=== PATIENT | male | born 1955 | race Caucasian/White ===

== ENCOUNTER 2019-08-23 13:44 | Outpatient (CLI) | payer MEDICARE, SELFPAY | END 2019-08-23 13:45 | disposition home or self-care (01) | LOC: CHSLAB 13:48 | PROVIDERS: PCP Physician Assistant; Visit Provider Specialist | DX: L72.8 Other follicular cysts of the skin and subcutaneous tissue (principal) | CPT/HCPCS: 88305 ==

== ENCOUNTER 2020-03-20 09:44 | Outpatient (CLI) | payer MEDICARE, MEDICAID, SELFPAY | END 2020-03-20 09:45 | disposition home or self-care (01) | PROVIDERS: PCP Family Medicine; Visit Provider Specialist | DX: C44.41 Basal cell carcinoma of skin of scalp and neck (principal) | CPT/HCPCS: 88305 ==

== ENCOUNTER 2021-10-03 05:49 | Inpatient (IN) | payer OTHER, SELFPAY ==
[2021-10-03] VITALS (28 sets, daily range): BP systolic 90–145; BP diastolic 47–89; PULSE 55–103; RESP 14–26; TEMP 36.5–37.1; O2SAT 88–96; BMI 28.4
--- NOTE | 2021-10-03 | ECHO_ITS ---
Patient Info Name: Ruperto Friedman Age: 66 years : 1955 Gender: Male Ht: 72 in Wt: 207 lbs BSA: 2.20 m2 HR: 71 bpm BP: 118 / 89 mmHg Technical Quality: Poor Exam Date: 10/03/2021 10:03 AM Exam Location: [facility] Patient Status: Inpatient Admit Date: 10/03/2021 Staff Ordering Physician: Mathew Farris MD Medical Underwriter: Mague Elizondo RDCS Attending Provider: Mathew Farris MD Exam Type: CA echo dop color flow w con Study Info Indications I21.3 - ST elevation (STEMI) myocardial infarction of unspecified site Complete two-dimensional, color flow and Doppler transthoracic echocardiogram is performed with contrast to opacify the left ventricle and to improve the deliniation of the left ventricle endocardial borders. Contrast/Agitated Saline Contrast/Ag. Saline: Definity Amount: 2.00 ml Administered By: Mague Elizondo [facility] Existing IV Access: Yes IV Access Condition: patent with no signs of infiltration Reason for Poor Study: poor echocardiographic windows Summary 1. Left ventricular chamber dimension is moderately enlarged. 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 2. Left ventricular systolic function is severely reduced, estimated at 25-30%. 3. The left ventricular diastolic function is abnormal. 4. There is mild mitral valve calcification. 5. There is mild tricuspid valve regurgitation. Left Ventricle Left ventricular chamber dimension is moderately enlarged. 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 Left ventricular systolic function is severely reduced, estimated at 25-30%. The left ventricular diastolic function is abnormal. Right Ventricle Right ventricular chamber dimension is normal. Right ventricular systolic function is normal. Left Atria Left atrial chamber dimension is normal. Right Atria Right atrial chamber dimension is normal. Aortic Valve The aortic valve is not well visualized. There is no aortic valve stenosis. There is no aortic valve regurgitation. Pulmonic Valve The pulmonic valve is not well visualized. There is no pulmonic valve stenosis. There is no pulmonic regurgitation. Mitral Valve There is no mitral valve stenosis. There is no mitral valve regurgitation. There is mild mitral valve calcification. Tricuspid Valve The tricuspid valve leaflets are not well visualized. There is no significant tricuspid valve stenosis. There is mild tricuspid valve regurgitation. Pericardium/Pleural The pericardium appears normal. Inferior Vena Cava Normal inferior vena cava with >50% collapse upon inspiration consistent with normal right atrial pressure, 5 mmHg. Aorta The aortic root size at the sinus of Valsalva is normal. Left Ventricular Outflow Tract Name Value Normal LVOT 2D LVOT Diameter 2.09 cm LVOT Doppler LVOT Peak Gradient 3 mmHg LVOT Mean Gradient 2 mmHg LVOT VTI 20.59 cm LVOT VTI/AV VTI Ratio 0.94 LVOT Stroke Volume
--- NOTE | ~2021-10-03 | XR_ITS ---
EXAMINATION: XR abdomen obstructive series DATE: 10/03/2021 10:56 INDICATION: Prior radiograph with some suspicion for possible free intraperitoneal gas. TECHNIQUE: Frontal supine and upright views of the abdomen were obtained. COMPARISON: Chest radiograph dated 10/03/2021 at 6:09 AM FINDINGS: Increasing aeration underlying a curved bandlike region of discoid atelectasis at the right lower jil g zone which likely account for the appearance of lucency under the diaphragm on the prior radiograph . No pneumoperitoneum. Additional scattered mild linear discoid atelectasis in the bilateral mid and left lower lung zones. No dilated loops of gas-filled bowel to suggest obstruction. Excreted contrast in the bilateral renal collecting systems and bladder related to the prior cardiac catheterization. Heart size is normal. Median sternotomy wires and mediastinal surgical clips are seen, likely from pr ior coronary artery bypass grafting. IMPRESSION: 1. No free intraperitoneal gas or dilated gas-filled loops of bowel to suggest obstruction. 2. Scattered discoid atelectasis in the bilateral mid and lower lung zones which at the right lung ba se likely accounting for the artifactual appearance of pneumoperitoneum on the prior chest radiograph . Reviewed, dictated and finalized at location A. IMPRESSION: 1. No free intraperitoneal gas or dilated gas-filled loops of bowel to suggest obstruction. 2. Scattered discoid atelectasis in the bilateral mid and lower lung zones whic h at the right lung base likely accounting for the artifactual appearance of pn eumoperitoneum on the prior chest radiograph.
--- NOTE | ~2021-10-03 | XR_ITS ---
EXAMINATION: XR chest 1V portable DATE: 10/04/2021 05:57 INDICATION: Shortness of breath TECHNIQUE: frontal view of the chest was obtained. COMPARISON: Chest radiograph dated 10/03/2021 FINDINGS: Opacity in the bilateral mid and lower lung zones which includes some linear bandlike discoid atelect asis/scarring as well as more diffuse mild increased interstitial pattern and increasing groundglass opacities. Very small bilateral pleural effusions. No pneumothorax. The cardiomediastinal silhouette is normal. Median sternotomy wires and mediastinal surgical clips are seen, likely from prior coronar y artery bypass grafting. IMPRESSION: 1. Increasing opacities in the bilateral lower lung zones which could represent atelectasis, mild pul monary edema, pneumonia or some combination thereof. Reviewed, dictated and finalized at location A. IMPRESSION: 1. Increasing opacities in the bilateral lower lung zones which could represent atelectasis, mild pulmonary edema, pneumonia or some combination thereof.
--- NOTE | ~2021-10-03 | XR_ITS ---
EXAMINATION: XR chest 1V portable DATE: 10/03/2021 06:11 INDICATION: Chest pain with ST elevation myocardial infarction TECHNIQUE: frontal view of the chest was obtained. COMPARISON: None FINDINGS: There are opacities at the bilateral lung bases with blunting at left costophrenic angle which could represent atelectasis or pneumonia with possible superimposed very small left pleural effusion. No pn eumothorax or right-sided pleural effusion. Calcified nodule at the right lower lung zone consistent with old granulomatous disease. The cardiomediastinal silhouette is normal. Median sternotomy wires a nd mediastinal surgical clips are seen, likely from prior coronary artery bypass grafting. There is i ncreased lucency underlying the right hemidiaphragm which raises some suspicion for free intraperiton eal gas. IMPRESSION: 1. Bibasilar opacities which could represent atelectasis and/or pneumonia. 2. Possible very small left pleural effusion. 3. Lucency under the right hemidiaphragm and could not exclude free intraperitoneal gas. The patient is currently in the cardiac Thermograph Operator and per discussion with the technologist currently mid procedure . I discussed these findings and recommendation for decubitus imaging of the abdomen when clinically appropriate. Reviewed, dictated and finalized at location A. IMPRESSION: 1. Bibasilar opacities which could represent atelectasis and/or pneumonia. 2. Possible very small left pleural effusion. 3. Lucency under the right hemidiaphragm and could not exclude free intraperito farida gas. The patient is currently in the cardiac Thermograph Operator and per discussion w ith the technologist currently mid procedure. I discussed these findings and re commendation for decubitus imaging of the abdomen when clinically appropriate.
--- NOTE | 2021-10-03 05:46 | ED.CHESTPAIN ---
HPI - Chest Pain General Chief Complaint: Chest Pain Stated Complaint: code stemi eta 10 min Source: patient and EMS Mode of arrival: EMS Limitations: no limitations History of Present Illness HPI narrative: The patient is a 66-year-old male with history of hypertension, hyperlipidemia, coronary artery disease, presenting to the emergency department for evaluation of chest pain. Patient states he has felt unwell most of the evening, started to experience left-sided chest pain, indigestion type symptoms approximately 2 hours ago. Patient without vomiting, diaphoresis or shortness of breath. EMS was called, when they responded to the patient, EKG was concerning for STEMI. Patient reports that he previously lived in [place], has a history of numerous cardiac stents. Patient denies any leg swelling or calf pain. Denies history of congestive heart failure. He does smoke. Denies drug use or alcohol use. Last oral intake 2 PM October 02. Pt is not on any anticoagulation. Patient currently denies any abdominal pain. No ripping or tearing sensation to the flank or abdomen. Denies any upper back pain. He does report pressure in his left shoulder. He denies jaw pain or neck pain. Patient was given an aspirin in route. Related Data Home Medications Medication Instructions Recorded Confirmed albuterol sulfate 3 puff INHALATION PRN 10/03/21 10/03/21 atorvastatin 80 mg PO HS 10/03/21 10/03/21 citalopram 10 mg PO DAILY 10/03/21 10/03/21 loratadine 10 mg PO USEASDIRECTD 10/03/21 10/03/21 lorazepam 0.5 mg PO DAILY PRN 10/03/21 10/03/21 omeprazole 40 mg PO QAM 10/03/21 10/03/21 tretinoin 1 applic TOPICAL DAILY 10/03/21 10/03/21 umeclidinium-vilanterol [Anoro 1 inh INHALATION DAILY 10/03/21 10/03/21 Ellipta] Allergies Allergy/AdvReac Type Severity Reaction Status Date / Time Iodinated Contrast Media Allergy Unknown Verified 10/03/21 06:27 Review of Systems Review of Systems: CONSTITUTIONAL: Denies fever HEENT: Denies neck pain CARDIOVASCULAR: Reports chest pain RESPIRATORY: Denies cough or dyspnea. GASTROINTESTINAL: Denies abdominal pain, reports nausea without vomiting SKIN: Denies rash MUSCULOSKELETAL: Denies back pain NEUROLOGIC: Denies headache [facility] Past Medical History Medical History (Updated 10/03/21 @ 09:26 by Carson Dalton MD) COPD (chronic obstructive pulmonary disease) On home oxygen 4 L Coronary artery disease Status post CABG in 2007 Hyperlipidemia Hypertension Surgical History Surgical History (Updated 10/03/21 @ 09:12 by Carson Dalton MD) Hx of CABG In 2007 Family History Family History (Updated 10/03/21 @ 09:38 by Tina Galarza RN) Mother Heart disease Heart attack Father Heart disease Heart attack Social History Social History (Updated 10/03/21 @ 09:13 by Carson Dalton MD) Smoking packs per day: 1 Smoking cigarettes per day: 20.0 Years smoked: 41 Smoking pack-years: 41.00 Smoking status: Current every day smoker Tobacco type: cigarettes Alcohol intake: never Substance use: never Substance use type: does not use Living arrangements: with family Gender identity (if verbalized by the patient): Male Spiritual care concerns: No Exam Narrative: GENERAL: Awake, alert, conversant HEAD: Normocephalic, atraumatic. EYES: PERRLA and EOMI. ENT: Nares clear, no rhinorrhea or epistaxis. Mucous membranes moist. NECK: Supple. CHEST: No respiratory distress, breathing even and non labored HEART: Regular rate, sinus rhythm ABDOMEN:Non distended, non tender, ventral wall hernia, nontender, no overlying erythema, ecchymosis EXTREMITIES: Normal range of motion. No edema. No calf tenderness, erythema. SKIN: Warm, dry, no rash. NEURO:No focal deficits. Alert and oriented x3 Course Vital Signs Vital signs: Vital Signs Temperature 36.9 C 10/03/21 05:49 Pulse Rate 73 10/03/21 05:49 Respiratory Rate 14 10/03/21 05:49 Blood Pressure 145/76 H
--- NOTE | 2021-10-03 05:54 | ECG_ITS ---
Measurements Intervals [place] Rate: 75 P: 55 DC: 167 QRS: 37 QRSD: 108 T: 80 QT: 398 QTc: 445 Interpretive Statements SINUS RHYTHM INFERIOR MYOCARDIAL INFARCTION , POSSIBLY ACUTE [40+ ms Q WAVE AND/OR ST/T ABNORMALITY IN II/aVF] ACUTE NM ABNORMAL ECG NO PREVIOUS ECG AVAILABLE FOR COMPARISON Electronically Signed On 10-03-2021 15:39:23 CDT by Qamar Zapata M.D.
[2021-10-03] MEDS: ONDANSETRON INJ 4 MG/2 ML VIAL IV PUSH (06:01)
[2021-10-03] MEDS: MORPHINE SULFATE (*CRX) 4 MG/ML INJ IV PUSH (06:01)
[2021-10-03] MEDS: HEPARIN SODIUM 5,000 UNITS/ML VIAL 4000 UNITS IV PUSH (06:04)
[2021-10-03 06:11] LABS: Basophils Absolute Auto 0.1 K/mm3 (0.0-0.1); Basophils Percent Auto 0.5 % (0.2-1.2); Eosinophils Absolute Auto 0.1 K/mm3 (0-0.3); Eosinophils Percent Auto 0.6 % (0-4.4); Hematocrit 49.6 % (42.0-52.0); Hemoglobin 16.8 g/dL (14.0-18.0); Immature Granulocyte Absolute 0.07 K/mm3 (0.00-0.031); Immature Granulocyte Percent A 0.5 % (0-0.5); Lymphocytes Absolute Auto 1.95 K/mm3 (0.9-3.2); Lymphocytes Percent Auto 13.8 % (18.3-44.2); Mean Corpuscular HGB Conc 33.9 g/dl (32-36); Mean Corpuscular Hemoglobin 31.9 pg (26-34); Mean Corpuscular Volume 94.3 fl (80-100); Mean Platelet Volume 10.1 fl (7.4-10.4); Monocytes Absolute Auto 0.9 K/mm3 (0.1-0.6); Neutrophils Absolute Auto 11.1 K/mm3 (1.3-6.7); Neutrophils Percent Auto 78.6 % (45.5-73.1); Platelet Count Result 185 k/mm3 (150-375); Red Blood Count 5.26 M/mm3 (4.6-6.20); Red Cell Distribution Width 13.3 % (11.5-14.5); White Blood Count 14.2 K/mm3 (4.5-10.0)
[2021-10-03 06:19] LABS: Anion Gap 8 mmol/L (8-16); Blood Urea Nitrogen 18 mg/dL (9-20); Calcium 8.5 mg/dL (8.4-10.2); Carbon Dioxide 21 mmol/L (22-30); Chloride 110 mmol/L (98-107); Estimated CRCL calculation 96 ml/min; Estimated Glomerular Filt Rate > 60; Glucose 123 mg/dL (65-110); Potassium 4.2 mmol/L (3.4-5.0); Sodium 139 mmol/L (137-145)
[2021-10-03 06:33] LABS: NT Pro B Type Natriuretic Pept 229 pg/mL (5-100); Troponin I 0.278 ng/mL (0.000-0.034)
--- NOTE | 2021-10-03 06:40 | PM.CNCAR ---
Assessment and Plan Assessment and plan (1) Coronary artery disease: Code(s): I25.10 - Atherosclerotic heart disease of [place] coronary artery without angina pectoris Status: Acute Assessment and Plan: Inf post wall SC, Hx of CABG, Hx of contrast allregy pretreated with IV solumedrol and benadryl s/p PCI to SVG to OM3, Plan: DAPT, Statin, ASA, B-shaista, ACEI TTE, cardiac rehab History of Present Illness History of Present Illness Consult date/time: 10/03/21 06:40 Consult reason: chest pain Reason For Visit: STEMI Narrative: acute chest pain started at 3 am (3:30 min ago), while awake, left side, aching, non radiating, severe, no precipitating or relieving factors. Hx of CAD and prior bypass. Review of Systems Review of Systems: All systems reviewed & are unremarkable except as noted in HPI and below [facility] Surgical History Surgical History (Updated 10/03/21 @ 06:42 by Mathew Farris MD) Hx of CABG Social History Social History (Updated 10/03/21 @ 05:58 by Dayanna Kc MD) Smoking status: Current every day smoker Alcohol intake: never Substance use: never Living arrangements: with family Gender identity (if verbalized by the patient): Male Meds Home Medications and Allergies Allergies Allergy/AdvReac Type Severity Reaction Status Date / Time Iodinated Contrast Media Allergy Unknown Verified 10/03/21 06:27 Vital Signs Vital Signs - 24 hr 10/03/21 05:49 10/03/21 06:18 Temperature 36.9 C Pulse Rate 73 75 Respiratory Rate 14 20 Blood Pressure 145/76 H 118/89 Pulse Oximetry 92 94 Exam Const: General: comfortable and no acute distress Other: Able to lie flat HENMT: General nose exam: Normal nares present and no epistaxis Mouth: Yes moist mucous membranes Eyes: Sclera: sclerae normal Pupils: Equal, round and reactive pupils present Neck: Neck: supple and no JVD Carotids: no bruits Resp: Auscultation: clear to auscultation bilaterally and lung sounds not diminished Other: No chest wall tenderness Cardio: Rate: regular rate Rhythm: regular rhythm Heart sounds: no gallops, no murmurs and no rubs GI: GI Palp: Yes Soft to palpation and No Tenderness to palpation present (GI) Auscultation: normal bowel sounds Skin: General skin exam: normal color, rashes and/or lesions noted and no erythema Other: Warm Neuro: Cranial nerves: Yes Equal, round and reactive pupils present Speech: normal speech Other: No obvious focal deficit or facial asymmetry Extrem: General: no edema Other: Normal capillary refills Intact distal pulses. Results Labs and Meds Result diagrams: 10/03/21 06:04 10/03/21 06:04 Lab results: Cardiac Enzymes 10/03/21 Range/Units 06:04 Troponin I 0.278 H* (0.000-0.034) ng/mL Coagulation 10/03/21 Range/Units 06:04 PT 13.0 (11.1-14.7) Seconds APTT 33.0 (22.3-36.8) SECONDS CBC 10/03/21 Range/Units 06:04 WBC 14.2 H (4.5-10.0) K/mm3 RBC 5.26 (4.6-6.20) M/mm3 Hgb 16.8 (14.0-18.0) g/dL Hct 49.6 (42.0-52.0) % Plt Count 185 (150-375) k/mm3 Lymph # (Auto) 1.95 (0.9-3.2) K/mm3 [place] # (Auto) 0.9 H (0.1-0.6) K/mm3 Eos # (Auto) 0.1 (0-0.3) K/mm3 Baso # (Auto) 0.1 (0.0-0.1) K/mm3 Comprehensive Metabolic Panel 10/03/21 Range/Units 06:04 Sodium 139 (137-145) mmol/L Potassium 4.2 (3.4-5.0) mmol/L Chloride 110 H (98-107) mmol/L Carbon Dioxide 21 L (22-30) mmol/L BUN 18 (9-20) mg/dL Creatinine 0.70 (0.7-1.3) mg/dL Glucose 123 H (65-110) mg/dL Calcium 8.5 (8.4-10.2) mg/dL Patient Weight 10/03/21 23:59 Weight 94 kg Imaging and Cardiology EKG results: image reviewed (Sinus and inf post wall SC )
--- NOTE | 2021-10-03 08:18 | P.PCNCC_ITS ---
Cardiac Cath Procedure Note Date of procedure:: 10/03/21 Performing physician:: Mathew Farris MD Assessment and Plan Additional Plan PROCEDURE 1. LHC and coronary angiogram and Bypass angiogram 2. PCI to culprit lesion of NV in SVG with MEGHANN and use of SVG filter and aspiration thrombectomy 3. Intra-vascular ultrasonography 4. Intracoronary adenosine and nitroglycerine INDICATION STEMI inf post wall HISTORY 66 Yrs old male with acute chest pain and post wall NV PROCEDURE DETAILS Consent obtained and access site prepped and draped in sterile fashion Time out was done Sedation was done with versed 1 and fentanyl 150 with continuos monitoring and supervision by myself and RN Start time: 6:46 End time: 8:11 Access Obtained in rt CF artery with modified Seldinger technique Coronary angiogram was done using JL4 and JR4, bypass angiogram was done with JR4 HEMODYNAMICS Aorta: 100/70 LV: 100/20 CORONARY ANGIOGRAM Left main: bifrucates into LAD and LCX and ramus intermedius LAD: large vessel that gives diagonal branches, LAD is CLOTH BOLT BANDER proximally with ISR after giving small diagonal. Remaining of LAD is supplied by BROWN. LCX: Non dominant vessel that gives OM branches, CLOTH BOLT BANDER of LCX proximally with ISR and OM3 is filling from SVG that is totally occluded. RCA: Dominant vessel that gives PDA and rPL. RCA is totally occluded proximally with CLOTH BOLT BANDER/ISR in mid RCA. Ramus: intermediate size vessel with no obstructive disease. SVG to PDA: patent and gives supply to PDA and retrograde into rPL. SVG to OM3: patent and gives supply OM3, ostial sever disease and all proximal to distal with large burden of thrombus. BROWN to LAD: patent and gives supply to LAD that retorgrade filing diagonal PCI DETAILS #1 lesion: SVG to OM3 Pre-intervention: 100% occlusion with large thrombus filling all graft, GREGORIO 0 flow Guide catheter: AL1 Guide wire: Spider filter 6 mm was used to cross lesion into distal vessel and deployed distally Balloon angioplasty: Josue Pro 3.5 * 15 balloon was used to dilate ostium at 12 EM and align guide engagement. Aspiration thrombectomy was done using pneumpra catheter CAT Rx. IVUS done and revealed no more large thrombus burden but residual disease in ostium of SVG. Stent: Orsiro 4.0 * 22 mm stent was deployed proximally covering ostium, post stent angioplasty was done with 4.0 * 15 mm NC balloon at 20 EM. IVUS was done and showed stent fully expanded and well apposed. Aspiration thrombectomy was done and filter was retrieved and IC adenosine was give 400 mcg then 200 mcg of NTG. Post-intervention: 0% residual stenosis and GREGORIO 3 flow COMPLICATION: None CONCLUSION Successful PCI to SVG to OM3 with filter wire, Aspiration thrombectomy and MEGHANN with 4.0 * 22 and IVUS guided RECOMMENDATION DAPT Statin TTE Cardiac Rehab
[2021-10-03 08:24] LABS: Activated Clotting Time 267 SEC (74-137)
[2021-10-03 08:24] LABS: Activated Clotting Time 249 SEC (74-137)
[2021-10-03 08:24] LABS: Activated Clotting Time 178 SEC (74-137)
--- NOTE | 2021-10-03 09:03 | ECG_ITS ---
Measurements Intervals [place] Rate: 76 P: 70 GA: 177 QRS: 42 QRSD: 107 T: 71 QT: 405 QTc: 455 Interpretive Statements SINUS RHYTHM POSSIBLE INFERIOR MYOCARDIAL INFARCTION , PROBABLY OLD [30 ms Q WAVE IN II/aVF] BASELINE ARTIFACT NONSPECIFIC ST ABNORMALITY ABNORMAL ECG COMPARED TO ECG 10/03/2021 05:54:[address] ELEVATIONS NO LONGER APPRECIATED Electronically Signed On 10-03-2021 15:43:27 CDT by Qamar Zapata M.D.
--- NOTE | 2021-10-03 09:11 | WPDCNINT ---
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 Do not see any mention of arrhythmia in the note. Requested nurse to page cardiology to confirm order for lidocaine and details (2) Hypertension: Code(s): I10 - Essential (primary) hypertension Status: Chronic Assessment and Plan: Continue beta-shaista Monitor and adjust accordingly (3) Hyperlipidemia: Code(s): E78.5 - Hyperlipidemia, unspecified Status: Acute Assessment and Plan: Resume atorvastatind (4) COPD (chronic obstructive pulmonary disease): Code(s): J44.9 - Chronic obstructive pulmonary disease, unspecified Status: Acute Assessment and Plan: Patient does not appear in exacerbation Continue Albuterol p.r.n. He is on 4 L of oxygen at home on baseline (5) Coronary artery disease: Code(s): I25.10 - Atherosclerotic heart disease of [place] coronary artery without angina pectoris Status: Acute Assessment and Plan: See above (6) Aortic aneurysm: Code(s): I71.9 - Aortic aneurysm of unspecified site, without rupture Status: Acute Assessment and Plan: Patient reports he had a CT done 3 months ago which showed possible in resume which was very small on the CT. I will try to obtain records (7) Abnormal chest x-ray: Code(s): R93.89 - Abnormal findings on diagnostic imaging of other specified body structures Status: Acute Assessment and Plan: Chest x-ray done in the ED showed possible lucency under right hemidiaphragm I will repeat KUB at this time. 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 Per patient pain was burning in quality 04/14 in the center of the chest and radiated to his neck and left arm it was associated with shortness of breath and nausea. No vomiting no dizziness or lightheadedness no sweating. In ED patient was diagnosed with ST segment elevation IA and was taken to cardiac catheterization lab. Patient underwent PCI to venous graft to left circumflex. Patient now admitted to ICU for further evaluation management. He states that his symptoms have resolved and he denies any pain at this time. He also denies any other symptoms. Review of system was also positive for shortness of breaths without oxygen and shortness of breath on exertion. All other systems were reviewed and were negative Review of Systems Review of Systems: All systems reviewed & are unremarkable except as noted in HPI and below (HPI) PENDING SALE TO [facility] Past Medical History Medical History (Updated 10/03/21 @ 09:26 by Carson Dalton MD) COPD (chronic obstructive pulmonary disease) On home oxygen 4 L Coronary artery disease Status post CABG in 2007 Hyperlipidemia Hypertension Surgical History Surgical History (Updated 10/03/21 @ 09:12 by Carson Dalton MD) Hx of CABG In 2007 Social History Social History (Updated 10/03/21 @ 09:13 by Carson Dalton MD) Smoking packs per day: 1 Smoking cigarettes per day: 20.0 Years smoked: 41 Smok
--- NOTE | 2021-10-03 09:22 | PC.NURSE ---
Report received by CHRISTIANO Rdz with blood bank laboratory technologist team at 0814.
--- NOTE | 2021-10-03 09:23 | ADMGEN ---
This patient, Ruperto Friedman, was admitted to Intensive Care Unit-5 at 0830 from the general production laborer. Patient/family oriented to hospital policies and general routines including ID bracelet, bed and alarms, visiting hours, pain management, procedures, bathroom and other care routines, personal items, smoking policy, room service/diet, and visiting hours. Information on how to activate the Rapid Response Team has been discussed. Patient/Family are encouraged to report perceived risks to care and to ask questions if they do not understand what they are told or what they should do.
[2021-10-03] MEDS: ASPIRIN 81 MG ENTERIC TABLET PO (09:55)
[2021-10-03] MEDS: METOPROLOL TARTRATE 25 MG TABLET PO ×2 (09:55→21:03)
[2021-10-03 10:09] LABS: Magnesium 1.9 mg/dL (1.6-2.3)
[2021-10-03] MEDS: PERFLUTREN LIPID MICROSPHERES 1.5 ML VIAL DILUTED TO 10 ML TOTAL VOLUME IV PUSH (10:29)
--- NOTE | 2021-10-03 10:29 | IVDEFINITY ---
Prior to administration of IV Definity the patient was educated on the risks and benefits of the imaging enhancing agent including potential adverse side effects. The patient verbalized understanding. Allergies were verified. No exclusion criteria were identified and at least one of the following inclusion criteria were met: 1) physician request, 2) patient technically difficult to image (per the [place] [employer]chocardi[employer] guidelines of two or more segments not discernable within the apical view), or 3) questionable left ventricular function. ?
[2021-10-03] MEDS: SODIUM CHLORIDE 0.9% IV 1,000 ML 125 ML IV CONT (11:05)
--- NOTE | 2021-10-03 14:54 | PC.NURSE ---
Admission packet with information regarding cardiac rehabilitation presented and discussed with patient at 1430.
[2021-10-03] MEDS: LORazepam (*CRX) 0.5 MG TABLET PO (21:03)
[2021-10-03] MEDS: TICAGRELOR 90 MG TABLET PO (21:03)
[2021-10-03] MEDS: ALBUTEROL SULFATE NEB 2.5 MG/0.5 ML INH (23:59)
[2021-10-04] VITALS (32 sets, daily range): BP systolic 84–143; BP diastolic 52–91; PULSE 54–88; RESP 16–32; TEMP 36.2–37.2; O2SAT 86–98
[2021-10-04 04:24] LABS: Hematocrit 42.5 % (42.0-52.0); Mean Corpuscular HGB Conc 32.9 g/dl (32-36); Mean Corpuscular Hemoglobin 31.3 pg (26-34); Mean Corpuscular Volume 95.1 fl (80-100); Mean Platelet Volume 9.9 fl (7.4-10.4); Platelet Count Result 149 k/mm3 (150-375); Red Blood Count 4.47 M/mm3 (4.6-6.20); Red Cell Distribution Width 13.5 % (11.5-14.5); White Blood Count 17.5 K/mm3 (4.5-10.0)
[2021-10-04 04:35] LABS: Alanine Aminotransferase 42 U/L (4-50); Albumin Level 3.3 g/dL (3.5-5.1); Alkaline Phosphatase 64 U/L (38-126); Anion Gap 4 mmol/L (8-16); Aspartate Amino Transferase 192 U/L (17-59); Bilirubin,Total 0.6 mg/dL (0.2-1.3); Blood Urea Nitrogen 14 mg/dL (9-20); Calcium 7.8 mg/dL (8.4-10.2); Carbon Dioxide 22 mmol/L (22-30); Chloride 112 mmol/L (98-107); Estimated CRCL calculation 76 ml/min; Estimated Glomerular Filt Rate > 60; Glucose 95 mg/dL (65-110); Magnesium 1.6 mg/dL (1.6-2.3); Potassium 3.8 mmol/L (3.4-5.0); Sodium 138 mmol/L (137-145)
[2021-10-04] MEDS: ALBUTEROL SULFATE NEB 2.5 MG/0.5 ML INH (04:51)
[2021-10-04] MEDS: FUROSEMIDE INJ 40 MG/4 ML VIAL 20 MG IV PUSH (05:34)
[2021-10-04] MEDS: methylPREDNISolone SOD SUCC 125 MG VIAL IV PUSH (05:35)
[2021-10-04] MEDS: ALBUTEROL SULFATE (*SP) INHALER 2 PUFF INHALATION (06:05)
--- NOTE | 2021-10-04 06:57 | PC.NURSE ---
05:00 Patient in respiratory distress. Oxygen increased, auditor in charge present. See new orders for interventions. 05:45 Patient in respiratory distress again. Very diaphoretic. New orders carried out. Patient resting comfortably after interventions were carried out.
[2021-10-04 07:59] LABS: Alveolar/Arterial O2 Gradient 390.5 mmHg; Fractional Inspired Oxygen 100 %; HCO3 ABG 23.9 mEq/l (22.0-26.0); Oxygen Content ABG 21.3 %vol (16.0-22.0); Oxygen Saturation ABG 99.6 % (95.0-100.0); Oxyhemoglobin 97.8 % THb (90.0-100.0); PCO2 ABG 40.7 mmHg (35.0-45.0); PO2 ABG 281.8 mmHg (80.0-100.0); PO2 FiO2 Ratio Arterial Blood 2.82 %; pH ABG 7.387 (7.350-7.450)
[2021-10-04 08:00] LABS: Device NON-INVASIVE VENT; Modified Allen's Test Pass; Non-Invasive Inspiratory Pressure 14 CMH2O; Non-Invasive Vent Rate 20 /MIN; Site Drawn RIGHT RADIAL
[2021-10-04 08:01] LABS: Non-Invasive Expiratory Pressure 7 CMH2O
[2021-10-04 08:33] LABS: Procalcitonin 0.1 ng/mL
[2021-10-04] MEDS: TICAGRELOR 90 MG TABLET PO ×2 (08:50→21:02)
[2021-10-04] MEDS: ATORVASTATIN 40 MG TABLET 80 MG PO (08:50)
[2021-10-04] MEDS: PANTOPRAZOLE 40 MG TABLET PO (08:50)
[2021-10-04] MEDS: CITALOPRAM HYDROBROMIDE 10 MG TABLET PO (08:51)
[2021-10-04] MEDS: ASPIRIN 81 MG ENTERIC TABLET PO (08:51)
[2021-10-04] MEDS: ENOXAPARIN 40 MG/0.4 ML SYRINGE SUB-Q (08:51)
--- NOTE | 2021-10-04 08:58 | WPDINTPN ---
Progress Note: A&P Assessment and Plan (1) ST elevation (STEMI) myocardial infarction: Code(s): I21.3 - ST elevation (STEMI) myocardial infarction of unspecified site Status: Acute Assessment and Plan: Patient has a history of coronary disease status post CABG in 2007 Presented with STEMI and now status post PCI with stent placement to graft to left circumflex Currently chest pain-free Aspirin and Brilinta, Statin beta-shaista and ACEI held this morning due to soft blood pressure Continue ICU monitoring Cardiac rehab Echo Summary 1. Left ventricular chamber dimension is moderately enlarged. 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 2. Left ventricular systolic function is severely reduced, estimated at 25-30%. 3. The left ventricular diastolic function is abnormal. 4. There is mild mitral valve calcification. 5. There is mild tricuspid valve regurgitation. (2) Hypertension: Code(s): I10 - Essential (primary) hypertension Status: Chronic Assessment and Plan: Hold meds this morning as patient's blood pressure soft after receiving Lasix Monitor and adjust accordingly (3) Hyperlipidemia: Code(s): E78.5 - Hyperlipidemia, unspecified Status: Acute Assessment and Plan: Resume atorvastatind (4) COPD (chronic obstructive pulmonary disease): Code(s): J44.9 - Chronic obstructive pulmonary disease, unspecified Status: Acute Assessment and Plan: Currently on BiPAP Does not appear to be in COPD exacerbation but did receive a dose of steroid Continue Albuterol p.r.n. and anoro Ellipta He is on 4 L of oxygen at home on baseline (5) Coronary artery disease: Code(s): I25.10 - Atherosclerotic heart disease of [place] coronary artery without angina pectoris Status: Acute Assessment and Plan: See above (6) Aortic aneurysm: Code(s): I71.9 - Aortic aneurysm of unspecified site, without rupture Status: Acute Assessment and Plan: Patient reports he had a CT done 3 months ago which showed possible in resume which was very small on the CT. I have requested records (7) Abnormal chest x-ray: Code(s): R93.89 - Abnormal findings on diagnostic imaging of other specified body structures Status: Acute Assessment and Plan: Chest x-ray done in the ED showed possible lucency under right hemidiaphragm repeat KUB was done in ICU and did not show any free air (8) Acute respiratory failure: Code(s): J96.00 - Acute respiratory failure, unspecified whether with hypoxia or hypercapnia Status: Acute Assessment and Plan: Likely secondary to congestive heart failure and pulmonary edema Patient's EF is 25-30% on echo He was placed on BiPAP which I will continue He was given Lasix I checked ABG and reviewed He does have elevated white count but has been afebrile and his procalcitonin level was negligible suggesting against any infectious etiology Additional Plan DVT prophylaxis -start Lovenox from tomorrow Stress ulcer prophylaxis -continue home PPI Nutrition -heart healthy diet Code Status - Full Code Total Critical Care Time - 32 minutes Due to a high probability of clinically significant, life threatening deterioration, the patient required my highest level of preparedness to intervene emergently and I personally spent this critical care time directly and personally managing the patient. This critical care time included obtaining a history; examining the patient; pulse oximetry; ordering and review of studies; arranging urgent treatment with development of a management plan; evaluation of patient's response to treatment; frequent reassessment; and discussions with other providers. It was exclusive of separately billable procedures and treating other patients and teaching time. Please see Assessment and Plan section and the rest of the note for further information on patient assessment and treatment Subj
[2021-10-04] MEDS: KCL 20 MEQ/SW 100 ML 100 ML 50 MEQ IVPB (10:05)
[2021-10-04] MEDS: MAGNESIUM SULF 2 GM/WATER 50ML 2 GM/50 ML BAG IVPB (10:06)
--- NOTE | 2021-10-04 14:03 | PM.PNCARD ---
Progress Note: A&P Assessment and Plan (1) Coronary artery disease: Code(s): I25.10 - Atherosclerotic heart disease of [place] coronary artery without angina pectoris Status: Acute Assessment and Plan: -acute inferior posterior ST-elevation myocardial infarction. -ventricular tachycardia. -patient acute combined systolic and diastolic heart failure exacerbation. -history of CABG. -hyperlipidemia This 66-year-old patient presents with acute inferior posterior myocardial infarction and was found to have high-grade stenosis of ostial SVG to OM with extensive clotting and thrombus inside the graft. He underwent aspiration thrombectomy and then stenting of the ostial graft. He developed ventricular tachycardia prior and after the stenting. -since there is no recurrence of ventricular tachycardia we can discontinue lidocaine drip. -continue aspirin and Brilinta. -his echocardiogram shows ejection fraction 25-30%. This morning had an episode of shortness of breath and chest x-ray suggestive of pulmonary edema. Received 20 mg IV Lasix. He will need Life Vest on discharge from the hospital. -continue metoprolol 25 mg b.i.d. and lisinopril 10 mg daily. His blood pressure was soft this morning on both medications were held this morning. Will try just to give the metoprolol 25 mg b.i.d. -Lasix 20 mg p.o. starting tomorrow Subjective Date/time seen: DOS: 10/04/21 14:03: Had an episode of shortness of breath this morning. Chest x-ray suggestive of possible pulmonary edema. Given IV Lasix. He appears to be comfortable. Review of telemetry shows a short burst of VT around 2:00 a.m. consistent 3 beats but otherwise no significant arrhythmia since that time. Remains on lidocaine drip. Denies chest pain Review of Systems Eyes: Eyes: Denies blurry vision ENT: Denies nasal congestion Cardiovascular: Cardiovascular: Denies chest pain Respiratory: Respiratory: Denies hemoptysis and Reports dyspnea Gastrointestinal: Gastrointestinal: Denies nausea and Denies vomiting Musculoskeletal: Musculoskeletal: Denies joint swelling Integumentary/Breasts: Skin/Breast: Denies skin pain Neurologic: Denies confusion Psychiatric: Psychiatric: Denies confusion Endocrine: Endocrine: Reports fatigue Hematologic/Lymphatic: Hematologic/Lymphatic: Denies easy bleeding Allergic/Immunologic: Allergic/Immunologic: Denies GI upset with certain foods Exam Const: General: comfortable and no acute distress Other: Able to lie flat HENMT: General nose exam: Normal nares present and no epistaxis Mouth: Yes moist mucous membranes Eyes: Sclera: sclerae normal Pupils: Equal, round and reactive pupils present Neck: Neck: supple and no JVD Carotids: no bruits Resp: Auscultation: clear to auscultation bilaterally and lung sounds not diminished Other: No chest wall tenderness Cardio: Rate: regular rate Rhythm: regular rhythm Heart sounds: no gallops, no murmurs and no rubs GI: Auscultation: normal bowel sounds Skin: General skin exam: normal color, rashes and/or lesions noted and no erythema Other: Warm Neuro: Cranial nerves: Yes Equal, round and reactive pupils present Speech: normal speech Other: No obvious focal deficit or facial asymmetry Extrem: General: no edema Other: Normal capillary refills Intact distal pulses. Objective Data Vital Signs Vital Signs: Vital Signs - 24 hr 10/03/21 15:00 10/03/21 16:00 10/03/21 17:00 Temperature 36.6 C Pulse Rate 70 60 74 Respiratory Rate 18 26 H 25 H Blood Pressure 93/64 L 120/66 91/67 L Pulse Oximetry 93 94 93 10/03/21 18:00 10/03/21 19:00 10/03/21 20:00 Temperature 37.1 C Pulse Rate 67 70 56 L Respiratory Rate 22 H 20 18 Blood Pressure 110/71 111/76 96/55 L Pulse Oximetry 94 93 94 10/03/21 21:00 10/03/21 21:03 10/03/21 22:00 Temperature Pulse Rate 55 L 64 55 L Respiratory Rate 19 18 Blood Pressure 90/51 L 91/47 L Pulse Oximetry 94
[2021-10-04] MEDS: LORazepam (*CRX) 0.5 MG TABLET PO (21:02)
[2021-10-04] MEDS: METOPROLOL TARTRATE 25 MG TABLET PO (21:02)
[2021-10-05] VITALS (23 sets, daily range): BP systolic 95–111; BP diastolic 55–85; PULSE 53–80; RESP 15–25; TEMP 36.3–36.9; O2SAT 90–97
[2021-10-05 04:30] LABS: Hematocrit 40.8 % (42.0-52.0); Hemoglobin 13.6 g/dL (14.0-18.0); Mean Corpuscular HGB Conc 33.3 g/dl (32-36); Mean Corpuscular Hemoglobin 31.9 pg (26-34); Mean Corpuscular Volume 95.6 fl (80-100); Mean Platelet Volume 10.3 fl (7.4-10.4); Platelet Count Result 154 k/mm3 (150-375); Red Blood Count 4.27 M/mm3 (4.6-6.20); Red Cell Distribution Width 13.8 % (11.5-14.5); White Blood Count 16.9 K/mm3 (4.5-10.0)
[2021-10-05 04:43] LABS: Alanine Aminotransferase 39 U/L (4-50); Albumin Level 3.4 g/dL (3.5-5.1); Alkaline Phosphatase 61 U/L (38-126); Anion Gap 2 mmol/L (8-16); Aspartate Amino Transferase 96 U/L (17-59); Bilirubin,Total 0.9 mg/dL (0.2-1.3); Blood Urea Nitrogen 21 mg/dL (9-20); Carbon Dioxide 28 mmol/L (22-30); Chloride 111 mmol/L (98-107); Estimated CRCL calculation 69 ml/min; Estimated Glomerular Filt Rate > 60; Glucose 89 mg/dL (65-110); Magnesium 2.1 mg/dL (1.6-2.3); Potassium 3.9 mmol/L (3.4-5.0); Sodium 141 mmol/L (137-145)
[2021-10-05] MEDS: ALBUTEROL SULFATE (*SP) INHALER 2 PUFF INHALATION (05:55)
[2021-10-05] MEDS: CITALOPRAM HYDROBROMIDE 10 MG TABLET PO (07:29)
[2021-10-05] MEDS: ASPIRIN 81 MG ENTERIC TABLET PO (07:29)
[2021-10-05] MEDS: ATORVASTATIN 40 MG TABLET 80 MG PO (07:29)
[2021-10-05] MEDS: ENOXAPARIN 40 MG/0.4 ML SYRINGE SUB-Q (07:29)
[2021-10-05] MEDS: TICAGRELOR 90 MG TABLET PO ×2 (07:30→20:11)
[2021-10-05] MEDS: PANTOPRAZOLE 40 MG TABLET PO (07:30)
[2021-10-05] MEDS: UMECLIDINIUM/VILANTEROL 62.5-25 MCG ELLIPTA 1 PUFF INHALATION (07:32)
[2021-10-05] MEDS: FUROSEMIDE 20 MG TABLET PO (07:51)
--- NOTE | 2021-10-05 09:21 | WPDINTPN ---
Progress Note: A&P Assessment and Plan (1) Acute respiratory failure: Code(s): J96.00 - Acute respiratory failure, unspecified whether with hypoxia or hypercapnia Status: Acute Assessment and Plan: Likely secondary to congestive heart failure and pulmonary edema Patient's EF is 25-30% on echo 10/04 he required BiPAP for few hours and was given Lasix. ABG was reviewed Now feeling better and is on nasal cannula Continue daily p.o. Lasix at low-dose Prednisone added for COPD Continue bronchodilator He does have elevated white count but has been afebrile and his procalcitonin level was negligible suggesting against any infectious etiology (2) ST elevation (STEMI) myocardial infarction: Code(s): I21.3 - ST elevation (STEMI) myocardial infarction of unspecified site Status: Acute Assessment and Plan: Patient has a history of coronary disease status post CABG in 2007 Presented with STEMI and now status post PCI with stent placement to graft to left circumflex Currently chest pain-free Aspirin and Brilinta, Statin beta-shaista and ACEI held this morning due to soft blood pressure Cardiac rehab Echo Summary 1. Left ventricular chamber dimension is moderately enlarged. 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 2. Left ventricular systolic function is severely reduced, estimated at 25-30%. 3. The left ventricular diastolic function is abnormal. 4. There is mild mitral valve calcification. 5. There is mild tricuspid valve regurgitation. (3) Hypertension: Code(s): I10 - Essential (primary) hypertension Status: Chronic Assessment and Plan: Hold meds this morning as patient's blood pressure soft after receiving Lasix Monitor and adjust accordingly (4) Hyperlipidemia: Code(s): E78.5 - Hyperlipidemia, unspecified Status: Acute Assessment and Plan: Resume atorvastatind (5) COPD (chronic obstructive pulmonary disease): Code(s): J44.9 - Chronic obstructive pulmonary disease, unspecified Status: Acute Assessment and Plan: On today's exam patient has wheezing could be secondary to mild pulmonary edema but patient also has a COPD Will give a short course of prednisone Continue Albuterol p.r.n. and anoro Ellipta He is on 4 L of oxygen at home on baseline (6) Coronary artery disease: Code(s): I25.10 - Atherosclerotic heart disease of [place] coronary artery without angina pectoris Status: Acute Assessment and Plan: See above (7) Aortic aneurysm: Code(s): I71.9 - Aortic aneurysm of unspecified site, without rupture Status: Acute Assessment and Plan: Patient reports he had a CT done 3 months ago which showed possible in resume which was very small on the CT. I have requested records (8) Abnormal chest x-ray: Code(s): R93.89 - Abnormal findings on diagnostic imaging of other specified body structures Status: Acute Assessment and Plan: Chest x-ray done in the ED showed possible lucency under right hemidiaphragm repeat KUB was done in ICU and did not show any free air Additional Plan DVT prophylaxis -start Lovenox from tomorrow Stress ulcer prophylaxis -continue home PPI Nutrition -heart healthy diet Code Status - Full Code Incentive spirometry, up in chair Transfer out of ICU today Subjective Date/time seen: 10/05/21 09:21 Patient states he feels better than yesterday and denies any shortness of breath. He does admit to having cough with clear sputum. He denies any chest pain fever or any other new complaint. No nausea vomiting. Blood pressure has been soft but adequate. He is afebrile. All other systems were reviewed and were negative Review of Systems Review of Systems: All systems reviewed & are unremarkable except as noted in HPI and below (Subjective) Exam Narrative: General: Pt is alert awake and in NAD Lungs/Chest: Trachea central coarse breath sounds at right bas
--- NOTE | 2021-10-05 10:33 | PM.PNCARD ---
Progress Note: A&P Assessment and Plan (1) ST elevation (STEMI) myocardial infarction: Qualifiers: Involved coronary artery: other coronary artery Qualified Code(s): I21.29 - ST elevation (STEMI) myocardial infarction involving other sites Code(s): I21.3 - ST elevation (STEMI) myocardial infarction of unspecified site Status: Acute Assessment and Plan: Status post acute inferoposterior ST-elevation [place] high-grade stenosis ostial SVG to OM with extensive thrombosis status post aspiration thrombectomy and stenting and SVG to OM 3 4.0 x 22 mm Orsiro MEGHANN. Case complicated by recurrent ventricular tachycardia necessitating lidocaine infusion which has subsequently been discontinued. Patient asymptomatic at this time. Continue aspirin, ticagrelor, high-dose atorvastatin, metoprolol, lisinopril as BP permits. (2) Ischemic cardiomyopathy: Code(s): I25.5 - Ischemic cardiomyopathy Status: Acute Assessment and Plan: EF 25-30% consistent with severe ischemic cardiomyopathy. Patient high risk for sudden cardiac related to sustained ventricular tachycardia and or ventricular fibrillation. Discussed risk versus benefit given cardiomyopathy and potential risk reduction for sudden cardiac with life vest. Discussed pros and cons with patient in detail. Patient verbalized understanding and agreed with plan of care. He wishes to proceed with LifeVest prior to discharge. Order placed for ischemic cardiomyopathy in the setting of [place] with EF less than 35% (25-30% by echo). Given relative hypotension unlikely to tolerate Entresto although this would be preferred. Lisinopril already initiated transition as outpatient as tolerated. Euvolemic at this time. Continue p.o. Lasix 20 mg daily. Monitor volume status. Needs PT OT prior to discharge. If all stable and LifeVest fitted without significant recurrent ventricular tachycardia consider discharge tomorrow. Discussed at length with the patient all questions answered to his satisfaction. (3) Ventricular tachycardia: Code(s): I47.2 - Ventricular tachycardia Status: Acute Assessment and Plan: Resolved, off lidocaine at this time. Important patient received beta-shaista therapy as tolerated. LifeVest as above. Increase metoprolol as BP and heart rate tolerate. (4) Coronary artery disease: Qualifiers: Coronary Disease-Associated Artery/Lesion type: bypass graft [place] vs. transplanted heart: [place] heart Associated angina: with unstable angina Qualified Code(s): I25.700 - Atherosclerosis of coronary artery bypass graft(s), unspecified, with unstable angina pectoris Code(s): I25.10 - Atherosclerotic heart disease of [place] coronary artery without angina pectoris Status: Acute Assessment and Plan: -acute inferior posterior ST-elevation myocardial infarction. -ventricular tachycardia. -patient acute combined systolic and diastolic heart failure exacerbation. -history of CABG. -hyperlipidemia This 66-year-old patient presents with acute inferior posterior myocardial infarction and was found to have high-grade stenosis of ostial SVG to OM with extensive clotting and thrombus inside the graft. He underwent aspiration thrombectomy and then stenting of the ostial graft. He developed ventricular tachycardia prior and after the stenting. -since there is no recurrence of ventricular tachycardia we can discontinue lidocaine drip. -continue aspirin and Brilinta. -his echocardiogram shows ejection fraction 25-30%. This morning had an episode of shortness of breath and chest x-ray suggestive of pulmonary edema. Received 20 mg IV Lasix. He will need Life Vest on discharge from the hospital. -continue metoprolol 25 mg b.i.d. and lisinopril 10 mg daily. His blood pressure was soft this morning on both medications were held this morning. Will try just to give the metoprolol 25 mg b.i.d. -Lasix 20 mg p.o. starting mita
[2021-10-05] MEDS: METOPROLOL TARTRATE 6.25 MG TABLET PO ×2 (11:07→21:07)
[2021-10-05] MEDS: predniSONE 20 MG TABLET 60 MG PO (11:08)
--- NOTE | 2021-10-05 11:37 | PC.NURSE ---
Addendum entered by Yesenia Rodrigues RN 10/05/21 11:52: Incentive was performed x6 reaching 1999 Original Note: 1100-walked pt in [place] around ICU unit. pt tolerated, but did feel SOB. O2 sats at 89% on 6L HF NC. pt in chair. family at bedside.
--- NOTE | 2021-10-05 11:51 | PC.NURSE ---
1145-report called to CHRISTIANO Jaimes on 2 med. 1151-pt transferred via wheelchair. pt belongings with pt upon transfer.
--- NOTE | 2021-10-05 12:31 | PC.NURSE ---
This patient, Ruperto Friedman, was received from [[facility] ] on 10/05/21 at 1215. Patient/family oriented to unit policies and routines
[2021-10-06] VITALS (14 sets, daily range): BP systolic 106–127; BP diastolic 55–88; PULSE 45–77; RESP 16–20; TEMP 36.3–37.2; O2SAT 92–95
[2021-10-06 05:05] LABS: Hematocrit 42.4 % (42.0-52.0); Hemoglobin 14.4 g/dL (14.0-18.0); Mean Corpuscular Hemoglobin 31.4 pg (26-34); Mean Corpuscular Volume 92.4 fl (80-100); Mean Platelet Volume 10.5 fl (7.4-10.4); Platelet Count Result 160 k/mm3 (150-375); Red Blood Count 4.59 M/mm3 (4.6-6.20); Red Cell Distribution Width 13.3 % (11.5-14.5); White Blood Count 12.5 K/mm3 (4.5-10.0)
[2021-10-06 05:26] LABS: Alanine Aminotransferase 36 U/L (4-50); Albumin Level 3.6 g/dL (3.5-5.1); Alkaline Phosphatase 65 U/L (38-126); Anion Gap 6 mmol/L (8-16); Aspartate Amino Transferase 54 U/L (17-59); Bilirubin,Total 1.1 mg/dL (0.2-1.3); Blood Urea Nitrogen 24 mg/dL (9-20); Calcium 8.4 mg/dL (8.4-10.2); Carbon Dioxide 26 mmol/L (22-30); Chloride 109 mmol/L (98-107); Estimated CRCL calculation 76 ml/min; Estimated Glomerular Filt Rate > 60; Glucose 96 mg/dL (65-110); Magnesium 2.1 mg/dL (1.6-2.3); Potassium 3.7 mmol/L (3.4-5.0); Sodium 141 mmol/L (137-145)
[2021-10-06] MEDS: UMECLIDINIUM/VILANTEROL 62.5-25 MCG ELLIPTA 1 PUFF INHALATION (08:11)
[2021-10-06] MEDS: ENOXAPARIN 40 MG/0.4 ML SYRINGE SUB-Q (08:27)
[2021-10-06] MEDS: CITALOPRAM HYDROBROMIDE 10 MG TABLET PO (08:28)
[2021-10-06] MEDS: ATORVASTATIN 40 MG TABLET 80 MG PO (08:28)
[2021-10-06] MEDS: PANTOPRAZOLE 40 MG TABLET PO (08:28)
[2021-10-06] MEDS: TICAGRELOR 90 MG TABLET PO ×2 (08:28→20:10)
[2021-10-06] MEDS: FUROSEMIDE 20 MG TABLET PO (08:28)
[2021-10-06] MEDS: METOPROLOL TARTRATE 6.25 MG TABLET PO ×2 (08:28→20:11)
[2021-10-06] MEDS: ASPIRIN 81 MG ENTERIC TABLET PO (08:29)
[2021-10-06] MEDS: predniSONE 20 MG TABLET 60 MG PO (08:29)
--- NOTE | 2021-10-06 09:50 | PCPTNOTE ---
Patient refused treatment this session due to patient wanting to rest at this time.
--- NOTE | 2021-10-06 13:05 | PCPTNOTE ---
Patient refused treatment this session due to not feeling well.
--- NOTE | 2021-10-06 15:56 | PM.PNCARD ---
Progress Note: A&P Assessment and Plan (1) ST elevation (STEMI) myocardial infarction: Qualifiers: Involved coronary artery: other coronary artery Qualified Code(s): I21.29 - ST elevation (STEMI) myocardial infarction involving other sites Code(s): I21.3 - ST elevation (STEMI) myocardial infarction of unspecified site Status: Acute Assessment and Plan: Status post acute inferoposterior ST-elevation [place] high-grade stenosis ostial SVG to OM with extensive thrombosis status post aspiration thrombectomy and stenting and SVG to OM 3 4.0 x 22 mm Orsiro MEGHANN. Case complicated by recurrent ventricular tachycardia necessitating lidocaine infusion which has subsequently been discontinued. Patient asymptomatic at this time. Continue aspirin, ticagrelor, high-dose atorvastatin, metoprolol, lisinopril as BP permits. Doing well in this regard. (2) Ischemic cardiomyopathy: Code(s): I25.5 - Ischemic cardiomyopathy Status: Acute Assessment and Plan: EF 25-30% consistent with severe ischemic cardiomyopathy. Patient high risk for sudden cardiac related to sustained ventricular tachycardia and or ventricular fibrillation. Discussed risk versus benefit given cardiomyopathy and potential risk reduction for sudden cardiac with life vest. Discussed pros and cons with patient in detail. Patient verbalized understanding and agreed with plan of care. He wishes to proceed with LifeVest prior to discharge. Order placed for ischemic cardiomyopathy in the setting of [place] with EF less than 35% (25-30% by echo). Given relative hypotension unlikely to tolerate Entresto although this would be preferred. Lisinopril already initiated transition as outpatient as tolerated. Euvolemic at this time. Continue p.o. Lasix 20 mg daily. Monitor volume status. Patient must receive his life vest prior to discharge. Awaiting insurance approval unfortunately so unable to discharge today. Hopefully will receive approval life vest will be fitted so he may be discharged home tomorrow. (3) Ventricular tachycardia: Code(s): I47.2 - Ventricular tachycardia Status: Acute Assessment and Plan: Resolved, off lidocaine at this time. Important patient received beta-shaista therapy as tolerated. LifeVest as above. Increase metoprolol as BP and heart rate tolerate. Metoprolol reduced secondary to bradycardia and relative hypotension. Patient in the 40s to 50s earlier this morning. (4) Coronary artery disease: Qualifiers: Coronary Disease-Associated Artery/Lesion type: bypass graft [place] vs. transplanted heart: [place] heart Associated angina: with unstable angina Qualified Code(s): I25.700 - Atherosclerosis of coronary artery bypass graft(s), unspecified, with unstable angina pectoris Code(s): I25.10 - Atherosclerotic heart disease of [place] coronary artery without angina pectoris Status: Acute Assessment and Plan: This 66-year-old patient presents with acute inferior posterior myocardial infarction and was found to have high-grade stenosis of ostial SVG to OM with extensive clotting and thrombus inside the graft. He underwent aspiration thrombectomy and then stenting of the ostial graft. He developed ventricular tachycardia prior and after the stenting. -continue aspirin and Brilinta atorvastatin 80 mg at bedtime. -echocardiogram shows ejection fraction 25-30%. This morning had an episode of shortness of breath and chest x-ray suggestive of pulmonary edema. Received 20 mg IV Lasix. He will need Life Vest on discharge from the hospital. -continue metoprolol 6.25 mg b.i.d. and lisinopril 10 mg daily. His blood pressure was soft this morning on both medications were held this morning. Will try just to give the metoprolol 25 mg b.i.d. -Lasix 20 mg p.o. daily. (5) Aortic aneurysm: Qualifiers: Aortic location: thoracic aorta Presence of rupture: without rupture Mark
[2021-10-07] VITALS (12 sets, daily range): BP systolic 94–106; BP diastolic 51–62; PULSE 53–95; RESP 16–20; TEMP 36.3–36.9; O2SAT 86–96
--- NOTE | 2021-10-07 02:31 | PCRCNOTE ---
Patient refused Bipap tonight. Stated he doesn't feel like he needs it tonight. I'm doing okay on the nasal oxygen . SPo2 96% on Room Air
[2021-10-07 05:13] LABS: Hematocrit 43.2 % (42.0-52.0); Mean Corpuscular HGB Conc 34.7 g/dl (32-36); Mean Corpuscular Hemoglobin 31.8 pg (26-34); Mean Corpuscular Volume 91.5 fl (80-100); Mean Platelet Volume 10.7 fl (7.4-10.4); Platelet Count Result 168 k/mm3 (150-375); Red Blood Count 4.72 M/mm3 (4.6-6.20); Red Cell Distribution Width 13.1 % (11.5-14.5); White Blood Count 12.9 K/mm3 (4.5-10.0)
[2021-10-07 05:38] LABS: Alanine Aminotransferase 37 U/L (4-50); Albumin Level 3.6 g/dL (3.5-5.1); Alkaline Phosphatase 68 U/L (38-126); Anion Gap 5 mmol/L (8-16); Aspartate Amino Transferase 35 U/L (17-59); Bilirubin,Total 1.1 mg/dL (0.2-1.3); Blood Urea Nitrogen 22 mg/dL (9-20); Calcium 8.5 mg/dL (8.4-10.2); Carbon Dioxide 27 mmol/L (22-30); Chloride 108 mmol/L (98-107); Estimated CRCL calculation 76 ml/min; Estimated Glomerular Filt Rate > 60; Glucose 98 mg/dL (65-110); Potassium 3.6 mmol/L (3.4-5.0); Sodium 140 mmol/L (137-145)
[2021-10-07] MEDS: METOPROLOL TARTRATE 6.25 MG TABLET PO (08:21)
[2021-10-07] MEDS: ENOXAPARIN 40 MG/0.4 ML SYRINGE SUB-Q (08:21)
[2021-10-07] MEDS: FUROSEMIDE 20 MG TABLET PO (08:22)
[2021-10-07] MEDS: ASPIRIN 81 MG ENTERIC TABLET PO (08:22)
[2021-10-07] MEDS: ATORVASTATIN 40 MG TABLET 80 MG PO (08:22)
[2021-10-07] MEDS: predniSONE 20 MG TABLET 60 MG PO (08:22)
[2021-10-07] MEDS: PANTOPRAZOLE 40 MG TABLET PO (08:22)
[2021-10-07] MEDS: CITALOPRAM HYDROBROMIDE 10 MG TABLET PO (08:22)
[2021-10-07] MEDS: TICAGRELOR 90 MG TABLET PO (08:22)
[2021-10-07] MEDS: UMECLIDINIUM/VILANTEROL 62.5-25 MCG ELLIPTA 1 PUFF INHALATION (08:56)
--- NOTE | 2021-10-07 11:17 | PM.DS ---
DS: Admitting Diagnosis Discharge Date 10/07/2021 Admitting Diagnosis Chest pain DS: Discharge Diagnosis Discharge Diagnosis (1) ST elevation (STEMI) myocardial infarction: Qualifiers: Involved coronary artery: other coronary artery Qualified Code(s): I21.29 - ST elevation (STEMI) myocardial infarction involving other sites Code(s): I21.3 - ST elevation (STEMI) myocardial infarction of unspecified site Status: Acute Assessment and Plan: Status post acute inferoposterior ST-elevation AR high-grade stenosis ostial SVG to OM with extensive thrombosis status post aspiration thrombectomy and stenting and SVG to OM 3 4.0 x 22 mm Orsiro MEGHANN. Case complicated by recurrent ventricular tachycardia necessitating lidocaine infusion which has subsequently been discontinued. Patient asymptomatic at this time. Continue aspirin, ticagrelor, high-dose atorvastatin, metoprolol, lisinopril as BP permits. Doing well in this regard. (2) Ischemic cardiomyopathy: Code(s): I25.5 - Ischemic cardiomyopathy Status: Acute Assessment and Plan: EF 25-30% consistent with severe ischemic cardiomyopathy. Patient high risk for sudden cardiac related to sustained ventricular tachycardia and or ventricular fibrillation. Plan for LifeVest prior to discharge - order has been placed, awaiting fitting Given relative hypotension unlikely to tolerate Entresto although this would be preferred. Lisinopril already initiated transition as outpatient as tolerated. Euvolemic at this time. Continue p.o. Lasix 20 mg daily. Monitor volume status. (3) Ventricular tachycardia: Code(s): I47.2 - Ventricular tachycardia Status: Acute Assessment and Plan: Resolved, off lidocaine at this time. Important patient received beta-shaista therapy as tolerated. LifeVest as above. Increase metoprolol as BP and heart rate tolerate. Metoprolol reduced secondary to bradycardia and relative hypotension. HR remains mid 40's - 50's. Continue current metoprolol dose. (4) Coronary artery disease: Qualifiers: Associated angina: with unstable angina Coronary Disease-Associated Artery/Lesion type: bypass graft [place] vs. transplanted heart: tribe heart Qualified Code(s): I25.700 - Atherosclerosis of coronary artery bypass graft(s), unspecified, with unstable angina pectoris Code(s): I25.10 - Atherosclerotic heart disease of tribe coronary artery without angina pectoris Status: Acute Assessment and Plan: This 66-year-old patient presents with acute inferior posterior myocardial infarction and was found to have high-grade stenosis of ostial SVG to OM with extensive clotting and thrombus inside the graft. He underwent aspiration thrombectomy and then stenting of the ostial graft. He developed ventricular tachycardia prior and after the stenting. -continue aspirin and Brilinta atorvastatin 80 mg at bedtime. -echocardiogram shows ejection fraction 25-30%. Looks euvolemic at this time. -continue metoprolol 6.25 mg b.i.d. and lisinopril 10 mg daily. BP stable today. -Lasix 20 mg p.o. daily. (5) Aortic aneurysm: Qualifiers: Aortic location: thoracic aorta Presence of rupture: without rupture Qualified Code(s): I71.2 - Thoracic aortic aneurysm, without rupture Code(s): I71.9 - Aortic aneurysm of unspecified site, without rupture Status: Acute Assessment and Plan: Outpatient workup as appropriate. Continue beta-shaista therapy. (6) Hypertension: Qualifiers: Hypertension type: primary hypertension Qualified Code(s): I10 - Essential (primary) hypertension Code(s): I10 - Essential (primary) hypertension Status: Chronic Assessment and Plan: Relative hypotension. Stable this morning. Continue monitor closely. (7) Hyperlipidemia: Qualifiers: Hyperlipidemia type: mixed hyperlipidemia Qualified Code(s): E78
== END 2021-10-07 17:30 | disposition home or self-care (01) | DRG 246 ==
LOC: ANHED 06:39 → ANHICU 10:19 → ANH2MED 10-07 11:40 → ANHICU 10-08 10:15
PROVIDERS: Internal Medicine; Admitting Provider Internal Medicine Interventional Cardiology; Emergency Provider Emergency Medicine; PCP Family Medicine; Visit Provider Nurse Practitioner
PROC: 4A023N7 Measurement of Cardiac Sampling and Pressure, Left Heart, Percutaneous Approach (ICD-10-PCS; CPT 93459; principal; 2021-10-03 06:10)
PROC: 027034Z Dilation of Coronary Artery, One Artery with Drug-eluting Intraluminal Device, Percutaneous Approach (ICD-10-PCS; 2021-10-03 06:10)
PROC: 027034Z Dilation of Coronary Artery, One Artery with Drug-eluting Intraluminal Device, Percutaneous Approach (ICD-10-PCS; 2021-10-03 06:10)
PROC: 027034Z Dilation of Coronary Artery, One Artery with Drug-eluting Intraluminal Device, Percutaneous Approach (ICD-10-PCS; 2021-10-03 06:10)
DX: I21.19 ST elevation (STEMI) myocardial infarction involving other coronary artery of inferior wall (principal); J96.00 Acute respiratory failure, unspecified whether with hypoxia or hypercapnia; I50.41 Acute combined systolic (congestive) and diastolic (congestive) heart failure; J44.1 Chronic obstructive pulmonary disease with (acute) exacerbation; I47.2 Ventricular tachycardia; I25.700 Atherosclerosis of coronary artery bypass graft(s), unspecified, with unstable angina pectoris; I11.0 Hypertensive heart disease with heart failure; I25.5 Ischemic cardiomyopathy; I71.2 Thoracic aortic aneurysm, without rupture; E78.2 Mixed hyperlipidemia; F17.210 Nicotine dependence, cigarettes, uncomplicated; Z95.1 Presence of aortocoronary bypass graft; Z99.81 Dependence on supplemental oxygen
CPT/HCPCS: 36415; 36600; 71045; 74019; 80048; 80053; 82805; 83735; 83880; 84145; 84484; 85025; 85027; 85610; 85730; 92978; 93005; 93459; 94002; 94003; 94640; 97110; 97161; 99291; A9270; C1725; C1753; C1757; C1760; C1769; C1874; C1884; C1887; C8929; C9606; G0269; J1644; J1650; J1940; J2001; J2270; J2405; J2930; J3475; J3480; J7030; J7040; J7512; Q9957

== ENCOUNTER 2021-10-17 21:27 | Emergency (ER) | payer OTHER, SELFPAY ==
--- NOTE | ~2021-10-17 | XR_ITS ---
XR chest 2V DATE: 10/17/2021 21:55 INDICATION: Chest pain; history of myocardial infarction TECHNIQUE: AP and lateral views COMPARISON: 10/04/2021 portable AP chest FINDINGS: Status post sternotomy. Heart size is within normal limits. Is aortic calcification. There is bilateral hyperinflation with bullous change in the right upper lobe. No pulmonary infiltrate or consolidation, pulmonary vascular congestion or pleural effusion or pneumothorax. Diffuse osteopenia. IMPRESSION: Bullous emphysema Status post sternotomy No active cardiopulmonary disease Reviewed, dictated and finalized at location A.
[2021-10-17 21:27] VITALS: BP 137/86; PULSE 78; RESP 15; TEMP 36.9; O2SAT 97
--- NOTE | 2021-10-17 21:31 | ECG_ITS ---
Measurements Intervals [place] Rate: 66 P: -1 [place]: 128 QRS: 38 QRSD: 105 T: 41 QT: 407 QTc: 429 Interpretive Statements SINUS RHYTHM WITH SINUS ARRHYTHMIA PROBABLE INFERIOR MYOCARDIAL INFARCTION , OF INDETERMINATE AGE [35 ms Q WAVE IN II/aVF] NONSPECIFIC INFERIOR ST ABNORMALITY ABNORMAL ECG Electronically Signed On 10-18-2021 15:43:01 CDT by Josh Gastelum M.D.
[2021-10-17 21:34] VITALS: O2SAT 97
[2021-10-17 21:38] LABS: Basophils Absolute Auto 0.1 K/mm3 (0.0-0.1); Basophils Percent Auto 0.6 % (0.2-1.2); Eosinophils Absolute Auto 0.5 K/mm3 (0-0.3); Eosinophils Percent Auto 3.8 % (0-4.4); Hematocrit 47.7 % (42.0-52.0); Hemoglobin 15.8 g/dL (14.0-18.0); Immature Granulocyte Absolute 0.12 K/mm3 (0.00-0.031); Lymphocytes Absolute Auto 2.24 K/mm3 (0.9-3.2); Lymphocytes Percent Auto 18.4 % (18.3-44.2); Mean Corpuscular HGB Conc 33.1 g/dl (32-36); Mean Corpuscular Hemoglobin 31.4 pg (26-34); Mean Corpuscular Volume 94.8 fl (80-100); Mean Platelet Volume 9.7 fl (7.4-10.4); Monocytes Absolute Auto 1.3 K/mm3 (0.1-0.6); Monocytes Percent Auto 10.3 % (2.6-8.5); Neutrophils Absolute Auto 8.1 K/mm3 (1.3-6.7); Neutrophils Percent Auto 65.9 % (45.5-73.1); Platelet Count Result 177 k/mm3 (150-375); Red Blood Count 5.03 M/mm3 (4.6-6.20); Red Cell Distribution Width 13.8 % (11.5-14.5); White Blood Count 12.2 K/mm3 (4.5-10.0)
--- NOTE | 2021-10-17 21:45 | ED.CHESTPAIN ---
HPI - Chest Pain General Chief Complaint: Chest Pain Stated Complaint: CP Time Seen by Provider: 10/17/21 21:34 Source: patient and EMS Mode of arrival: EMS Limitations: no limitations History of Present Illness HPI narrative: 66-year-old male presents emergency room by EMS secondary to chest pain. Chest pain lasted approximately 45 minutes in duration. Described it as a heaviness to the left side of his chest with no associated radiation, nausea vomiting, or shortness of breath. Pain is down to a 0.5-1 at this time. Patient has extensive cardiac history having had bypass surgery as well as multiple stents. Within the last month he has acute WA and had another stent put in at that time. He has been taking all of his medication as prescribed. Not had any exertional chest pain or shortness of breath the last day or so. Related Data Home Medications Medication Instructions Recorded Confirmed Anoro Ellipta 1 inh INHALATION DAILY 10/03/21 10/03/21 albuterol sulfate 3 puff INHALATION PRN 10/03/21 10/03/21 atorvastatin 80 mg PO HS 10/03/21 10/03/21 citalopram 10 mg PO DAILY 10/03/21 10/03/21 loratadine 10 mg PO USEASDIRECTD 10/03/21 10/03/21 lorazepam 0.5 mg PO DAILY PRN 10/03/21 10/03/21 omeprazole 40 mg PO QAM 10/03/21 10/03/21 tretinoin 1 applic TOPICAL DAILY 10/03/21 10/03/21 Allergies Allergy/AdvReac Type Severity Reaction Status Date / Time Iodinated Contrast Media Allergy Unknown Verified 10/17/21 21:32 Review of Systems Review of Systems: CONSTITUTIONAL: Denies fever, chills, or sweats. EYES: Denies visual changes, redness, or discharge. ENT: Denies rhinorrhea, congestion, sore throat, or otalgia. CARDIOVASCULAR: Chest pain but no palpitations. RESPIRATORY: Denies cough or dyspnea. GASTROINTESTINAL: Denies abdominal pain, nausea, vomiting, or diarrhea. GENITOURINARY: Denies dysuria or hematuria. SKIN: Denies rash or itching. MUSCULOSKELETAL: Denies back pain, joint pain, or myalgia. NEUROLOGIC: Denies headache, numbness, or weakness. PSYCHIATRIC: Denies anxiety or depression. [facility] Past Medical History Medical History COPD (chronic obstructive pulmonary disease) On home oxygen 4 L Coronary artery disease Status post CABG in 2007 Hyperlipidemia Hypertension Surgical History Surgical History Hx of CABG In 2007 Family History Family History Mother Heart disease Heart attack Father Heart disease Heart attack Social History Social History Smoking packs per day: 1 Smoking cigarettes per day: 20.0 Years smoked: 41 Smoking pack-years: 41.00 Smoking status: Current every day smoker Tobacco type: cigarettes Alcohol intake: never Substance use: never Substance use type: does not use Gender identity (if verbalized by the patient): Male Spiritual care concerns: No Exam Narrative: APPEARANCE: Well appearing, no pain or distress, well-nourished. Head normocephalic and atraumatic. EYES: PERRLA/EOMI, conjunctivae very clear. NOSE: Normal with no drainage EARS:TMS clear Kaylene Nugent, with good light reflex. THROAT: Pharynx clear, no exudate. NECK: Supple. No adenopathy, no masses. RESPIRATORY: Airway patent, respirations nonlabored. Clear to auscultation bilaterally, no rales, rhonchi, wheezing. CARDIOVASCULAR: Regular rate and rhythm without murmurs, rubs, or gallops. ABDOMINAL: Soft, nontender, nondistended, no hepatosplenomegaly Musculoskeletal: Moves all extremities. Strength/ROM intact, No edema, No calf tenderness. NEURO: Alert. Cranial nerves II through XII intact. Normal gait. Good coordination. Nonfocal examination. SKIN:: Warm, dry. Normal Color. Several areas of ecchymosis to his anterior chest and abdomen PSYCHIATRIC: Normal affect/mood, normal interaction
[2021-10-17 21:48] LABS: Alanine Aminotransferase 27 U/L (4-50); Alkaline Phosphatase 98 U/L (38-126); Anion Gap 8 mmol/L (8-16); Aspartate Amino Transferase 25 U/L (17-59); Bilirubin,Total 0.7 mg/dL (0.2-1.3); Blood Urea Nitrogen 22 mg/dL (9-20); Calcium 8.8 mg/dL (8.4-10.2); Carbon Dioxide 26 mmol/L (22-30); Chloride 105 mmol/L (98-107); Estimated CRCL calculation 67 ml/min; Estimated Glomerular Filt Rate > 60; Glucose 99 mg/dL (65-110); Lipase 62 U/L (23-300); Potassium 4.1 mmol/L (3.4-5.0); Sodium 139 mmol/L (137-145)
[2021-10-17 21:50] LABS: Partial Thromboplastin Time 31.1 SECONDS (22.3-36.8)
[2021-10-17 21:59] LABS: Troponin I 0.026 ng/mL (0.000-0.034)
[2021-10-17 23:15] VITALS: BP 106/65; PULSE 70; RESP 18; O2SAT 96
[2021-10-18 00:01] VITALS: BP 113/71; PULSE 73; RESP 16; O2SAT 96
== END 2021-10-17 23:56 | disposition home or self-care (01) ==
PROVIDERS: Emergency Medicine; Emergency Provider Emergency Medicine; PCP Family Medicine
DX: R07.2 Precordial pain (principal); J43.9 Emphysema, unspecified; Z99.81 Dependence on supplemental oxygen; I25.10 Atherosclerotic heart disease of native coronary artery without angina pectoris; Z95.1 Presence of aortocoronary bypass graft; E78.5 Hyperlipidemia, unspecified; I10 Essential (primary) hypertension; F17.210 Nicotine dependence, cigarettes, uncomplicated; R94.31 Abnormal electrocardiogram [ECG] [EKG]
CPT/HCPCS: 36415; 71046; 80053; 83690; 84484; 85025; 85610; 85730; 93005; 99284

== ENCOUNTER 2021-10-27 12:00 | Inpatient (IN) | payer OTHER, SELFPAY ==
[2021-10-27] VITALS (24 sets, daily range): BP systolic 106–136; BP diastolic 50–81; PULSE 56–73; RESP 12–24; TEMP 36.7–36.9; O2SAT 93–98; BMI 27.6
--- NOTE | ~2021-10-27 | NM_ITS ---
EXAMINATION: NM rigoberto stress w perfusion DATE: 10/29/2021 09:54 INDICATION: Coronary artery disease. Non-ST elevation myocardial infarction. TECHNIQUE: Rest images were obtained following intravenous administration of 12 mCi Tc99m tetrofosmin (Myoview). The patient was infused intravenously with Lexiscan (Regadenoson). Then, 33 mCi Tc99m tet rofosmin (Myoview) was administered intravenously, and stress images were obtained. Data was reconstr ucted into short axis and horizontal and vertical long axis SPECT images. Gated SPECT images were als o obtained. COMPARISON: None. FINDINGS: Severe nonreversible perfusion defect involving the apical lateral, mid inferolateral and b asilar inferolateral segments of the left ventricle consistent with infarct. Additional small mild no nreversible infarct at the mid anteroseptal segments. Finally there is a moderate severity infarct in volving the apical anterior and mid anterior segments, the latter with partially reversible ischemia which extends into the adjacent mid anterolateral segment. Borderline left ventricular enlargement wi th calculated end-diastolic volume of 142 mL and global mild hypokinesis resulting in a mild to moder ately decreased left ventricular ejection fraction which measures 36%. IMPRESSION: 1. Regions of nonreversible infarct, severe in the left circumflex coronary artery vascular distribut ion and of lesser severity with small region of mild reversible ischemia in portions of the left ante rior descending coronary artery vascular distribution. 2. Borderline left ventricular enlargement with mild to moderately decreased left ventricular ejectio n fraction measuring 36%. Reviewed, dictated and finalized at location B. IMPRESSION: 1. Regions of nonreversible infarct, severe in the left circumflex coronary art dorothy vascular distribution and of lesser severity with small region of mild reve rsible ischemia in portions of the left anterior descending coronary artery vas cular distribution. 2. Borderline left ventricular enlargement with mild to moderately decreased le ft ventricular ejection fraction measuring 36%.
--- NOTE | ~2021-10-27 | XR_ITS ---
EXAMINATION: XR chest 2V DATE: 10/27/2021 12:36 INDICATION: Midsternal chest pain. COPD. TECHNIQUE: frontal and lateral views of the chest were obtained. COMPARISON: Chest radiograph dated 10/17/21 FINDINGS: Increased lucency and architectural distortion in the right upper lung zone consistent with provided history of COPD. Persistent linear and streaky opacities in the bilateral lower lung zones, left grea ter than right and favor atelectasis over pneumonia. No pleural effusion or pneumothorax. Cardiomedia stinal silhouette is normal. Median sternotomy wires, ostial markers and mediastinal surgical clips c onsistent with prior coronary artery bypass grafting. Mild thoracic spondylosis with chronic mild ant erior wedging of a midthoracic vertebral body. IMPRESSION: 1. Emphysema with mild streaky bibasilar atelectasis/scarring. Reviewed, dictated and finalized at location A.
--- NOTE | 2021-10-27 12:26 | ECG_ITS ---
Measurements Intervals [place] Rate: 60 P: -11 [place]: 138 QRS: 24 QRSD: 112 T: -54 QT: 403 QTc: 404 Interpretive Statements SINUS RHYTHM SEPTAL MYOCARDIAL INFARCTION , PROBABLY OLD [40+ ms Q WAVE IN V1/V2] POSSIBLE INFERIOR MYOCARDIAL INFARCTION , RECENT BY PREVIOUS ECG REVIEW COMPARED TO ECG 10/17/2021 21:40:02 NO SIGNIFICANT CHANGES Electronically Signed On 10-28-2021 16:06:00 CDT by Ruperto Valentin M.D.
--- NOTE | 2021-10-27 12:30 | ED.CHESTPAIN ---
HPI - Chest Pain General Chief Complaint: Chest Pain Stated Complaint: cp Time Seen by Provider: 10/27/21 12:11 Source: patient Mode of arrival: EMS Limitations: no limitations History of Present Illness HPI narrative: Patient is a 66-year-old male complaining of chest pain, midsternal, 8 out of 10 currently down to 2 out of 10, pressure, nonradiating started approximately an hour and a half prior to arrival. Patient denies any shortness of breath, abdominal pain, nausea, vomiting, diaphoresis, fever or chills. Patient has a history of coronary artery disease with 5 stent placements in the past. Patient states that he was recently admitted 2 weeks ago due to a non-STEMI. Related Data Home Medications Medication Instructions Recorded Confirmed Anoro Ellipta 1 inh INHALATION DAILY 10/03/21 10/03/21 albuterol sulfate 3 puff INHALATION PRN 10/03/21 10/03/21 atorvastatin 80 mg PO HS 10/03/21 10/03/21 citalopram 10 mg PO DAILY 10/03/21 10/03/21 loratadine 10 mg PO USEASDIRECTD 10/03/21 10/03/21 lorazepam 0.5 mg PO DAILY PRN 10/03/21 10/03/21 omeprazole 40 mg PO QAM 10/03/21 10/03/21 tretinoin 1 applic TOPICAL DAILY 10/03/21 10/03/21 Allergies Allergy/AdvReac Type Severity Reaction Status Date / Time iodine Allergy Intermediate Hives Verified 10/27/21 12:16 Iodinated Contrast Media Allergy Unknown Verified 10/27/21 12:16 Review of Systems Review of Systems: All systems reviewed & are unremarkable except as noted in HPI and below Constitutional: Constitutional: Denies body ache(s), Denies chills, Denies excessive sweating, Denies fatigue, Denies fever(s), Denies headache(s), Denies lethargy, Denies malaise, Denies weakness and Denies weight loss Eyes: Eyes: Denies blurry vision, Denies change in vision and Denies loss of vision ENT: Denies dizziness, Denies ear discharge, Denies headache(s), Denies lip swelling, Denies epistaxis, Denies nasal congestion, Denies neck pain, Denies throat swelling and Denies tongue swelling Cardiovascular: Cardiovascular: Denies diaphoresis, Denies rapid heart rate, Denies edema, Denies irregular heart rhythm, Denies lightheadedness, Denies palpitations, Denies dyspnea and Denies dyspnea on exertion Respiratory: Respiratory: Denies chest congestion, Denies cough, Denies hemoptysis, Denies dyspnea and Denies dyspnea on exertion Gastrointestinal: Gastrointestinal: Denies abdominal pain, Denies melena, Denies hematochezia, Denies diarrhea, Denies nausea, Denies vomiting and Denies hematemesis Musculoskeletal: Musculoskeletal: Denies abnormal gait, Denies deformity, Denies joint swelling, Denies limited range of motion, Denies neck pain and Denies numbness Neurologic: Denies Abnormal speech present, Denies abnormal gait, Denies confusion, Denies dizziness, Denies headache(s), Denies focal weakness, Denies loss of vision, Denies numbness, Denies Other visual disturbances, Denies Sensory deficit (Neuro) and Denies weakness Psychiatric: Psychiatric: Denies confusion, Denies depression, Denies auditory hallucinations, Denies homicidal ideation and Denies suicidal ideation Endocrine: Endocrine: Denies cold intolerance, Denies excessive sweating, Denies fatigue, Denies heat intolerance and Denies palpitations Hematologic/Lymphatic: Hematologic/Lymphatic: Denies easy bleeding and Denies easy bruising Allergic/Immunologic: Allergic/Immunologic: Denies lip swelling, Denies throat swelling and Denies tongue swelling PMFSH Past Medical History Medical History COPD (chronic obstructive pulmonary disease) On home oxygen 4 L Coronary artery disease Status post CABG in 2007 Hyperlipidemia Hypertension Surgical History Surgical History Hx of CABG In 2007 Family History Family History Mother Heart disease Heart attack Father Heart disease
[2021-10-27 12:50] LABS: Basophils Absolute Auto 0.1 K/mm3 (0.0-0.1); Basophils Percent Auto 0.6 % (0.2-1.2); Eosinophils Absolute Auto 0.3 K/mm3 (0-0.3); Eosinophils Percent Auto 3.7 % (0-4.4); Hematocrit 45.4 % (42.0-52.0); Hemoglobin 15.3 g/dL (14.0-18.0); Immature Granulocyte Absolute 0.03 K/mm3 (0.00-0.031); Immature Granulocyte Percent A 0.4 % (0-0.5); Lymphocytes Absolute Auto 1.69 K/mm3 (0.9-3.2); Lymphocytes Percent Auto 21.6 % (18.3-44.2); Mean Corpuscular HGB Conc 33.7 g/dl (32-36); Mean Corpuscular Hemoglobin 31.5 pg (26-34); Mean Corpuscular Volume 93.6 fl (80-100); Mean Platelet Volume 9.9 fl (7.4-10.4); Monocytes Absolute Auto 0.6 K/mm3 (0.1-0.6); Neutrophils Absolute Auto 5.2 K/mm3 (1.3-6.7); Neutrophils Percent Auto 66.7 % (45.5-73.1); Platelet Count Result 195 k/mm3 (150-375); Red Blood Count 4.85 M/mm3 (4.6-6.20); Red Cell Distribution Width 13.7 % (11.5-14.5); White Blood Count 7.8 K/mm3 (4.5-10.0)
[2021-10-27 12:59] LABS: Alanine Aminotransferase 24 U/L (4-50); Albumin Level 4.2 g/dL (3.5-5.1); Alkaline Phosphatase 96 U/L (38-126); Anion Gap 9 mmol/L (8-16); Aspartate Amino Transferase 32 U/L (17-59); Bilirubin,Total 0.8 mg/dL (0.2-1.3); Blood Urea Nitrogen 16 mg/dL (9-20); Calcium 8.8 mg/dL (8.4-10.2); Carbon Dioxide 20 mmol/L (22-30); Chloride 113 mmol/L (98-107); Estimated CRCL calculation 73 ml/min; Estimated Glomerular Filt Rate > 60; Glucose 108 mg/dL (65-110); INR 1.1; Lipase 84 U/L (23-300); Potassium 3.9 mmol/L (3.4-5.0); Prothrombin Time 13.5 Seconds (11.1-14.7); Sodium 142 mmol/L (137-145)
[2021-10-27 13:00] LABS: Partial Thromboplastin Time 32.2 SECONDS (22.3-36.8)
[2021-10-27 13:10] LABS: Troponin I 0.018 ng/mL (0.000-0.034)
[2021-10-27] MEDS: NITROGLYCERIN OINTMENT 1 INCH DOSE TRANSDERM ×2 (13:11→21:17)
--- NOTE | 2021-10-27 15:14 | PC.NURSE ---
pt continues to deny chest pain. pts jacob contacted at [phone] and updated about pts condition and plan of care
--- NOTE | 2021-10-27 16:01 | PC.NURSE ---
Report received by CHRISTIANO Ordoñez with the ED at 1555. All questions answered and plan of care reviewed. Patient to go to IMU room 209.
--- NOTE | 2021-10-27 16:21 | ADMGEN ---
This patient, Ruperto Friedman, was admitted to IMU Room 209-01 at 1610. Patient/family oriented to hospital policies and general routines including ID bracelet, bed and alarms, visiting hours, pain management, procedures, bathroom and other care routines, personal items, smoking policy, room service/diet, and visiting hours. Information on how to activate the Rapid Response Team has been discussed. Patient/Family are encouraged to report perceived risks to care and to ask questions if they do not understand what they are told or what they should do.
[2021-10-27 16:41] LABS: Troponin I 0.132 ng/mL (0.000-0.034)
--- NOTE | 2021-10-27 16:50 | PM.IMHP ---
H&P: HPI History of Present Illness Date/Time: Patient was placed observation status for expected length of stay less than 23 hours for management, will plan to re-evaluate tomorrow for improvement. 10/27/21 16:50 Chief Complaint: Chest pain Narrative: Mr. Friedman is a 66-year-old gentleman who presented emergency room with complaints of midsternal chest discomfort. Patient states that at noon today he began having midsternal chest discomfort with radiation up into his left jaw and down his left arm. Patient denies any associated shortness of breath, diaphoresis, nausea, or vomiting. Patient has a significant history of coronary artery disease status post coronary bypass grafting status post stent placement. Patient most recently had a cardiac catheterization on 10/03/2021 and had a drug-eluting stent placed to his SVG to OM3. Patient states since that time he has been taking all medications without any difficulty. Patient states he did quit smoking on October 04 of this year. Patient states prior to this he was smoking 1 pack of cigarettes a day for last 45 years. Patient has a known history of coronary artery disease status post coronary bypass grafting status post stent placement. Patient also has a known history of hypertension, dyslipidemia, COPD for which he wears oxygen at home at 4 L per nasal cannula at baseline. Review of Systems Review of Systems: A 12 point review of systems was completed patient all pertinent positive and negative per HPI the remainder are unremarkable. [facility] Past Medical History Medical History COPD (chronic obstructive pulmonary disease) On home oxygen 4 L Coronary artery disease Status post CABG in 2007 Hyperlipidemia Hypertension Surgical History Surgical History Hx of CABG In 2007 Family History Family History Mother Heart disease Heart attack Father Heart disease Heart attack Social History Social History Smoking packs per day: 0.5 Smoking cigarettes per day: 10.0 Years smoked: 45 Smoking pack-years: 22.50 Smoking status: Current every day smoker Tobacco type: cigarettes Second hand tobacco smoke exposure: No Alcohol intake: never Substance use: never Substance use type: does not use Gender identity (if verbalized by the patient): Male Spiritual care concerns: No Meds Home Medications and Allergies Home Medications Medication Instructions Recorded Confirmed Type Anoro Ellipta 1 inh INHALATION DAILY 10/03/21 10/27/21 History albuterol sulfate 3 puff INHALATION PRN PRN 10/03/21 10/27/21 History aspirin 81 mg PO QAM 30 Days #30 tablet 10/03/21 10/27/21 Rx atorvastatin 80 mg PO HS 10/03/21 10/27/21 History citalopram 10 mg PO DAILY 10/03/21 10/27/21 History loratadine 10 mg PO USEASDIRECTD 10/03/21 10/27/21 History lorazepam 0.5 mg PO HS PRN 10/03/21 10/27/21 History metoprolol tartrate 6.25 mg PO Q12HR 30 Days #15 tablet 10/03/21 10/27/21 Rx omeprazole 40 mg PO QAM 10/03/21 10/27/21 History ticagrelor [Brilinta] 90 mg PO Q12HR 30 Days #60 tablet 10/03/21 10/27/21 Rx tretinoin 1 applic TOPICAL DAILY 10/03/21 10/27/21 History furosemide 20 mg PO DAILY 30 Days #30 tablet 10/07/21 10/27/21 Rx lisinopril 2.5 mg PO DAILY 30 Days #30 tablet 10/07/21 10/27/21 Rx Allergies Allergy/AdvReac Type Severity Reaction Status Date / Time iodine Allergy Intermediate Hives Verified 10/27/21 12:16 Iodinated Contrast Media Allergy Unknown Verified 10/27/21 12:16 Vital Signs Vital Signs - 24 hr 10/27/21 12:08 10/27/21 12:20 10/27/21 12:25 Pulse Rate 62 58 L 68 Respiratory Rate 16 17 Blood Pressure 136/80 Pulse Oximetry 98 98 10/27/21 12:30 10/27/21 12:44 10/27/21 12:45 Pulse Rate 60 56 L 56 L Respiratory Rate 13 18 14 Blo
[2021-10-27 18:43] LABS: Troponin I 0.472 ng/mL (0.000-0.034)
[2021-10-27] MEDS: ATORVASTATIN 40 MG TABLET 80 MG PO (20:35)
[2021-10-27] MEDS: predniSONE 20 MG TABLET 40 MG PO (20:36)
[2021-10-27] MEDS: TICAGRELOR 90 MG TABLET PO (20:36)
[2021-10-27] MEDS: ENOXAPARIN 100 MG/ML SYRINGE 90 MG SUB-Q (20:36)
[2021-10-27] MEDS: METOPROLOL TARTRATE 6.25 MG TABLET PO (20:36)
--- NOTE | 2021-10-27 20:41 | ECG_ITS ---
Measurements Intervals [place] Rate: 63 P: -5 [place]: 130 QRS: 20 QRSD: 110 T: -88 QT: 427 QTc: 438 Interpretive Statements SINUS RHYTHM LOW QRS VOLTAGE IN PRECORDIAL LEADS [QRS DEFLECTION < 1.0 mV IN CHEST LEADS] POSSIBLE INFERIOR MYOCARDIAL INFARCTION , RECENT BY PREVIOUS ECG REVIEW NO SIGNIFICANT CHANGES Electronically Signed On 10-28-2021 16:48:00 CDT by Ruperto Valentin M.D.
[2021-10-27] MEDS: LORazepam (*CRX) 0.5 MG TABLET PO (23:51)
[2021-10-28] VITALS (15 sets, daily range): BP systolic 94–125; BP diastolic 45–76; PULSE 59–77; RESP 16–20; TEMP 36.2–36.9; O2SAT 93–99
[2021-10-28 05:49] LABS: Basophils Percent Auto 0.2 % (0.2-1.2); Eosinophils Percent Auto 0.1 % (0-4.4); Hematocrit 46.2 % (42.0-52.0); Hemoglobin 15.4 g/dL (14.0-18.0); Immature Granulocyte Absolute 0.03 K/mm3 (0.00-0.031); Immature Granulocyte Percent A 0.3 % (0-0.5); Lymphocytes Absolute Auto 0.73 K/mm3 (0.9-3.2); Lymphocytes Percent Auto 8.4 % (18.3-44.2); Mean Corpuscular HGB Conc 33.3 g/dl (32-36); Mean Corpuscular Hemoglobin 31.4 pg (26-34); Mean Corpuscular Volume 94.3 fl (80-100); Mean Platelet Volume 10.4 fl (7.4-10.4); Monocytes Absolute Auto 0.1 K/mm3 (0.1-0.6); Monocytes Percent Auto 1.2 % (2.6-8.5); Neutrophils Absolute Auto 7.8 K/mm3 (1.3-6.7); Neutrophils Percent Auto 89.8 % (45.5-73.1); Platelet Count Result 203 k/mm3 (150-375); Red Cell Distribution Width 13.3 % (11.5-14.5); White Blood Count 8.7 K/mm3 (4.5-10.0)
[2021-10-28 06:17] LABS: Alanine Aminotransferase 24 U/L (4-50); Alkaline Phosphatase 85 U/L (38-126); Anion Gap 7 mmol/L (8-16); Aspartate Amino Transferase 65 U/L (17-59); Bilirubin,Total 0.9 mg/dL (0.2-1.3); Blood Urea Nitrogen 17 mg/dL (9-20); Calcium 8.6 mg/dL (8.4-10.2); Carbon Dioxide 20 mmol/L (22-30); Chloride 112 mmol/L (98-107); Estimated CRCL calculation 82 ml/min; Estimated Glomerular Filt Rate > 60; Glucose 143 mg/dL (65-110); Magnesium 1.9 mg/dL (1.6-2.3); Potassium 4.2 mmol/L (3.4-5.0); Sodium 139 mmol/L (137-145)
[2021-10-28] MEDS: NITROGLYCERIN OINTMENT 1 INCH DOSE TRANSDERM ×3 (06:17→17:10)
[2021-10-28] MEDS: predniSONE 20 MG TABLET 40 MG PO (06:17)
[2021-10-28] MEDS: METOPROLOL TARTRATE 6.25 MG TABLET PO ×2 (09:12→20:33)
[2021-10-28] MEDS: lisinopriL 2.5 MG TABLET PO (09:12)
[2021-10-28] MEDS: ASPIRIN 81 MG ENTERIC TABLET PO (09:12)
[2021-10-28] MEDS: TICAGRELOR 90 MG TABLET PO ×2 (09:12→20:33)
[2021-10-28] MEDS: CITALOPRAM HYDROBROMIDE 10 MG TABLET PO (09:12)
[2021-10-28] MEDS: LORATADINE 10 MG TABLET PO (09:12)
[2021-10-28] MEDS: PANTOPRAZOLE 40 MG TABLET PO ×2 (09:12→17:10)
[2021-10-28] MEDS: UMECLIDINIUM/VILANTEROL 62.5-25 MCG ELLIPTA 1 PUFF INHALATION (09:16)
--- NOTE | 2021-10-28 10:37 | PM.CNCAR ---
Assessment and Plan Additional Plan This is a 66-year-old man with: Multivessel coronary disease known to have total occlusion of all of his [place] coronary arteries except for a small to medium size ramus branch based on angiograms that were done here 1 month ago. He presents again with another acute coronary syndrome/non ST elevation OR. Almost certainly the saphenous vein graft to his small OM3 is once again the culprit of this. Obviously the condition of his vein graft to the right coronary and BROWN to the LAD will not have changed in the last 4 weeks. This of course is not favorable but not surprising given the fact that his vein graft is 14 years old and he has continued to smoke since his operation. It is unlikely that we will be successful in keeping this vein graft patent much longer. It is also possible that there is not much viable myocardium any more in the distribution of this relatively small OM3 to which this graft is anastomosed. I believe therefore we will treat him medically at this time and obtain a Lexiscan nuclear study tomorrow morning to assess for ischemic/viable myocardium in the distribution of this vessel. If there is no significant ischemic burden I would not bring him back to the cath lab radiology technician for further intervention on this vein graft as the benefits would be negligible. Damir further recommendations after I see his nuclear stress results tomorrow Ruperto Valentin MD [facility] History of Present Illness History of Present Illness Consult date/time: 10/28/21 10:37 Consult reason: Other (Acute coronary syndrome/non ST elevation OR) Reason For Visit: Chest Pain Narrative: This is a 66-year-old man who I am seeing at the request of the hospitalist who was admitted to the hospital yesterday evening following an episode of chest pain with biomarkers compatible with a non ST elevation OR. The patient is known to us from a recent admission to this hospital with ST-elevation OR about a month ago. The patient apparently has a history of coronary artery disease for many years which was treated elsewhere until recently. He did not live in this area until several years ago. He says that many years ago he underwent several percutaneous coronary stent procedures and then ultimately was referred for coronary bypass surgery back in 2007. The patient presented to this hospital in September of 2020 with chest pain and while he was here developed inferior ST segment elevation. He was brought emergently to the cardiac catheterization lab where he was found to have occlusion of all of his [place] coronary arteries except for a ramus intermedius branch that is small to medium in size. The remainder of his coronaries are chronically occluded. His has a left internal mammary graft to which is patent into his mid LAD. He have was found to have a saphenous vein graft which is patent into the distal right coronary filling his are the PDA. He had a saphenous vein graft to the OM3 branch of the circumflex which was the culprit for that event. There was high-grade stenosis in the origin of that graft and because of slow flow there was large amount of thrombus burden in the graft. The patient underwent difficult challenging but successful PCI involving extraction thrombectomy and stenting of the proximal anastomosis/proximal aspect of that graft. At the end of the procedure the graft was nicely patent with GREGORIO 3 flow into the OM3 branch. The OM 3 branch is rather small. It does not subtend a large segment of myocardium. The patient did well and was discharged. He does have a low ejection fraction which by echocardiogram at the end of the last admission was 35%. He was seen in our office for follow-up and was doing well. A life vest device was supplied to him and recommended the patient changed his mind and decided not to wear the device and sent it back. He unfortunately has continued to smoke cigarettes for many years and despite having coronary artery disease an
[2021-10-28 11:20] LABS: Cholesterol 247 mg/dL (0-200); HDL Direct 24 mg/dL; Triglycerides 92 mg/dL (<150)
[2021-10-28 11:30] LABS: LDL Cholesterol Direct 193 mg/dL
--- NOTE | 2021-10-28 11:33 | PM.IMPN ---
Progress Note: A&P Assessment and Plan (1) NSTEMI (non-ST elevated myocardial infarction): Code(s): I21.4 - Non-ST elevation (NSTEMI) myocardial infarction Status: Acute Assessment and Plan: -serial troponins 0.132, 0.472, 2.740 -EKG reviewed -pt known by cardiology team, they were consulted and plan is for nuclear stress test -continue medical management including aspirin, Brilinta, atorvastatin, lisinopril and metoprolol -continue full dose lovenox BID -Further management per cardiology (2) Chest pain: Code(s): R07.9 - Chest pain, unspecified Status: Acute Assessment and Plan: -resolved at this time with nitro paste -as above (3) Hypertension: Qualifiers: Hypertension type: primary hypertension Qualified Code(s): I10 - Essential (primary) hypertension Code(s): I10 - Essential (primary) hypertension Status: Chronic Assessment and Plan: -continue home meds -had a lower BP this morning at 95/66, cardiology aware -further medication adjustments per cardiology (4) Hyperlipidemia: Qualifiers: Hyperlipidemia type: mixed hyperlipidemia Qualified Code(s): E78.2 - Mixed hyperlipidemia Code(s): E78.5 - Hyperlipidemia, unspecified Status: Acute Assessment and Plan: -continue atorvastatin Subjective Date/time seen: 10/28/21 11:33 Interval history: 66 yo male w/ hx of coronary artery disease status post coronary bypass grafting status post stent placement, IL, hypertension, dyslipidemia, COPD, admitted for chest pain. Currently patient is pain free since having nitro paste earlier this morning. He has MIRANDA but states this is baseline for him. No LE pain or edema. No cough or cold symptoms. Had some nausea this morning but went away after drinking some water. No emesis or abd pain. No complaints currently. Seen by cardiology this morning, plan is for nuclear stress test prior to further recommendations. Review of Systems Review of Systems: All systems reviewed & are unremarkable except as noted in HPI and below Exam Narrative: General: No acute distress, non toxic appearing Eyes: PERRL, no scleral icterus HEENT: NCAT, external ears normal, MMM Respiratory: No respiratory distress, Lungs CTA bilaterally, no wheezing Cardiovascular: RRR, no murmur Abdominal: Soft, nontender, non distended, no rebound or guarding Musculoskeletal: Moves all 4 extremities, no edema Neurological: A/Ox3, speech clear, no facial asymmetry Skin: Warm, dry, no rashes Psychiatric: Normal affect, normal mood Objective Data Vital Signs Vital Signs: Vital Signs - 24 hr 10/27/21 12:08 10/27/21 12:20 10/27/21 12:25 Temperature Pulse Rate 62 58 L 68 Respiratory Rate 16 17 Blood Pressure 136/80 Pulse Oximetry 98 98 10/27/21 12:30 10/27/21 12:44 10/27/21 12:45 Temperature Pulse Rate 60 56 L 56 L Respiratory Rate 13 18 14 Blood Pressure 113/70 Pulse Oximetry 98 96 95 10/27/21 12:46 10/27/21 13:00 10/27/21 13:01 Temperature Pulse Rate 59 L 62 61 Respiratory Rate 23 H 20 19 Blood Pressure 110/67 129/78 129/78 Pulse Oximetry 96 96 96 10/27/21 13:15 10/27/21 13:16 10/27/21 13:33 Temperature Pulse Rate 56 L 64 61 Respiratory Rate 14 13 12 Blood Pressure 120/81 Pulse Oximetry 94 97 95 10/27/21 13:45 10/27/21 13:46 10/27/21 14:00 Temperature Pulse Rate 61 61 58 L Respiratory Rate 24 H 19 20 Blood Pressure 130/74 128/74 Pulse Oximetry 93 94 94 10/27/21 14:01 10/27/21 15:00 10/27/21 16:15 Temperature Pulse Rate 59 L 61 60 Respiratory Rate 22 H 20 16 Blood Pressure 128/74 118/81 118/81 Pulse Oximetry 94 97 95 10/27/21 17:00 10/27/21 18:00 10/27/21 20:00 Temperature 98.5 F 98.0 F Pulse Rate 63 60 69 Respiratory Rate 12 18 Blood Pressure 113/72 115/64 Pulse Oximetry 95 97 10/27/21 20:36 10/27/21 22:00 10/27/21 23:34 Temperature 98
[2021-10-28] MEDS: ENOXAPARIN 100 MG/ML SYRINGE 90 MG SUB-Q (20:33)
[2021-10-28] MEDS: ATORVASTATIN 40 MG TABLET 80 MG PO (20:33)
[2021-10-28] MEDS: LORazepam (*CRX) 0.5 MG TABLET PO (22:41)
[2021-10-29] VITALS (15 sets, daily range): BP systolic 96–104; BP diastolic 55–66; PULSE 54–92; RESP 16–20; TEMP 36.3–36.7; O2SAT 93–99
--- NOTE | 2021-10-29 | EST_ITS ---
Patient Info Name: Ruperto Friedman Age: 66 years : 1955 Gender: Male Ht: 71 in Wt: 198 lbs BSA: 2.14 m2 Exam Date: 10/29/2021 8:23 AM Exam Location: [facility] Stress Patient Status: Inpatient Admit Date: 10/28/2021 Staff Ordering Physician: Ruperto Valentin MD Attending Provider: Yesenia Jett PA-C Exercise Technologist: Brenna Whitney RDCS Nurse: JIGNA WATTERS NP Exam Type: CA stress rigoberto w NM Study Info Indications I21.4 - Non-ST elevation (NSTEMI) myocardial infarction A regadenoson stress test was performed. Summary 1. Nuclear test results to follow. 2. No abnormal ST-T wave changes with lexiscan. Protocol: Lexiscan Stress ECG Details Stage: REST Duration (min): 8 min : 38 sec HR (bpm): 60 SBP (mmHg): 101 DBP (mmHg): 57 Stage: REST Duration (min): 15 min : 23 sec HR (bpm): 66 SBP (mmHg): 101 DBP (mmHg): 57 Stage: STAGE 1 Duration (min): 1 min : 0 sec HR (bpm): 87 SBP (mmHg): 101 DBP (mmHg): 57 Stage: RECOVERY Duration (min): 1 min : 0 sec HR (bpm): 89 SBP (mmHg): 112 DBP (mmHg): 74 Stage: RECOVERY Duration (min): 2 min : 0 sec HR (bpm): 81 SBP (mmHg): 100 DBP (mmHg): 70 Stage: RECOVERY Duration (min): 3 min : 0 sec HR (bpm): 75 SBP (mmHg): 103 DBP (mmHg): 57 Stage: RECOVERY Duration (min): 3 min : 4 sec HR (bpm): 74 SBP (mmHg): 103 DBP (mmHg): 57 Rest HR: 66 bpm Peak HR: 92 bpm Rest Sys BP: 101 mmHg Peak Sys BP: 112 mmHg Max Pred HR: 152 bpm % Max Pred HR: 61 % Target HR: 129 bpm Max RPP: 10,304 bpm*mmHg BP Response: Normal blood pressure response Termination Reason: Completed protocol Cardiac Symptoms: None Total Time: 1 min : 0 sec Rest Her BP: 57 mmHg Peak Her BP: 74 mmHg Total Dose: 0.4 mg Resting ECG Normal sinus rhythm with nonspecific T-wave changes. Stress ECG No abnormal ST/T wave changes with exercise. Arrhythmias None. Report Signatures
[2021-10-29] MEDS: NITROGLYCERIN OINTMENT 1 INCH DOSE TRANSDERM ×2 (00:23→06:32)
[2021-10-29 05:11] LABS: Basophils Percent Auto 0.3 % (0.2-1.2); Eosinophils Absolute Auto 0.2 K/mm3 (0-0.3); Eosinophils Percent Auto 1.3 % (0-4.4); Hematocrit 41.9 % (42.0-52.0); Hemoglobin 14.2 g/dL (14.0-18.0); Immature Granulocyte Absolute 0.06 K/mm3 (0.00-0.031); Immature Granulocyte Percent A 0.4 % (0-0.5); Lymphocytes Absolute Auto 3.39 K/mm3 (0.9-3.2); Lymphocytes Percent Auto 24.8 % (18.3-44.2); Mean Corpuscular HGB Conc 33.9 g/dl (32-36); Mean Corpuscular Hemoglobin 31.5 pg (26-34); Mean Corpuscular Volume 92.9 fl (80-100); Mean Platelet Volume 10.1 fl (7.4-10.4); Monocytes Percent Auto 7.5 % (2.6-8.5); Neutrophils Percent Auto 65.7 % (45.5-73.1); Platelet Count Result 193 k/mm3 (150-375); Red Blood Count 4.51 M/mm3 (4.6-6.20); Red Cell Distribution Width 13.6 % (11.5-14.5); White Blood Count 13.7 K/mm3 (4.5-10.0)
[2021-10-29 05:21] LABS: Alanine Aminotransferase 22 U/L (4-50); Albumin Level 3.9 g/dL (3.5-5.1); Alkaline Phosphatase 80 U/L (38-126); Anion Gap 7 mmol/L (8-16); Aspartate Amino Transferase 60 U/L (17-59); Bilirubin,Total 0.5 mg/dL (0.2-1.3); Blood Urea Nitrogen 21 mg/dL (9-20); Calcium 8.6 mg/dL (8.4-10.2); Carbon Dioxide 20 mmol/L (22-30); Chloride 113 mmol/L (98-107); Estimated CRCL calculation 73 ml/min; Estimated Glomerular Filt Rate > 60; Glucose 104 mg/dL (65-110); Sodium 140 mmol/L (137-145)
--- NOTE | 2021-10-29 07:30 | PC.NURSE ---
Pt to nuclear medicine for Myranda
--- NOTE | 2021-10-29 09:28 | PC.NURSE ---
Pt returned from [facility] via wheelchair
[2021-10-29] MEDS: CITALOPRAM HYDROBROMIDE 10 MG TABLET PO (09:33)
[2021-10-29] MEDS: TICAGRELOR 90 MG TABLET PO ×2 (09:33→21:41)
[2021-10-29] MEDS: ASPIRIN 81 MG ENTERIC TABLET PO (09:33)
[2021-10-29] MEDS: ENOXAPARIN 100 MG/ML SYRINGE 90 MG SUB-Q ×2 (09:33→21:41)
[2021-10-29] MEDS: PANTOPRAZOLE 40 MG TABLET PO ×2 (09:33→17:14)
--- NOTE | 2021-10-29 10:22 | PM.IMPN ---
Progress Note: A&P Assessment and Plan (1) NSTEMI (non-ST elevated myocardial infarction): Code(s): I21.4 - Non-ST elevation (NSTEMI) myocardial infarction Status: Acute Assessment and Plan: -serial troponins 0.132, 0.472, 2.740 -EKG reviewed -pt known by cardiology team, they were consulted, underwent nuclear stress test today 10/29/21, results pending -continue medical management including aspirin, Brilinta, atorvastatin, lisinopril and metoprolol -continue full dose lovenox BID -Further management per cardiology (2) Chest pain: Code(s): R07.9 - Chest pain, unspecified Status: Acute Assessment and Plan: -resolved at this time -as above (3) Hypertension: Qualifiers: Hypertension type: primary hypertension Qualified Code(s): I10 - Essential (primary) hypertension Code(s): I10 - Essential (primary) hypertension Status: Chronic Assessment and Plan: -continue home meds -running slightly hypotensive, cardiology aware -further medication adjustments per cardiology (4) Hyperlipidemia: Qualifiers: Hyperlipidemia type: mixed hyperlipidemia Qualified Code(s): E78.2 - Mixed hyperlipidemia Code(s): E78.5 - Hyperlipidemia, unspecified Status: Acute Assessment and Plan: -continue atorvastatin Subjective Date/time seen: 10/29/21 10:22 Interval history: 66 yo male w/ hx of coronary artery disease status post coronary bypass grafting status post stent placement, NC, hypertension, dyslipidemia, COPD, admitted for chest pain. Pt had just come from his stress test this morning. He states it went well. He has not had any cp this morning. Had some sob during the stress test but this has subsided. No leg pain/edema. No cough/cold symptoms. No N/V. No other complaints. Review of Systems Review of Systems: All systems reviewed & are unremarkable except as noted in HPI and below Exam Narrative: General: No acute distress, non toxic appearing Eyes: PERRL, no scleral icterus HEENT: NCAT, external ears normal, MMM Respiratory: No respiratory distress, Lungs CTA bilaterally, no wheezing Cardiovascular: RRR, no murmur Abdominal: Soft, nontender, non distended, no rebound or guarding Musculoskeletal: Moves all 4 extremities, no edema Neurological: A/Ox3, speech clear, no facial asymmetry Skin: Warm, dry, no rashes Psychiatric: Normal affect, normal mood Objective Data Vital Signs Vital Signs: Vital Signs - 24 hr 10/28/21 12:00 10/28/21 14:00 10/28/21 16:00 Temperature 98.4 F 97.6 F Pulse Rate 64 71 70 Respiratory Rate 18 16 Blood Pressure 117/76 94/55 L Pulse Oximetry 93 95 10/28/21 18:00 10/28/21 20:00 10/28/21 20:29 Temperature 97.9 F Pulse Rate 59 L 69 Respiratory Rate 18 Blood Pressure 106/53 L Pulse Oximetry 99 95 10/28/21 20:33 10/28/21 22:00 10/28/21 23:16 Temperature 98.0 F Pulse Rate 71 70 66 Respiratory Rate 20 Blood Pressure 107/45 L Pulse Oximetry 99 10/29/21 00:00 10/29/21 02:00 10/29/21 04:00 Temperature 97.9 F Pulse Rate 59 L 54 L 56 L Respiratory Rate 20 Blood Pressure 104/57 L Pulse Oximetry 99 10/29/21 06:00 10/29/21 08:00 Temperature 97.3 F L Pulse Rate 55 L 64 Respiratory Rate 16 Blood Pressure 98/62 L Pulse Oximetry 93 Intake/Output Intake/Output: Intake & Output 10/26/21 10/27/21 10/28/21 10/29/21 23:59 23:59 23:59 23:59 Intake Total 240 1580 400 Output Total 0 700 Balance 240 880 400 Meds/Results Medications: Active Medications Generic Name Dose Route Start Last Admin Trade Name Freq PRN Reason Stop Dose Admin Albuterol 3 puff 10/27/21 16:50 Albuterol Sulfate (*Sp) Aerosol 1 Puff INHALATION PRN PRN Shortness Of Breath Aspirin 81 mg 10/28/21 09:00 10/29/21 09:33 Aspirin 81 Mg Enteric Tablet PO 81 mg QAM MALCOM Administration Atorvastatin Bayron
--- NOTE | 2021-10-29 12:51 | PM.PNCARD ---
Progress Note: A&P Additional Plan 66-year-old man with: Multivessel ischemic heart disease central total occlusion of all his [place] coronary circulation except for 1 small ramus branch as I mentioned above. He presents to the hospital with another infarction this time which undoubtedly is due to occlusion of his circumflex graft which is now 14 years old. There is no evidence of residual viable myocardium in the distribution of this graft based on this morning's nuclear study. He should be treated medically it is not necessary or prudent to bring him back to the medical lab technologist to once again investigate this graft with the absence of any viable myocardium in this distribution. I am going to transition his metoprolol to a low dose of Coreg because of his lower ejection fraction at 36%. Ruperto Valentin MD [facility] Subjective Date/time seen: Date of service: 10/29/21 12:51 Interval history: Follow-up visit in this 66-year-old man with: Coronary artery disease previous bypass grafting approximately 14 years ago with ongoing cigarette smoking. Patient has been admitted recently approximately 1 month ago with acute IL in the distribution of his circumflex due to subtotal occlusion of the circumflex vein graft and treatment with extraction thrombectomy and stenting of the proximal segment of this graft. All [place] coronary arteries are known to be occluded. Now admitted with another episode of chest pain in mild troponin rise. This of course almost certainly is due to disease in this same graft. Nuclear stress testing today was done to assess for any viability. The entire circumflex territory appears to be infarcted and therefore I do not believe there is significant benefit or argument to returning the patient to the medical lab technologist again at this time. His RICHARD graft to the LAD and vein graft to the right coronary artery were found to be patent angiographically last month. Patient feels relatively comfortable this afternoon is resting in his bed. Nurses report beta-blockers held earlier because of bradycardia/hypotension. This was asymptomatic. Exam HENMT: Mouth: Yes moist mucous membranes Eyes: Sclera: sclerae normal Neck: Neck: supple and no JVD Resp: Effort & Inspection: normal respiratory effort Auscultation: clear to auscultation bilaterally Cardio: Rate: regular rate Rhythm: regular rhythm Other: No significant murmur or gallop GI: GI Palp: Yes Soft to palpation Auscultation: normal bowel sounds Skin: General skin exam: normal color Neuro: Cognition (Neuro): normal cognition Extrem: General: normal to inspection Objective Data Vital Signs Vital Signs: Vital Signs - 24 hr 10/28/21 14:00 10/28/21 16:00 10/28/21 18:00 Temperature 36.4 C Pulse Rate 71 70 59 L Respiratory Rate 16 Blood Pressure 94/55 L Pulse Oximetry 95 10/28/21 20:00 10/28/21 20:29 10/28/21 20:33 Temperature 36.6 C Pulse Rate 69 71 Respiratory Rate 18 Blood Pressure 106/53 L Pulse Oximetry 99 95 10/28/21 22:00 10/28/21 23:16 10/29/21 00:00 Temperature 36.7 C Pulse Rate 70 66 59 L Respiratory Rate 20 Blood Pressure 107/45 L Pulse Oximetry 99 10/29/21 02:00 10/29/21 04:00 10/29/21 06:00 Temperature 36.6 C Pulse Rate 54 L 56 L 55 L Respiratory Rate 20 Blood Pressure 104/57 L Pulse Oximetry 99 10/29/21 08:00 10/29/21 10:00 10/29/21 10:15 Temperature 36.3 C L Pulse Rate 64 61 Respiratory Rate 16 Blood Pressure 98/62 L 100/66 Pulse Oximetry 93 Intake/Output Intake/Output: Intake & Output 10/26/21 10/27/21 10/28/21 10/29/21 23:59 23:59 23:59 23:59 Intake Total 240 1580 400 Output Total 0 700 Balance 240 880 400 Meds/Results Medications: Active Medications Generic Name Dose Route Start Last Admin Trade Name Freq PRN Reason Stop Dose Admin Albuterol 3 puff 10/27/21 16:50 Albuterol Sulfate (*Sp) Aerosol 1 Puff INHALATION PRN PRN Shortness Of Breath
[2021-10-29] MEDS: lisinopriL 2.5 MG TABLET PO (12:57)
[2021-10-29] MEDS: FUROSEMIDE 20 MG TABLET PO (12:58)
[2021-10-29] MEDS: ATORVASTATIN 40 MG TABLET 80 MG PO (21:41)
[2021-10-30] VITALS (10 sets, daily range): BP systolic 95–103; BP diastolic 51–69; PULSE 59–69; RESP 17–18; TEMP 36.1–36.6; O2SAT 94–99
[2021-10-30] MEDS: LORazepam (*CRX) 0.5 MG TABLET PO (00:17)
[2021-10-30 05:22] LABS: Basophils Absolute Auto 0.1 K/mm3 (0.0-0.1); Basophils Percent Auto 0.6 % (0.2-1.2); Eosinophils Absolute Auto 0.4 K/mm3 (0-0.3); Eosinophils Percent Auto 4.3 % (0-4.4); Hematocrit 45.1 % (42.0-52.0); Hemoglobin 15.1 g/dL (14.0-18.0); Immature Granulocyte Absolute 0.05 K/mm3 (0.00-0.031); Immature Granulocyte Percent A 0.5 % (0-0.5); Lymphocytes Absolute Auto 2.62 K/mm3 (0.9-3.2); Lymphocytes Percent Auto 27.4 % (18.3-44.2); Mean Corpuscular HGB Conc 33.5 g/dl (32-36); Mean Corpuscular Hemoglobin 31.6 pg (26-34); Mean Corpuscular Volume 94.4 fl (80-100); Mean Platelet Volume 10.5 fl (7.4-10.4); Monocytes Absolute Auto 0.9 K/mm3 (0.1-0.6); Monocytes Percent Auto 9.5 % (2.6-8.5); Neutrophils Absolute Auto 5.5 K/mm3 (1.3-6.7); Neutrophils Percent Auto 57.7 % (45.5-73.1); Platelet Count Result 183 k/mm3 (150-375); Red Blood Count 4.78 M/mm3 (4.6-6.20); Red Cell Distribution Width 13.8 % (11.5-14.5); White Blood Count 9.6 K/mm3 (4.5-10.0)
[2021-10-30 05:33] LABS: Anion Gap 6 mmol/L (8-16); Blood Urea Nitrogen 19 mg/dL (9-20); Calcium 8.5 mg/dL (8.4-10.2); Carbon Dioxide 24 mmol/L (22-30); Chloride 109 mmol/L (98-107); Estimated CRCL calculation 73 ml/min; Estimated Glomerular Filt Rate > 60; Glucose 98 mg/dL (65-110); Potassium 4.1 mmol/L (3.4-5.0); Sodium 139 mmol/L (137-145)
[2021-10-30] MEDS: PANTOPRAZOLE 40 MG TABLET PO (08:20)
[2021-10-30] MEDS: CITALOPRAM HYDROBROMIDE 10 MG TABLET PO (08:20)
[2021-10-30] MEDS: ENOXAPARIN 100 MG/ML SYRINGE 90 MG SUB-Q (08:21)
[2021-10-30] MEDS: TICAGRELOR 90 MG TABLET PO (08:21)
[2021-10-30] MEDS: ASPIRIN 81 MG ENTERIC TABLET PO (08:21)
[2021-10-30] MEDS: UMECLIDINIUM/VILANTEROL 62.5-25 MCG ELLIPTA 1 PUFF INHALATION (08:30)
--- NOTE | 2021-10-30 08:58 | PM.PNCARD ---
Progress Note: A&P Assessment and Plan (1) Chest pain due to CAD: Code(s): I25.119 - Atherosclerotic heart disease of [place] coronary artery with unspecified angina pectoris Status: Acute Assessment and Plan: Multivessel ischemic heart disease central total occlusion of all his [place] coronary circulation except for 1 small ramus branch. He presents to the hospital with another infarction this time which undoubtedly is due to occlusion of his circumflex graft which is now 14 years old. There is no evidence of residual viable myocardium in the distribution of this graft based on yesterday's nuclear study. He should be treated medically it is not necessary or prudent to bring him back to the agriculture laborer to once again investigate this graft with the absence of any viable myocardium in this distribution. Continue ASA Continue Brilinta Continue statin Smoking cessation (2) Ischemic cardiomyopathy: Code(s): I25.5 - Ischemic cardiomyopathy Status: Acute Assessment and Plan: Severe ischemic heart disease with an EF of 36%. Continue lisinopril. I will discontinue the low dose coreg for now as he had some bradycardia and pauses on telemetry overnight. Add spironolactone 25mg daily to his medical regimen. BMP in one week as outpatient. Subjective Date/time seen: 10/30/21 08:58 Interval history: Follow-up visit in this 66-year-old man with: Coronary artery disease previous bypass grafting approximately 14 years ago with ongoing cigarette smoking. Patient has been admitted recently approximately 1 month ago with acute MT in the distribution of his circumflex due to subtotal occlusion of the circumflex vein graft and treatment with extraction thrombectomy and stenting of the proximal segment of this graft. All [place] coronary arteries are known to be occluded. Now admitted with another episode of chest pain in mild troponin rise. This of course almost certainly is due to disease in this same graft. Nuclear stress testing today was done to assess for any viability. The entire circumflex territory appears to be infarcted and therefore I do not believe there is significant benefit or argument to returning the patient to the agriculture laborer again at this time. His RICHARD graft to the LAD and vein graft to the right coronary artery were found to be patent angiographically last month. Patient feels relatively comfortable this afternoon is resting in his bed. Nurses report beta-blockers held earlier because of bradycardia/hypotension. This was asymptomatic. Date of service 10/30/21: He is feeling well this morning. Denies any chest pain. No complaints of any kind. He did have some mild bradycardia and several pauses overnight the longest of which was 4.87 seconds during time of sleep. Review of Systems Constitutional: Constitutional: Reports no additional constitutional complaints Eyes: Eyes: Reports no additional eye complaints ENT: Reports system reviewed and no additional complaints, except as documented Cardiovascular: Cardiovascular: Reports as per HPI Respiratory: Respiratory: Reports no additional respiratory complaints Gastrointestinal: Gastrointestinal: Reports no additional gastrointestinal complaints Musculoskeletal: Musculoskeletal: Reports no additional musculoskeletal complaints Integumentary/Breasts: Skin/Breast: Reports system reviewed and no additional complaints, except as docu Endocrine: Endocrine: Reports no additional endocrine complaints Hematologic/Lymphatic: Hematologic/Lymphatic: Reports no additional hematologic/lymphatic complaints Allergic/Immunologic: Allergic/Immunologic: Reports no additional allergic/immunologic complaints Exam Const: General: comfortable and no acute distress Other: Pleasant white male lying comfortably in bed HENMT: Mouth: Yes moist mucous membranes Eyes: Sclera: sclerae normal Pupils: Equal, round and reactive pupils present Neck: Neck: supp
[2021-10-30] MEDS: lisinopriL 2.5 MG TABLET PO (12:31)
[2021-10-30] MEDS: LORATADINE 10 MG TABLET PO (12:31)
[2021-10-30] MEDS: FUROSEMIDE 20 MG TABLET PO (12:31)
--- NOTE | 2021-10-30 13:00 | PM.DS ---
DS: Admitting Diagnosis Discharge Date 10/30/21 1300 <Leatha Moraes PA-C - Last Filed: 10/30/21 14:44> Admitting Diagnosis NSTEMI <Leatha Moraes PA-C - Last Filed: 10/30/21 14:44> DS: Discharge Diagnosis Discharge Diagnosis (1) NSTEMI (non-ST elevated myocardial infarction): Code(s): I21.4 - Non-ST elevation (NSTEMI) myocardial infarction <Leatha Moraes PA-C - Last Filed: 10/30/21 14:44> Status: Acute <Leatha Moraes PA-C - Last Filed: 10/30/21 14:44> Assessment and Plan: Coronary artery disease previous bypass grafting approximately 14 years ago with ongoing cigarette smoking. Patient has been admitted recently approximately 1 month ago with acute WI in the distribution of his circumflex. Patient presented to us with chest pain. -Serial troponins 0.132, 0.472, 2.740 -Pt known by cardiology team, they were consulted, underwent nuclear stress test 10/29/21, which showed reversible infarct, severe and left circumflex coronary artery vascular distribution, and lesser severity with small region of mild reversible ischemia and portions of the left anterior descending coronary artery vascular distribution. Borderline left ventricular enlargement with mild to moderate decreased left ventricular ejection fraction measuring 36% -Cardiology recommends continue medical management including aspirin, Brilinta, atorvastatin, lisinopril. -Hold metoprolol, carvedilol due to bradycardia due to Pt having prolonged pauses on telemetry overnight, cardiology is aware. -Add spironolactone 25 mg daily -BMP in 1 week as outpatient. <Leatha Moraes PA-C - Last Filed: 10/30/21 14:44> (2) Chest pain: Code(s): R07.9 - Chest pain, unspecified <Leatha Moraes PA-C - Last Filed: 10/30/21 14:44> Status: Acute <Leatha Moraes PA-C - Last Filed: 10/30/21 14:44> Assessment and Plan: -Resolved at this time -As above <Leatha Moraes PA-C - Last Filed: 10/30/21 14:44> (3) Hypertension: Qualifiers: Hypertension type: primary hypertension Qualified Code(s): I10 - Essential (primary) hypertension <Leatha Moraes PA-C - Last Filed: 10/30/21 14:44> Code(s): I10 - Essential (primary) hypertension <Leatha CarlosAniya Moraes PA-C - Last Filed: 10/30/21 14:44> Status: Chronic <Leatha CarlosAniya Moraes PA-C - Last Filed: 10/30/21 14:44> Assessment and Plan: -Continue home meds, with adjustments as above. <Leatha Moraes PA-C - Last Filed: 10/30/21 14:44> (4) Hyperlipidemia: Qualifiers: Hyperlipidemia type: mixed hyperlipidemia Qualified Code(s): E78.2 - Mixed hyperlipidemia <Leatha CarlosAniya Moraes PA-C - Last Filed: 10/30/21 14:44> Code(s): E78.5 - Hyperlipidemia, unspecified <Leatha Moraes PA-C - Last Filed: 10/30/21 14:44> Status: Acute <Leatha Moraes PA-C - Last Filed: 10/30/21 14:44> Assessment and Plan: -Continue atorvastatin <Leatha Moraes PA-C - Last Filed: 10/30/21 14:44> DS: Summary Hospital Course Reason for hospitalization: NSTEMI <Leatha Moraes PA-C - Last Filed: 10/30/21 14:44> Hospital Course: See above for hospital course. <Leatha Moraes PA-C - Last Filed: 10/30/21 14:44> Status at Discharge Overall status at discharge: patient is progressing back to baseline <Leatha Moraes PA-C - Last Filed: 10/30/21 14:44> Time Spent with Patient Time attestation: Total time spent providing and/or coordinating discharge services: 35 mins <Leatha Moraes PA-C - Last Filed: 10/30/21 14:44> Time spent: Greater than 30 minutes <Leatha Moraes PA-C - Last Filed: 10/30/21 14:44> Exam Narrative: GENERAL APPEARANCE: Alert and oriented x 3, in no apparent distress. HEENT: PERRL, EOMI. Sclerae anicteric. Moist mucous membranes. NECK: Supple. No JVD or obvious carotid bruits.
== END 2021-10-30 15:24 | disposition home or self-care (01) | DRG 282 ==
LOC: ANHED 14:10 → ANHIMU 15:01
PROVIDERS: Nurse Practitioner Adult Health; Physician Assistant; Specialist; Admitting Provider Internal Medicine; Emergency Provider Emergency Medicine; PCP Family Medicine; Visit Provider Student in an Organized Health Care Education/Training Program
DX: I21.4 Non-ST elevation (NSTEMI) myocardial infarction (principal); I22.2 Subsequent non-ST elevation (NSTEMI) myocardial infarction; I25.10 Atherosclerotic heart disease of native coronary artery without angina pectoris; I25.5 Ischemic cardiomyopathy; J44.9 Chronic obstructive pulmonary disease, unspecified; I10 Essential (primary) hypertension; E78.5 Hyperlipidemia, unspecified; Z95.5 Presence of coronary angioplasty implant and graft; Z95.1 Presence of aortocoronary bypass graft; Z99.81 Dependence on supplemental oxygen; Z87.891 Personal history of nicotine dependence
CPT/HCPCS: 36415; 71046; 78452; 80048; 80053; 80061; 83690; 83735; 84484; 85025; 85610; 85730; 93005; 93017; 94640; 96372; 99285; A9270; A9502; G0378; J1650; J2785; J7512

== ENCOUNTER 2021-11-06 09:46 | Outpatient (CLI) | payer OTHER, SELFPAY ==
[2021-11-06 10:19] LABS: Anion Gap 8 mmol/L (8-16); Blood Urea Nitrogen 28 mg/dL (7-18); Calcium 9.1 mg/dL (8.5-10.1); Carbon Dioxide 26 mmol/L (21-32); Chloride 103 mmol/L (98-108); Estimated Glomerular Filt Rate > 60; Glucose 103 mg/dL (70-99); Osmolality Calculated 289 mOsm/kg (285-295); Potassium 4.8 mmol/L (3.5-5.1); Sodium 137 mmol/L (136-145)
[2021-11-06 11:17] LABS: NT Pro B Type Natriuretic Pept 439 pg/mL (0-125)
== END 2021-11-06 09:47 | disposition home or self-care (01) ==
LOC: CHSLAB 09:49
PROVIDERS: Nurse Practitioner; PCP Family Medicine; Visit Provider Student in an Organized Health Care Education/Training Program
DX: I21.4 Non-ST elevation (NSTEMI) myocardial infarction (principal); I25.5 Ischemic cardiomyopathy; I50.9 Heart failure, unspecified
CPT/HCPCS: 36415; 80048; 83880

== ENCOUNTER 2021-11-16 09:47 | Outpatient (CLI) | payer OTHER, SELFPAY ==
[2021-11-16 10:22] LABS: Anion Gap 8 mmol/L (8-16); Blood Urea Nitrogen 27 mg/dL (7-18); Calcium 9.2 mg/dL (8.5-10.1); Carbon Dioxide 28 mmol/L (21-32); Chloride 104 mmol/L (98-108); Cholesterol 233 mg/dL (0-200); Estimated Glomerular Filt Rate > 60; Glucose 100 mg/dL (70-99); HDL Direct 31 mg/dL (40-60); LDL Cholesterol Calculated 172 mg/dL (<130); Osmolality Calculated 295 mOsm/kg (285-295); Potassium 4.4 mmol/L (3.5-5.1); Sodium 140 mmol/L (136-145); Triglycerides 152 mg/dL (0-150)
== END 2021-11-16 09:48 | disposition home or self-care (01) ==
LOC: CHSLAB 09:49
PROVIDERS: PCP Family Medicine; Visit Provider Nurse Practitioner Adult Health
DX: I25.2 Old myocardial infarction (principal)
CPT/HCPCS: 36415; 80048; 80061

== ENCOUNTER 2021-11-29 09:30 | Outpatient (RCR) | payer OTHER, SELFPAY | END 2021-12-11 12:47 | disposition home or self-care (01) | PROVIDERS: PCP Family Medicine; Visit Provider Internal Medicine Cardiovascular Disease | DX: Z95.1 Presence of aortocoronary bypass graft (principal) | CPT/HCPCS: 93798 ==

== ENCOUNTER 2022-01-20 09:04 | Outpatient (CLI) | payer OTHER, SELFPAY ==
[2022-01-20 09:24] LABS: Hemoglobin A1C 5.3 % (<5.7)
[2022-01-20 09:42] LABS: Alanine Aminotransferase 14 U/L (16-63); Albumin Level 3.9 g/dL (3.4-5.0); Alkaline Phosphatase 101 U/L (46-116); Anion Gap 7 mmol/L (8-16); Aspartate Amino Transferase 21 U/L (15-37); Bilirubin,Total 0.5 mg/dL (0.00-1.00); Blood Urea Nitrogen 11 mg/dL (7-18); Calcium 8.7 mg/dL (8.5-10.1); Carbon Dioxide 25 mmol/L (21-32); Chloride 107 mmol/L (98-108); Cholesterol 95 mg/dL (0-200); Estimated Glomerular Filt Rate > 60; Glucose 90 mg/dL (70-99); HDL Direct 27 mg/dL (40-60); LDL Cholesterol Calculated 39 mg/dL (<130); Osmolality Calculated 287 mOsm/kg (285-295); Potassium 4.3 mmol/L (3.5-5.1); Sodium 139 mmol/L (136-145); Total Protein 6.7 g/dL (6.4-8.2); Triglycerides 143 mg/dL (0-150)
== END 2022-01-20 09:05 | disposition home or self-care (01) ==
LOC: CHSLAB 09:07
PROVIDERS: PCP Physician Assistant; Visit Provider Family Medicine
DX: E78.5 Hyperlipidemia, unspecified (principal); R73.01 Impaired fasting glucose
CPT/HCPCS: 36415; 80053; 80061; 83036

== ENCOUNTER 2022-11-20 04:02 | Emergency (ER) | payer OTHER, SELFPAY ==
[2022-11-20] VITALS (69 sets, daily range): BP systolic 66–100; BP diastolic 37–72; PULSE 49–72; RESP 16–26; TEMP 36.3–36.8; O2SAT 90–100
--- NOTE | ~2022-11-20 | XR_ITS ---
Portable chest x-ray Comparison: 10/27/2021 Clinical History: Shortness of breath Findings: Lungs are clear, without focal consolidation or pleural effusion. Cardiomediastinal silho uette is stable. Bones and soft tissues are unremarkable. Impression: Clear lungs. Reviewed, dictated and finalized at location . Impression: Clear lungs.
--- NOTE | ~2022-11-20 | CT_ITS ---
Non-contrast Head CT History: Altered mental status Technique: Axial non-contrast imaging of the brain was performed. Dose reduction technique was used on this scan by utilizing automated exposure control and iterative reconstruction technique. The dose -length product (DLP) was 681.00 mGy-cm. Findings: There is no evidence of intracranial hemorrhage, mass lesion, or acute infarct. Brain par enchyma appears normal. The ventricles and subarachnoid spaces are normal in size. The calvarium ap pears normal. The visualized paranasal sinuses and mastoid air cells are clear. Impression: No significant abnormality seen. Reviewed, dictated and finalized at location . Impression: No significant abnormality seen.
--- NOTE | 2022-11-20 04:18 | PC.NURSE ---
Spoke with Kuldip with [place] [facility]. Case #[id number]. Poison control recommends an EKG, urine drug screen, and blood work including CMP, CBC, CK, Magnesium, ASA, Salicylate, and ETOH level. Dr. Frank napoles.
--- NOTE | 2022-11-20 04:25 | ED.OVERDOSE ---
HPI - Overdose General Chief Complaint: Overdose <Cricket Marie MD - Last Filed: 11/20/22 06:58> Stated Complaint: Overdose <Cricket Marie MD - Last Filed: 11/20/22 06:58> Time Seen by Provider: 11/20/22 07:12 <Cricket Marie MD - Last Filed: 11/20/22 06:58> Source: patient <Cricket Marie MD - Last Filed: 11/20/22 06:58> Mode of arrival: EMS <Cricket Marie MD - Last Filed: 11/20/22 06:58> Limitations: no limitations <Cricket Marie MD - Last Filed: 11/20/22 06:58> History of Present Illness HPI Narrative: 67-year-old male smoker with a history of hypertension, CAD status post CABG / cardiomyopathy with an EF of 36% with sinus pauses, COPD was brought in by EMS for -- altered mental status. patient is intoxicated -- has been drinking alcohol since yesterday morning -- ingested multiple doses of Ativan, atenolol, escitalopram at around 8:00 p.m. atenolol and escitalopram are not his usual home medications. -- denied suicidal ideation <Cricket Marie MD - Last Filed: 11/20/22 06:58> Onset (ago): day(s) ( since yesterday) <Cricket Marie MD - Last Filed: 11/20/22 06:58> Timing confirmed by: spouse <Cricket Marie MD - Last Filed: 11/20/22 06:58> Intent: unknown <Cricket Marie MD - Last Filed: 11/20/22 06:58> How Overdose Was Discovered: called family/friend <Cricket Marie MD - Last Filed: 11/20/22 06:58> Treatments Prior to Arrival: none <Cricket Marie MD - Last Filed: 11/20/22 06:58> Related Data Home Medications: Home Medications Medication Instructions Recorded Confirmed albuterol sulfate 90 mcg/actuation 3 puff inhalation PRN PRN 10/03/21 11/20/22 aerosol inhaler Shortness Of Breath atorvastatin 80 mg tablet 80 mg PO HS 10/03/21 11/20/22 citalopram 20 mg tablet 10 mg PO DAILY 10/03/21 11/20/22 lorazepam 0.5 mg tablet 0.5 mg PO HS PRN Anxiety 10/03/21 11/20/22 omeprazole 40 mg capsule,delayed 40 mg PO QAM 10/03/21 11/20/22 release fluticasone fur. 100 mcg-umeclid 1 inh inhalation DAILY 11/20/22 11/20/22 62.5 mcg-vilant 25 mcg inhalat.powder (Trelegy Ellipta) varenicline 0.5 mg (11)-1 mg (42) 1 ea PO DAILY 11/20/22 11/20/22 tablets in a dose pack <Cricket Marie MD - Last Filed: 11/20/22 06:58> Allergies/Adverse Reactions: Allergies Allergy/AdvReac Type Severity Reaction Status Date / Time iodine Allergy Intermediate Hives Verified 10/27/21 12:16 Iodinated Contrast Media Allergy Unknown Verified 10/27/21 12:16 <Cricket Marie MD - Last Filed: 11/20/22 06:58> Review of Systems Review of Systems: ROS unobtainable: Yes unobtainable due to mental status <Cricket Marie MD - Last Filed: 11/20/22 06:58> [facility] Past Medical History Medical History: Medical History COPD (chronic obstructive pulmonary disease) On home oxygen 4 L Coronary artery disease Status post CABG in 2007 Hyperlipidemia Hypertension <Cricket Marie MD - Last Filed: 11/20/22 06:58> Surgical History Surgical History: Surgical History Hx of CABG In 2007 <Cricket Marie MD - Last Filed: 11/20/22 06:58> Family History Family History: Family History Mother Heart disease Heart attack Father Heart disease Heart attack <Cricket Marie MD - Last Filed: 11/20/22 06:58> Social History Social History: Social History Smoking packs per day: 0.5 Smoking cigarettes per day: 10.0 Years smoked: 45 Smoking pack-years: 22.50 Smoking status: Current every day smoker Tobacco type: cigarettes Second hand tobacco smoke exposure: No Alcohol intake: never Substance use: never Substance use type: does not use
--- NOTE | 2022-11-20 04:35 | ECG_ITS ---
Measurements Intervals [place] Rate: 53 P: 49 CA: 181 QRS: 37 QRSD: 117 T: 172 QT: 467 QTc: 441 Interpretive Statements SINUS BRADYCARDIA VENTRICULAR PREMATURE COMPLEX LOW QRS VOLTAGE IN PRECORDIAL LEADS BORDERLINE ST-T WAVE ABNORMALITY- DIFFUSE LEADS BASELINE ARTIFACT- I, II, III, AVR, AVL, AVF, V1-V6 BORDERLINE ECG COMPARED TO ECG 10/27/2021 20:51:10 SINUS BRADYCARDIA NOW PRESENT Electronically Signed On 11-20-2022 6:28:12 CDT by Manny Kennedy D.O.
[2022-11-20] MEDS: SODIUM CHLORIDE 0.9% IV 1,000 ML 999 ML (04:45)
[2022-11-20] MEDS: GLUCAGON FOR INJ 1 MG VIAL IV PUSH ×2 (04:45→05:13)
[2022-11-20] MEDS: IPRATROPIUM 0.5 MG/ALBUTEROL SULFATE 2.5 MG AMPUL.NEB 3 ML INHALATION ×2 (04:51→08:58)
[2022-11-20 05:00] LABS: Base Excess ABG -3.9 mmol/L (0-2); HCO3 ABG 21.7 mmol/L (23-29); Oxygen Content ABG 19.4 %vol (16.0-22.0); Oxygen Saturation ABG 95.8 % (95-97); Oxyhemoglobin 89.2 % (94-100); PCO2 ABG 41.6 mmHg (35-45); PO2 ABG 83.7 mmHg (75-85); Total Hemoglobin 15.4 g/dL (12.0-18.0); pH ABG 7.34 (7.35-7.45)
[2022-11-20 05:02] LABS: Basophils Absolute Auto 0.05 K/mm3 (0.00-0.10); Basophils Percent Auto 0.5 % (0.0-1.0); Device NASAL CANNULA; Eosinophils Absolute Auto 0.09 K/mm3 (0.02-0.50); Eosinophils Percent Auto 0.8 % (1.0-6.0); Hematocrit 46.3 % (37.0-46.0); Hemoglobin 15.2 g/dL (12.4-15.3); Immature Granulocyte Absolute 0.03 K/mm3 (0.00-0.00); Immature Granulocyte Percent A 0.3 % (0.0-0.0); Lymphocytes Percent Auto 23.9 % (18.0-42.0); Mean Corpuscular HGB Conc 32.8 g/dL (32.0-36.0); Mean Corpuscular Hemoglobin 31.5 pg (27.0-31.0); Mean Corpuscular Volume 95.9 fL (78.0-102.0); Mean Platelet Volume 10.3 fl (8.7-11.0); Modified Allen's Test Pass; Monocytes Absolute Auto 0.53 K/mm3 (0.10-0.90); Monocytes Percent Auto 4.9 % (2.0-11.0); Neutrophils Absolute Auto 7.6 K/mm3 (1.7-7.2); Neutrophils Percent Auto 69.6 % (50.0-70.0); Platelet Count Result 174 K/mm3 (150-420); Red Blood Count 4.83 M/mm3 (4.70-6.10); Red Cell Distribution Width 13.6 % (11.6-14.4); Site Drawn LEFT RADIAL; White Blood Count 10.9 K/mm3 (4.8-10.8)
[2022-11-20 05:18] LABS: Acetaminophen < 2 ug/mL (10-30)
[2022-11-20 05:19] LABS: Alanine Aminotransferase 18 U/L (16-63); Albumin Level 3.3 g/dL (3.4-5.0); Alkaline Phosphatase 76 U/L (46-116); Anion Gap 11 mmol/L (8-16); Aspartate Amino Transferase 14 U/L (15-37); Bilirubin,Total 0.5 mg/dL (0.00-1.00); Blood Urea Nitrogen 11 mg/dL (7-18); Carbon Dioxide 22 mmol/L (21-32); Chloride 108 mmol/L (98-108); Creatine Kinase 42 U/L (39-308); Estimated CRCL calculation 63 ml/min; Estimated Glomerular Filt Rate > 60; Ethanol 67 mg/dL (0-6); Glucose 122 mg/dL (70-99); Lactic Acid Reflex 2.2 mmol/L (0.4-2.0); Osmolality Calculated 292 mOsm/kg (285-295); Potassium 3.8 mmol/L (3.5-5.1); Salicylate 2.6 mg/dL (2.8-20.0); Sodium 141 mmol/L (136-145); Total Protein 6.2 g/dL (6.4-8.2); Troponin I 9.6 ng/L (0.00-60.4)
[2022-11-20 05:24] LABS: Calcium 7.6 mg/dL (8.5-10.1)
[2022-11-20] MEDS: THIAMINE HCL INJ 100 MG, FOLIC ACID 1 MG, MULTIVITAMINS-12 INJ 10 ML, MAGNESIUM SULFATE... IV CONT (05:26)
--- NOTE | 2022-11-20 06:45 | PC.NURSE ---
Poison control called, they would like to keep pt here for 12 hours, with ekg every 6 hours.
[2022-11-20 07:16] LABS: Appearance Urine Clear (Clear); Bilirubin Urine Negative (Negative); Blood Urine Negative (Negative); Color Urine Yellow (Yellow); Glucose Urine UA Negative (Negative); Ketones Urine Negative (Negative); Leukocyte Esterase Ur Negative LEU/UL (Negative); Nitrate Urine Negative (Negative); Protein Urine Negative (Negative); Urobilinogen Urine 0.2 mg/dL (0.2-1.0)
[2022-11-20 07:24] LABS: Add Urine Microscopic? NO
[2022-11-20 07:34] LABS: Amphetamine Screen Urine Negative (Negative); Barbiturate Screen Urine Negative (Negative); Benzodiazepines Screen Urine Negative (Negative); Cannabinoid Screen Urine Negative (Negative); Cocaine Screen Urine Negative (Negative); Methadone Screen Urine Negative (Negative); Opiate Screen Urine Negative (Negative); Phencyclidine Screen Urine Negative (Negative)
[2022-11-20 08:00] LABS: Reflex Lactic Acid Yes or No Add Lactic
[2022-11-20] MEDS: SODIUM CHLORIDE 0.9% IV 250 ML (08:06)
[2022-11-20] MEDS: SODIUM CHLORIDE 0.9% IV 500 ML 50 ML IV CONT (09:05)
== END 2022-11-20 11:03 | disposition short-term general hospital (02) ==
PROVIDERS: Internal Medicine Critical Care Medicine; Emergency Provider Emergency Medicine; PCP Physician Assistant
DX: T42.4X2A Poisoning by benzodiazepines, intentional self-harm, initial encounter (principal); T44.7X2A Poisoning by beta-adrenoreceptor antagonists, intentional self-harm, initial encounter; F10.921 Alcohol use, unspecified with intoxication delirium; I11.0 Hypertensive heart disease with heart failure; I50.9 Heart failure, unspecified; J44.9 Chronic obstructive pulmonary disease, unspecified; I25.810 Atherosclerosis of coronary artery bypass graft(s) without angina pectoris; E78.5 Hyperlipidemia, unspecified; F17.210 Nicotine dependence, cigarettes, uncomplicated; Z95.1 Presence of aortocoronary bypass graft; Z99.81 Dependence on supplemental oxygen
CPT/HCPCS: 36415; 36600; 70450; 71045; 80053; 80307; 81003; 82550; 82805; 83605; 84484; 85025; 93005; 94640; 96361; 96365; 96366; 96375; 99285; J1610; J3411; J3475; J7030; J7040; J7050

== ENCOUNTER 2022-11-20 11:40 | Inpatient (IN) | payer OTHER, SELFPAY ==
[2022-11-20] VITALS (19 sets, daily range): BP systolic 82–149; BP diastolic 42–96; PULSE 56–100; RESP 14–25; TEMP 36.8–37.2; O2SAT 88–96; BMI 22.8
--- NOTE | ~2022-11-20 | XR_ITS ---
Portable chest x-ray Comparison: 11/20/2022 at 5:23 AM Clinical History: Respiratory distress Findings: COPD pattern of the lungs is present. Possible minimal pleural effusions. Possible minimal developing central pulmonary edema. Cardiomediastinal silhouette is stable. Bones and soft tissues are unremarkable. Impression: Possible minimal developing central pulmonary edema with minimal pleural effusions. Underlying COPD. Reviewed, dictated and finalized at [facility]. Impression: Possible minimal developing central pulmonary edema with minimal pleural effusi ons. Underlying COPD.
--- NOTE | ~2022-11-20 | XR_ITS ---
EXAMINATION: XR chest 1V portable INDICATION: Shortness of breath TECHNIQUE: Portable AP chest at 1025 hours COMPARISON: 11/20/2022 FINDINGS: There are worsening opacities of the left mid and lower lung zones. Right basilar airspace opacities are stable. No pleural effusion or pneumothorax. Median sternotomy wires and mediastinal rubio rgical clips are seen, likely from prior coronary artery bypass grafting. The cardiomediastinal silho uette is stable. IMPRESSION: 1. Worsening opacities of the left mid and lower lung zones, consistent with pneumonia versus pulmona ry edema. Reviewed, dictated and finalized at location A. IMPRESSION: 1. Worsening opacities of the left mid and lower lung zones, consistent with pn [place] versus pulmonary edema.
--- NOTE | ~2022-11-20 | XR_ITS ---
EXAMINATION: XR chest 1V portable INDICATION: Shortness of breath TECHNIQUE: Portable AP chest at 1355 hours COMPARISON: 11/22/2021 FINDINGS: Airspace opacities of the left mid and lower lung zones persist with slight improvement. No pleural effusion or pneumothorax. Median sternotomy wires and mediastinal surgical clips are seen, l ikely from prior coronary artery bypass grafting. The cardiomediastinal silhouette is stable. IMPRESSION: 1. Improved airspace opacities of the left mid and lower lung zones, consistent with pneumonia/or pul monary edema. Reviewed, dictated and finalized at location A. IMPRESSION: 1. Improved airspace opacities of the left mid and lower lung zones, consistent with pneumonia/or pulmonary edema.
--- NOTE | 2022-11-20 11:35 | ADMGEN ---
This patient, Ruperto Friedman, was admitted to Intensive Care Unit-5. Patient/family oriented to hospital policies and general routines including ID bracelet, bed and alarms, visiting hours, pain management, procedures, bathroom and other care routines, personal items, smoking policy, room service/diet, and visiting hours. Information on how to activate the Rapid Response Team has been discussed. Patient/Family are encouraged to report perceived risks to care and to ask questions if they do not understand what they are told or what they should do.
--- NOTE | 2022-11-20 12:34 | ECG_ITS ---
Measurements Intervals [place] Rate: 56 P: 28 MT: 162 QRS: 18 QRSD: 112 T: -51 QT: 508 QTc: 493 Interpretive Statements SINUS BRADYCARDIA LOW QRS VOLTAGE IN PRECORDIAL LEADS BORDERLINE ST-T WAVE ABNORMALITY- DIFFUSE LEADS BASELINE ARTIFACT- I, II, III, AVR, AVL, AVF, V1-V6 BORDERLINE ECG COMPARED TO ECG 11/20/2022 04:43:44 NO SIGNIFICANT CHANGES Electronically Signed On 11-20-2022 13:25:23 CDT by Manny Kennedy D.O.
--- NOTE | 2022-11-20 12:41 | WPDCNINT ---
Assessment and Plan Assessment and plan (1) Drug overdose: Qualifiers: Encounter type: initial encounter Injury intent: undetermined intent Qualified Code(s): T50.904A - Poisoning by unspecified drugs, medicaments and biological substances, undetermined, initial encounter Code(s): T50.901A - Poisoning by unspecified drugs, medicaments and biological substances, accidental (unintentional), initial encounter Status: Acute Assessment and Plan: Patient presented to the [facility] in [place] with complains of altered mental status, alcohol intoxication, drug overdose with atenolol, Ativan, escitalopram around 8:00 p.m. on 11/19/2022, EMS was called and patient arrived in around 3:30-4 :00 a.m. this morning at the outside hospital -the ER physician's note patient was given 750 mL of normal saline bolus -will continue maintenance IV fluids cautiously as patient has ischemic cardiomyopathy with EF of 25-30% (2) Suicidal behavior: Code(s): R45.89 - Other symptoms and signs involving emotional state Status: Acute Assessment and Plan: Patient did state that he was suicidal and that this was a trial run to the ER physician at [facility] and to the bedside RN here at [facility]. He also told the bedside RN at [facility] that he has multiple plans -when I asked him about suicidal attempt or ideation or harming himself he said he has had thoughts on and off about harming himself but currently does not want to harm himself. -suicide precautions -bedside sitter -once patient medically stable he will require assessment from the crisis management and care coordination and placement in a psychiatric facility (3) Bradycardia: Code(s): R00.1 - Bradycardia, unspecified Status: Acute Assessment and Plan: Bradycardia could be related to atenolol overdose -patient was given glucagon and the outside hospital -will repeat glucagon -will give normal saline 500 mL IV fluid bolus x1 -will start maintenance IV fluids at 75 mL/hour normal saline (4) Alcohol intoxication: Qualifiers: Complication of substance-induced condition: with delirium Qualified Code(s): F10.921 - Alcohol use, unspecified with intoxication delirium Code(s): F10.929 - Alcohol use, unspecified with intoxication, unspecified Status: Acute Assessment and Plan: Patient states he drank a bottle of Syriac wine, alcohol levels were elevated on admission -will add thiamine, folic acid and multivitamin -will watch for alcohol withdrawal symptoms (5) Coronary artery disease: Qualifiers: Coronary Disease-Associated Artery/Lesion type: bypass graft [place] vs. transplanted heart: [place] heart Associated angina: with unstable angina Qualified Code(s): I25.700 - Atherosclerosis of coronary artery bypass graft(s), unspecified, with unstable angina pectoris Code(s): I25.10 - Atherosclerotic heart disease of [place] coronary artery without angina pectoris Status: Acute Assessment and Plan: Patient with history of coronary artery disease status post stent in 2021, followed by our geomorphologist here at [facility] -continue aspirin and Brilinta (6) Ischemic cardiomyopathy: Code(s): I25.5 - Ischemic cardiomyopathy Status: Acute Assessment and Plan: With cardiomyopathy with EF of 25-30%, av LV diastolic dysfunction, mild mitral valve calcification, mild tricuspid valve regurg on echocardiogram done on 10/03/2021 -continue medical management Plan DVT prophylaxis: Lovenox Stress ulcer prophylaxis: Protonix as it takes omeprazole at home Nutrition: Heart healthy diet Plan: Will repeat labs, lactic acid, salicylate and acetaminophen levels along with EKG as requested by poison Control Code Status: Full code Critical Care Time Spent: 49 minutes Due to a high probability of clinically significant, life threatening deterior
[2022-11-20] MEDS: SODIUM CHLORIDE 0.9% IV 500 ML IV CONT (12:54)
[2022-11-20 12:56] LABS: Basophils Percent Auto 0.5 % (0.2-1.2); Eosinophils Absolute Auto 0.3 K/mm3 (0-0.3); Eosinophils Percent Auto 3.4 % (0-4.4); Hematocrit 43.8 % (42.0-52.0); Hemoglobin 14.6 g/dL (14.0-18.0); Immature Granulocyte Absolute 0.03 K/mm3 (0.00-0.031); Immature Granulocyte Percent A 0.4 % (0-0.5); Lymphocytes Absolute Auto 2.54 K/mm3 (0.9-3.2); Lymphocytes Percent Auto 31.8 % (18.3-44.2); Mean Corpuscular HGB Conc 33.3 g/dl (32-36); Mean Corpuscular Hemoglobin 31.3 pg (26-34); Mean Platelet Volume 10.2 fl (7.4-10.4); Monocytes Absolute Auto 0.6 K/mm3 (0.1-0.6); Monocytes Percent Auto 7.4 % (2.6-8.5); Neutrophils Absolute Auto 4.5 K/mm3 (1.3-6.7); Neutrophils Percent Auto 56.5 % (45.5-73.1); Platelet Count Result 143 k/mm3 (150-375); Red Blood Count 4.66 M/mm3 (4.6-6.20)
[2022-11-20 13:07] LABS: Alanine Aminotransferase 18 U/L (6-50); Albumin Level 3.5 g/dL (3.5-5.1); Alkaline Phosphatase 64 U/L (38-126); Anion Gap 7 mmol/L (8-16); Aspartate Amino Transferase 21 U/L (17-59); Bilirubin,Total 0.8 mg/dL (0.2-1.3); Blood Urea Nitrogen 12 mg/dL (9-20); Calcium 7.4 mg/dL (8.4-10.2); Carbon Dioxide 21 mmol/L (22-30); Chloride 110 mmol/L (98-107); Estimated CRCL calculation 82 ml/min; Estimated Glomerular Filt Rate > 60; Glucose 76 mg/dL (65-110); Lipase 33 U/L (23-300); Magnesium 2.1 mg/dL (1.6-2.3); Phosphorus 3.6 mg/dL (2.5-4.5); Sodium 138 mmol/L (137-145)
[2022-11-20 13:08] LABS: Lactic Acid Reflex 1.2 mmol/L (0.7-2.0)
[2022-11-20 13:20] LABS: INR 1.1; Prothrombin Time 14.7 Seconds (11.1-14.7)
[2022-11-20 13:21] LABS: Partial Thromboplastin Time 32.8 SECONDS (22.3-36.8)
[2022-11-20 13:23] LABS: Troponin I < 0.012 ng/mL (0.000-0.034)
[2022-11-20] MEDS: GLUCAGON FOR INJ 1 MG VIAL 3 MG IV PUSH (13:42)
[2022-11-20 13:43] LABS: Acetaminophen < 10 ug/mL (10-30); Salicylate < 1.0 mg/dL (2-20)
[2022-11-20] MEDS: SODIUM CHLORIDE 0.9% IV 1,000 ML 999 ML IV CONT (13:45)
[2022-11-20 14:20] LABS: Influenza A QL RT-PCR Negative (Negative); Influenza B QL RT-PCR Negative (Negative); RSV RNA, RT-PCR Negative (Negative); SARS-CoV-2 RNA PCR Negative (Negative)
[2022-11-20] MEDS: IPRATROPIUM BR 0.02% INH SOLN 0.5 MG/2.5 ML VIAL INHALATION ×2 (14:24→20:15)
[2022-11-20] MEDS: ALBUTEROL SULFATE NEB 2.5 MG/3 ML INH INHALATION ×2 (14:24→20:15)
[2022-11-20] MEDS: LACTATED RINGERS 1,000 ML 75 ML IV CONT (16:23)
[2022-11-20] MEDS: ALBUMIN HUMAN 25% 25 GM/100 ML 100 ML IVPB ×2 (16:24→23:55)
--- NOTE | 2022-11-20 18:22 | P.PCNBED_ITS ---
Procedures Central Line Placement Right Femoral: Central Line Date: 11/20/22 Central Line Time: 18:00 Consent: I have discussed with the patient and/or surrogate, the non-emergent placement of a central venous catheter, including its clinical necessity/indication and associated potential risks and complications. The patient and/or surrogate understand(s) and acknowledge(s) the need to proceed with central venous catheter insertion as an important element of the patient's clinical management. Time Out Performed: Yes Patient Position: supine Patient placed on monitor/pulse ox: Yes Provider Prep: mask, sterile gown, sterile gloves, Max. sterile barrier precautions, cap and hand hygiene with conventional soap/water or alcohol based hand rub Central line prep: 2% Chlorhexidine scrub Local anesthesia used: lidocaine 1% Amount of anesthesia used (ml): 5 Sterile US Technique with sterile gel/sterile probe covers: Yes Central line lumen inserted: triple Vincentian: 7 Length (cm): 20 Post Procedure: sutured in place, good blood return, all ports aspirated, flushed, capped, transparent dressing, antimicrobial product and aseptic technique maintained throughout procedure Post procedure x-ray: other (N/A with femoral placement) Patient tolerated procedure: well Complications: none
[2022-11-20] MEDS: NOREPINEPHRINE 8 MG/D5W 250 ML 8 MG/250 ML BAG 9.38 MG IV CONT (18:29)
--- NOTE | 2022-11-20 19:09 | ECG_ITS ---
Measurements Intervals [place] Rate: 65 P: 63 ND: 141 QRS: 39 QRSD: 93 T: 1 QT: 422 QTc: 439 Interpretive Statements SINUS RHYTHM LOW QRS VOLTAGE IN PRECORDIAL LEADS CANNOT RULE OUT SEPTAL INFARCT, AGE INDETERMINATE BORDERLINE ST ABNORMALITY- INFERIOR LEADS BASELINE ARTIFACT- I, II, AVR, AVL ABNORMAL ECG COMPARED TO ECG 11/20/2022 13:23:31 SINUS RHYTHM NOW PRESENT Electronically Signed On 11-20-2022 21:31:36 CDT by Manny Kennedy D.O.
[2022-11-20 20:05] LABS: Glucose Point of Care 135 mg/dl (65-105)
[2022-11-20] MEDS: TICAGRELOR 90 MG TABLET PO (21:28)
[2022-11-20] MEDS: CENTRAL LINE FLUSH 10 ML IV PUSH (21:29)
[2022-11-20 23:28] LABS: Glucose Point of Care 128 mg/dl (65-105)
[2022-11-20 23:45] LABS: Alveolar/Arterial O2 Gradient 161.4 mmHg; Base Excess ABG -5.2 mEq/l (+/-2.0); Device CPAP; Fractional Inspired Oxygen 50 %; HCO3 ABG 20.2 mEq/l (22.0-26.0); Oxygen Content ABG 20.7 %vol (16.0-22.0); Oxygen Saturation ABG 98.8 % (95.0-100.0); Oxyhemoglobin 96.5 % THb (90.0-100.0); PCO2 ABG 39.2 mmHg (35.0-45.0); PO2 FiO2 Ratio Arterial Blood 3.02 %; Site Drawn RIGHT BRACHIAL; Total Hemoglobin 15.1 g/dL (12.0-18.0)
[2022-11-20 23:46] LABS: CPAP 12 cmH2O
[2022-11-21] VITALS (30 sets, daily range): BP systolic 85–122; BP diastolic 45–88; PULSE 61–84; RESP 16–33; TEMP 36.1–37.9; O2SAT 93–99
[2022-11-21] MEDS: chlordiazePOXIDE (*CRX) 25 MG CAPSULE PO ×5 (00:03→23:50)
[2022-11-21] MEDS: ALBUTEROL SULFATE NEB 2.5 MG/3 ML INH INHALATION ×4 (00:11→20:24)
[2022-11-21] MEDS: IPRATROPIUM BR 0.02% INH SOLN 0.5 MG/2.5 ML VIAL INHALATION ×4 (00:11→20:24)
--- NOTE | 2022-11-21 01:09 | ECG_ITS ---
Measurements Intervals [place] Rate: 67 P: 71 UT: 170 QRS: 43 QRSD: 103 T: 17 QT: 441 QTc: 469 Interpretive Statements SINUS RHYTHM LOW QRS VOLTAGE IN PRECORDIAL LEADS BORDERLINE ST ABNORMALITY- INFERIOR LEADS BORDERLINE ECG COMPARED TO ECG 11/20/2022 20:00:04 NO SIGNIFICANT CHANGES Electronically Signed On 11-21-2022 6:47:55 CDT by Manny Kennedy D.O.
[2022-11-21 05:16] LABS: Glucose Point of Care 159 mg/dl (65-105)
[2022-11-21] MEDS: ALBUMIN HUMAN 25% 25 GM/100 ML 100 ML IVPB ×2 (05:20→12:00)
[2022-11-21] MEDS: CENTRAL LINE FLUSH 10 ML IV PUSH ×4 (05:21→20:32)
[2022-11-21] MEDS: CENTRAL LINE FLUSH 20 ML IV PUSH (05:21)
[2022-11-21] MEDS: LACTATED RINGERS 1,000 ML 75 ML IV CONT (05:21)
[2022-11-21 05:31] LABS: Basophils Percent Auto 0.2 % (0.2-1.2); Eosinophils Absolute Auto 0.1 K/mm3 (0-0.3); Eosinophils Percent Auto 0.7 % (0-4.4); Hemoglobin 13.2 g/dL (14.0-18.0); Immature Granulocyte Absolute 0.03 K/mm3 (0.00-0.031); Immature Granulocyte Percent A 0.3 % (0-0.5); Immature Platelet Fraction Pct 4.2 % (0.9-11.2); Lymphocytes Absolute Auto 1.91 K/mm3 (0.9-3.2); Lymphocytes Percent Auto 21.8 % (18.3-44.2); Mean Corpuscular Hemoglobin 31.7 pg (26-34); Mean Corpuscular Volume 96.2 fl (80-100); Mean Platelet Volume 10.3 fl (7.4-10.4); Monocytes Absolute Auto 0.7 K/mm3 (0.1-0.6); Monocytes Percent Auto 7.5 % (2.6-8.5); Neutrophils Absolute Auto 6.1 K/mm3 (1.3-6.7); Neutrophils Percent Auto 69.5 % (45.5-73.1); Platelet Count Result 143 k/mm3 (150-375); Red Blood Count 4.16 M/mm3 (4.6-6.20); Red Cell Distribution Width 14.1 % (11.5-14.5); White Blood Count 8.8 K/mm3 (4.5-10.0)
[2022-11-21 05:39] LABS: Alanine Aminotransferase 68 U/L (6-50); Albumin Level 3.4 g/dL (3.5-5.1); Alkaline Phosphatase 61 U/L (38-126); Anion Gap 4 mmol/L (8-16); Aspartate Amino Transferase 72 U/L (17-59); Bilirubin,Total 0.7 mg/dL (0.2-1.3); Blood Urea Nitrogen 14 mg/dL (9-20); Calcium 7.7 mg/dL (8.4-10.2); Carbon Dioxide 25 mmol/L (22-30); Chloride 114 mmol/L (98-107); Estimated CRCL calculation 73 ml/min; Estimated Glomerular Filt Rate > 60; Glucose 137 mg/dL (65-110); Lactic Acid Reflex 1.3 mmol/L (0.7-2.0); Magnesium 2.1 mg/dL (1.6-2.3); Phosphorus 2.2 mg/dL (2.5-4.5); Potassium 3.9 mmol/L (3.4-5.0); Sodium 143 mmol/L (137-145)
[2022-11-21 05:54] LABS: INR 1.1; Partial Thromboplastin Time 31.9 SECONDS (22.3-36.8); Prothrombin Time 15.2 Seconds (11.1-14.7)
[2022-11-21] MEDS: FLUTICASONE/UMECLIDIN/VILANTER 100-62.5-25 MCG ELLIPTA 1 PUFF INHALATION (07:15)
[2022-11-21] MEDS: FUROSEMIDE INJ 40 MG/4 ML VIAL 20 MG IV PUSH (08:25)
[2022-11-21] MEDS: ENOXAPARIN 40 MG/0.4 ML SYRINGE SUB-Q (08:29)
[2022-11-21] MEDS: THIAMINE HCL 100 MG TABLET PO (08:30)
[2022-11-21] MEDS: FOLIC ACID 1 MG TABLET PO (08:30)
[2022-11-21] MEDS: PANTOPRAZOLE SODIUM IV 40 MG VIAL IV PUSH (08:30)
[2022-11-21] MEDS: TICAGRELOR 90 MG TABLET PO ×2 (08:30→20:32)
[2022-11-21] MEDS: ASPIRIN 81 MG ENTERIC TABLET PO (08:30)
[2022-11-21] MEDS: THERAPEUTIC MULTIVITAMINS/MINERALS TAB (*BKC) 1 TABLET PO (08:30)
--- NOTE | 2022-11-21 11:21 | WPDINTPN ---
Progress Note: A&P Assessment and Plan (1) Drug overdose: Qualifiers: Encounter type: initial encounter Injury intent: undetermined intent Qualified Code(s): T50.904A - Poisoning by unspecified drugs, medicaments and biological substances, undetermined, initial encounter Code(s): T50.901A - Poisoning by unspecified drugs, medicaments and biological substances, accidental (unintentional), initial encounter Status: Inactive Assessment and Plan: Patient presented to the [facility] in [facility] with complains of altered mental status, alcohol intoxication, drug overdose with atenolol, Ativan, escitalopram around 8:00 p.m. on 11/19/2022, EMS was called and patient arrived in around 3:30-4 :00 a.m. this morning at the outside hospital -the ER physician's note patient was given 750 mL of normal saline bolus -discontinue maintenance IV fluids as patient had some difficulty breathing overnight, -chest x-ray showed pulmonary edema -patient given Lasix IV x1 with good urine output -lactic acid has normalized (2) Suicidal behavior: Code(s): R45.89 - Other symptoms and signs involving emotional state Status: Acute Assessment and Plan: Patient did state that he was suicidal and that this was a trial run to the ER physician at [facility] and to the bedside RN here at [facility]. He also told the bedside RN at [facility] that he has multiple plans -when I asked him about suicidal attempt or ideation or harming himself he said he has had thoughts on and off about harming himself but currently does not want to harm himself. -suicide precautions -bedside sitter -patient is currently medically stable, care coordination and crisis management evaluate the patient (3) Bradycardia: Code(s): R00.1 - Bradycardia, unspecified Status: Acute Assessment and Plan: RESOLVED Bradycardia could be related to atenolol overdose -patient was given glucagon and the outside hospital -will repeat glucagon -will give normal saline 500 mL IV fluid bolus x1 -will start maintenance IV fluids at 75 mL/hour normal saline (4) Alcohol intoxication: Qualifiers: Complication of substance-induced condition: with delirium Qualified Code(s): F10.921 - Alcohol use, unspecified with intoxication delirium Code(s): F10.929 - Alcohol use, unspecified with intoxication, unspecified Status: Inactive Assessment and Plan: Patient states he drank a bottle of [place] wine, alcohol levels were elevated on admission -will add thiamine, folic acid and multivitamin -CIWA protocol has been instituted -p.r.n. Ativan -continue chlordiazepoxide -mildly LFTs, continue to monitor (5) Coronary artery disease: Qualifiers: Coronary Disease-Associated Artery/Lesion type: bypass graft [place] vs. transplanted heart: [place] heart Associated angina: with unstable angina Qualified Code(s): I25.700 - Atherosclerosis of coronary artery bypass graft(s), unspecified, with unstable angina pectoris Code(s): I25.10 - Atherosclerotic heart disease of [place] coronary artery without angina pectoris Status: Acute Assessment and Plan: Patient with history of coronary artery disease status post stent in 2021, followed by our promotions associate here at [facility] -continue aspirin and Brilinta (6) Ischemic cardiomyopathy: Code(s): I25.5 - Ischemic cardiomyopathy Status: Acute Assessment and Plan: With cardiomyopathy with EF of 25-30%, av LV diastolic dysfunction, mild mitral valve calcification, mild tricuspid valve regurg on echocardiogram done on 10/03/2021 -continue medical management Plan DVT prophylaxis: Lovenox Stress ulcer prophylaxis: Protonix as it takes omeprazole at home Nutrition: Heart healthy diet l Code Status: Full code Critical Care Time Spent: 32 minutes Due to a high probability of clinically significant, life
[2022-11-21 12:12] LABS: Glucose Point of Care 101 mg/dl (65-105)
--- NOTE | 2022-11-21 15:40 | PM.IMHP ---
H&P: HPI History of Present Illness Date/Time: 11/21/22 15:40 Chief Complaint: Overdose Narrative: EDHPI Narrative: ? 67-year-old male smoker with a history of hypertension, CAD status post CABG / cardiomyopathy with an EF of 36% with sinus pauses, COPD was brought in by EMS for -- altered mental status.? patient is intoxicated -- has been drinking alcohol since yesterday morning -- ingested multiple doses of Ativan,? atenolol, escitalopram at around 8:00 p.m. atenolol and escitalopram are not his usual? home medications. Patient is 67-year-old male who initially presented to [facility] with drug overdose with intention to commit suicide, upon arrival patient was shortness of breath, patient with history of significant coronary artery disease and severe cardiomyopathy with ejection fraction of 25-30%, is found to have pulmonary edema and patient is diurese, currently patient is somnolent unable to provide detailed review of symptom or history, patient is with sitter once clinically stable will have crisis team evaluate the patient and further recommendation to follow. Patient admitted as inpatient with suicidal ideation exacerbation of acute on chronic systolic congestive Heart failure and being diuresed with IV Lasix. Review of Systems Review of Systems: ROS unobtainable: Yes unobtainable due to medical condition PMFSH Past Medical History Medical History COPD (chronic obstructive pulmonary disease) On home oxygen 4 L Coronary artery disease Status post CABG in 2007 Hyperlipidemia Hypertension Surgical History Surgical History Hx of CABG In 2007 Family History Family History Mother Heart disease Heart attack Father Heart disease Heart attack Social History Social History Smoking packs per day: 1 Smoking cigarettes per day: 20.0 Years smoked: 56 Smoking pack-years: 56.00 Smoking status: Current every day smoker Tobacco type: cigarettes Second hand tobacco smoke exposure: No Alcohol intake: current Drinks per week: 1 Substance use: never Substance use type: does not use Last use: says only drinks 1x a year Lack of Transportation: YES Lack of Food: Never True Current Housing: I Have Housing Concerned About Future Housing: No Difficulty Paying Gas/Electric Bills: No Difficulty Paying for Meds: No Currently Unemployed: No Education: High School Diploma/GED Difficulty w/ Childcare or Family Care: No Living arrangements: with family Gender identity (if verbalized by the patient): Male Spiritual care concerns: No Meds Home Medications and Allergies Home Medications Medication Instructions Recorded Confirmed Type albuterol sulfate 90 mcg/actuation 3 puff inhalation PRN PRN 10/03/21 11/20/22 History aerosol inhaler Shortness Of Breath aspirin 81 mg tablet,delayed 81 mg PO QAM 30 days #30 tabs 10/03/21 11/20/22 Rx release atorvastatin 80 mg tablet 80 mg PO HS 10/03/21 11/20/22 History citalopram 20 mg tablet 10 mg PO DAILY 10/03/21 11/20/22 History lorazepam 0.5 mg tablet 0.5 mg PO HS PRN Anxiety 10/03/21 11/20/22 History omeprazole 40 mg capsule,delayed 40 mg PO QAM 10/03/21 11/20/22 History release fluticasone fur. 100 mcg-umeclid 1 inh inhalation DAILY 11/20/22 11/20/22 History 62.5 mcg-vilant 25 mcg inhalat.powder (Trelegy Ellipta) varenicline 0.5 mg (11)-1 mg (42) 1 ea PO DAILY 11/20/22 11/20/22 History tablets in a dose pack Allergies Allergy/AdvReac Type Severity Reaction Status Date / Time iodine Allergy Intermediate Hives Verified 10/27/21 12:16 Iodinated Contrast Media Allergy Unknown Verified 10/27/21 12:16 Vital Signs Vital Signs - 24 hr 11/20/22 16:00 11/20/22 16:0
[2022-11-21 17:43] LABS: Anion Gap 7 mmol/L (8-16); Blood Urea Nitrogen 12 mg/dL (9-20); Calcium 8.2 mg/dL (8.4-10.2); Carbon Dioxide 28 mmol/L (22-30); Chloride 110 mmol/L (98-107); Estimated CRCL calculation 66 ml/min; Estimated Glomerular Filt Rate > 60; Glucose 115 mg/dL (65-110); Potassium 3.4 mmol/L (3.4-5.0); Sodium 145 mmol/L (137-145)
[2022-11-21] MEDS: POTASSIUM CHLORIDE 20 MEQ TABLET 40 MEQ PO (20:31)
[2022-11-21] MEDS: ACETAMINOPHEN 325 MG TABLET 650 MG PO (23:54)
[2022-11-22] VITALS (24 sets, daily range): BP systolic 92–117; BP diastolic 40–72; PULSE 63–117; RESP 16–43; TEMP 36.2–37.9; O2SAT 90–96
[2022-11-22] MEDS: IPRATROPIUM BR 0.02% INH SOLN 0.5 MG/2.5 ML VIAL INHALATION ×4 (02:32→21:06)
[2022-11-22] MEDS: ALBUTEROL SULFATE NEB 2.5 MG/3 ML INH INHALATION ×4 (02:32→21:06)
[2022-11-22 05:04] LABS: Basophils Absolute Auto 0.1 K/mm3 (0.0-0.1); Basophils Percent Auto 0.5 % (0.2-1.2); Eosinophils Absolute Auto 0.2 K/mm3 (0-0.3); Hematocrit 38.3 % (42.0-52.0); Hemoglobin 12.7 g/dL (14.0-18.0); Immature Granulocyte Absolute 0.04 K/mm3 (0.00-0.031); Immature Granulocyte Percent A 0.4 % (0-0.5); Immature Platelet Fraction Pct 4.7 % (0.9-11.2); Lymphocytes Absolute Auto 2.23 K/mm3 (0.9-3.2); Lymphocytes Percent Auto 24.5 % (18.3-44.2); Mean Corpuscular HGB Conc 33.2 g/dl (32-36); Mean Corpuscular Hemoglobin 31.5 pg (26-34); Mean Platelet Volume 10.7 fl (7.4-10.4); Monocytes Absolute Auto 0.9 K/mm3 (0.1-0.6); Monocytes Percent Auto 9.6 % (2.6-8.5); Neutrophils Absolute Auto 5.7 K/mm3 (1.3-6.7); Platelet Count Result 122 k/mm3 (150-375); Red Blood Count 4.03 M/mm3 (4.6-6.20); Red Cell Distribution Width 14.1 % (11.5-14.5); White Blood Count 9.1 K/mm3 (4.5-10.0)
[2022-11-22 05:18] LABS: Anion Gap 4 mmol/L (8-16); Blood Urea Nitrogen 14 mg/dL (9-20); Calcium 8.1 mg/dL (8.4-10.2); Carbon Dioxide 27 mmol/L (22-30); Chloride 110 mmol/L (98-107); Estimated CRCL calculation 82 ml/min; Estimated Glomerular Filt Rate > 60; Glucose 104 mg/dL (65-110); Magnesium 1.8 mg/dL (1.6-2.3); Potassium 3.8 mmol/L (3.4-5.0); Sodium 141 mmol/L (137-145)
[2022-11-22] MEDS: chlordiazePOXIDE (*CRX) 25 MG CAPSULE PO ×4 (06:08→23:15)
[2022-11-22] MEDS: CENTRAL LINE FLUSH 10 ML IV PUSH (06:09)
[2022-11-22] MEDS: FUROSEMIDE INJ 40 MG/4 ML VIAL IV PUSH (07:50)
[2022-11-22] MEDS: methylPREDNISolone SOD SUCC 125 MG VIAL IV PUSH (07:55)
[2022-11-22] MEDS: PANTOPRAZOLE SODIUM IV 40 MG VIAL IV PUSH (08:33)
[2022-11-22] MEDS: ENOXAPARIN 40 MG/0.4 ML SYRINGE SUB-Q (08:33)
[2022-11-22] MEDS: THIAMINE HCL 100 MG TABLET PO (08:34)
[2022-11-22] MEDS: FOLIC ACID 1 MG TABLET PO (08:34)
[2022-11-22] MEDS: TICAGRELOR 90 MG TABLET PO ×2 (08:34→20:49)
[2022-11-22] MEDS: THERAPEUTIC MULTIVITAMINS/MINERALS TAB (*BKC) 1 TABLET PO (08:34)
[2022-11-22] MEDS: ASPIRIN 81 MG ENTERIC TABLET PO (08:34)
--- NOTE | 2022-11-22 13:55 | WPDPN ---
Progress Note: A&P Assessment and Plan (1) Suicidal behavior: Code(s): R45.89 - Other symptoms and signs involving emotional state Status: Acute Assessment and Plan: EDI Narrative: ? 67-year-old male smoker with a history of hypertension, CAD status post CABG / cardiomyopathy with an EF of 36% with sinus pauses, COPD was brought in by EMS for -- altered mental status.? patient is intoxicated -- has been drinking alcohol since yesterday morning -- ingested multiple doses of Ativan,? atenolol, escitalopram at around 8:00 p.m. atenolol and escitalopram are not his usual? home medications. Patient is 67-year-old male who initially presented to [facility] with drug overdose with intention to commit suicide, upon arrival patient was shortness of breath, patient with history of significant coronary artery disease and severe cardiomyopathy with ejection fraction of 25-30%, is found to have pulmonary edema and patient is diurese, currently patient is somnolent unable to provide detailed review of symptom or history, patient is with sitter once clinically stable will have crisis team evaluate the patient and further recommendation to follow. 11/22/2022 interval history: 67-year-old male admitted with shortness of breath with history severe cardiomyopathy ejection fraction of 25-30%, this morning patient short of breath and wheezing patient was given his methylprednisone 125 mg IV x1 and IV Lasix 40 mg x1, currently patient states feeling much him better and not as short of breath most likely patient is shortness of breath secondary exacerbation acute on chronic systolic congestive Heart failure as well as exacerbation of COPD as patient does smoke, will continue IV Lasix 40 mg q.day will start the patient methylprednisone 40 mg every 8 hours from tomorrow, and monitor and taper Solu-Medrol and patient's symptoms improve, upon arrival patient had a thought of suicide will have a crisis team evaluate the patient and further recommendation to follow. Patient is present in the room gave updates (2) Bradycardia: Code(s): R00.1 - Bradycardia, unspecified Status: Acute Assessment and Plan: Upon arrival patient had a bradycardia now his heart rate close to normal (3) Acute respiratory failure: Code(s): J96.00 - Acute respiratory failure, unspecified whether with hypoxia or hypercapnia Status: Acute Assessment and Plan: Most likely secondary exacerbation acute on chronic systolic congestive Heart failure patient is being diuresed will continue to monitor and appreciate applications instructor. (4) Acute on chronic systolic CHF (congestive heart failure): Code(s): I50.23 - Acute on chronic systolic (congestive) heart failure Status: Acute Assessment and Plan: Patient with history severe cardiomyopathy with ejection fraction of 25-30% patient presented with shortness of breath most likely patient is having exacerbation of acute on chronic systolic congestive Heart failure. Subjective Date/time seen: 11/22/22 13:55 Interval history: Patient is 67-year-old male who initially presented to [facility] with drug overdose with intention to commit suicide, upon arrival patient was shortness of breath, patient with history of significant coronary artery disease and severe cardiomyopathy with ejection fraction of 25-30%,? is found to have pulmonary edema and patient is diurese, currently patient is somnolent unable to provide detailed review of symptom or history, patient is with sitter once clinically stable will have crisis team evaluate the patient and further recommendation to follow. 11/22/2022 interval history: 67-year-old male admitted with shortness of breath with history severe cardiomyopathy ejection fraction of 25-30%, this morning patient short of breath and wheezing patient was given his methylprednisone 125 mg IV x1 and IV Lasix 40 mg x1, currently patient stat
--- NOTE | 2022-11-22 14:56 | PCRCNOTE ---
PT. WAS ON BIPAP THIS AM AN UNABLE TO TO DPI AT THE MOMENT.
[2022-11-23] VITALS (17 sets, daily range): BP systolic 93–112; BP diastolic 58–72; PULSE 58–88; RESP 14–24; TEMP 36.6–36.8; O2SAT 90–95
[2022-11-23] MEDS: IPRATROPIUM BR 0.02% INH SOLN 0.5 MG/2.5 ML VIAL INHALATION ×4 (02:19→21:00)
[2022-11-23] MEDS: ALBUTEROL SULFATE NEB 2.5 MG/3 ML INH INHALATION ×4 (02:19→21:00)
[2022-11-23 03:03] LABS: Hematocrit 42.4 % (42.0-52.0); Hemoglobin 14.3 g/dL (14.0-18.0); Mean Corpuscular HGB Conc 33.7 g/dl (32-36); Mean Corpuscular Volume 91.8 fl (80-100); Mean Platelet Volume 10.7 fl (7.4-10.4); Platelet Count Result 147 k/mm3 (150-375); Red Blood Count 4.62 M/mm3 (4.6-6.20); Red Cell Distribution Width 13.6 % (11.5-14.5); White Blood Count 15.7 K/mm3 (4.5-10.0)
[2022-11-23 03:14] LABS: Anion Gap 12 mmol/L (8-16); Blood Urea Nitrogen 22 mg/dL (9-20); Calcium 8.6 mg/dL (8.4-10.2); Carbon Dioxide 23 mmol/L (22-30); Chloride 106 mmol/L (98-107); Estimated CRCL calculation 75 ml/min; Estimated Glomerular Filt Rate > 60; Glucose 186 mg/dL (65-110); Magnesium 1.9 mg/dL (1.6-2.3); Potassium 3.6 mmol/L (3.4-5.0); Sodium 141 mmol/L (137-145)
[2022-11-23] MEDS: methylPREDNISolone SOD SUCC 40 MG VIAL IV PUSH (07:18)
[2022-11-23] MEDS: chlordiazePOXIDE (*CRX) 25 MG CAPSULE PO ×2 (07:18→12:07)
[2022-11-23] MEDS: THERAPEUTIC MULTIVITAMINS/MINERALS TAB (*BKC) 1 TABLET PO (08:20)
[2022-11-23] MEDS: TICAGRELOR 90 MG TABLET PO ×2 (08:20→20:37)
[2022-11-23] MEDS: PANTOPRAZOLE SODIUM IV 40 MG VIAL IV PUSH (08:20)
[2022-11-23] MEDS: THIAMINE HCL 100 MG TABLET PO (08:20)
[2022-11-23] MEDS: FOLIC ACID 1 MG TABLET PO (08:20)
[2022-11-23] MEDS: ASPIRIN 81 MG ENTERIC TABLET PO (08:20)
[2022-11-23] MEDS: ENOXAPARIN 40 MG/0.4 ML SYRINGE SUB-Q (08:20)
[2022-11-23] MEDS: FLUTICASONE/UMECLIDIN/VILANTER 100-62.5-25 MCG ELLIPTA 1 PUFF INHALATION (08:28)
[2022-11-23] MEDS: FUROSEMIDE INJ 40 MG/4 ML VIAL IV PUSH (08:28)
--- NOTE | 2022-11-23 12:46 | P.PNIM_ITS ---
Progress Note: A&P Assessment and Plan (1) Suicidal behavior: Code(s): R45.89 - Other symptoms and signs involving emotional state Status: Acute Assessment and Plan: EDI Narrative: ? 67-year-old male smoker with a history of hypertension, CAD status post CABG / cardiomyopathy with an EF of 36% with sinus pauses, COPD was brought in by EMS for -- altered mental status.? patient is intoxicated -- has been drinking alcohol since yesterday morning -- ingested multiple doses of Ativan,? atenolol, escitalopram at around 8:00 p.m. atenolol and escitalopram are not his usual? home medications. Patient is 67-year-old male who initially presented to [facility] with drug overdose with intention to commit suicide, upon arrival patient was shortness of breath, patient with history of significant coronary artery disease and severe cardiomyopathy with ejection fraction of 25-30%, is found to have pulmonary edema and patient is diurese, currently patient is somnolent unable to provide detailed review of symptom or history, patient is with sitter once clinically stable will have crisis team evaluate the patient and further recommendation to follow. 11/22/2022 interval history: 67-year-old male admitted with shortness of breath with history severe cardiomyopathy ejection fraction of 25-30%, this morning patient short of breath and wheezing patient was given his methylprednisone 125 mg IV x1 and IV Lasix 40 mg x1, currently patient states feeling much him better and not as short of breath most likely patient is shortness of breath secondary exacerbation acute on chronic systolic congestive Heart failure as well as exacerbation of COPD as patient does smoke, will continue IV Lasix 40 mg q.day will start the patient methylprednisone 40 mg every 8 hours from tomorrow, and monitor and taper Solu-Medrol and patient's symptoms improve, upon arrival patient had a thought of suicide will have a crisis team evaluate the patient and further recommendation to follow. Patient is present in the room gave updates 11/23/2022: 67-year-old male presented with drug overdose with intention to commit suicide. Altered mental status drug overdose with atenolol Ativan escitalopram around 8:00 p.m. on 11/19/2022. History of significant coronary artery disease and severe cardiomyopathy with ejection fraction 25 30% on found to have pulmonary edema started on diuresis. On received Lasix IV with steroid. Also suspected COPD exacerbation ongoing smoking. Crisis team to evaluate once medically stable. Was febrile on admission. Vital stable hypertension has resolved. Leukocytosis to 15 K likely related to steroid. Mild thrombocytopenia. Altered mental status with CT head with no acute abnormality. Bradycardia related to atenolol overdose. Now improved.Patient feeling better. He is breathing better today. Discussed with nursing staff. No leg swelling. He does not drink regularly will stop his Librium. Recheck chest x-ray. Treat Lasix to oral if improving. Will add doxycycline. switch Solu Medrol to prednisone (2) Bradycardia: Code(s): R00.1 - Bradycardia, unspecified Status: Acute Assessment and Plan: Upon arrival patient had a bradycardia now his heart rate close to normal (3) Acute respiratory failure: Code(s): J96.00 - Acute respiratory failure, unspecified whether with hypoxia or hypercapnia Status: Acute Assessment and Plan: Most likely secondary exacerbation acute on chronic systolic congestive Heart failure patient is being diuresed will continue to monitor and appreciate specialty therapist. (4) Acute on chronic systolic CHF (congestive heart failure):
[2022-11-23] MEDS: POTASSIUM CHLORIDE 20 MEQ TABLET 40 MEQ PO (14:30)
[2022-11-23] MEDS: DOXYCYCLINE HYCLATE 100 MG TABLET PO (20:37)
[2022-11-24] VITALS (8 sets, daily range): BP systolic 107–113; BP diastolic 67–79; PULSE 65–87; RESP 14–20; TEMP 36.4–36.9; O2SAT 93–96
[2022-11-24] MEDS: ALBUTEROL SULFATE NEB 2.5 MG/3 ML INH INHALATION ×2 (02:33→09:38)
[2022-11-24] MEDS: IPRATROPIUM BR 0.02% INH SOLN 0.5 MG/2.5 ML VIAL INHALATION ×2 (02:33→09:38)
[2022-11-24 04:36] LABS: Hematocrit 41.9 % (42.0-52.0); Hemoglobin 13.8 g/dL (14.0-18.0); Mean Corpuscular HGB Conc 32.9 g/dl (32-36); Mean Corpuscular Hemoglobin 31.4 pg (26-34); Mean Corpuscular Volume 95.4 fl (80-100); Mean Platelet Volume 11.1 fl (7.4-10.4); Platelet Count Result 167 k/mm3 (150-375); Red Blood Count 4.39 M/mm3 (4.6-6.20); Red Cell Distribution Width 14.1 % (11.5-14.5); White Blood Count 15.8 K/mm3 (4.5-10.0)
[2022-11-24 05:37] LABS: Anion Gap 6 mmol/L (8-16); Blood Urea Nitrogen 33 mg/dL (9-20); Calcium 8.6 mg/dL (8.4-10.2); Carbon Dioxide 27 mmol/L (22-30); Chloride 108 mmol/L (98-107); Estimated CRCL calculation 75 ml/min; Estimated Glomerular Filt Rate > 60; Glucose 103 mg/dL (65-110); Magnesium 1.8 mg/dL (1.6-2.3); Potassium 3.8 mmol/L (3.4-5.0); Sodium 141 mmol/L (137-145)
[2022-11-24] MEDS: DOXYCYCLINE HYCLATE 100 MG TABLET PO (08:54)
[2022-11-24] MEDS: predniSONE 20 MG TABLET 40 MG PO (08:54)
[2022-11-24] MEDS: THERAPEUTIC MULTIVITAMINS/MINERALS TAB (*BKC) 1 TABLET PO (08:54)
[2022-11-24] MEDS: FOLIC ACID 1 MG TABLET PO (08:54)
[2022-11-24] MEDS: ASPIRIN 81 MG ENTERIC TABLET PO (08:54)
[2022-11-24] MEDS: PANTOPRAZOLE 40 MG TABLET PO (08:54)
[2022-11-24] MEDS: FUROSEMIDE 40 MG TABLET PO (08:54)
[2022-11-24] MEDS: THIAMINE HCL 100 MG TABLET PO (08:54)
[2022-11-24] MEDS: ENOXAPARIN 40 MG/0.4 ML SYRINGE SUB-Q (08:54)
[2022-11-24] MEDS: TICAGRELOR 90 MG TABLET PO (08:54)
[2022-11-24] MEDS: FLUTICASONE/UMECLIDIN/VILANTER 100-62.5-25 MCG ELLIPTA 1 PUFF INHALATION (09:38)
--- NOTE | 2022-11-24 10:23 | PM.IMPN ---
Progress Note: A&P Assessment and Plan (1) Suicidal behavior: Code(s): R45.89 - Other symptoms and signs involving emotional state Status: Acute Assessment and Plan: EDI Narrative: ? 67-year-old male smoker with a history of hypertension, CAD status post CABG / cardiomyopathy with an EF of 36% with sinus pauses, COPD was brought in by EMS for -- altered mental status.? patient is intoxicated -- has been drinking alcohol since yesterday morning -- ingested multiple doses of Ativan,? atenolol, escitalopram at around 8:00 p.m. atenolol and escitalopram are not his usual? home medications. Patient is 67-year-old male who initially presented to [facility] with drug overdose with intention to commit suicide, upon arrival patient was shortness of breath, patient with history of significant coronary artery disease and severe cardiomyopathy with ejection fraction of 25-30%, is found to have pulmonary edema and patient is diurese, currently patient is somnolent unable to provide detailed review of symptom or history, patient is with sitter once clinically stable will have crisis team evaluate the patient and further recommendation to follow. 11/22/2022 interval history: 67-year-old male admitted with shortness of breath with history severe cardiomyopathy ejection fraction of 25-30%, this morning patient short of breath and wheezing patient was given his methylprednisone 125 mg IV x1 and IV Lasix 40 mg x1, currently patient states feeling much him better and not as short of breath most likely patient is shortness of breath secondary exacerbation acute on chronic systolic congestive Heart failure as well as exacerbation of COPD as patient does smoke, will continue IV Lasix 40 mg q.day will start the patient methylprednisone 40 mg every 8 hours from tomorrow, and monitor and taper Solu-Medrol and patient's symptoms improve, upon arrival patient had a thought of suicide will have a crisis team evaluate the patient and further recommendation to follow. Patient is present in the room gave updates 11/23/2022: 67-year-old male presented with drug overdose with intention to commit suicide. Altered mental status drug overdose with atenolol Ativan escitalopram around 8:00 p.m. on 11/19/2022. History of significant coronary artery disease and severe cardiomyopathy with ejection fraction 25 30% on found to have pulmonary edema started on diuresis. On received Lasix IV with steroid. Also suspected COPD exacerbation ongoing smoking. Crisis team to evaluate once medically stable. Was febrile on admission. Vital stable hypertension has resolved. Leukocytosis to 15 K likely related to steroid. Mild thrombocytopenia. Altered mental status with CT head with no acute abnormality. Bradycardia related to atenolol overdose. Now improved.Patient feeling better. He is breathing better today. Discussed with nursing staff. No leg swelling. He does not drink regularly will stop his Librium. Recheck chest x-ray. Treat Lasix to oral if improving. Will add doxycycline. switch Solu Medrol to prednisone (2) Bradycardia: Code(s): R00.1 - Bradycardia, unspecified Status: Acute Assessment and Plan: Upon arrival patient had a bradycardia now his heart rate close to normal (3) Acute respiratory failure: Code(s): J96.00 - Acute respiratory failure, unspecified whether with hypoxia or hypercapnia Status: Acute Assessment and Plan: Most likely secondary exacerbation acute on chronic systolic congestive Heart failure patient is being diuresed will continue to monitor and appreciate supervisor sheet manufacturing. (4) Acute on chronic systolic CHF (congestive heart failure): Code(s): I50.23 - Acute on chronic systolic (congestive) heart failure Status: Acute Assessment and Plan: Patient with history severe cardiomyopathy with ejection fraction of 25-30% patient presented with shortness of breath most li
--- NOTE | 2022-11-24 13:53 | PM.DS ---
DS: Admitting Diagnosis Discharge Date 11/24/22 Admitting Diagnosis Drug overdose DS: Discharge Diagnosis Discharge Diagnosis (1) Suicidal behavior: Code(s): R45.89 - Other symptoms and signs involving emotional state Status: Acute (2) Bradycardia: Code(s): R00.1 - Bradycardia, unspecified Status: Acute (3) Acute respiratory failure: Code(s): J96.00 - Acute respiratory failure, unspecified whether with hypoxia or hypercapnia Status: Acute (4) Acute on chronic systolic CHF (congestive heart failure): Code(s): I50.23 - Acute on chronic systolic (congestive) heart failure Status: Acute DS: Summary Hospital Course Hospital Course: 67-year-old male presented with drug overdose with intention to commit suicide.? Altered mental status drug overdose with atenolol Ativan escitalopram around 8:00 p.m. on 11/19/2022.? History of significant coronary artery disease and severe cardiomyopathy with ejection fraction 25 30% on found to have pulmonary edema started on diuresis.? On received Lasix IV with steroid.? Also suspected COPD exacerbation ongoing smoking.? Crisis team to evaluate once medically stable.? Was febrile on admission.? Vital stable hypertension has resolved.? Leukocytosis to 15 K likely related to steroid.? Mild thrombocytopenia.? Altered mental status with CT head with no acute abnormality.? Bradycardia related to atenolol overdose.? Now improved.Patient feeling better.? patient on chronic oxygen and at baseline. His been ambulating with treatment. Has some cough which improved with addition of doxycycline. Mild leukocytosis likely due to steroid. Solu-Medrol switched to prednisone and will taper as an outpatient basis. Lasix 40 mg t.i.d. added chest x-ray repeat with improved congestion.? Crisis team evaluated the patient and was cleared for discharge from a safety Guard plan. He was not suicidal the time of discharge. Hemodynamics was stable. Time Spent with Patient Time attestation: Total time spent providing and/or coordinating discharge services: 40 minutes Exam Narrative: Appears chronically ill? Not in acute distress Patient is comfortable, NAD HEENT: eyes are clear and none icteric LUNGS:? Normal respiratory effort coarse breath sounds bilaterally ABD:? Not distended Lower extremities: no edema ? cyanosis or clubbing SKIN: nonjaundiced Neuro: grossly intact.? alert and oriented x3 DS: Data Data Completed and Pending Labs on day of discharge: Labs from last 24 hours 11/24/22 04:25 WBC 15.8 H RBC 4.39 L Hgb 13.8 L Hct 41.9 L MCV 95.4 MCH 31.4 MCHC 32.9 RDW 14.1 Plt Count 167 MPV 11.1 H Sodium 141 Potassium 3.8 Chloride 108 H Carbon Dioxide 27 Anion Gap 6 L BUN 33 H D Creatinine 0.90 Estim Creat Clear Calc 75 Estimated GFR > 60 Glucose 103 Calcium 8.6 Magnesium 1.8 Imaging Radiologist's impression: ITS Impressions Chest X-Ray 11/21/22 05:48 Impression: Possible minimal developing central pulmonary edema with minimal pleural effusions. Underlying COPD. Chest X-Ray 11/22/22 11:54 IMPRESSION: 1. Worsening opacities of the left mid and lower lung zones, consistent with pneumonia versus pulmonary edema. Chest X-Ray 11/23/22 14:06 IMPRESSION: 1. Improved airspace opacities of the left mid and lower lung zones, consistent with pneumonia/or pulmonary edema. Discharge Plan Discharge Attending physician on discharge: Fernando Gustafson Discharging Clinician: Fernando Gustafson Anticipated Discharge Date/Time: 11/24/22 13:41 Patient Disposition: Home, Self-Care Activity: as tolerated Diet: heart healthy Patient Instructions: Antibiotic Form, Heart Failure (DC), How to Stop Smoking (GEN), Removal of a Central Line, PICC, or Midline Catheter (GEN) Stand Alone Forms: General Discharge Information Follow-up/Referrals: Michael,SHANT Dudley [Lily
== END 2022-11-24 14:25 | disposition home or self-care (01) | DRG 918 ==
PROVIDERS: Family Medicine; Physician Assistant; Student in an Organized Health Care Education/Training Program; Admitting Provider Internal Medicine; PCP Physician Assistant; Visit Provider Internal Medicine
DX: T44.7X2A Poisoning by beta-adrenoreceptor antagonists, intentional self-harm, initial encounter (principal); J44.1 Chronic obstructive pulmonary disease with (acute) exacerbation; F10.921 Alcohol use, unspecified with intoxication delirium; I50.22 Chronic systolic (congestive) heart failure; T43.222A Poisoning by selective serotonin reuptake inhibitors, intentional self-harm, initial encounter; E78.5 Hyperlipidemia, unspecified; F17.210 Nicotine dependence, cigarettes, uncomplicated; D69.6 Thrombocytopenia, unspecified; I11.0 Hypertensive heart disease with heart failure; I25.10 Atherosclerotic heart disease of native coronary artery without angina pectoris; I25.5 Ischemic cardiomyopathy; R00.1 Bradycardia, unspecified; Z95.5 Presence of coronary angioplasty implant and graft; Z99.81 Dependence on supplemental oxygen; Z95.1 Presence of aortocoronary bypass graft; Z20.822 Contact with and (suspected) exposure to COVID-19
CPT/HCPCS: 36415; 36600; 71045; 80048; 80053; 80307; 82805; 82948; 83605; 83690; 83735; 84100; 84484; 85025; 85027; 85055; 85610; 85730; 87637; 93005; 94002; 94003; 94640; 94660; 97161; 97165; A9270; C1751; C9113; J1610; J1650; J1940; J2920; J2930; J7030; J7040; J7120; J7512; P9047

== ENCOUNTER 2023-03-03 12:06 | Outpatient (CLI) | payer OTHER, SELFPAY | END 2023-03-03 12:07 | disposition home or self-care (01) | PROVIDERS: PCP Physician Assistant; Visit Provider Specialist | DX: L70.0 Acne vulgaris (principal) | CPT/HCPCS: 88305 ==

== ENCOUNTER 2024-10-06 14:52 | Outpatient (CLI) | payer MEDICARE, SELFPAY ==
--- NOTE | 2024-10-06 15:00 | ECG_ITS ---
Test Date: 2024-10-06 15:13:00 Measurements Intervals [place] Rate: 77 P: 77 [place]: 172 QRS: 72 QRSD: 98 T: -67 QT: 377 QTc: 427 Interpretive Statements SINUS RHYTHM WITH OCCASIONAL VENTRICULAR PREMATURE COMPLEXES POSSIBLE RIGHT ATRIAL ENLARGEMENT CANNOT R/O SEPTAL INFARCT, AGE INDETERMINATE ST-T WAVE ABNORMALITY IN INF/LAT LEADS- CONSIDER ISCHEMIA ABNORMAL ECG No previous ECG available for comparison Electronically Signed On 10-06-2024 15:59:49 CDT by Manny Kennedy D.O.
--- OUTSIDE RECORDS SUMMARY | 2024-10-06 15:18 | XMS_ITS | Encounter Summary ---
Author Organization [facility] Address [address] [place] [address] Care Team Providers Care Sample Grinder Name Role Phone Dilshad Caruso MD Primary Care Provider Katya Quiroz MD Unavailable Encounter Details Date Type Department Care Team (Late st Contact Info) Description 12/11/2018 Abstract [facility] CONVERSION [address] [place] [address] , Generic Conversion, Social History Tobacco Use Types Packs/Day Years Used Date Smoking Tobacco: Never Assessed Sex and Gender Information Value Date Recorded Sex Assigned at Male 09/28/2024 9:38 AM CDT Legal Sex Male 5:54 PM INCLUSION PARAEDUCATOR Gender Identity Not on file Sexual Orientation Not on file documented as of this encounter Plan of Treatment Not on file documented as of this encounter Visit Diagnoses Not on filedocumented in this encounter Additional Health Concerns Infection Onset Date Last Indicated Resolved Time COVID-19 Rule Out 05/26/2020 05/26/2020 05/28/2020 11:45 AM INCLUSION PARAEDUCATOR documented as of this encounter Care Teams Sample Grinder Relationship Specialty Start Date End Date Dilshad Caruso MD [address] [place] [address] PCP - General FAMILY PRACTICE 06/30/19 Katya Quiroz MD [address] [place] [address] Morton Chief Lending Officer CARDIOVASCULAR DISEASE 10/14/23 documented as of this encounter
--- OUTSIDE RECORDS SUMMARY | 2024-10-06 15:18 | XMS_ITS | Clinical Summary ---
Author Organization [facility] Address [address] [place] [address] Care Team Providers Care Voice Intercept Technician Name Role Phone Dilshad Caruso MD Primary Care Provider Katya Quiroz MD Unavailable Allergies Active Allergy Reactions Criticality Noted Date Comments Iodinated Contrast Media Unknown 10/14/2023 Iodine Hives 07/05/2020 Medications atorvastatin 80 MG tablet 06/15/2020 Active citalopram 20 MG tablet 06/28/2020 Active omeprazole 40 MG capsule 06/28/2020 Active multi vitamin/minerals tablet Take 1 tablet by mouth daily. Active alirocumab (PRALUENT) 75 mg/mL injection (PEN) Inject 1 mL (75 mg total) into the skin. Active Fluticasone-Umec lidin-Vilant (TRELEGY ELLIPTA) 100-62.5-25 MCG/ACT AEROSOL POWDER, BREATH ACTIVATED Inhale 1 puff into the lungs daily. Active Albuterol Sulfate (PROAIR RESPICLICK) 108 (90 Base) MCG/ACT AEROSOL POWDER, BREATH ACTIVATED Active aspirin EC (ECOTRIN) 81 MG tablet Take 1 tablet (81 mg total) by mouth daily. Active metoprolol succinate ER (TOPROL XL) 12.5 mg TABLET SR 24 HR 24 hr tablet Take 1 split tab (12.5 mg total) by mouth daily. 90 tablet 3 11/05/2023 Active Active Problems No known active problems Encounters Date Type Department Care Team Description 09/28/2024 9:30 AM CDT - 09/28/2024 11:59 PM CDT Hospital Encounter [place] [facility] [address] [place] [address] Luis Enrique Interiano, PA Discharge Disposition: Home or Self Care (Routine Discharge) 09/28/2024 Travel 09/07/2024 Telephone [facility] [address] [place] [address] Katya Quiroz MD Information from Last 3 Months Family History Medical History Relation Comments Heart Attack Father Heart Disease Father Heart Attack Mother Relation Status Comments Father Mother Social History Tobacco Use Types Packs/Day Years Used Date Smoking Tobacco: Some Days Cigarettes 1 38 Smokeless Tobacco: Former Tobacco Cessation:Ready to Q uit: Not Asked; Counseling Given: Not Answered Alcohol Use Standard Drinks/Week Comments Never 0 (1 standard drink = 0.6 oz pur e alcohol) AUDIT-C Answer Date Recorded Q1: How often do you have a drink containing alc ohol? 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 Gender Identity Not on file Sexual Orientation Not on file Last Filed Vital Signs Vital Sign Reading Time Taken Comments Blood Pressure 108/61 11/05/2023 3:34 PM CDT Pulse 44 11/05/2023 3:34 PM CDT Temperature 36.8 C (98.2 F) 05/03/2021 3:16 PM CDT Respiratory Rate 20 11/05/2023 3:34 PM CDT Oxygen Saturation 95% 11/05/2023 3:34 PM CDT Inhaled Oxygen Concentration - - Weight 82.6 kg (182 lb) 11/05/2023 3:34 PM CDT Height 182.9 cm (6') 11/05/2023 3:34 PM CDT Body Mass Index 24.68 11/05/2023 3:34 PM CDT Plan of Treatment Health Maintenance Due Date Last Done Comments ASCVD Statin 1955 Colorectal Cancer Screening Colonoscopy (10 Years) 1953 Pneumococcal Vaccine: 65+ Ye ars (1 of 2 - PCV) 1959 Hepatitis C 1971 DTaP, Tdap and Td Vaccines ( 1 - Tdap) 1972 Zoster Vaccines (1 of 2) 2003 RSV Immunization or 60+ Years (1 - Risk 60-74 years 1-dose series) 2013 AAA SCREENING 2018 Annual Medicare Wellness Visit 2018 COVID-19 Vaccine (1 - 2023-2 5 season) 2024 ASCVD LDL 07/10/2024 07/10/2023 Meningococcal B Vaccine Aged Out No l onger eligible based on patient's age to complete this topic Meningococcal Vaccine Aged Out No kenton liyah eligible based on patient's age to complete this topic RSV Immunizations Under 20 Months Aged Out No longer eligible based on patient's age to complete this topic Procedures Procedure Name Priority Date/Time Associated Diagnosis Comments CT LUNG SCREENING Routine 09/28/2024 9:4 8 AM CDT History of tobacco use LIPID PANEL Routine 07/10/2023 from Last 3 Months or Most Recently Relevant to Health Maintenance Results * CT LUNG SCREENING (09/28/2024 9:48 AM CDT) Anatomical Region Laterality Modality Chest Computed Tomogra phy 10/03/2024 3:24 PM CDT Narrative 10/03/2024 5:02 PM CDT [address] [place] [address] EXAM: LUNG SCREENING LOW-DOSE CT THORAX WITHOUT CONTRAST DATE: 09/28/2024 HISTORY: Asymptomatic patient with history of smoking meeting CMS high-risk criteria for lung screening. * 69 years * 20 pack years or greater * Current smoker or have quit smoking within the last 15 years COMPARISON: 08/17/2023 CT lung screening TECHNIQUE: Noncontrast, helical, low-dose CT (LDCT) chest per standard departmental protocol. A dose lowering technique was used for this procedure, which may include, but is not limited to, dose reduction technique, automated exposure control, the use of iterative reconstruction, and ALARA (As Low As Reasonably Achievable) / Image Gently techniques. FINDINGS: Lung Screening Specific (LUNG-RADS): Nodule 1 (image 102, series 3): 4 mm solid, smooth, parenchymal nodule in the right lower lobe. Nodule 2 (image 107, series 3): 5 mm solid, smooth, parenchymal nodule in the right middle lobe. Nodule 3 (image 135, series 3): 5 mm solid, smooth, parenchymal nodule in the left lower lobe. Potentially Significant Incidentals (LUNG-RADS category S): None. Pulmonary Incidentals: Advanced emphysematous changes of the lungs. Pulmonary scarring and bibasilar regions. Other Incidentals: Atherosclerotic calcifications of the thoracic aorta. Postsurgical changes of median sternotomy and CABG. Coronary artery stenting. IMPRESSION; 1. LUNG-RADS category 2: Negative. Lung nodule(s) with benign appearance or behavior. 2. LUNG-RADS category S: Negative, no new/unknown potentially significant incidental findings requiring urgent additional evaluation. 3. Other incidental findings as above. RECOMMENDATIONS: Continued routine annual LDCT lung screening. Suggest next exam on or around September 2025 Thank you for choosing the [facility] Screening [facility]. The attending radiologist has reviewed the image(s) and agrees with the content of this report. Ordered By: LUIS ENRIQUE INTERIANO Interpreted By: Andrew Molina MD, 10/03/2024 3:24 PM Procedure Note Semaj Stout MD - 10/03/[address] [place] [address] EXAM: LUNG SCREENING LOW-DOSE CT THORAX WITHOUT CONTRAST DATE: 09/28/2024 HISTORY: Asymptomatic patient with history of smoking meeting CMShigh-risk criteria for lung screening. * 69 years * 20 pack years or greater * Current smoker or have quit smoking within the last 15 years COMPARISON: 08/17/2023 CT lung screening TECHNIQUE: Noncontrast, helical, low-dose CT (LDCT) chest per standarddepartmental protocol. A dose lowering technique was used for thisprocedure, which may include, but is not limited to, dose reductiontechnique, automated exposure control, the use of iterativereconstruction, and ALARA (As Low As Reasonably Achievable) / Image Gentlytechniques. FINDINGS: Lung Screening Specific (LUNG-RADS): Nodule 1 (image 102, series 3): 4 mm solid, smooth, parenchymal nodule inthe right lower lobe. Nodule 2 (image 107, series 3): 5 mm solid, smooth, parenchymal nodule inthe right middle lobe. Nodule 3 (image 135, series 3): 5 mm solid, smooth, parenchymal nodule inthe left lower lobe. Potentially Significant Incidentals (LUNG-RADS category S): None. Pulmonary Incidentals: Advanced emphysematous changes of the lungs.Pulmonary scarring and bibasilar regions. Other Incidentals: Atherosclerotic calcifications of the thoracic aorta.Postsurgical changes of median sternotomy and CABG. Coronary arterystenting. IMPRESSION; 1. LUNG-RADS category 2: Negative. Lung nodule(s) with benign appearanceor behavior. 2. LUNG-RADS category S: Negative, no new/unknown potentially significantincidental findings requiring urgent additional evaluation. 3. Other incidental findings as above. RECOMMENDATIONS: Continued routine annual LDCT lung screening. Suggestnext exam on or around September 2025 Thank you for choosing the [facility]. The attending radiologist has reviewed the image(s) and agrees with thecontent of this report. Ordered By: LUIS ENRIQUE INTERIANO Interpreted By: Andrew Molina MD, 10/03/2024 3:24 PM [address] [facility] [address] Final Result * LIPID PANEL (07/10/2023) CHOLESTEROL 90 TRIGLYCERIDES 135 HDL 34 LDL (CALCULATED) 32 VLDL CALCULATION 24 Narrative Resulting Agency Comment [facility], [place] [facility] En[facility] Final Result from Last 3 Months or Most Recently Relevant to Health Maintenance Insurance MEDICAID MED REPLACE [facility] MEDICARE SOLUTIONS [facility] Care Teams Voice Intercept Technician Relationship Specialty Start Date End Date Dilshad Caruso MD [address] [place] [phone] PCP - General FAMILY PRACTICE 06/30/19 Katya Quiroz MD [address] [place] [address] Stuart Classifier CARDIOVASCULAR DISEASE 10/14/23
--- OUTSIDE RECORDS SUMMARY | 2024-10-06 15:18 | XMS_ITS | Clinical Summary ---
Author Organization [facility] Address [address] [place] [id number] Care Team Providers Care Lei Seller Name Role Phone Dilshad Caruso MD Primary Care Provider Allergies Active Allergy Reactions Criticality Noted Date Comments Iodinated Contrast Media Hives Medium 10/24/2021 Iodine Hives Medium 07/05/2020 Other Unknown 07/20/2019 hives Medications aspirin 81 mg enteric coated tablet Take 1 tablet (81 mg total) by mouth daily Active atorvastatin (LIPITOR) 80 mg tablet Take 1 tablet (80 mg total) by mouth daily Active omeprazole (PriLOSEC) 40 mg capsule Take 1 capsule (40 mg total) by mouth daily Active albuterol HFA (PROVENTIL HFA,VENTOLIN HFA,PROAIR HFA) 90 mcg/actuation inhaler Inhale 2 puffs every 6 (six) hours as needed for wheezing Active fluticasone-ume clidin-vilanter (TRELEGY ELLIPTA) 100-62.5-25 mcg inhaler Trelegy Ellipta 100 mcg-62.5 mcg-25 mcg powder for inhalation Active alirocumab (Praluent Pen) 75 mg/mL pen injector Inject 75 mg under the skin every 14 (fourteen) days 2 mL 11 2 Active Active Problems Problem Noted Date Diagnosed Date Thoracic ascending aortic aneurysm 01/28/2022 Chronic combined systolic an d diastolic congestive heart failure 01/27/2022 Hx of CABG 01/27/[address] elevation myocardial infarction (S DEV) 01/27/2022 Surgical History Surgery Date Site/Laterality Comments CORONARY ARTERY BYPASS GRAFT 07/06/2007 - 07/05/2008 CORONARY ANGIOPLASTY multiple, most recent October 2021 Medical History Medical History Date Comments Coronary artery disease COPD (chronic obstructive pulmonary disease) (HC C) Hyperlipidemia Ventricular tachycardia (HCC) 10/03/2021 Ischemic cardiomyopathy Hypertension Aortic aneurysm Social History Tobacco Use Types Packs/Day Years Used Date Smoking Tobacco: Former Cigarettes 0.1 42 0 10/04/1979 - 10/03/2021 Smokeless Tobacco: Never AUDIT-C Answer Date Recorded Q1: How often do you have a drink containing alc ohol? Never 10/24/2021 Average Number of Drinks Not on file 022 Frequency of Binge Drinking Not on file 10/05 Personal Safety Answer Date Recorded Getting School Help Needed Not on file 07/10 Sex and Gender Information Value Date Recorded Sex Assigned at Not on file Legal Sex Male 4:09 PM CDT Gender Identity Not on file Sexual Orientation Not on file Obstetrics History Last Filed Vital Signs Vital Sign Reading Time Taken Comments Blood Pressure 100/62 06/01/2023 11:45 AM INTERNATIONAL RELATIONS TEACHER Pulse 90 06/01/2023 11:45 AM INTERNATIONAL RELATIONS TEACHER Temperature - - Respiratory Rate - - Oxygen Saturation 94% 06/01/2023 11:45 AM INTERNATIONAL RELATIONS TEACHER Inhaled Oxygen Concentration - - Weight 84.5 kg (186 lb 3.2 oz) 06/01/2023 11:45 AM INTERNATIONAL RELATIONS TEACHER Height 182.9 cm (6') 06/01/2023 11:45 AM INTERNATIONAL RELATIONS TEACHER Body Mass Index 25.25 06/01/2023 11:45 AM INTERNATIONAL RELATIONS TEACHER Plan of Treatment Health Maintenance Due Date Last Done Comments Colon Cancer Screening-Colonoscopy 1953 Depression Screening 1953 Fall Risk Assessment 1953 Hepatitis C Screening 1953 DTaP/Tdap/Td Vaccine (1 - Tdap) 1964 Hepatitis B Screening 1971 Pneumococcal vaccine 65+ (1 of 2 - PCV) 1972 07/06/2015 Zoster Vaccine (1 of 2) 2003 Abdominal Aortic Aneurysm (A AA) Screen 2018 Well Visit 65+ 2018 Covid-19 Vaccine (4 - 2023-2 5 season) 2024 04/11/2021, 08/31/2020, 08/10/2020 Influenza Vaccine (Season Ended) 2025 03/21/2021, 03/08/2021, 03/22/2020, Additional history exists Insurance [facility] [place] [facility] [place] Care Teams Lei Seller Relationship Specialty Start Date End Date Dilshad Caruso MD PCP - General Family Medicine 11/21/21
--- OUTSIDE RECORDS SUMMARY | 2024-10-06 15:18 | XMS_ITS | Referral Summary ---
Author Organization [facility] Address [facility] [place] [address] Care Team Providers Care Formula Weigher Name Role Phone Dilshda Caruso MD Primary Care Provider Allergies Active [...] ST elevation myocardial infarction (S DEV) 01/27/2022 Social History Tobacco Use Types Packs/Day Years [...] Comments Blood Pressure 100/62 06/01/2023 11:45 AM GRINDER DRESSER Pulse 90 06/01/2023 11:45 AM GRINDER DRESSER Temperature - - Respiratory Rate - - Oxygen Saturation 94% 06/01/2023 11:45 AM GRINDER DRESSER Inhaled Oxygen Concentration - - Weight 84.5 kg (186 lb 3.2 oz) 06/01/2023 11:45 AM GRINDER DRESSER Height 182.9 cm (6') 06/01/2023 11:45 AM GRINDER DRESSER Body Mass Index 25.25 06/01/2023 11:45 AM GRINDER DRESSER Plan of Treatment Not on file Insurance [facility] [place] Care Teams Formula Weigher Relationship Specialty Start Date End Date Dilshad Caruso MD PCP - General Family Medicine 11/21/21
--- OUTSIDE RECORDS SUMMARY | 2024-10-06 15:18 | XMS_ITS | Encounter Summary ---
Author Organization [facility] Address [address] [place] [address] Care Team Providers Care Wreath Machine Operator Name Role Phone Unavailable Primary Care Provider Unavailabl e Encounter Details Date Type Department Care Team (Late st Contact Info) Description 07/11/2019 Lab Requisition [facility] [address] [place] [address] Concepcion Khan MD [address] [facility] [address] [place] [address] Social History Tobacco Use Types Packs/Day Years Used Date Smoking Tobacco: Never Assessed Sex and Gender Information Value Date Recorded Sex Assigned at Not on file Gender Identity Not on file Sexual Orientation Not on file documented as of this encounter Plan of Treatment Not on file documented as of this encounter Procedures Procedure Name Priority Date/Time Associated Diagnosis Comments DERMPATH SLIDE CONSULT Routine 07/11/2019 12:00 AM CONSUMER LOAN OFFICER documented in this encounter Results * DERMPATH SLIDE CONSULT (07/11/2019 12:00 AM CONSUMER LOAN OFFICER) Case Report Dermatopathology Report Case: [id number] Authorizing Provider: Concepcion Khan MD Collected: 07/11/2019 12:00 AM Ordering Location: [facility] Received: 07/11/2019 08:03 AM Pathologist: Arti Rodriguez MD Specimen: Slide(s), Left earlobe, OSC# [id number] 0 2:47 PM CONSUMER LOAN OFFICER DERMATOPATHOLOGY LABORATORY Final Diagnosis Specimen A. 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 Squamous cell carcinoma, acantholytic. All slides returned. Appointment. Date: 07/20/2019. Any additional sections, special stains or immunohistochemical stains performed by our laboratory will be kept here on file. 0 2:47 PM [facility] Microscopic Description Specimen A. Slide(s), Left earlobe, OSC# [id number]: Sections show skin with irregularly shaped nests of keratinocytes with evidence of cornification. In some nests, there is loss of cohesion between the neoplastic cells, as well as individual dyskeratotic cells that lack intercellular bridges. 0 2:47 PM [facility] Disclaimer An external and internal positive and negative controls are appropriate for the histochemical, immunohistochemical and immunofluorescence stain(s) in this case (if any), except where stated explicitly. The performance characteristics of the stain(s) cited in this report were developed and its performance characteristic determined by the Dermatopathology Laboratory at [facility], directed by Dr. Unique Miller. These tests need not be, and therefore are not, approved by the [place] Food and Drug Administration. The tests are used for clinical purposes. Billing Codes Specimen Charges Stain Charges 33736 1 0 2:47 PM CONSUMER LOAN OFFICER DERMATOPATHOLOGY LABORATORY Embedded Images 0 2:47 PM CONSUMER LOAN OFFICER DERMATOPATHOLOGY LABORATORY Pathology/Cytolog y SLIDE / Unknown 07/11/2019 07/11/2019 8:03 AM CONSUMER LOAN OFFICER Concepcion Khan MD LAB - PATHOLOGY/CYTO LOGY ORDERABLES DERMATOPATHOLOGY LABORATORY [facility] - Department of Dermatology [address] [place] [address], 5th [place] [address], [facility] [phone] documented in this encounter Visit Diagnoses Not on filedocumented in this encounter
--- OUTSIDE RECORDS SUMMARY | 2024-10-06 15:18 | XMS_ITS | Clinical Summary ---
Author Organization [facility] Address [address] [place] [address] Care Team Providers Care Animal Behaviorist Name Role Phone Unavailable Primary Care Provider Unavailabl e Source Comments [facility],non-owned Affiliates and Associated Physician Practices is amultiple site organization consisting of ambulatory clinics and hospital sitesin [place], [place], [place] and [place]. This disclosure is being madepursuant to the Care Everywhere program and may not contain all information available regarding this patient. Last updated 18.[facility] Allergies Active Allergy Reactions Criticality Noted Date Comments Contrast-Iodinated Agents For Ct/Other Other 07/20/2019 hives Medications * Be aware that medications may not be up to date on this document. Alwaysverify current medications with the patient. Medication Sig Dispensed Refills Start Date End Date Status atorvastatin (LIPITOR) 80 MG tablet atorvastatin calcium 80 mg tabs Active Active Problems No known active problems Social History Tobacco Use Types Packs/Day Years Used Date Smoking Tobacco: Former Smokeless Tobacco: Never Alcohol Use Standard Drinks/Week Comments Not Currently 0 (1 standard drink = 0.6 oz pur e alcohol) Sex and Gender Information Value Date Recorded Sex Assigned at Not on file Gender Identity Not on file Sexual Orientation Not on file Last Filed Vital Signs Vital Sign Reading Time Taken Comments Blood Pressure 118/73 07/20/2019 2:41 PM SEISMIC SURVEY ASSISTANT Pulse 92 07/20/2019 2:41 PM SEISMIC SURVEY ASSISTANT Temperature - - Respiratory Rate - - Oxygen Saturation - - Inhaled Oxygen Concentration - - Weight 95.3 kg (210 lb) 07/20/2019 2:41 PM SEISMIC SURVEY ASSISTANT Height 182.9 cm (6') 07/20/2019 2:41 PM SEISMIC SURVEY ASSISTANT Body Mass Index 28.48 07/20/2019 2:41 PM SEISMIC SURVEY ASSISTANT Plan of Treatment Health Maintenance Due Date Last Done Comments INDRA (AGES 45-75) - COL ON CA SCREENING 1955 COLON MONITORING 1953 COLONOSCOPY - COLON CA SCREENING 1953 CT COLONOGRAPHY - COLON CA SCREENING 1953 Colorectal Cancer Screening 1953 FIT - COLON CA SCREENING 1953 FLEX SIG - COLON CA SCREENING 1955 HEPATITIS C SCREENING 07/12/1971 DTAP/TDAP/TD VACCINES (1 - Tdap) 1972 PNEUMOCOCCAL VACCINE 50+ (1 of 1 - PCV) 2003 ZOSTER VACCINE (1 of 2) 2003 AAA SCREENING 2018 COVID-19 VACCINE ( - 2023-2 5 season) 2024 INFLUENZA VACCINE (#1) 2024 07/06/2017 DEPRESSION SCREENING 07/06/2024 MEDICARE AWV CALENDAR YEAR 2024 Respiratory Syncytial Virus (RSV) Vaccine Pt: or over 60 yrs (1 - 1-dose 75+ series) 2028 HEPATITIS B VACCINE Aged Out No longe r eligible based on patient's age to complete this topic HIB VACCINE Aged Out No longer eligi ble based on patient's age to complete this topic HPV VACCINE Aged Out No longer eligi ble based on patient's age to complete this topic MENINGOCOCCAL (Group B) VACC INE SHARED DECISION-MAKING Aged Out No longer eligibl e based on patient's age to complete this topic MENINGOCOCCAL GROUPS A/C/Y/W VACCINE Aged Out No longer eligible b ased on patient's age to complete this topic LATESHA FRIEDMAN Personal/Family Spouse [address] [phone] LATESHA FRIEDMAN Personal/Family Spouse [address] [place] [phone]
== END 2024-10-06 14:53 | disposition home or self-care (01) ==
LOC: CHSCARD 14:54
PROVIDERS: PCP Physician Assistant; Visit Provider Internal Medicine Cardiovascular Disease
DX: I25.810 Atherosclerosis of coronary artery bypass graft(s) without angina pectoris (principal); R94.31 Abnormal electrocardiogram [ECG] [EKG]
CPT/HCPCS: 93005

== ENCOUNTER 2024-11-15 14:51 | Outpatient (CLI) | payer MEDICARE, SELFPAY ==
--- NOTE | 2024-11-15 14:56 | ECHO_ITS ---
Patient Info Name: Ruperto Friedman Age: 69 years : 1955 Gender: Male Ht: 73 in Wt: 171 lbs BSA: 2.00 m2 HR: 71 bpm BP: 132 / 72 mmHg Heart Rhythm: Sinus Rhythm Technical Quality: Fair Exam Date: 11/15/2024 2:59 PM Patient Status: unknown Admit Date: 11/15/2024 Exam Type: CA echo doppler color flow Study Info Complete two-dimensional, color flow and Doppler transthoracic echocardiogram is performed. Staff Referring Physician: Manny Kennedy Construction Representative: Geovanna Montgomery Attending Provider: Manny Kennedy DO Summary 1. Complete two-dimensional, color flow and Doppler transthoracic echocardiogram is performed. 2. Left ventricular chamber dimension is severely enlarged. 3. Ventricular septum is sigmoid shaped. No resting LVOT obstruction. 4. Left ventricular systolic function is severely globally reduced, estimated at 10-15%. 5. The left ventricular diastolic function is grade I diastolic dysfunction. 6. E/e' 8 is minimally elevated. 7. Right ventricular systolic function is mildly reduced with abnormal TAPSE 1.4 cm. 8. Left atrial chamber dimension is mildly enlarged. 9. There is mild aortic valve sclerosis. 10. There is mild mitral valve regurgitation. 11. No pulmonary hypertension, estimated pulmonary arterial systolic pressure is 16 mmHg. Left Ventricle Ventricular septum is sigmoid shaped. No resting LVOT obstruction. Left ventricular chamber dimension is severely enlarged. Left ventricular systolic function is severely globally reduced, estimated at 10-15%. The left ventricular diastolic function is grade I diastolic dysfunction. E/e' 8 is minimally elevated. Right Ventricle Right ventricular chamber dimension is normal. Right ventricular systolic function is mildly reduced with abnormal TAPSE 1.4 cm. Left Atria Left atrial chamber dimension is mildly enlarged. Right Atria Right atrial chamber dimension is normal. Aortic Valve The aortic valve is trileaflet. There is mild aortic valve sclerosis. There is no aortic valve stenosis. There is no aortic valve regurgitation. Pulmonic Valve There is no pulmonic regurgitation. Mitral Valve There is no mitral valve stenosis. There is mild mitral valve regurgitation. Tricuspid Valve There is no tricuspid valve regurgitation. No pulmonary hypertension, estimated pulmonary arterial systolic pressure is 16 mmHg. Pericardium/Pleural There is no pericardial effusion. Inferior Vena Cava Normal inferior vena cava with >50% collapse upon inspiration consistent with normal right atrial pressure, 5 mmHg. Aorta The aortic root size at the sinus of Valsalva is normal. Left Ventricular Outflow Tract Name Value Normal LVOT 2D LVOT Diameter 2.0 cm LVOT Doppler LVOT Peak Velocity 93 cm/s LVOT Peak Gradient 3 mmHg LVOT Mean Gradient 2 mmHg LVOT VTI 17 cm LVOT VTI/AV VTI Ratio 0.8 LVOT Stroke Volume 54 ml LVOT CO 3.8 l/min LVOT CI 1.9 l/min/m2 Pulmonic Valve Name Value Normal RVOT Doppler RVOT Peak Velocity 67 cm/s RVOT Peak Gradient 2 mmHg PV Doppler PV Peak Velocity 83 cm/s PV Peak Gradient 3 mmHg Mitral Valve Name Value Normal MV Diastolic Function MV E Peak Velocity 47 cm/s MV A Peak Velocity 93 cm/s MV E/A 0.5 MV Decel Time (PW) 267 ms MV Annular TDI MV E/e' (Septal) 9.2 MV E/e' (Lateral) 7.7 MV E/e' (Average) 8.4 Tricuspid Valve Name Value Normal TV Regurgitation Doppler TR Peak Velocity 169 cm/s TR Peak Gradient 11 mmHg Estimated PAP/RSVP RA Pressure 5 mmHg <=5 PA Systolic Pressure 16 mmHg <36 RV Systolic Pressure 16 mmHg <36 TV Annular TDI TV Lateral Emmie s' Velocity 8.0 cm/s >=9.5 Aortic Valve Name Value Normal AV Doppler AV Peak Velocity 107 cm/s AV Peak Gradient 5 mmHg AV Mean Gradient 2 mmHg AV VTI 21 cm AV Area (Cont Eq VTI) 2.6 cm2 >=3.0 AV Area (Cont Eq Pepe) 2.7 cm2 AV DI (Pepe) 0.87 AV Regurgitation 2D LVOT Area 3.1 cm2 Ventricles Name Value Normal LV Dimensions 2D/MM IVS Diastolic Thickness (2D) 2.0 cm 0.6-1.0 LVID Diastole (2D) 4.0 cm 4.2-5.8 LVIW Diastolic Thickness (2D) 1.1 cm 0.6-1.0 LVID Systole (2D) 2.7 cm 2.5-4.0 LVOT Diameter 2.0 cm LV Mass (2D Cubed) 239.84 g 88.00-224.00 LV Mass Index (2D Cubed) 120 g/m2 49-115 Relative Wall Thickness (2D) 0.53 <=0.42 LV Fractional Shortening/Ejection Fraction 2D/MM LV Fractional Shortening (2D) 33 % 25-43 LV EF (2D Teichholz) 62 % Atria Name Value Normal LA Dimensions LA Volume (4C A-L) 58 ml LA Volume (BP A-L) 71 ml RA Dimensions RA Systolic Major Spring Length (4C) 5.5 cm 2.1-2.7 RA Area (4C) 18.0 cm2 <=18.0 Report Signatures
--- OUTSIDE RECORDS SUMMARY | 2024-11-15 14:57 | XMS_ITS | Referral Summary ---
Author Organization [facility] Address [facility] [place] [address] Care Team Providers Care Machine Tracer Name Role Phone Dilshad Caruso MD Primary [...] Comments Blood Pressure 100/62 06/01/2023 11:45 AM PICKER PACKER Pulse 90 06/01/2023 11:45 AM PICKER PACKER Temperature - - Respiratory Rate - - Oxygen Saturation 94% 06/01/2023 11:45 AM PICKER PACKER Inhaled Oxygen Concentration - - Weight 84.5 kg (186 lb 3.2 oz) 06/01/2023 11:45 AM PICKER PACKER Height 182.9 cm (6') 06/01/2023 11:45 AM PICKER PACKER Body Mass Index 25.25 06/01/2023 11:45 AM PICKER PACKER Plan of Treatment Not on file Insurance [facility] [place] Care Teams Machine Tracer Relationship Specialty Start Date End Date Dilshad Caruso MD PCP - General Family Medicine 11/21/21
--- OUTSIDE RECORDS SUMMARY | 2024-11-15 14:57 | XMS_ITS | Clinical Summary ---
Author Organization [facility] Address [address] [facility] [place] [address] Care Team Providers Care Job Forwarder Name Role Phone Unavailable Primary Care Provider Unavailabl e Source Comments [facility],non-owned Affiliates and Associated Physician Practices is amultiple site organization consisting of ambulatory clinics and hospital sitesin [place], [place], [place] and [place]. This disclosure is being madepursuant to the Care Everywhere program and may not contain all information available regarding this patient. Last updated 18.[facility] Allergies Active Allergy Reactions Criticality Noted Date Comments Contrast-Iodinated Agents For Ct/Other Other 07/20/2019 hives Medications * Be aware that medications may not be up to date on this document. Alwaysverify current medications with the patient. atorvastatin (LIPITOR) 80 MG tablet atorvastatin calcium [...] at Not on file Legal Sex Male 4:03 PM CDT Gender Identity Not on file Sexual Orientation Not on file Last Filed Vital Signs Vital Sign Reading Time Taken Comments Blood Pressure 118/73 07/20/2019 2:41 PM DE ICER KIT ASSEMBLER Pulse 92 07/20/2019 2:41 PM DE ICER KIT ASSEMBLER Temperature - - Respiratory Rate - - Oxygen Saturation - - Inhaled Oxygen Concentration - - Weight 95.3 kg (210 lb) 07/20/2019 2:41 PM DE ICER KIT ASSEMBLER Height 182.9 cm (6') 07/20/2019 2:41 PM DE ICER KIT ASSEMBLER Body Mass Index 28.48 07/20/2019 2:41 PM DE ICER KIT ASSEMBLER Plan of Treatment Health Maintenance Due Date Last Done Comments COLOGUARD (AGES 45-75) - COL ON CA SCREENING [...] VACCINE ( - 2023-2 5 season) 2024 DEPRESSION SCREENING 07/06/2024 MEDICARE AWV CALENDAR YEAR 2024 INFLUENZA VACCINE (Season Ended) 2025 07/06/19 18 Respiratory Syncytial Virus (RSV) Vaccine Pt: or [...] on patient's age to complete this topic Insurance MEDICARE MEDICAID - OUT OF STATE [place] MEDICARE DUAL ADV [place]
--- OUTSIDE RECORDS SUMMARY | 2024-11-15 14:57 | XMS_ITS ---
Author Organization Unknown Address [address] [place] [phone] Phone Care Team Providers Care Weaving Supervisor Name Role Phone MARINO DARWIN Attending Unavailable LEIGHANN Buaer Primary Unavailable Immunization Immunization Date Status Additional Notes Code Code System Influenza, split virus, quadrivalent, preservative 05/07/2018 Completed 158 C VX Influenza, split virus, quadrivalent, preservative 06/06/2019 Completed 158 C VX Influenza, split virus, quadrivalent, preservative 03/22/2020 Completed 158 C VX Influenza, split virus, quadrivalent, preservative 03/21/2021 Completed 158 C VX Influenza, adjuvanted, quadrivalent, PF 04/23/2022 Completed 205 CVX COVID-19, mRNA, LNP-S, PF, 3 0 mcg/0.3 mL dose 08/10/2020 Completed 208 CVX COVID-19, mRNA, LNP-S, PF, 3 0 mcg/0.3 mL dose 08/31/2020 Completed 208 CVX COVID-19, mRNA, LNP-S, PF, 3 0 mcg/0.3 mL dose 04/11/2021 Completed 208 CVX Social History Type Status Start Date End Date Code Code Syst em Sex Male Hospital Discharge Instructions Should you have any questions prior to discharge, please contact a member of your healthcare team. If you have left the hospital and have any questions, please contact your primary care physician. Reason For Referral No Data Found Plan of Treatment No Data Found Encounters Encounter Diagnosis Start Date Code Code Sys tem Chronic combined systolic an d diastolic heart failure 11/05/2023 [id number] SNOMED-CT Personal Care Team Section Performer Name Performer Role Active Date Inactive Da THERESA Lopez PCP - Primary care physician 2023-11-05
--- OUTSIDE RECORDS SUMMARY | 2024-11-15 14:57 | XMS_ITS | Encounter Summary ---
Author Organization [facility] Address [address] [place] [address] Care Team Providers Care Field Artillery Operations Man Name Role Phone Dilshad Caruso MD Primary Care Provider Katya Quiroz MD Unavailable Encounter Details Date Type Department Care Team (Late st Contact Info) Description 12/11/2018 Abstract [facility] CONVERSION [address] [place] [address] , Generic Conversion, Social History Tobacco Use Types Packs/Day Years Used Date Smoking Tobacco: Never Assessed Sex and Gender Information Value Date Recorded Sex Assigned at Male 09/28/2024 9:38 AM CDT Legal Sex Male 5:54 PM AIRPLANE COVER MAKER Gender Identity Not on file Sexual Orientation Not on file documented as of this encounter Plan of Treatment Not on file documented as of this encounter Visit Diagnoses Not on filedocumented in this encounter Additional Health Concerns Infection Onset Date Last Indicated Resolved Time COVID-19 Rule Out 05/26/2020 05/26/2020 05/28/2020 11:45 AM AIRPLANE COVER MAKER documented as of this encounter Care Teams Field Artillery Operations Man Relationship Specialty Start Date End Date Dilshad Caruso MD [address] [place] [address] PCP - General FAMILY PRACTICE 06/30/19 Katya Quiroz MD [address] [place] [address] Prue Account Consultant CARDIOVASCULAR DISEASE 10/14/23 documented as of this encounter
--- OUTSIDE RECORDS SUMMARY | 2024-11-15 14:57 | XMS_ITS | Encounter Summary ---
Author Organization [facility] Address [address] [place] [address] Care Team Providers Care Surfboard Maker Name Role Phone Unavailable Primary Care Provider Unavailabl e Encounter Details Date Type Department Care Team (Late st Contact Info) Description 07/11/2019 Lab Requisition [facility] DermPath Lab [address] [facility] [place] [address] Concepcion Khan MD [address] [facility] [address] [place] [address] Social History Tobacco Use Types Packs/Day Years [...] DERMPATH SLIDE CONSULT Routine 07/11/2019 12:00 AM AUTOMOTIVE PAINT TECHNICIAN documented in this encounter Results * DERMPATH SLIDE CONSULT (07/11/2019 12:00 AM AUTOMOTIVE PAINT TECHNICIAN) Case Report Dermatopathology Report Case: [id number] Authorizing Provider: Concepcion Khan MD Collected: 07/11/2019 12:00 AM Ordering Location: [facility] DermPath Lab Received: 07/11/2019 08:03 AM Pathologist: Arti Rodriguez MD Specimen: Slide(s), Left earlobe, [id number]# [id number] 0 2:47 PM AUTOMOTIVE PAINT TECHNICIAN DERMATOPATHOLOGY LABORATORY Final Diagnosis Specimen A. 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 Squamous cell carcinoma, acantholytic. All slides returned. Appointment. Date: 07/20/2019. Any additional sections, special stains or immunohistochemical stains performed by our laboratory will be kept here on file. 0 2:47 PM [facility] DERMATOPATHOLOGY LABORATORY Microscopic Description Specimen A. Slide(s), Left earlobe, OSC# [id number]: Sections show skin with irregularly shaped nests of keratinocytes with evidence of cornification. In some nests, there is loss of cohesion between the neoplastic cells, as well as individual dyskeratotic cells that lack intercellular bridges. 0 2:47 PM [facility] DERMATOPATHOLOGY LABORATORY Disclaimer An external and internal positive and negative controls are appropriate for the histochemical, immunohistochemical and immunofluorescence stain(s) in this case (if any), except where stated explicitly. The performance characteristics of the stain(s) cited in this report were developed and its performance characteristic determined by the Dermatopathology Laboratory at [facility], directed by Dr. Unique Miller. These tests need not be, and therefore are not, approved by the [place] Food and Drug Administration. The tests are used for clinical purposes. Billing Codes Specimen Charges Stain Charges 51973 1 0 2:47 PM AUTOMOTIVE PAINT TECHNICIAN DERMATOPATHOLOGY LABORATORY Embedded Images 0 2:47 PM AUTOMOTIVE PAINT TECHNICIAN DERMATOPATHOLOGY LABORATORY Pathology/Cytolog y SLIDE / Unknown 07/11/2019 07/11/2019 8:03 AM [facility] Concepcion Khan MD LAB - PATHOLOGY/CYTOLOGY ORDER JAYCOB Final Result DERMATOPATHOLOGY LABORATORY [facility] - Department of Dermatology [address] [place] [address], 5th Floor Lab [address] [place], [place] [id number] [place] [address] documented in this encounter Visit Diagnoses Not on filedocumented in this encounter
--- OUTSIDE RECORDS SUMMARY | 2024-11-15 14:57 | XMS_ITS | Clinical Summary ---
Author Organization [facility] Address [address] [place] [address] Care Team Providers Care Ct Scan Technologist Name Role Phone Dilshad Caruso MD Primary [...] Comments Blood Pressure 100/62 06/01/2023 11:45 AM PLUGGER Pulse 90 06/01/2023 11:45 AM PLUGGER Temperature - - Respiratory Rate - - Oxygen Saturation 94% 06/01/2023 11:45 AM PLUGGER Inhaled Oxygen Concentration - - Weight 84.5 kg (186 lb 3.2 oz) 06/01/2023 11:45 AM PLUGGER Height 182.9 cm (6') 06/01/2023 11:45 AM PLUGGER Body Mass Index 25.25 06/01/2023 11:45 AM PLUGGER Plan of Treatment Health Maintenance Due Date [...] 03/21/2021, 03/08/2021, 03/22/2020, Additional history exists Insurance [facility] [place] [facility] [place] Care Teams Ct Scan Technologist Relationship Specialty Start Date End Date Dilshad Caruso MD PCP - General Family Medicine 11/21/21
--- OUTSIDE RECORDS SUMMARY | 2024-11-15 14:57 | XMS_ITS | Clinical Summary ---
Author Organization [facility] Address [address] [place] [address] Care Team Providers Care Equipment Monitor Phototypesetting Name Role Phone Dilshad Caruso MD Primary [...] - 09/28/2024 11:59 PM CDT Hospital Encounter [facility] [address] [place] [address] Luis Enrique Interiano, PA Discharge Disposition: Home or Self Care (Routine Discharge) 09/28/2024 Travel 09/07/2024 Telephone [facility] [address] [place] [address] Katya Quiroz MD Information from Last 3 [...] AM CDT Legal Sex Male 5:54 PM GUEST RELATION OFFICER Gender Identity Not on file Sexual Orientation [...] Health Maintenance Due Date Last Done Comments Colorectal Cancer Screening Colonoscopy (10 Years) 1955 Hepatitis C 1971 DTaP, Tdap and Td Vaccines ( 1 - Tdap) 1972 Pneumococcal Vaccine: 50+ Ye ars (1 of 2 - PCV) 1972 Zoster Vaccines (1 of 2) 2003 Annual Medicare Wellness Visit 2018 COVID-19 Vaccine (2023-2 5 season) 2024 RSV Immunization or 60+ Years (1 - 1-dose 75+ series) 2028 Meningococcal B Vaccine Aged Out No l onger eligible based on patient's age to complete this topic Meningococcal Vaccine Aged Out No kenton liyha eligible based on patient's age to complete this topic RSV Immunizations Under 20 Months Aged Out No longer eligible based on patient's age to complete this topic Procedures Procedure Name Priority Date/Time Associated Diagnosis Comments CT LUNG SCREENING Routine 09/28/2024 9:4 8 AM CDT History of tobacco use from Last 3 Months Results * CT LUNG SCREENING (09/28/2024 9:48 AM CDT) Anatomical Region Laterality Modality Chest Computed Tomogra phy 10/03/2024 3:24 PM CDT Narrative 10/03/2024 5:02 PM [address]T [address] [place] [address] EXAM: LUNG SCREENING LOW-DOSE CT THORAX WITHOUT [...] September 2025 Thank you for choosing the [facility] Lung Screening Program. The attending radiologist has reviewed the image(s) and agrees with the content of this report. Ordered By: LUIS ENRIQUE INTERIANO Interpreted By: Andrew Molina MD, 10/03/2024 3:24 PM Procedure Note Semaj Stout MD - 10/03/[address] [place] [address] EXAM: LUNG SCREENING LOW-DOSE CT THORAX WITHOUT [...] September 2025 Thank you for choosing the [facility] Lung Screening[facility]. The attending radiologist has reviewed the image(s) and agrees with thecontent of this report. Ordered By: LUIS ENRIQUE INTERIANO Interpreted By: Andrew Molina MD, 10/03/2024 3:24 PM Luis Enrique Interiano [facility] Final Result from Last 3 Months Insurance MEDICAID [facility] MEDICARE SOLUTIONS [facility] Care Teams Equipment Monitor Phototypesetting Relationship Specialty Start Date End Date Dilshad Caruso MD [address] [place] [phone] PCP - General FAMILY PRACTICE 06/30/19 Katya Quiroz MD [address] [place] [address] [employer] Distillery Manager CARDIOVASCULAR DISEASE 10/14/23
== END 2024-11-15 14:52 | disposition home or self-care (01) ==
LOC: CHSIMG 14:52
PROVIDERS: PCP Physician Assistant; Visit Provider Internal Medicine Cardiovascular Disease
DX: I25.5 Ischemic cardiomyopathy (principal); I08.0 Rheumatic disorders of both mitral and aortic valves
CPT/HCPCS: 93306

== ENCOUNTER 2024-12-01 10:59 | Outpatient (CLI) | payer MEDICARE, MEDICAID, SELFPAY ==
--- OUTSIDE RECORDS SUMMARY | 2024-12-01 11:04 | XMS_ITS | Encounter Summary ---
Author Organization [facility] Address [address] [facility] [place] [address] Care Team Providers Care Legal Billing Clerk Name Role Phone Unavailable Primary Care Provider Unavailabl e Encounter Details Date Type Department Care Team (Late st Contact Info) Description 07/11/2019 Lab Requisition [facility] DermPath Lab [address] [facility] [place] [address] Concepcion Khan MD [address] [facility] [address] [place] [address] Social History Tobacco Use Types Packs/Day Years [...] DERMPATH SLIDE CONSULT Routine 07/11/2019 12:00 AM FIRE SUPPRESSION CAPTAIN documented in this encounter Results * DERMPATH SLIDE CONSULT (07/11/2019 12:00 AM FIRE SUPPRESSION CAPTAIN) Case Report Dermatopathology Report Case: [id number] Authorizing Provider: Concepcion Khan MD Collected: 07/11/2019 12:00 AM Ordering Location: [facility] DermPath Lab Received: 07/11/2019 08:03 AM Pathologist: Arti Rodriguez MD Specimen: Slide(s), Left earlobe, [id number]# [id number] 0 2:47 PM FIRE SUPPRESSION CAPTAIN DERMATOPATHOLOGY LABORATORY Final Diagnosis Specimen A. 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 Squamous cell carcinoma, acantholytic. All slides returned. Appointment. Date: 07/20/2019. Any additional sections, special stains or immunohistochemical stains performed by our laboratory will be kept here on file. 0 2:47 PM [facility] DERMATOPATHOLOGY LABORATORY Microscopic Description Specimen A. Slide(s), Left earlobe, OSC# [id number]: Sections show skin with irregularly shaped nests of keratinocytes with evidence of cornification. In some nests, there is loss of cohesion between the neoplastic cells, as well as individual dyskeratotic cells that lack intercellular bridges. 0 2:47 PM [facility] DERMATOPATHOLOGY LABORATORY Disclaimer An external and internal positive and negative controls are appropriate for the histochemical, immunohistochemical and immunofluorescence stain(s) in this case (if any), except where stated explicitly. The performance characteristics of the stain(s) cited in this report were developed and its performance characteristic determined by the Dermatopathology Laboratory at [facility], directed by Dr. Unique Miller. These tests need not be, and therefore are not, approved by the [place] Food and Drug Administration. The tests are used for clinical purposes. Billing Codes Specimen Charges Stain Charges 55089 1 0 2:47 PM FIRE SUPPRESSION CAPTAIN DERMATOPATHOLOGY LABORATORY Embedded Images 0 2:47 PM FIRE SUPPRESSION CAPTAIN DERMATOPATHOLOGY LABORATORY Pathology/Cytolog y SLIDE / Unknown 07/11/2019 07/11/2019 8:03 AM [facility] Concepcion Khan MD LAB - PATHOLOGY/CYTOLOGY ORDER JAYCOB Final Result DERMATOPATHOLOGY LABORATORY [facility] - Department of Dermatology [address] [place] [address], [address]th Floor Lab [address] [place], [place] [address] [phone] documented in this encounter Visit Diagnoses Not on filedocumented in this encounter
--- OUTSIDE RECORDS SUMMARY | 2024-12-01 11:04 | XMS_ITS ---
Author Organization Unknown Address [address] [place] [phone] Phone Care Team Providers Care Regional Account Executive Name Role Phone MARINO DARWIN Attending Unavailable LEIGHANN Bauer Primary Unavailable Immunization Immunization Date Status Additional [...] systolic an d diastolic heart failure 11/05/2023 [id number] SNOMED-CT Personal Care Team Section Performer Name Performer Role Active Date Inactive Da THERESA Lopez PCP - Primary care physician 2023-11-05
--- OUTSIDE RECORDS SUMMARY | 2024-12-01 11:04 | XMS_ITS | Clinical Summary ---
Author Organization [facility] [employer] Address [address] [facility] [place] [address] Care Team Providers Care Mineral Technologist Name Role Phone Unavailable Primary Care Provider Unavailabl e Source Comments [facility] [employer],non-owned Affiliates and Associated Physician Practices is amultiple site organization consisting of ambulatory clinics and hospital sitesin [place], [place], [place] and [place]. This disclosure is being madepursuant to the Care Everywhere program and may not contain all information available regarding this patient. Last updated 18.[facility] [employer] Allergies Active Allergy Reactions Criticality Noted Date [...] Comments Blood Pressure 118/73 07/20/2019 2:41 PM STRINGS TEACHER Pulse 92 07/20/2019 2:41 PM STRINGS TEACHER Temperature - - Respiratory Rate - - Oxygen Saturation - - Inhaled Oxygen Concentration - - Weight 95.3 kg (210 lb) 07/20/2019 2:41 PM STRINGS TEACHER Height 182.9 cm (6') 07/20/2019 2:41 PM STRINGS TEACHER Body Mass Index 28.48 07/20/2019 2:41 PM STRINGS TEACHER Plan of Treatment Health Maintenance Due [...] age to complete this [place] [address] MEDICAID - OUT OF STATE [employer] MED[place]ARE DUAL ADV [place]
--- OUTSIDE RECORDS SUMMARY | 2024-12-01 11:04 | XMS_ITS | Referral Summary ---
Author Organization [facility] Address [facility] [place] [address] Care Team Providers Care Caving Guide Name Role Phone Dilshad Caruso MD Primary [...] Comments Blood Pressure 100/62 06/01/2023 11:45 AM PROPOSAL EDITOR Pulse 90 06/01/2023 11:45 AM PROPOSAL EDITOR Temperature - - Respiratory Rate - - Oxygen Saturation 94% 06/01/2023 11:45 AM PROPOSAL EDITOR Inhaled Oxygen Concentration - - Weight 84.5 kg (186 lb 3.2 oz) 06/01/2023 11:45 AM PROPOSAL EDITOR Height 182.9 cm (6') 06/01/2023 11:45 AM PROPOSAL EDITOR Body Mass Index 25.25 06/01/2023 11:45 AM PROPOSAL EDITOR Plan of Treatment Not on file Insurance [facility] DUAL [place] Care Teams Caving Guide Relationship Specialty Start Date End Date Dilshad Caruso MD PCP - General Family Medicine 11/21/21
--- OUTSIDE RECORDS SUMMARY | 2024-12-01 11:04 | XMS_ITS | Clinical Summary ---
Author Organization [facility] Address [address] [place] [id number] Care Team Providers Care Assistant Operations Manager Name Role Phone Dilshad Caruso MD Primary [...] Comments Blood Pressure 100/62 06/01/2023 11:45 AM SPIRAL WEAVER Pulse 90 06/01/2023 11:45 AM SPIRAL WEAVER Temperature - - Respiratory Rate - - Oxygen Saturation 94% 06/01/2023 11:45 AM SPIRAL WEAVER Inhaled Oxygen Concentration - - Weight 84.5 kg (186 lb 3.2 oz) 06/01/2023 11:45 AM SPIRAL WEAVER Height 182.9 cm (6') 06/01/2023 11:45 AM SPIRAL WEAVER Body Mass Index 25.25 06/01/2023 11:45 AM SPIRAL WEAVER Plan of Treatment Health Maintenance Due Date [...] 03/21/2021, 03/08/2021, 03/22/2020, Additional history exists Insurance [facility] [place] [facility] [place] Care Teams Assistant Operations Manager Relationship Specialty Start Date End Date Dilshad Caruso MD PCP - General Family Medicine 11/21/21
[2024-12-01 11:40] VITALS: PULSE 68; O2SAT 94
[2024-12-01 11:46] VITALS: PULSE 95; O2SAT 90
--- NOTE | 2024-12-01 11:59 | HOMEO2EVAL ---
Evaluation was performed at [facility] Home Oxygen Evaluation RC: Home Oxygen (O2) Evaluation Start: 12/01/24 11:54 Freq: Status: Active Protocol: RPE Activity Type Activity Date Activity User E-sign Co-sign Detail Recorded Client Recorded Date Recorded By Document 12/01/24 11:40 [email or web address] [email or web address] 12/01/24 11:58 SJB Document 12/01/24 11:46 SJB [email or web address] 12/01/24 11:58 SJB 12/01/24 12/01/24 11:40 11:46 Home O2 Evaluation [Oxygen] -Test Phase Resting Exercise -Oxygen Delivery Room Air [Pulse Oximetry] -Pulse Oximetry (90-100 %) 94 90 [Pulse Rate] -Pulse Rate (60-100 beats/min) 68 95 [Evaluation] -Activity Tolerance Excellent -Rating of Perceived Dyspnea (PD) +1 Mild, Noticeable to the Participant but Not to an Observer [Exercise] -Ambulation Distance (feet) 760 -Ambulation Distance (meters) 231.63 [Comments] -Home Oxygen Evaluation Comments Will begin walk Pt walked on room air. approx 760 ft on room air with Sp02 staying at 90% and above and HR up to 95. PLB encouraged. [Charges] -Evaluation Charges O2 Evaluation Charge
== END 2024-12-01 11:00 | disposition home or self-care (01) ==
LOC: CHSCARD 11:01
PROVIDERS: PCP Physician Assistant; Visit Provider Physician Assistant
DX: I50.23 Acute on chronic systolic (congestive) heart failure (principal); J44.1 Chronic obstructive pulmonary disease with (acute) exacerbation
CPT/HCPCS: 94618

== ENCOUNTER 2025-01-22 16:46 | Emergency (ER) | payer MEDICARE, SELFPAY ==
--- NOTE | ~2025-01-22 | CT_ITS ---
EXAMINATION: CT abdomen pelvis wo con DATE: 01/22/2025 17:56 INDICATION: lower abdominal pain/ constipation x1 month TECHNIQUE: Computed tomography (CT) of the abdomen and pelvis was performed without intravenous contr ast. Automated exposure control and iterative reconstruction technique were employed. The dose-length product was 259.77 mGy-cm. COMPARISON: CT chest 09/28/2024, images only. FINDINGS: Lower thorax: Emphysematous change. Stable right middle lobe pulmonary nodule. Coronary artery calcif ications. Liver: Normal. Biliary/Gallbladder: Gallbladder is normal. No bile duct dilation. Pancreas: No mass or duct dilation. Spleen: Normal. Adrenals:No mass. Kidneys: No suspicious mass, obstructing stone, or hydronephrosis. GI tract: No small or large bowel dilation. Normal appendix. Diverticulosis. Short segment mid sigmoi d wall thickening with surrounding inflammatory changes and an inflamed diverticulum. No fluid collec tion. No free air. Mesentery/Peritoneum: No ascites, mass, or free air. Retroperitoneum: No mass. Atherosclerotic calcifications of intra-abdominal arterial vessels. Fusifor m infrarenal, abdominal aortic aneurysm measuring up to 3.1 cm. Enlarged right periaortic lymph nodes . Pelvis: Partially distended urinary bladder with moderate wall thickening. Prostatomegaly. Soft Tissues: Moderate uncomplicated fat-containing left inguinal hernia. Moderate fat and bowel cont aining right inguinal hernia, without evidence of obstruction. Small fat-containing uncomplicated umb ilical hernia. Bones: No acute osseous finding. IMPRESSION: Acute uncomplicated sigmoid diverticulitis. Bladder wall thickening may be secondary to cystitis, chronic outlet obstruction, or reactive change from the adjacent diverticulitis. Moderate sized fat-containing right inguinal hernia with partial herniation of loops of small bowel t hat are not obstructed. 3.1 cm abdominal aortic aneurysm. Recommend follow-up in 3 years. Reviewed, dictated and finalized at location K. IMPRESSION: Acute uncomplicated sigmoid diverticulitis. Bladder wall thickening may be secondary to cystitis, chronic outlet obstructio n, or reactive change from the adjacent diverticulitis. Moderate sized fat-containing right inguinal hernia with partial herniation of loops of small bowel that are not obstructed. 3.1 cm abdominal aortic aneurysm. Recommend follow-up in 3 years.
--- OUTSIDE RECORDS SUMMARY | 2025-01-22 16:48 | XMS_ITS ---
Author Organization Unknown Address [address] [place] [phone] Phone Care Team Providers Care Building Components Designer Name Role Phone MARINO DARWIN Attending Unavailable [...] systolic an d diastolic heart failure 11/05/2023 [id number] SNOMED-CT Personal Care Team Section Performer Name Performer Role Active Date Inactive Da THERESA Lopez PCP - Primary care physician 2023-11-05
--- OUTSIDE RECORDS SUMMARY | 2025-01-22 16:48 | XMS_ITS | Clinical Summary ---
Author Organization [facility] Address [address] [place] [id number] Care Team Providers Care Machine Setter Name Role Phone Dilshad Caruso MD Primary [...] skin every 14 (fourteen) days 2 mL 2 Active clopidogreL (PLAVIX) 75 mg tablet Take 1 tablet (75 mg total) by mouth daily 30 tablet 5 12/16/19 26 Active Active Problems Problem Noted Date Diagnosed Date Chronic combined systolic (c ongestive) and diastolic (congestive) heart failure 12/14/2024 CAD (coronary artery disease) 12/13/2024 Thoracic ascending aortic aneurysm 01/28/2022 Chronic combined systolic an d diastolic congestive heart failure 01/27/2022 Hx of CABG 01/27/[address] elevation myocardial infarction (S DEV) 01/27/2022 Encounters Date Type Department Care Team Description 12/13/2024 11:30 AM CDT - 12/13/2024 1:00 PM CDT Surgery [facility] Cardiac Catheterization Lab [id number] [place] [id number] Andrzej Kiser MD LEFT HEART CATHETERIZATION WITH CORONARY ANGIOGRAPHY AND WITH OR WITHOUT LEFT VENTRICULOGRAM [id number] 12/13/2024 9:26 AM CDT - 12/14/2024 11:34 AM CDT Hospital Encounter [facility] [id number] [place] [id number] Andrzej Kiser MD Chronic combined systolic and diastolic congestive heart failure (HCC) Discharge Disposition: Discharge to home or self care 12/07/2024 Telephone [facility] Cardiology [address] [facility] [address], [place] [address] Andrzej Kiser MD 12/02/2024 Telephone [facility] Cardiology [address] [facility] [address] [place] [address] Andrzej Kiser MD from Last 3 Months Surgical History Surgery Date Site/Laterality Comments CORONARY ARTERY BYPASS GRAFT 07/06/2007 - 07/05/2008 CORONARY ANGIOPLASTY multiple, most recent October 2021 CARDIAC CATHETERIZATION 12/13/2024 N/A Procedure: LEFT HEART CATHETERIZATION WITH CORONARY ANGIOGRAPHY AND WITH OR WITHOUT LEFT VENTRICULOGRAM [id number]; Surgeon: Andrzej Kiser MD; Location: CARDIAC TRAILER TECHNICIAN; Service: Cardiovascular; Laterality: N/A; Medical devices from this surgery are in the Medical Devices section. CARDIAC CATHETERIZATION 12/13/2024 N/A Procedure: PCI PTCA - MAJOR CORONARY [id number]; Surgeon: Andrzej Kiser MD; Location: CARDIAC TRAILER TECHNICIAN; Service: Cardiovascular; Laterality: N/A; Medical devices from this surgery are in the Medical Devices section. CARDIAC CATHETERIZATION 12/13/2024 N/A Procedure: AORTOGRAM THORACIC S&I [id number]; Surgeon: Andrzej Kiser MD; Location: CARDIAC TRAILER TECHNICIAN; Service: Cardiovascular; Laterality: N/A; Medical devices from this surgery are in the Medical Devices section. Medical History Medical History Date Comments Coronary artery disease COPD (chronic obstructive pulmonary disease) (HC C) Hyperlipidemia Ventricular tachycardia (HCC) 10/03/2021 Ischemic cardiomyopathy Aortic aneurysm Social History Tobacco Use Types Packs/Day Years Used Date Smoking Tobacco: Former Cigarettes 0.1 42 0 10/04/1979 - 10/03/2021 Smokeless Tobacco: Never Tobacco Cessation:Counseling Given: Not Answered AUDIT-C Answer Date Recorded Q1: How often do you have a drink containing alc ohol? Never 10/24/2021 Average Number of Drinks Not on file 022 Frequency of Binge Drinking Not on file 10/05 Personal Safety Answer Date Recorded Have you ever been in or are you currently in a harmful physical or emotional relationship or is someone making you feel afraid or unsafe? Denies 12/13/2024 Sex and Gender Information Value Date Recorded Sex Assigned at Not on file Legal Sex Male 4:09 PM CDT Gender Identity Not on file Sexual Orientation Not on file Obstetrics History Last Filed Vital Signs Vital Sign Reading Time Taken Comments Blood Pressure 96/60 12/14/2024 7:58 AM CDT Pulse 64 12/14/2024 9:32 AM CDT Temperature 36.3 C (97.3 F) 12/14/2024 7:58 AM CDT Respiratory Rate 22 12/14/2024 9:32 AM CDT Oxygen Saturation 96% 12/14/2024 9:32 AM CDT Inhaled Oxygen Concentration - - Weight 75.8 kg (167 lb) 12/13/2024 9:47 AM CDT Height 180.3 cm (5' 11) 12/13/2024 9:47 AM CDT Body Mass Index 23.29 12/13/2024 9:47 AM CDT Plan of Treatment Health Maintenance Due Date Last Done Comments Colon Cancer Screening-Colonoscopy 1955 Depression Screening 1955 Hepatitis C Screening 1955 DTaP/Tdap/Td Vaccine (1 - Tdap) 1964 Hepatitis B Screening 1971 Pneumococcal vaccine 65+ (1 of 2 - PCV) 1972 Zoster Vaccine (1 of 2) 2003 Abdominal Aortic Aneurysm (A AA) Screen 2018 Well Visit 65+ 2018 Covid-19 Vaccine (2023-2 5 season) 2024 04/11/2021, 08/31/2020, 08/10/2020 Influenza Vaccine (#1) 2025 , 03/22/2020, 06/06/2019, Additional history exists Fall Risk Assessment 12/14/2025 12/14/2024 Medical Devices Implanted Type Area Sword Swallower Device Identifier Shelf Expiration Date Model / Serial / Lot FlowJob Angio-Seal Vip 6fr Closere Device [id number] - [id number] - [id number] Implanted:Qty: 1 on 12/13/2024 by Andrzej Kiser MD at [facility] [employer] 08/19/2025 [id number] / [id number] / Procedures Procedure Name Priority Date/Time Associated Diagnosis Comments EGFR Routine 12/14/2024 5:50 AM CDT DIFFERENTIAL AUTO Routine 12/14/2024 5:5 0 AM CDT CBC WITH AUTO DIFFERENTIAL Routine 12/14/2024 5:50 AM CDT BASIC METABOLIC PANEL Routine 12/14/2024 5:50 AM CDT ECG 12-LEAD Routine 12/13/2024 7:17 PM CDT AORTOGRAM THORACIC S&I Routine 2:28 PM CDT Chronic combined systolic and diastolic congestive heart failure (HCC) PERCUTAINEOUS TRANSLUMINAL CORONARY ANGIOPLASTY OF ONE MAJOR CORONARY Routine 12/13/2024 2:28 PM CDT Chronic combined systolic and diastolic congestive heart failure (HCC) LEFT HEART CATHETERIZATION WITH CORONARY ANGIOGRAPHY AND WITH AND WITHOUT LEFT VENTRICULOGRAM Routine 12/13/2024 2:28 PM CDT Chronic combined systolic and diastolic congestive heart failure (HCC) MODERATE SEDATION SAME MD MONTEJO ADDL 15 MIN [id number] 12/13/2024 11:50 AM CDT Chronic combined systolic and diastolic congestive heart failure (HCC) MODERATE SEDATION FIRST 15MIN 5+ YEAR [address] 12/13/2024 11:50 AM CDT Chronic combined systolic and diastolic congestive heart failure (HCC) EGFR STAT 12/13/2024 9:35 AM CDT DIFFERENTIAL AUTO STAT 12/13/2024 9:3 5 AM CDT BASIC METABOLIC PANEL STAT 12/13/2024 9:35 AM CDT CBC WITH AUTO DIFFERENTIAL STAT 12/13/2024 9:35 AM CDT from Last 3 Months Results * eGFR (12/14/2024 5:50 AM CDT) eGFR >90 >=60 mL/min/1. 73 m2 Comment: Interpretive Data Reference Interval Normal >/= 90 mL/min/1.73m2 Mildly decreased* 60 - 89 mL/min/1.73m2 Mildly to moderately decreased 45 - 59 mL/min/1.73m2 Moderately to severely decreased 30 - 44 mL/min/1.73m2 Severely decreased 15 - 29 mL/min/1.73m2 Kidney Failure < 15 mL/min/1.73m2 *Relative to young adult level Estimated glomerular filtration rate is determined by the 2020 CKD-EPI equation recommended by the National Kidney Foundation (A Unifying Approach to GFR Estimation: Recommendations of the NKF-ASK Task Force on Reassessing the Inclusion of Race in Diagnosing Kidney Disease, JASN 2020). The CKD-EPI equation should not be used for patients with unstable renal function and has not been validated in children and those over 70. Current interpretive data was last reviewed 2021. Blood 12/14/2024 5:50 AM CDT 12/14/2024 6:05 AM CDT Andrzej Kiser MD LAB BLOOD ORDERABLES Final Result [facility] [address] Department [place] [address] * (ABNORMAL) Differential, auto (12/14/2024 5:50 AM CDT) Neutrophil abs 12.70(H) 1.50 - 6.50 K/cumm Imm gran abs 0.10 0.00 - 0.10 K/cumm [facility] Lymphocyte abs 2.09 0.80 - 3.30 K/cumm [facility] Monocyte abs 1.23(H) 0.20 - 0.80 K/cumm [facility] Eosinophil abs 0.04 0.00 - 0.50 K/cumm [facility] Basophil abs 0.04 0.00 - 0.10 K/cumm [facility] Neutrophil pct 78.5 % [facility] Comment: Interpretive Data Percent cell count reference ranges are not reported, since discordance with absolute values may lead to misinterpretation of CBC data. Current Interpretive Data was last revised on 2017. Imm gran pct 0.6 % [facility] Comment: Interpretive Data Percent cell count reference ranges are not reported, since discordance with absolute values may lead to misinterpretation of CBC data. Current Interpretive Data was last revised on 2017. Lymphocyte pct 12.9 % [facility] Comment: Interpretive Data Percent cell count reference ranges are not reported, since discordance with absolute values may lead to misinterpretation of CBC data. Current Interpretive Data was last revised on 2017. Monocyte pct 7.6 % [facility] Comment: Interpretive Data Percent cell count reference ranges are not reported, since discordance with absolute values may lead to misinterpretation of CBC data. Current Interpretive Data was last revised on 2017. Eosinophil pct 0.2 % [facility] Comment: Interpretive Data Percent cell count reference ranges are not reported, since discordance with absolute values may lead to misinterpretation of CBC data. Current Interpretive Data was last revised on 2017. Basophil pct 0.2 % [facility] Comment: Interpretive Data Percent cell count reference ranges are not reported, since discordance with absolute values may lead to misinterpretation of CBC data. Current Interpretive Data was last revised on 2017. Blood 12/14/2024 5:50 AM CDT 12/14/2024 6:04 AM CDT Andrzej Kiser MD LAB BLOOD ORDERABLES Final Result [facility] [address] [place] [address] * (ABNORMAL) CBC with auto differential (12/14/2024 5:50 AM CDT) WBC 16.20(H) 3.80 - 9.90 K/cumm Hgb 14.4 13.0 - 17.5 g/dL [facility] Hct 42.4 38.9 - 50.3 % [facility] Plt 161 150 - 400 K/cumm [facility] MPV 10.2 9.1 - 12.3 fL [facility] RBC 4.61 4.30 - 5.80 M/cumm [facility] MCV 92.0 81.3 - 96.4 fL [facility] MCH 31.2 27.1 - 33.3 pg [facility] MCHC 34.0 32.3 - 35.7 g/dL [facility] RDW CV 13.7 11.1 - 14.9 % [facility] RDW SD 46.0 35.7 - 48.1 fL [facility] NRBC abs 0.00 0.00 - 0.01 K/cumm [facility] Blood 12/14/2024 5:50 AM CDT 12/14/2024 6:04 AM CDT Andrzej Kiser MD LAB BLOOD ORDERABLES Final Result [facility] [address] [place] [address] * (ABNORMAL) Basic metabolic panel (12/14/2024 5:50 AM CDT) Sodium 141 135 - 145 mmol/L Potassium, pl 4.1 3.3 - 4.9 mmol/L [facility] Chloride 111(H) 97 - 110 mmol/L [facility] CO2 20(L) 22 - 32 mmol/L [facility] Anion gap 10 2 - 15 mmol/L [facility] BUN 16 6 - 25 mg/dL [facility] Creatinine 0.85 0.80 - 1.30 mg/dL [facility] Glucose 110 70 - 199 mg/dL [facility] Comment: Interpretive Data Fasting glucose >/= 126 mg/dl is diagnostic for diabetes. Fasting is defined as no caloric intake for at least 8 hours. Fasting glucose between 100 mg/dl to 125 mg/dl is diagnostic of prediabetes. In a patient with classic symptoms of hyperglycemia or hyperglycemic crisis, a random glucose >/= 200 mg/dl is diagnostic for diabetes. In the absence of unequivocal hyperglycemia, results should be confirmed by repeat testing. The classification and Diagnosis of Diabetes Diabetes Care 2021; 46: S19-S40. Current interpretive data was last revised 2022. Calcium 8.5 8.5 - 10.3 mg/dL [facility] Blood 12/14/2024 5:50 AM CDT 12/14/2024 6:05 AM CDT Andrzej Kiser MD LAB BLOOD ORDERABLES Final Result [facility] [address] [facility] Department [place] [address] * ECG 12 lead (12/13/2024 7:17 PM CDT) 12/13/2024 7:17 PM CDT Narrative [facility] - 12/13/2024 10:07 PM CDT Vent Rate: 83 bpm RR Interval: 720 msec FL Interval: 171 msec QRS Duration: 103 msec QT Interval: 389 msec QTC Interval: 429 msec P-R-T Leslie: 74 - 58 - 64 degrees IMPRESSION: SINUS RHYTHM WITH FREQUENT VENTRICULAR PREMATURE COMPLEXES POSSIBLE LEFT ATRIAL ENLARGEMENT [-0.1mV P-WAVE IN V1/V2] NONSPECIFIC ST \T\ T-WAVE ABNORMALITY ABNORMAL RHYTHM ECG Electronically Signed By: Lenny Cosby MD Andrzej Kiser MD ECG ORDERABLES [place] Result [facility] * LEFT HEART CATHETERIZATION WITH CORONARY ANGIOGRAPHY AND WITH AND WITHOUT LEFT VENTRICULOGRAM, PERCUTAINEOUS TRANSLUMINAL CORONARY ANGIOPLASTY OF ONE MAJOR CORONARY, AORTOGRAM THORACIC S&I (12/13/2024 2:28 PM CDT) Anatomical Region Laterality Modality X-Ray Angiograph y Addenda Addendum by Andrzej Kiser MD on 12/16/2024 9:58 AM CDT CARDIAC CATHETERIZATION REPORT Ruperto Friedman IP ENCOUNTER: @CSN@ Date of Procedure: 12/13/2024 BIRTHDATE: 1955 BAGGAGE AGENT SUPERVISOR: Andrzej Kiser MD PREPROCEDURE DIAGNOSES: Ruperto Friedman is a 69 y.o. male here for for cardiac catheterization. Past medical history of contrast allergy, CABG x3 2007 in [place], ascending aortic aneurysm, systolic dysfunction, dyslipidemia, COPD and tobacco abuse. He did have inferior myocardial infarction September 2021 at [facility] and underwent cardiac catheterization that showed OPERATIONS EXECUTIVE of proximal LAD, OPERATIONS EXECUTIVE of proximal left circumflex artery, CTA of proximal RCA. Patent BROWN to LAD, SVG to PDA. At that time the SVG to OM was occluded and underwent stenting. Recently underwent echocardiogram that shows ejection fraction 10 percent and therefore was referred to cardiac catheterization to define coronary anatomy. PROCEDURES PERFORMED: Moderate sedation that started at 12:19 p.m. and ended at 2:28 p.m. with total duration 107 minutes using2 mg of Versed and 50mcg of fentanyl. The registered nurse was josselyn guajardo. Selective left and right coronary angiogram. Selective coronary bypass graft angiogram. Balloon angioplasty on proximal ramus intermedius with inability to pass the stent due to tortuosity. Left heart catheterization with measurement of LVEDP and measure gradient across aortic valve. Right common femoral arterial angiogram. Ascending aorta angiogram. FINDINGS: Ostial left main 60%. Lad totally occluded at the stent site proximally. Left circumflex artery totally occluded proximally. Ramus intermedius has 90% lesion proximally. Tortuous proximally. Right coronary artery is totally occluded proximally. SVG to RCA has about 40% lesion proximally. Otherwise widely patent. SVG to OM totally occluded at the ostium. Brown to LAD is widely patent. LVEDP 13 mm Hg and no gradient across aortic valve. Opening pressure 102/69 and closing pressure 142/95. Right common femoral artery angiogram shows no significant disease right common femoral artery. Ascending aorta angiogram was done and did not identify any additional grafts. Normal caliber ascending aorta. COMPLICATIONS: None ESTIMATED BLOOD LOSS: 20 mL PROCEDURAL DESCRIPTION: After informed consent patient was brought into the laborer cheesemaking where she was draped and prepped in the usual manner. Moderate sedation was given and the right groin infiltrated using 1% lidocaine. Five Bel[place]an sheath was obtained using micropuncture needle and modified Seldinger technique. Selective left coronary angiogram was done using JL4 catheter with the tip of the catheter placed in the left main coronary artery. Selective right coronary angiogram was done using JR4 catheter with the tip of the catheter placed in the right coronary artery. JR4 catheter was used to a enter the left subclavian artery with BROWN angiogram. JR4 catheter was used also to engage the graft to OM. Then we used a RCB catheter to engage the graft to the PDA. After that 5 Bel[place]an pigtail catheter was advanced across aortic valve into the left ventricular with measurement of LVEDP and measure gradient across aortic valve. R ascending aorta angiogram was done. No other grafts found. ight common femoral arterial angiogram was done .. INTERVENTION: -Left main gauge using CLS 3.5 guide catheter and then after that coronary wire minamo was used then a luge and we could not wire the ramus. We had to use whisper wire. We tried to pass 2 x 12 balloon and we could not. Then we went to a smaller balloon 1.5 mm and we could not pass it. We then we use 1 mm saphire and we inflated it to rupture. Then we took 1.5 balloon and managed to cross the lesion and balloon it under 14 atmospheres for 20 seconds. Then used 2 0 x 12 and we could not pass it. At that time we noticed absence of flow in the artery. We went back with saphire mm balloon and inflated it to rupture pressure. Then we took 1.5 mm balloon by 12 and then jain of blood flow. Then we passed 2 0 x 12 balloon and inflated it couple times. However we could not pass the balloon beyond the lesion. I used 6 Bel[place]an GuideLiner and then with balloon again we could not pass the balloon. At that time decided to quit. A few 3 before and after intervention. Lesion 90% before and after intervention. - Access site. Right common femoral artery. Hemostasis: Failed Angio-Seal and manual compression will be applied after 2 hours of stopping Angiomax CONCLUSIONS Severe [place] coronary artery disease with occluded LAD, left circumflex artery and RCA. Patent BROWN to LAD. SVG to PDA patent has 40% lesion proximally. SVG to OM occluded. Ostial left main 60%. 90% ramus intermedius. Intervention on ramus intermedius with balloon angioplasty however the lesion did not yield and we were unable to pass stents due to tortuosity. PLAN Continue aspirin and Brilinta. Optimize heart failure management. Optimize antianginal medications. us Andrzej Kiser MD CV CARDIAC CATH PROC EDURES Edited Result - Final * eGFR (12/13/2024 9:35 AM CDT) eGFR >90 >=60 mL/min/1. 73 m2 Comment: Interpretive Data Reference Interval Normal >/= 90 mL/min/1.73m2 Mildly decreased* 60 - 89 mL/min/1.73m2 Mildly to moderately decreased 45 - 59 mL/min/1.73m2 Moderately to severely decreased 30 - 44 mL/min/1.73m2 Severely decreased 15 - 29 mL/min/1.73m2 Kidney Failure < 15 mL/min/1.73m2 *Relative to young adult level Estimated glomerular filtration rate is determined by the 2020 CKD-EPI equation recommended by the National Kidney Foundation (A Unifying Approach to GFR Estimation: Recommendations of the NKF-ASK Task Force on Reassessing the Inclusion of Race in Diagnosing Kidney Disease, JASN 202). The CKD-EPI equation should not be used for patients with unstable renal function and has not been validated in children and those over 70. Current interpretive data was last reviewed 2021. Blood 12/13/2024 9:35 AM CDT 12/13/2024 9:47 AM CDT us Andrzej Kiser MD LAB BLOOD ORDERABLES Final Result [facility] [address] Department [place] [address] * (ABNORMAL) Differential, auto (12/13/2024 9:35 AM CDT) Neutrophil abs 6.84(H) 1.50 - 6.50 K/cumm Imm gran abs 0.03 0.00 - 0.10 K/cumm [facility] Lymphocyte abs 0.83 0.80 - 3.30 K/cumm [facility] Monocyte abs 0.09(L) 0.20 - 0.80 K/cumm [facility] Eosinophil abs 0.00 0.00 - 0.50 K/cumm [facility] Basophil abs 0.02 0.00 - 0.10 K/cumm [facility] Neutrophil pct 87.5 % [facility] Comment: Interpretive Data Percent cell count reference ranges are not reported, since discordance with absolute values may lead to misinterpretation of CBC data. Current Interpretive Data was last revised on 2017. Imm gran pct 0.4 % [facility] Comment: Interpretive Data Percent cell count reference ranges are not reported, since discordance with absolute values may lead to misinterpretation of CBC data. Current Interpretive Data was last revised on 2017. Lymphocyte pct 10.6 % [facility] Comment: Interpretive Data Percent cell count reference ranges are not reported, since discordance with absolute values may lead to misinterpretation of CBC data. Current Interpretive Data was last revised on 2017. Monocyte pct 1.2 % [facility] Comment: Interpretive Data Percent cell count reference ranges are not reported, since discordance with absolute values may lead to misinterpretation of CBC data. Current Interpretive Data was last revised on 2017. Eosinophil pct 0.0 % [facility] Comment: Interpretive Data Percent cell count reference ranges are not reported, since discordance with absolute values may lead to misinterpretation of CBC data. Current Interpretive Data was last revised on 2017. Basophil pct 0.3 % [facility] Comment: Interpretive Data Percent cell count reference ranges are not reported, since discordance with absolute values may lead to misinterpretation of CBC data. Current Interpretive Data was last revised on 2017. Blood 12/13/2024 9:35 AM CDT 12/13/2024 9:47 AM CDT Andrzej Kiser MD LAB BLOOD ORDERABLES Final Result Performing Organization Address [facility]/ZIP Co de Phone Number [facility] [address] [place] [address] * (ABNORMAL) CBC with auto differential (12/13/2024 9:35 AM CDT) [facility] WBC 7.81 3.80 - 9.90 K/cumm Hgb 17.8(H) 13.0 - 17.5 g/dL [facility] Hct 53.1(H) 38.9 - 50.3 % [facility] CH Plt 189 150 - 400 K/cumm [facility] CH MPV 10.4 9.1 - 12.3 fL [facility] RBC 5.73 4.30 - 5.80 M/cumm [facility] MCV 92.7 81.3 - 96.4 fL [facility] MCH 31.1 27.1 - 33.3 pg [facility] MCHC 33.5 32.3 - 35.7 g/dL [facility] RDW CV 13.3 11.1 - 14.9 % [facility] RDW SD 45.3 35.7 - 48.1 fL [facility] NRBC abs 0.00 0.00 - 0.01 K/cumm [facility] Blood 12/13/2024 9:35 AM CDT 12/13/2024 9:47 AM CDT Narrative [facility] - 12/13/2024 9:56 AM CDT If most recent labs were drawn prior to 4 AM, draw only prior to initiating procedure. Andrzej Kiser MD LAB BLOOD ORDERABLES Final Result Performing Organization Address City/[facility]/ZIP Co de Phone Number [facility]AL[facility] [address] [place] [address] * (ABNORMAL) Basic metabolic panel (12/13/2024 9:35 AM CDT) Sodium 141 135 - 145 mmol/L Potassium, pl 4.4 3.3 - 4.9 mmol/L [facility] Chloride 106 97 - 110 mmol/L [facility] CO2 19(L) 22 - 32 mmol/L [facility] Anion gap 16(H) 2 - 15 mmol/L [facility] BUN 15 6 - 25 mg/dL [facility] Creatinine 0.84 0.80 - 1.30 mg/dL [facility] Glucose 156 70 - 199 mg/dL [facility] Comment: Interpretive Data Fasting glucose >/= 126 mg/dl is diagnostic for diabetes. Fasting is defined as no caloric intake for at least 8 hours. Fasting glucose between 100 mg/dl to 125 mg/dl is diagnostic of prediabetes. In a patient with classic symptoms of hyperglycemia or hyperglycemic crisis, a random glucose >/= 200 mg/dl is diagnostic for diabetes. In the absence of unequivocal hyperglycemia, results should be confirmed by repeat testing. The classification and Diagnosis of Diabetes Diabetes Care 2021; 46: S19-S40. Current interpretive data was last revised 2022. Calcium 9.2 8.5 - 10.3 mg/dL [facility] Blood 12/13/2024 9:35 AM CDT 12/13/2024 9:47 AM CDT us Andrzej Kiser MD LAB BLOOD ORDERABLES Final Result [facility] [address] Department [place] [address] from Last 3 Months Insurance [facility] MEDIC[facility] Address: [address] [address] [place] [address] Advance Directives For more information, please contact: [phone] * Full Code (Latest Code Status on File) Date Activated Date Inactivated Comments 12/13/2024 3:05 PM 12/14/2024 3:39 PM Care Teams Machine Setter Relationship Specialty Start Date End Date Dilshad Caruso MD PCP - General Family Medicine 11/21/21
--- OUTSIDE RECORDS SUMMARY | 2025-01-22 16:48 | XMS_ITS | Clinical Summary ---
Author Organization [facility] Address [address] [place] [address] Care Team Providers Care Hospice Clinical Supervisor Name Role Phone Unavailable Primary Care Provider Unavailabl e Source Comments [facility],non-owned Affiliates and Associated Physician Practices is amultiple site organization consisting of ambulatory clinics and hospital sitesin [place], [place], [place] and [place]. This disclosure is being madepursuant to the Care Everywhere program and may not contain all information available regarding this patient. Last updated 18.[facility] Allergies Active Allergy Reactions Criticality Noted Date [...] Comments Blood Pressure 118/73 07/20/2019 2:41 PM MECHANICAL COMMISSIONING ENGINEER Pulse 92 07/20/2019 2:41 PM MECHANICAL COMMISSIONING ENGINEER Temperature - - Respiratory Rate - - Oxygen Saturation - - Inhaled Oxygen Concentration - - Weight 95.3 kg (210 lb) 07/20/2019 2:41 PM MECHANICAL COMMISSIONING ENGINEER Height 182.9 cm (6') 07/20/2019 2:41 PM MECHANICAL COMMISSIONING ENGINEER Body Mass Index 28.48 07/20/2019 2:41 PM MECHANICAL COMMISSIONING ENGINEER Plan of Treatment Health Maintenance Due Date [...] MEDICARE AWV CALENDAR YEAR 2024 INFLUENZA VACCINE (#1) 2025 07/06/2017 Respiratory Syncytial Virus (RSV) Vaccine Pt: or [...] Insurance MEDICARE MEDICAID - OUT OF STATE MEDICARE DUAL ADV [place] BERNAL MEDICARE DUAL ADV LA
--- OUTSIDE RECORDS SUMMARY | 2025-01-22 16:48 | XMS_ITS | Encounter Summary ---
Author Organization [facility] Address [address] [place] [address] Care Team Providers Care Supervisor Wood Room Name Role Phone Dilshad Caruso MD Primary Care Provider Katya Quiroz MD Unavailable Encounter Details Date Type Department Care Team (Late st Contact Info) Description 12/11/2018 Abstract SFL CONVERSION [address] [address] , Generic Conversion, Social History Tobacco Use Types Packs/Day Years Used Date Smoking Tobacco: Never Assessed Sex and Gender Information Value Date Recorded Sex Assigned at Male 09/28/2024 9:38 AM CDT 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 Gender Identity Not on file Sexual Orientation Not on file documented as of this encounter Plan of Treatment Not on file documented as of this encounter Visit Diagnoses Not on filedocumented in this encounter Additional Health Concerns Infection Onset Date Last Indicated Resolved Time COVID-19 Rule Out 05/26/2020 05/26/2020 05/28/2020 11:45 AM GATE TECHNICIAN documented as of this encounter Care Teams Supervisor Wood Room Relationship Specialty Start Date End Date Dilshad Caruso MD [address] [place] [phone] PCP - General FAMILY PRACTICE 06/30/19 Katya Quiroz MD [address] [place] [address] [place] Air Moving Technician CARDIOVASCULAR DISEASE 10/14/23 documented as of this encounter
--- OUTSIDE RECORDS SUMMARY | 2025-01-22 16:48 | XMS_ITS | Clinical Summary ---
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
--- OUTSIDE RECORDS SUMMARY | 2025-01-22 16:48 | XMS_ITS | Referral Summary ---
Author Organization [facility] Address [address] [place] [phone] Care Team Providers Care Pearl Cutter Name Role Phone Dilshad Caruso MD Primary Care Provider Encounters Date Type Department Care Team Description 12/13/2024 9:26 AM CDT - 12/14/2024 11:34 AM CDT Hospital Encounter [address] [address] Andrzej Kiser MD Chronic combined systolic and diastolic congestive heart failure (HCC) Discharge Disposition: Discharge to home or self care 12/13/2024 11:30 AM CDT - 12/13/2024 1:00 PM CDT Surgery [facility] Cardiac Catheterization Lab [address] [place] [address] Andrzej Kiser MD LEFT HEART CATHETERIZATION WITH CORONARY ANGIOGRAPHY AND WITH OR WITHOUT LEFT VENTRICULOGRAM [id number] 12/07/2024 Telephone [facility] Cardiology [address] [place] [address] [address], [place] [address] Andrzej Kiser MD 12/02/2024 Telephone [facility] Cardiology [address] [place] [phone] Andrzej Kiser MD from Last 3 Months Allergies Active Allergy Reactions Criticality Noted Date [...] (fourteen) days 2 mL 11 2 Active clopidogreL (PLAVIX) 75 mg tablet Take 1 tablet (75 mg total) by mouth daily 30 tablet 11 5 12/16/19 26 Active Active Problems Problem [...] 12/13/2024 9:47 AM CDT Plan of Treatment Not on file Medical Devices Implanted Type Area Digital Media Coordinator Device Identifier Shelf Expiration Date Model / Serial / Lot Yappe Angio-Seal Vip 6fr Closere Device [id number] - [id number] - [id number] Implanted:Qty: 1 on 12/13/2024 by Andrzej Kiser MD at [facility] Yappe 08/19/2025 [id number] / [id number] / Procedures Procedure Name Priority Date/Time Associated [...] SEDATION SAME MD MONTEJO ADDL 15 MIN [address] 12/13/2024 11:50 AM CDT Chronic combined systolic and diastolic congestive heart failure (HCC) MODERATE SEDATION FIRST 15MIN 5+ YEAR [address] 12/13/2024 11:50 AM CDT Chronic combined systolic [...] 5:50 AM CDT 12/14/2024 6:05 AM CDT us Jareer Otham Fajardo Kiser MD LAB BLOOD ORDERABLES Final Result [facility] [address] Department [place] [address] * (ABNORMAL) Differential, auto (12/14/2024 5:50 AM CDT) Neutrophil abs 12.70(H) 1.50 - 6.50 K/cumm Imm gran abs 0.10 0.00 - 0.10 K/cumm [facility] Lymphocyte abs 2.09 0.80 - 3.30 K/cumm [facility] Monocyte abs 1.23(H) 0.20 - 0.80 K/cumm [facility] Eosinophil abs 0.04 0.00 - 0.50 K/cumm [facility] Basophil abs 0.04 0.00 - 0.10 K/cumm [facility] Neutrophil pct 78.5 % [facility] Comment: Interpretive Data Percent cell count reference ranges are not reported, since discordance with absolute values may lead to misinterpretation of CBC data. Current Interpretive Data was last revised on 2017. Imm gran pct 0.6 % [facility] Comment: Interpretive Data Percent cell count reference ranges are not reported, since discordance with absolute values may lead to misinterpretation of CBC data. Current Interpretive Data was last revised on 2017. Lymphocyte pct 12.9 % [facility] Comment: Interpretive Data Percent cell count reference ranges are not reported, since discordance with absolute values may lead to misinterpretation of CBC data. Current Interpretive Data was last revised on 2017. Monocyte pct 7.6 % [facility] Comment: Interpretive Data Percent cell count reference ranges are not reported, since discordance with absolute values may lead to misinterpretation of CBC data. Current Interpretive Data was last revised on 2017. Eosinophil pct 0.2 % [facility] Comment: Interpretive Data Percent cell count reference ranges are not reported, since discordance with absolute values may lead to misinterpretation of CBC data. Current Interpretive Data was last revised on 2017. Basophil pct 0.2 % [facility] Comment: Interpretive Data Percent cell count reference ranges are not reported, since discordance with absolute values may lead to misinterpretation of CBC data. Current Interpretive Data was last revised on 2017. Blood 12/14/2024 5:50 AM CDT 12/14/2024 6:04 AM CDT Andrzej Kiser MD LAB BLOOD ORDERABLES Final Result Performing Organization Address City/[facility]/ZIP Co de Phone Number SANJEEV DALY [address] [place] [address] * (ABNORMAL) CBC with auto differential (12/14/2024 5:50 AM CDT) WBC 16.20(H) 3.80 - 9.90 K/cumm Hgb 14.4 13.0 - 17.5 g/dL [facility] Hct 42.4 38.9 - 50.3 % [facility] Plt 161 150 - 400 K/cumm [facility] MPV 10.2 9.1 - 12.3 fL [facility] RBC 4.61 4.30 - 5.80 M/cumm [facility] MCV 92.0 81.3 - 96.4 fL [facility] MCH 31.2 27.1 - 33.3 pg [facility] MCHC 34.0 32.3 - 35.7 g/dL [facility] RDW CV 13.7 11.1 - 14.9 % [facility] RDW SD 46.0 35.7 - 48.1 fL [facility] NRBC abs 0.00 0.00 - 0.01 K/cumm [facility] Blood 12/14/2024 5:50 AM CDT 12/14/2024 6:04 AM CDT Andrzej Kiser MD LAB BLOOD ORDERABLES Final Result [facility] [address] [address] [facility] [place] [address] * (ABNORMAL) Basic metabolic panel (12/14/2024 5:50 AM CDT) Sodium 141 135 - 145 mmol/L Potassium, pl 4.1 3.3 - 4.9 mmol/L [facility] Chloride 111(H) 97 - 110 mmol/L [facility] CO2 20(L) 22 - 32 mmol/L [facility] Anion gap 10 2 - 15 mmol/L [facility] BUN 16 6 - 25 mg/dL [facility] Creatinine 0.85 0.80 - 1.30 mg/dL [facility] Glucose 110 70 - 199 mg/dL [facility] Comment: Interpretive Data Fasting glucose >/= 126 [...] classification and Diagnosis of Diabetes Diabetes Care 202; 46: S19-S40. Current interpretive data was last revised 2022. Calcium 8.5 8.5 - 10.3 mg/dL [facility] Blood 12/14/2024 5:50 AM CDT 12/14/2024 6:05 AM CDT us Andrzej Kiser MD LAB BLOOD ORDERABLES Final Result [facility] [address] Department [place] [address] * ECG 12 lead (12/13/2024 7:17 PM CDT) 12/13/2024 7:17 PM CDT Narrative [facility] - 12/13/2024 10:07 PM CDT Vent Rate: 83 bpm RR Interval: 720 msec [place] Interval: 171 msec QRS Duration: 103 msec QT Interval: 389 msec QTC Interval: 429 msec P-R-T Fletcher: 74 - 58 - 64 degrees IMPRESSION: SINUS RHYTHM WITH FREQUENT VENTRICULAR PREMATURE COMPLEXES POSSIBLE LEFT ATRIAL ENLARGEMENT [-0.1mV P-WAVE IN V1/V2] NONSPECIFIC ST \T\ T-WAVE ABNORMALITY ABNORMAL RHYTHM ECG Electronically Signed By: Lenny Cosby MD us Andrzej Kiser MD ECG ORDERABLES [place] [facility] * LEFT HEART CATHETERIZATION WITH CORONARY ANGIOGRAPHY AND WITH AND WITHOUT LEFT VENTRICULOGRAM, PERCUTAINEOUS TRANSLUMINAL CORONARY ANGIOPLASTY OF ONE MAJOR CORONARY, AORTOGRAM THORACIC S&I (12/13/2024 2:28 PM CDT) Anatomical Region Laterality Modality X-Ray Angiograph y Addenda Addendum by Andrzej Kiser MD on 12/16/2024 9:58 AM CDT CARDIAC CATHETERIZATION REPORT Ruperto Friedman IP ENCOUNTER: @CSN@ Date of Procedure: 12/13/2024 BIRTHDATE: 1955 SUPERVISOR WET END: Andrzej Kiser MD PREPROCEDURE DIAGNOSES: Ruperto Friedman is a 69 y.o. male here for for cardiac catheterization. Past medical history of contrast allergy, CABG x3 2007 in [place], ascending aortic aneurysm, systolic dysfunction, dyslipidemia, COPD and tobacco abuse. 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 Moderate sedation was given and the right groin infiltrated using 1% lidocaine. Five Emirati sheath was obtained using micropuncture needle and [...] graft to the PDA. After that 5 Emirati pigtail catheter was advanced across aortic valve [...] 1.5 mm balloon by 12 and then taoism of blood flow. Then we passed 2 0 x 12 balloon and inflated it couple times. However we could not pass the balloon beyond the lesion. I used 6 Emirati GuideLiner and then with balloon again we could not pass the balloon. At that time decided to quit. A few 3 before and after intervention. Lesion 90% before and after intervention. - Access site. Right common femoral artery. Hemostasis: Failed Angio-Seal and manual compression will be applied after 2 hours of stopping Angiomax CONCLUSIONS Severe yurok coronary artery disease with occluded LAD, left [...] Kiser MD LAB BLOOD ORDERABLES Final Result [facility] [address] [place] [address] * (ABNORMAL) Differential, auto (12/13/2024 9:35 AM CDT) Neutrophil abs 6.84(H) 1.50 - 6.50 K/cumm Imm gran abs 0.03 0.00 - 0.10 K/cumm [facility] Lymphocyte abs 0.83 0.80 - 3.30 K/cumm [facility] Monocyte abs 0.09(L) 0.20 - 0.80 K/cumm [facility] Eosinophil abs 0.00 0.00 - 0.50 K/cumm [facility] Basophil abs 0.02 0.00 - 0.10 K/cumm [facility] Neutrophil pct 87.5 % [facility] Comment: Interpretive Data Percent cell count reference ranges are not reported, since discordance with absolute values may lead to misinterpretation of CBC data. Current Interpretive Data was last revised on 2017. Imm gran pct 0.4 % [facility] Comment: Interpretive Data Percent cell count reference ranges are not reported, since discordance with absolute values may lead to misinterpretation of CBC data. Current Interpretive Data was last revised on 2017. Lymphocyte pct 10.6 % [facility] Comment: Interpretive Data Percent cell count reference ranges are not reported, since discordance with absolute values may lead to misinterpretation of CBC data. Current Interpretive Data was last revised on 2017. Monocyte pct 1.2 % [facility] Comment: Interpretive Data Percent cell count reference ranges are not reported, since discordance with absolute values may lead to misinterpretation of CBC data. Current Interpretive Data was last revised on 2017. Eosinophil pct 0.0 % [facility] Comment: Interpretive Data Percent cell count reference ranges are not reported, since discordance with absolute values may lead to misinterpretation of CBC data. Current Interpretive Data was last revised on 2017. Basophil pct 0.3 % [facility] Comment: Interpretive Data Percent cell count reference ranges are not reported, since discordance with absolute values may lead to misinterpretation of CBC data. Current Interpretive Data was last revised on 2017. Blood 12/13/2024 9:35 AM CDT 12/13/2024 9:47 AM CDT Andrzej Kiser MD LAB BLOOD ORDERABLES Final Result Performing Organization Address City/[facility]/ZIP Co de Phone Number SANJEEV [address] [address] * (ABNORMAL) CBC with auto differential (12/13/2024 9:35 AM CDT) WBC 7.81 3.80 - 9.90 K/cumm Hgb 17.8(H) 13.0 - 17.5 g/dL [facility] Hct 53.1(H) 38.9 - 50.3 % [facility] Plt 189 150 - 400 K/cumm [facility] MPV 10.4 9.1 - 12.3 fL [facility] RBC 5.73 4.30 - 5.80 M/cumm [facility] MCV 92.7 81.3 - 96.4 fL [facility] MCH 31.1 27.1 - 33.3 pg [facility] MCHC 33.5 32.3 - 35.7 g/dL [facility] RDW CV 13.3 11.1 - 14.9 % [facility] RDW SD 45.3 35.7 - 48.1 fL [facility] NRBC abs 0.00 0.00 - 0.01 K/cumm [facility] Blood 12/13/2024 9:35 AM CDT 12/13/2024 9:47 AM CDT Narrative [facility] - 12/13/2024 9:56 AM CDT If most recent labs were drawn prior to 4 AM, draw only prior to initiating procedure. Andrzej Kiser MD LAB BLOOD ORDERABLES Final Result Performing Organization Address City/[facility]/ZIP Co de Phone Number SANJEEV DALY [address] [address] [place] [address] * (ABNORMAL) Basic metabolic panel (12/13/2024 9:35 AM CDT) Sodium 141 135 - 145 mmol/L Potassium, pl 4.4 3.3 - 4.9 mmol/L [facility] Chloride 106 97 - 110 mmol/L [facility] CO2 19(L) 22 - 32 mmol/L [facility] Anion gap 16(H) 2 - 15 mmol/L [facility] BUN 15 6 - 25 mg/dL [facility] Creatinine 0.84 0.80 - 1.30 mg/dL [facility] Glucose 156 70 - 199 mg/dL [facility] Comment: Interpretive Data Fasting glucose >/= 126 [...] 2022. Calcium 9.2 8.5 - 10.3 mg/dL [facility] Blood 12/13/2024 9:35 AM CDT 12/13/2024 9:47 AM CDT Andrzej Kiser MD LAB BLOOD ORDERABLES Final Result [facility] [address] [address] Department [place] [address] from Last 3 Months Insurance [facility] [facility] MEDICARE ADVANTAGE Advance Directives For more information, please contact: [phone] * Full Code (Latest Code Status on File) Date Activated Date Inactivated Comments 12/13/2024 3:05 PM 12/14/2024 3:39 PM Care Teams Pearl Cutter Relationship Specialty Start Date End Date Dilshad Caruso MD PCP - General Family Medicine 11/21/21
--- OUTSIDE RECORDS SUMMARY | 2025-01-22 16:48 | XMS_ITS | Encounter Summary ---
Author Organization [facility] Address [address] [place] [address] Care Team Providers Care Historic Interpreter Name Role Phone Unavailable Primary Care Provider Unavailabl e Encounter Details Date Type Department Care Team (Late st Contact Info) Description 07/11/2019 Lab Requisition [facility] DermPath Lab [address] [facility] [place] [address] Concepcion Khan MD [address] [facility] [address] [place] [address] Social History Tobacco Use Types Packs/Day Years [...] DERMPATH SLIDE CONSULT Routine 07/11/2019 12:00 AM POLISHER AND SANDER documented in this encounter Results * DERMPATH SLIDE CONSULT (07/11/2019 12:00 AM [employer] SANDER) Case Report Dermatopathology Report Case: [id number] Authorizing Provider: Concepcion Khan MD Collected: 07/11/2019 12:00 AM Ordering Location: [facility] DermPath Lab Received: 07/11/2019 08:03 AM Pathologist: Arti Rodriguez MD Specimen: Slide(s), Left earlobe, [id number]# [id number] 0 2:47 PM [facility] DERMATOPATHOLOGY LABORATORY Final Diagnosis Specimen A. 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 DERMATOPATHOLOGY LABORATORY at [address] [facility] [employer] Clinical History Materials received from: Cutaneous Pathology [address] [place] [id number] Received for Mohs [place] are 1 slide(s) (H&E) labeled [id number]. Squamous cell carcinoma, acantholytic. All slides returned. Appointment. Date: 07/20/2019. Any additional sections, special stains or immunohistochemical stains performed by our laboratory will be kept here on file. 0 2:[address] [facility] DERMATOPATHOLOGY LABORATORY Microscopic Description Specimen A. Slide(s), Left earlobe, OSC# [id number]: Sections show skin with irregularly shaped nests of keratinocytes with evidence of cornification. In some nests, there is loss of cohesion between the neoplastic cells, as well as individual dyskeratotic cells that lack intercellular bridges. 0 2:[address] [facility] DERMATOPATHOLOGY LABORATORY Disclaimer An external and internal positive and negative controls are appropriate for the histochemical, immunohistochemical and immunofluorescence stain(s) in this case (if any), except where stated explicitly. The performance characteristics of the stain(s) cited in this report were developed and its performance characteristic determined by the Dermatopathology Laboratory at [facility], directed by Dr. Unique Miller. These tests need not be, and therefore are not, approved by the [place] Food and Drug Administration. The tests are used for clinical purposes. Billing Codes Specimen Charges Stain Charges 34281 1 0 2:47 PM [facility] DERMATOPATHOLOGY LABORATORY Embedded Images 0 2:47 PM [facility] DERMATOPATHOLOGY LABORATORY Pathology/Cytolog y SLIDE / Unknown 07/11/2019 07/11/2019 8:[address] [facility] Concepcion Khan MD LAB - PATHOLOGY/CYTOLOGY ORDER JAYCOB Final Result DERMATOPATHOLOGY LABORATORY [facility] - Department of Dermatology [address] [place] [address], 5th Floor Lab B [place], [place] [address] [phone] documented in this encounter Visit Diagnoses Not on filedocumented in this encounter
[2025-01-22 16:50] VITALS: BP 118/60; PULSE 81; RESP 20; TEMP 36.7; O2SAT 95
--- NOTE | 2025-01-22 17:13 | ED_ITS ---
HPI - Abdominal Pain General Chief Complaint: Abdominal Pain Stated Complaint: diarrhea & bump on abdominal area Time Seen by Provider: 01/22/25 17:13 Source: patient and family Mode of arrival: ambulatory Limitations: no limitations History of Present Illness HPI narrative: 69 years old white male came to the ED with his complaining of lower abdominal cramps started 2-3 weeks ago. History of intermittent constipation, been taking Pepto-Bismol, Dulcolax and Ex-Lax over the last 3-5 days, today cramps got worse associated with frequent bowel movement today of soft stools up to 5 episodes so far. He denies any fever, chills, nausea, vomiting, chest pain, shortness of breath, headache or back pain. History of hyperlipidemia, COPD, tobacco dependent, coronary stent, currently on Plavix and aspirin, Open- heart surgery with incisional epigastric hernia. Related Data Home Medications ?Medication ?Instructions ?Recorded ?Confirmed ?Last Taken ?Type atorvastatin 80 mg tablet 80 mg PO HS 10/03/21 01/22/25 Unknown History omeprazole 40 mg capsule,delayed 40 mg PO QAM 10/03/21 01/22/25 Unknown History release fluticasone fur. 100 mcg-umeclid 1 inh inhalation DAILY 11/20/22 01/22/25 Unknown History 62.5 mcg-vilant 25 mcg inhalat.powder (Trelegy Ellipta) clopidogrel 75 mg tablet 75 mg PO DAILY 01/22/25 01/22/25 Unknown History Allergies Allergy/AdvReac Type Severity Reaction Status Date / Time iodine Allergy Intermediate Hives Verified 01/22/25 17:11 Iodinated Contrast Media Allergy Unknown Verified 01/22/25 17:11 Review of Systems 2 Review of Systems: All systems reviewed & are unremarkable except as noted in HPI and below PMFSH Past Medical History Medical History COPD (chronic obstructive pulmonary disease) On home oxygen 4 L Coronary artery disease Status post CABG in 2007 Hyperlipidemia Hypertension Surgical History Surgical History Hx of CABG In 2007 Family History Family History Mother Heart disease Heart attack Father Heart disease Heart attack Social History Social History Smoking packs per day: 1 Smoking cigarettes per day: 20.0 Years smoked: 56 Smoking pack-years: 56.00 Smoking status: Current every day smoker Tobacco type: cigarettes Second hand tobacco smoke exposure: No Alcohol intake: current Drinks per week: 1 Substance use: never Substance use type: does not use Last use: says only drinks 1x a year Lack of Transportation: YES Lack of Food: Never True Current Housing: I Have Housing Concerned About Future Housing: No Difficulty Paying Gas/Electric Bills: No Difficulty Paying for Meds: No Currently Unemployed: No Education: High School Diploma/GED Difficulty w/ Childcare or Family Care: No Living arrangements: with family Gender identity (if verbalized by the patient): Male Spiritual care concerns: No Exam 2 Narrative: General appearance: Well-developed, well-nourished Skin: Normal color Head: Normocephalic, nontraumatic Eyes: Clear conjunctiva ENT: Oropharynx normal, ears normal, nose normal Neck: Supple, nontender Chest and respiratory: Airway patent, no respiratory distress, no accessory muscle use Heart: Regular rate/rhythm Abdomen: Soft, nontender, no organomegaly, Hyperactive bowel sounds Vascular: Normal peripheral pulses, normal capillary refill. Musculoskeletal: Normal range of motion, nontender back Neurologic: Alert and oriented ?3, RESOURCE MANAGEMENT PLANNER is normal as tested, no gross motor deficit Course Vital Signs Vital signs: Vital Signs Temperature 36.7 C 01/22/25 16:50 Pulse Rate 81 01/22/25 16:50 Respiratory Rate 20 01/22/25 16:50 Blood Pressure 118/60 01/22/25 16:50 Pulse Oximetry 95 01/22/25 16:50 Oxygen Delivery Room Air 01/22/25 16:50 Temperature 36.8 C 01/22/25 18:53 Pulse Rate 80 01/22/25 18:53 Respiratory Rate 18 01/22/25 18:53 Blood Pressure 121/76 01/22/25 18:53 Pulse Oximetry 94 01/22/25 18:53 Oxygen Delivery Room Air 01/22/25 18:53 MDM - Abdominal Pain MDM Narrative Medical decision making narrative: patient presents with lower abdominal cramps and frequent bowel movement Vital signs are stable Physical examination showing slight tenderness lower abdomen, hyperactive bowel sounds otherwise within normal limit Differential diagnosis include diarrhea secondary to laxative, inflammatory bowel disease, diverticulitis, colitis, electrolyte imbalance, dehydration Blood workup today includes CBC, CMP, lipase, lactic acid, coags showed Lactic acid is 2.5, otherwise within normal limit CT abdomen and pelvis without contrast/patient is allergic to contrast showed diverticulitis, aortic aneurysm, right inguinal hernia Discharged on Augmentin, cannot give Levaquin because patient have aortic aneurysm. The pt was discharged to home.the pt,s condition upon discharge was fair,education was provided to the pt in reference to the final impression,discharge study results,treatment,prognosis and need for follow up . Differential Diagnosis Differential diagnosis: Likely acute appendicitis, constipation, diverticulitis and small bowel obstruction Medical Records Attestation: I reviewed the patient's medical records. Lab Data Attestation: I reviewed the patient's lab results. 01/22/25 17:24 01/22/25 17:24 Labs: Lab Results 01/22/25 Range/Units 17:24 WBC 8.7 (4.8-10.8) K/mm3 RBC 4.94 (4.70-6.10) M/mm3 Hgb 15.4 H (12.4-15.3) g/dL Hct 46.3 H (37.0-46.0) % MCV 93.7 (78.0-102.0) fL MCH 31.2 H (27.0-31.0) pg MCHC 33.3 (32-36) g/dL RDW 13.4 (11.6-14.4) % Plt Count 197 (150-420) K/mm3 MPV 10.2 (8.7-11.0) fl Immature Gran % (Auto) 0.2 H (0.0-0.0) % Neut % (Auto) 62.9 (50.0-70.0) % Lymph % (Auto) 25.8 (18.0-42.0) % Taney % (Auto) 7.9 (2.0-11.0) % Eos % (Auto) 2.6 (1.0-6.0) % Baso % (Auto) 0.6 (0.0-1.0) % Lymph # (Auto) 2.24 (1.10-4.50) K/mm3 Taney # (Auto) 0.69 (0.10-0.90) K/mm3 Eos # (Auto) 0.23 (0.02-0.50) K/mm3 Baso # (Auto) 0.05 (0.00-0.10) K/mm3 Abs Immat Gran (auto) 0.02 H (0.00-0.00) K/mm3 Absolute Neuts (auto) 5.45 (1.70-7.20) K/mm3 Absolute Nucleated RBC 0.00 (0.00-0.00) K/mm3 Nucleated RBC % 0.0 (0-0.0) % PT 11.1 (9.50-12.1) Seconds INR 1.0 APTT 28.8 (23.9-30.70) Sec Sodium 139 (137-145) mmol/L Potassium 4.0 (3.4-5.0) mmol/L Chloride 108 H (98-107) mmol/L Carbon Dioxide 23 (22-30) mmol/L Anion Gap 8 (4-12) mmol/L BUN 10 D (9-20) mg/dL Creatinine 0.78 (0.7-1.3) mg/dL Estim Creat Clear Calc Not Reportable Estimated GFR > 60 (59 - ) Glucose 102 (65-110) mg/dL Calculated Osmolality 287 (285-295) mOsm/kg Lactic Acid 2.5 H (0.4-2.0) mmol/L Calcium 8.9 (8.4-10.2) mg/dL Total Bilirubin 0.7 (0.2-1.3) mg/dL AST 22 (17-59) U/L ALT 14 (6-50) U/L Alkaline Phosphatase 87 (38-126) U/L Total Protein 7.0 (6.3-8.2) g/dL Albumin 4.1 (3.5-5.1) g/dL Lipase 56 (23-300) U/L Imaging Data Radiologist's impression: ITS Impressions Abdomen/Pelvis CT 01/22/25 18:21 IMPRESSION: Acute uncomplicated sigmoid diverticulitis. Bladder wall thickening may be secondary to cystitis, chronic outlet obstruction, or reactive change from the adjacent diverticulitis. Moderate sized fat-containing right inguinal hernia with partial herniation of loops of small bowel that are not obstructed. 3.1 cm abdominal aortic aneurysm. Recommend follow-up in 3 years. Impressions Abdomen/Pelvis CT 01/22/25 18:21 IMPRESSION: Acute uncomplicated sigmoid diverticulitis. Bladder wall thickening may be secondary to cystitis, chronic outlet obstruction, or reactive change from the adjacent diverticulitis. Moderate sized fat-containing right inguinal hernia with partial herniation of loops of small bowel that are not obstructed. 3.1 cm abdominal aortic aneurysm. Recommend follow-up in 3 years. Critical Care Time Critical Care Time Critical Care Time: No Discharge Plan Discharge Clinical Impression: Diverticulitis large intestine, Aortic aneurysm, Hernia, inguinal, right Patient Disposition: Home Condition: Stable Instructions: Antibiotic Form, Diverticulitis (ED), Diverticulitis Diet (ED), Aortic Disease (DC) Additional Instructions: Return if symptoms are worsening , call your family physician for appointment, take Tylenol as as needed for aches and pain, continue home medications. CT scan of the abdomen today showed that you have 3.1 cm abdominal aortic aneurysm. Recommend a follow-up in 3 days Patient Language: Mongolian Prescriptions: New amoxicillin-pot clavulanate [Augmentin] 500-125 mg tablet 1 tablet PO Q8H Qty: 21 0RF No Action Trelegy Ellipta 100-62.5-25 mcg blister with device 1 inh INHALATION DAILY clopidogrel 75 mg tablet 75 mg PO DAILY albuterol sulfate 2.5 mg /3 mL (0.083 %) solution for nebulization 2.5 mg inhalation Q4-6H PRN (Reason: shortness of breath or wheezing) Qty: 180 3RF Airsupra 90-80 mcg/actuation HFA aerosol inhaler 2 inh inhalation 6XD PRN (Reason: shortness of breath) Qty: 10.7 2RF Rx Instructions: as a single dose; may repeat up to 6 doses per day (12 inhalations). Rinse mouth and spit after each use. Repatha SureClick 140 mg/mL pen injector 140 mg subcut .every 2 weeks Qty: 2 11RF ranolazine 500 mg tablet extended release 12 hr 500 mg PO Q12H Qty: 60 5RF atorvastatin 80 mg tablet 80 mg PO HS omeprazole 40 mg capsule,delayed release(DR/EC) 40 mg PO QAM aspirin 81 mg Tablet,Delayed Release (Dr/Ec) 81 mg PO QAM 30 Days Qty: 30 11RF Follow-up/Referrals: Michael,SHANT Dudley [Primary Care Provider] -
[2025-01-22] MEDS: SODIUM CHLORIDE 0.9% IV 1,000 ML 999 ML IV CONT (17:27)
[2025-01-22 17:29] LABS: Hematocrit 46.3 % (37.0-46.0); Hemoglobin 15.4 g/dL (12.4-15.3); Immature Granulocyte Percent A 0.2 % (0.0-0.0); Lymphocytes Absolute Auto 2.24 K/mm3 (1.10-4.50); Mean Corpuscular HGB Conc 33.3 g/dL (32-36); Mean Corpuscular Hemoglobin 31.2 pg (27.0-31.0); Mean Corpuscular Volume 93.7 fL (78.0-102.0); Nucleated Red Blood Cells Absolute Auto 0.00 K/mm3 (0.00-0.00); Nucleated Red Blood Cells Perc 0.0 % (0-0.0); Platelet Count Result 197 K/mm3 (150-420); Red Blood Count 4.94 M/mm3 (4.70-6.10); White Blood Count 8.7 K/mm3 (4.8-10.8)
--- OUTSIDE RECORDS SUMMARY | 2025-01-22 17:35 | XMS_ITS | Clinical Summary ---
Author Organization [facility] Address [address] [place] [address] Care Team Providers Care Roller Operator Name Role Phone Unavailable Primary Care Provider Unavailabl e Source Comments [facility],non-owned Affiliates and Associated Physician Practices is amultiple site organization consisting of ambulatory clinics and hospital sitesin [place], [place], [place] and [place]. This disclosure is being madepursuant to the Care Everywhere program and may not contain all information available regarding this patient. Last updated 18.[facility] Allergies Active Allergy Reactions Criticality Noted Date [...] Comments Blood Pressure 118/73 07/20/2019 2:41 PM MANAGER POKER Pulse 92 07/20/2019 2:41 PM MANAGER POKER Temperature - - Respiratory Rate - - Oxygen Saturation - - Inhaled Oxygen Concentration - - Weight 95.3 kg (210 lb) 07/20/2019 2:41 PM MANAGER POKER Height 182.9 cm (6') 07/20/2019 2:41 PM MANAGER POKER Body Mass Index 28.48 07/20/2019 2:41 PM MANAGER POKER Plan of Treatment Health Maintenance Due Date [...] - OUT OF STATE MEDICARE DUAL ADV [place] BERNAL MEDICARE DUAL ADV IA
--- OUTSIDE RECORDS SUMMARY | 2025-01-22 17:35 | XMS_ITS ---
Author Organization Unknown Address [address] [place] [phone] Phone Care Team Providers Care Station Cook Name Role Phone MARINO DARWIN Attending Unavailable [...] systolic an d diastolic heart failure 11/05/2023 [id number] SNOMED-CT Personal Care Team Section Performer Name Performer Role Active Date Inactive Da THERESA Lopez PCP - Primary care physician 2023-11-05
--- OUTSIDE RECORDS SUMMARY | 2025-01-22 17:35 | XMS_ITS | Referral Summary ---
Author Organization [facility] Address [address] [place] [id number] Care Team Providers Care Glost Tile Sorter Name Role Phone Dilshad Caruso MD Primary Care Provider [phone] Encounters Date Type Department Care Team Description 12/13/2024 9:26 AM CDT - 12/14/2024 11:34 AM CDT Hospital Encounter [address] [address] Andrzej Kiser MD Chronic combined systolic and diastolic congestive heart failure (HCC) Discharge Disposition: Discharge to home or self care 12/13/2024 11:30 AM CDT - 12/13/2024 1:00 PM CDT Surgery [facility] Cardiac Catheterization Lab [address] [place] [address] Andrzej Kiser MD LEFT HEART CATHETERIZATION WITH CORONARY ANGIOGRAPHY AND WITH OR WITHOUT LEFT VENTRICULOGRAM [id number] 12/07/2024 Telephone [facility] Cardiology [address] [place] [address] [address] [address] Andrzej Kiser MD 12/02/2024 Telephone [facility] Cardiology [address] [place] [phone] Andrzej Kiser MD from Last 3 [...] on file Medical Devices Implanted Type Area Dental Lab Technician Device Identifier Shelf Expiration Date Model / Serial / Lot Favim Angio-Seal Vip 6fr Closere Device [id number] - [id number] - [id number] Implanted:Qty: 1 on 12/13/2024 by Andrzej Kiser MD at [facility] Favim 08/19/2025 [id number] / [id number] / Procedures Procedure Name Priority Date/Time Associated [...] SEDATION SAME MD MONTEJO ADDL 15 MIN [id number] 12/13/2024 11:50 AM CDT Chronic combined systolic and diastolic congestive heart failure (HCC) MODERATE SEDATION FIRST 15MIN 5+ YEAR [address] 12/13/2024 11:50 AM CDT Chronic combined systolic [...] Kiser MD LAB BLOOD ORDERABLES Final Result [facility] [address] [place] [address] * (ABNORMAL) Differential, auto (12/14/2024 5:50 AM CDT) Neutrophil abs 12.70(H) 1.50 - 6.50 K/cumm Imm gran abs 0.10 0.00 - 0.10 K/cumm [facility] Lymphocyte abs 2.09 0.80 - 3.30 K/cumm [facility] Monocyte abs 1.23(H) 0.20 - 0.80 K/cumm [facility] Eosinophil abs 0.04 0.00 - 0.50 K/cumm [facility] Basophil abs 0.04 0.00 - 0.10 K/cumm [facility] Neutrophil pct 78.5 % [facility] Comment: Interpretive Data Percent cell count reference ranges are not reported, since discordance with absolute values may lead to misinterpretation of CBC data. Current Interpretive Data was last revised on 2017. Imm gran pct 0.6 % [facility] Comment: Interpretive Data Percent cell count reference ranges are not reported, since discordance with absolute values may lead to misinterpretation of CBC data. Current Interpretive Data was last revised on 2017. Lymphocyte pct 12.9 % [facility] Comment: Interpretive Data Percent cell count reference ranges are not reported, since discordance with absolute values may lead to misinterpretation of CBC data. Current Interpretive Data was last revised on 2017. Monocyte pct 7.6 % [facility] Comment: Interpretive Data Percent cell count reference ranges are not reported, since discordance with absolute values may lead to misinterpretation of CBC data. Current Interpretive Data was last revised on 2017. Eosinophil pct 0.2 % [facility] Comment: Interpretive Data Percent cell count reference ranges are not reported, since discordance with absolute values may lead to misinterpretation of CBC data. Current Interpretive Data was last revised on 2017. Basophil pct 0.2 % [facility] Comment: Interpretive Data Percent cell count reference ranges are not reported, since discordance with absolute values may lead to misinterpretation of CBC data. Current Interpretive Data was last revised on 2017. Blood 12/14/2024 5:50 AM CDT 12/14/2024 6:04 AM CDT Andrzej Kiser MD LAB BLOOD ORDERABLES Final Result Performing Organization Address City/[facility]/ZIP Co de Phone Number SANJEEV DALY [address] [place] [address] * (ABNORMAL) CBC with auto differential (12/14/2024 5:50 AM CDT) WBC 16.20(H) 3.80 - 9.90 K/cumm Hgb 14.4 13.0 - 17.5 g/dL [facility] Hct 42.4 38.9 - 50.3 % [facility] Plt 161 150 - 400 K/cumm [facility] MPV 10.2 9.1 - 12.3 fL [...] LAB BLOOD ORDERABLES Final Result SANJEEV DALY [address] [facility] [place] [place] [address] * (ABNORMAL) Basic metabolic panel (12/14/2024 5:50 AM CDT) Sodium 141 135 - 145 mmol/L Potassium, pl 4.1 3.3 - 4.9 mmol/L [facility] Chloride 111(H) 97 - 110 mmol/L [facility] CO2 20(L) 22 - 32 mmol/L [facility] Anion gap 10 2 - 15 mmol/L [facility] BUN 16 6 - 25 mg/dL [facility] Creatinine 0.85 0.80 - 1.30 mg/dL [facility] Glucose 110 70 - 199 mg/dL [facility] Comment: Interpretive Data Fasting glucose >/= 126 [...] 2022. Calcium 8.5 8.5 - 10.3 mg/dL [facility] Blood 12/14/2024 5:50 AM CDT 12/14/2024 6:05 AM CDT us Andrzej Kiser MD LAB BLOOD ORDERABLES Final Result SANJEEV [address] [place] [address] * ECG 12 lead (12/13/2024 7:17 PM CDT) 12/13/2024 7:17 PM CDT Narrative [facility] - 12/13/2024 10:07 PM CDT Vent Rate: 83 bpm RR Interval: 720 msec OK Interval: 171 msec QRS Duration: 103 msec QT Interval: 389 msec QTC Interval: 429 msec P-R-T [place]: 74 - 58 - 64 degrees IMPRESSION: SINUS RHYTHM WITH FREQUENT VENTRICULAR PREMATURE COMPLEXES POSSIBLE LEFT ATRIAL ENLARGEMENT [-0.1mV P-WAVE IN V1/V2] NONSPECIFIC ST \T\ T-WAVE ABNORMALITY ABNORMAL RHYTHM ECG Electronically Signed By: Lenny Cosby MD us Andrzej Kiser MD ECG ORDERABLES [place] [facility] * LEFT HEART CATHETERIZATION WITH CORONARY ANGIOGRAPHY AND WITH AND WITHOUT LEFT VENTRICULOGRAM, PERCUTAINEOUS TRANSLUMINAL CORONARY ANGIOPLASTY OF ONE MAJOR CORONARY, AORTOGRAM THORACIC S&I (12/13/2024 2:28 PM CDT) Anatomical Region Laterality Modality X-Ray Angiograph y Addenda Addendum by Andrzej Kiser MD on 12/16/2024 9:58 AM CDT CARDIAC CATHETERIZATION REPORT Ruperto Friedman IP ENCOUNTER: @CSN@ Date of Procedure: 12/13/2024 BIRTHDATE: 1955 ACCESS SPEC: Andrzej Kiser MD PREPROCEDURE DIAGNOSES: Ruperto Friedman is a 69 y.o. male here for for cardiac catheterization. Past medical history of contrast allergy, CABG x3 2007 in [place], ascending aortic aneurysm, systolic dysfunction, dyslipidemia, COPD and tobacco abuse. 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 Moderate sedation was given and the right groin infiltrated using 1% lidocaine. Five Norwegian sheath was obtained using micropuncture needle and [...] graft to the PDA. After that 5 Norwegian pigtail catheter was advanced across aortic valve [...] 1.5 mm balloon by 12 and then methodist of blood flow. Then we passed 2 0 x 12 balloon and inflated it couple times. However we could not pass the balloon beyond the lesion. I used 6 Norwegian GuideLiner and then with balloon again we could not pass the balloon. At that time decided to quit. A few 3 before and after intervention. Lesion 90% before and after intervention. - Access site. Right common femoral artery. Hemostasis: Failed Angio-Seal and manual compression will be applied after 2 hours of stopping Angiomax CONCLUSIONS Severe hamilton coronary artery disease with occluded LAD, left [...] Kiser MD LAB BLOOD ORDERABLES Final Result [facility] [address] [place] [address] * (ABNORMAL) Differential, auto (12/13/2024 9:35 AM CDT) Neutrophil abs 6.84(H) 1.50 - 6.50 K/cumm Imm gran abs 0.03 0.00 - 0.10 K/cumm [facility] Lymphocyte abs 0.83 0.80 - 3.30 K/cumm [facility] Monocyte abs 0.09(L) 0.20 - 0.80 K/cumm [facility] Eosinophil abs 0.00 0.00 - 0.50 K/cumm [facility] Basophil abs 0.02 0.00 - 0.10 K/cumm [facility] Neutrophil pct 87.5 % [facility] Comment: Interpretive Data Percent cell count reference ranges are not reported, since discordance with absolute values may lead to misinterpretation of CBC data. Current Interpretive Data was last revised on 2017. Imm gran pct 0.4 % [facility] Comment: Interpretive Data Percent cell count reference ranges are not reported, since discordance with absolute values may lead to misinterpretation of CBC data. Current Interpretive Data was last revised on 2017. Lymphocyte pct 10.6 % [facility] Comment: Interpretive Data Percent cell count reference ranges are not reported, since discordance with absolute values may lead to misinterpretation of CBC data. Current Interpretive Data was last revised on 2017. Monocyte pct 1.2 % [facility] Comment: Interpretive Data Percent cell count reference ranges are not reported, since discordance with absolute values may lead to misinterpretation of CBC data. Current Interpretive Data was last revised on 2017. Eosinophil pct 0.0 % [facility] Comment: Interpretive Data Percent cell count reference ranges are not reported, since discordance with absolute values may lead to misinterpretation of CBC data. Current Interpretive Data was last revised on 2017. Basophil pct 0.3 % [facility] Comment: Interpretive Data Percent cell count reference ranges are not reported, since discordance with absolute values may lead to misinterpretation of CBC data. Current Interpretive Data was last revised on 2017. Blood 12/13/2024 9:35 AM CDT 12/13/2024 9:47 AM CDT Andrzej Kiser MD LAB BLOOD ORDERABLES Final Result Performing Organization Address City/[facility]/ZIP Co de Phone Number SANJEEV [address] [place] [address] * (ABNORMAL) CBC with auto differential (12/13/2024 9:35 AM CDT) WBC 7.81 3.80 - 9.90 K/cumm Hgb 17.8(H) 13.0 - 17.5 g/dL [facility] Hct 53.1(H) 38.9 - 50.3 % [facility] Plt 189 150 - 400 K/cumm [facility] MPV 10.4 9.1 - 12.3 fL [facility] RBC 5.73 4.30 - 5.80 M/cumm [facility] MCV 92.7 81.3 - 96.4 fL [facility] MCH 31.1 27.1 - 33.3 pg [facility] MCHC 33.5 32.3 - 35.7 g/dL [facility] RDW CV 13.3 11.1 - 14.9 % [facility] RDW SD 45.3 35.7 - 48.1 fL [facility] NRBC abs 0.00 0.00 - 0.01 K/cumm [facility] Blood 12/13/2024 9:35 AM CDT 12/13/2024 9:47 AM CDT Narrative [facility] - 12/13/2024 9:56 AM CDT If most recent labs were drawn prior to 4 AM, draw only prior to initiating procedure. Andrzej Kiser MD LAB BLOOD ORDERABLES Final Result Performing Organization Address City/[facility]/ZIP Co de Phone Number SANJEEV DALY [address] [place] [place] [address] * (ABNORMAL) Basic metabolic panel [...] 2022. Calcium 9.2 8.5 - 10.3 mg/dL [facility] Blood 12/13/2024 9:35 AM CDT 12/13/2024 9:47 AM CDT Andrzej Kiser MD LAB BLOOD ORDERABLES Final Result [facility] [address] [place] [address] from Last 3 Months Insurance [employer] MEDICARE ADVANTAGE Advance Directives For more information, please contact: [phone] * Full Code (Latest Code Status on File) Date Activated Date Inactivated Comments 12/13/2024 3:05 PM 12/14/2024 3:39 PM Care Teams Glost Tile Sorter Relationship Specialty Start Date End Date Dilshad Caruso MD PCP - General Family Medicine 11/21/21
--- OUTSIDE RECORDS SUMMARY | 2025-01-22 17:35 | XMS_ITS | Encounter Summary ---
Author Organization [facility] Address [address] [place] [address] Care Team Providers Care Sustainable Design Coordinator Name Role Phone Dilshad Caruso MD Primary Care Provider Katya Quiroz MD Unavailable Encounter Details Date Type Department Care Team (Late st Contact Info) Description 12/11/2018 Abstract [facility] CONVERSION [address] [place] [address] , Generic Conversion, Social History Tobacco Use Types Packs/Day Years Used Date Smoking Tobacco: Never Assessed Sex and Gender Information Value Date Recorded Sex Assigned at Male 09/28/2024 9:38 AM CDT Legal Sex Male 5:54 PM CONCRETE PLACEMENT EQUIPMENT OPERATOR Gender Identity Not on file Sexual Orientation Not on file documented as of this encounter Plan of Treatment Not on file documented as of this encounter Visit Diagnoses Not on filedocumented in this encounter Additional Health Concerns Infection Onset Date Last Indicated Resolved Time COVID-19 Rule Out 05/26/2020 05/26/2020 05/28/2020 11:45 AM CONCRETE PLACEMENT EQUIPMENT OPERATOR documented as of this encounter Care Teams Sustainable Design Coordinator Relationship Specialty Start Date End Date Dilshad Caruso MD [address] [place] [phone] PCP - General FAMILY PRACTICE 06/30/19 Katya Quiroz MD [address] [place] [address] [place] Staff Scientist CARDIOVASCULAR DISEASE 10/14/23 documented as of this encounter
--- OUTSIDE RECORDS SUMMARY | 2025-01-22 17:35 | XMS_ITS | Clinical Summary ---
Author Organization [facility] Address [address] [place] [phone] Care Team Providers Care Assistant Kitchen Manager Name Role Phone Dilshad Caruso MD [...] CDT - 12/13/2024 1:00 PM CDT Surgery [facility] Cardiac Catheterization Lab [id number] [place] [address] Andrzej Kiser MD LEFT HEART CATHETERIZATION WITH CORONARY ANGIOGRAPHY AND WITH OR WITHOUT LEFT VENTRICULOGRAM [id number] 12/13/2024 9:26 AM CDT - 12/14/2024 11:34 AM CDT Hospital Encounter [facility] [id number] [place] [address] Andrzej Kiser MD Chronic combined systolic and diastolic congestive heart failure (HCC) Discharge Disposition: Discharge to home or self care 12/07/2024 Telephone [facility] Cardiology [address], [place] [address] Andrzej Kiser MD 12/02/2024 Telephone [facility] Cardiology [address] [place] [address] Andrzej Kiser MD from Last 3 Months Surgical History Surgery Date Site/Laterality Comments CORONARY ARTERY BYPASS GRAFT 07/06/2007 - 07/05/2008 CORONARY ANGIOPLASTY multiple, most recent October 2021 CARDIAC CATHETERIZATION 12/13/2024 N/A Procedure: LEFT HEART CATHETERIZATION WITH CORONARY ANGIOGRAPHY AND WITH OR WITHOUT LEFT VENTRICULOGRAM [id number]; Surgeon: Andrzej Kiser MD; Location: CARDIAC MACHINE BANDER AND CELLOPHANER; Service: Cardiovascular; Laterality: N/A; Medical devices from this surgery are in the Medical Devices section. CARDIAC CATHETERIZATION 12/13/2024 N/A Procedure: PCI PTCA - MAJOR CORONARY [id number]; Surgeon: Andrzej Kiser MD; Location: CARDIAC MACHINE BANDER AND CELLOPHANER; Service: Cardiovascular; Laterality: N/A; Medical devices from this surgery are in the Medical Devices section. CARDIAC CATHETERIZATION 12/13/2024 N/A Procedure: AORTOGRAM THORACIC S&I [id number]; Surgeon: Andrzej Kiser MD; Location: CARDIAC MACHINE BANDER AND CELLOPHANER; Service: Cardiovascular; Laterality: N/A; Medical devices from [...] 12/14/2025 12/14/2024 Medical Devices Implanted Type Area Asset Specialist Device Identifier Shelf Expiration Date Model / Serial / Lot femeninas Angio-Seal Vip 6fr Closere Device [id number] - [id number] - [id number] Implanted:Qty: 1 on 12/13/2024 by Andrzej Kiser MD at [facility] [employer] 08/19/2025 [id number] / [id number] / Procedures Procedure Name Priority Date/Time Associated [...] SEDATION SAME MD MONTEJO ADDL 15 MIN 14849 12/13/2024 11:50 AM CDT Chronic combined systolic and diastolic congestive heart failure (HCC) MODERATE SEDATION FIRST 15MIN 5+ YEAR [address] 12/13/2024 11:50 AM CDT Chronic combined systolic [...] MD LAB BLOOD ORDERABLES Final Result [facility] [address] Department [place] [address] * (ABNORMAL) Differential, auto (12/14/2024 5:50 AM CDT) Neutrophil abs 12.70(H) 1.50 - 6.50 K/cumm Imm gran abs 0.10 0.00 - 0.10 K/cumm [facility] Lymphocyte abs 2.09 0.80 - 3.30 K/cumm [facility] Monocyte abs 1.23(H) 0.20 - 0.80 K/cumm [facility] Eosinophil abs 0.04 0.00 - 0.50 K/cumm [facility] Basophil abs 0.04 0.00 - 0.10 K/cumm [facility] Neutrophil pct 78.5 % [facility] Comment: Interpretive Data Percent cell count reference ranges are not reported, since discordance with absolute values may lead to misinterpretation of CBC data. Current Interpretive Data was last revised on 2017. Imm gran pct 0.6 % [facility] Comment: Interpretive Data Percent cell count reference ranges are not reported, since discordance with absolute values may lead to misinterpretation of CBC data. Current Interpretive Data was last revised on 2017. Lymphocyte pct 12.9 % [facility] Comment: Interpretive Data Percent cell count reference ranges are not reported, since discordance with absolute values may lead to misinterpretation of CBC data. Current Interpretive Data was last revised on 2017. Monocyte pct 7.6 % [facility] Comment: Interpretive Data Percent cell count reference ranges are not reported, since discordance with absolute values may lead to misinterpretation of CBC data. Current Interpretive Data was last revised on 2017. Eosinophil pct 0.2 % [facility] Comment: Interpretive Data Percent cell count reference ranges are not reported, since discordance with absolute values may lead to misinterpretation of CBC data. Current Interpretive Data was last revised on 2017. Basophil pct 0.2 % [facility] Comment: Interpretive Data Percent cell count reference ranges are not reported, since discordance with absolute values may lead to misinterpretation of CBC data. Current Interpretive Data was last revised on 2017. Blood 12/14/2024 5:50 AM CDT 12/14/2024 6:04 AM CDT Andrzej Kiser MD LAB BLOOD ORDERABLES Final Result [facility] [address] [place] [address] * (ABNORMAL) CBC with auto [...] LAB BLOOD ORDERABLES Final Result [facility] [address] [place] [address] * (ABNORMAL) Basic metabolic panel (12/14/2024 5:50 AM CDT) Sodium 141 135 - 145 mmol/L Potassium, pl 4.1 3.3 - 4.9 mmol/L [facility] Chloride 111(H) 97 - 110 mmol/L [facility] CO2 20(L) 22 - 32 mmol/L [facility] Anion gap 10 2 - 15 mmol/L [facility] BUN 16 6 - 25 mg/dL [facility] Creatinine 0.85 0.80 - 1.30 mg/dL [facility] Glucose 110 70 - 199 mg/dL [facility] Comment: Interpretive Data Fasting glucose >/= 126 [...] 2022. Calcium 8.5 8.5 - 10.3 mg/dL [facility] Blood 12/14/2024 5:50 AM CDT 12/14/2024 6:05 AM CDT Andrzej Kiser MD LAB BLOOD ORDERABLES Final Result [facility] [address] [facility] Department [place] [address] * ECG 12 lead (12/13/2024 7:17 PM CDT) 12/13/2024 7:17 PM CDT Narrative [facility] - 12/13/2024 10:07 PM CDT Vent Rate: 83 bpm RR Interval: 720 msec [place] Interval: 171 msec QRS Duration: 103 msec QT Interval: 389 msec QTC Interval: 429 msec P-R-T [place]: 74 - 58 - 64 degrees IMPRESSION: SINUS RHYTHM WITH FREQUENT VENTRICULAR PREMATURE COMPLEXES POSSIBLE LEFT ATRIAL ENLARGEMENT [-0.1mV P-WAVE IN V1/V2] NONSPECIFIC ST \T\ T-WAVE ABNORMALITY ABNORMAL RHYTHM ECG Electronically Signed By: Lenny Cosby MD Andrzej Kiser MD ECG ORDERABLES [place] Result [facility] * LEFT HEART CATHETERIZATION WITH CORONARY ANGIOGRAPHY AND WITH AND WITHOUT LEFT VENTRICULOGRAM, PERCUTAINEOUS TRANSLUMINAL CORONARY ANGIOPLASTY OF ONE MAJOR CORONARY, AORTOGRAM THORACIC S&I (12/13/2024 2:28 PM CDT) Anatomical Region Laterality Modality X-Ray Angiograph y Addenda Addendum by Andrzej Kiser MD on 12/16/2024 9:58 AM CDT CARDIAC CATHETERIZATION REPORT Ruperto Friedman IP ENCOUNTER: @CSN@ Date of Procedure: 12/13/2024 BIRTHDATE: 1955 ANIMAL KILLER: Andrzej Kiser MD PREPROCEDURE DIAGNOSES: Ruperto Friedman is a 69 y.o. male here for for cardiac catheterization. Past medical history of contrast allergy, CABG x3 2007 in [place], ascending aortic aneurysm, systolic dysfunction, dyslipidemia, COPD and tobacco abuse. 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 Moderate sedation was given and the right groin infiltrated using 1% lidocaine. Five Taiwanese sheath was obtained using micropuncture needle and [...] graft to the PDA. After that 5 Taiwanese pigtail catheter was advanced across aortic valve [...] 1.5 mm balloon by 12 and then religious of blood flow. Then we passed 2 0 x 12 balloon and inflated it couple times. However we could not pass the balloon beyond the lesion. I used 6 Taiwanese GuideLiner and then with balloon again we could not pass the balloon. At that time decided to quit. A few 3 before and after intervention. Lesion 90% before and after intervention. - Access site. Right common femoral artery. Hemostasis: Failed Angio-Seal and manual compression will be applied after 2 hours of stopping Angiomax CONCLUSIONS Severe holy cross coronary artery disease with occluded LAD, left [...] Kiser MD LAB BLOOD ORDERABLES Final Result [facility] [address] Department [place] [address] * (ABNORMAL) Differential, auto (12/13/2024 9:35 AM CDT) Neutrophil abs 6.84(H) 1.50 - 6.50 K/cumm Imm gran abs 0.03 0.00 - 0.10 K/cumm [facility] Lymphocyte abs 0.83 0.80 - 3.30 K/cumm [facility] Monocyte abs 0.09(L) 0.20 - 0.80 K/cumm [facility] Eosinophil abs 0.00 0.00 - 0.50 K/cumm [facility] Basophil abs 0.02 0.00 - 0.10 K/cumm [facility] Neutrophil pct 87.5 % [facility] Comment: Interpretive Data Percent cell count reference ranges are not reported, since discordance with absolute values may lead to misinterpretation of CBC data. Current Interpretive Data was last revised on 2017. Imm gran pct 0.4 % [facility] Comment: Interpretive Data Percent cell count reference ranges are not reported, since discordance with absolute values may lead to misinterpretation of CBC data. Current Interpretive Data was last revised on 2017. Lymphocyte pct 10.6 % [facility] Comment: Interpretive Data Percent cell count reference ranges are not reported, since discordance with absolute values may lead to misinterpretation of CBC data. Current Interpretive Data was last revised on 2017. Monocyte pct 1.2 % [facility] Comment: Interpretive Data Percent cell count reference ranges are not reported, since discordance with absolute values may lead to misinterpretation of CBC data. Current Interpretive Data was last revised on 2017. Eosinophil pct 0.0 % [facility] Comment: Interpretive Data Percent cell count reference ranges are not reported, since discordance with absolute values may lead to misinterpretation of CBC data. Current Interpretive Data was last revised on 2017. Basophil pct 0.3 % [facility] Comment: Interpretive Data Percent cell count reference ranges are not reported, since discordance with absolute values may lead to misinterpretation of CBC data. Current Interpretive Data was last revised on 2017. Blood 12/13/2024 9:35 AM CDT 12/13/2024 9:47 AM CDT Andzrej Kiser MD LAB BLOOD ORDERABLES Final Result Performing Organization Address [facility]/ZIP Co de Phone Number [facility] [address] [place] [address] * (ABNORMAL) CBC with auto differential (12/13/2024 9:35 AM CDT) [facility] WBC 7.81 3.80 - 9.90 K/cumm Hgb 17.8(H) 13.0 - 17.5 g/dL [facility] Hct 53.1(H) 38.9 - 50.3 % [facility] Plt 189 150 - 400 K/cumm [facility] MPV 10.4 9.1 - 12.3 fL [facility] RBC 5.73 4.30 - 5.80 M/cumm [facility] MCV 92.7 81.3 - 96.4 fL [facility] MCH 31.1 27.1 - 33.3 pg [facility] MCHC 33.5 32.3 - 35.7 g/dL [facility] RDW CV 13.3 11.1 - 14.9 % [facility] RDW SD 45.3 35.7 - 48.1 fL [facility] NRBC abs 0.00 0.00 - 0.01 K/cumm [facility] Blood 12/13/2024 9:35 AM CDT 12/13/2024 9:47 AM CDT Narrative [facility] - 12/13/2024 9:56 AM CDT If most recent labs were drawn prior to 4 AM, draw only prior to initiating procedure. Andrzej Kiser MD LAB BLOOD ORDERABLES Final Result Performing Organization Address City/[facility]/ZIP Co de Phone Number [facility] [address] [place] [address] * (ABNORMAL) Basic metabolic panel [...] 2022. Calcium 9.2 8.5 - 10.3 mg/dL [facility] Blood 12/13/2024 9:35 AM CDT 12/13/2024 9:47 AM CDT us Andrzej Kiser MD LAB BLOOD ORDERABLES Final Result [facility] [address] Department [place] [address] from Last 3 Months Insurance [facility] MEDICARE [facility] MEDIC[facility] Address: [address] [address] [place] [address] Advance Directives For more information, please contact: [phone] * Full Code (Latest Code Status on File) Date Activated Date Inactivated Comments 12/13/2024 3:05 PM 12/14/2024 3:39 PM Care Teams Assistant Kitchen Manager Relationship Specialty Start Date End Date Dilshad Caruso MD PCP - General Family Medicine 11/21/21
--- OUTSIDE RECORDS SUMMARY | 2025-01-22 17:35 | XMS_ITS | Encounter Summary ---
Author Organization [facility] Address [address] [place] [address] Care Team Providers Care Intake Specialist Name Role Phone Unavailable Primary Care Provider Unavailabl e Encounter Details Date Type Department Care Team (Late st Contact Info) Description 07/11/2019 Lab Requisition [facility] DermPath Lab [address], [place] [address] Concepcion Khan MD [address] [facility] [address] [place] [address] Social History Tobacco Use Types Packs/Day Years [...] DERMPATH SLIDE CONSULT Routine 07/11/2019 12:00 AM PACKER FUSER documented in this encounter Results * DERMPATH SLIDE CONSULT (07/11/2019 12:00 AM PACKER FUSER) Case Report Dermatopathology Report Case: [id number] Authorizing Provider: Concepcion Khan MD Collected: 07/11/2019 12:00 AM Ordering Location: [facility] DermPath Lab Received: 07/11/2019 08:03 AM Pathologist: Arti Rodriguez MD Specimen: Slide(s), Left earlobe, OSC# [id number] 0 2:47 PM [facility] DERMATOPATHOLOGY LABORATORY Final Diagnosis Specimen A. 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 Squamous cell carcinoma, acantholytic. All slides returned. Appointment. Date: 07/20/2019. Any additional sections, special stains or immunohistochemical stains performed by our laboratory will be kept here on file. 0 2:47 PM [facility] DERMATOPATHOLOGY LABORATORY Microscopic Description Specimen A. Slide(s), Left earlobe, OSC# [id number]: Sections show skin with irregularly shaped nests of keratinocytes with evidence of cornification. In some nests, there is loss of cohesion between the neoplastic cells, as well as individual dyskeratotic cells that lack intercellular bridges. 0 2:47 PM [facility] DERMATOPATHOLOGY LABORATORY Disclaimer An external and internal positive and negative controls are appropriate for the histochemical, immunohistochemical and immunofluorescence stain(s) in this case (if any), except where stated explicitly. The performance characteristics of the stain(s) cited in this report were developed and its performance characteristic determined by the Dermatopathology Laboratory at [facility], directed by Dr. Unique Miller. These tests need not be, and therefore are not, approved by the [place] Food and Drug Administration. The tests are used for clinical purposes. Billing Codes Specimen Charges Stain Charges 91058 1 0 2:47 PM [facility]ERMATOPATH[facility]Y [facility]ORAT[facility] Embedded Images 0 2:47 PM [facility] DERMATOPATHOLOGY LABORATORY Pathology/Cytolog y SLIDE / Unknown 07/11/2019 07/11/2019 8:03 AM [facility] Concepcion Khan MD LAB - PATHOLOGY/CYTOLOGY ORDER JAYCOB Final Result DERMATOPATHOLOGY LABORATORY [facility] - Department of Dermatology [address] [place] [address], [address] Floor Lab [address] [place], [place] [address] [phone] documented in this encounter Visit Diagnoses Not on filedocumented in this encounter
--- OUTSIDE RECORDS SUMMARY | 2025-01-22 17:35 | XMS_ITS | Clinical Summary ---
Author Organization [facility] Address [address] [place] [address] Care Team Providers Care Manager Treasury Name Role Phone Dilshad Caruso MD Primary [...] AM CDT Legal Sex Male 5:54 PM DIRECTOR OF PSYCHIATRY Gender Identity Not on file Sexual Orientation [...] to complete this topic Insurance MEDICAID [facility] MEDICARE SOLUTIONS [facility] Care Teams Manager Treasury Relationship Specialty Start Date End Date Dilshad Caruso MD [address] [place] [phone] PCP - General FAMILY PRACTICE 06/30/19 Katya Quiroz MD [address] [place] [address] [place] Boat Tester CARDIOVASCULAR DISEASE 10/14/23
[2025-01-22 17:40] LABS: Alanine Aminotransferase 14 U/L (6-50); Albumin Level 4.1 g/dL (3.5-5.1); Alkaline Phosphatase 87 U/L (38-126); Anion Gap 8 mmol/L (4-12); Aspartate Amino Transferase 22 U/L (17-59); Bilirubin,Total 0.7 mg/dL (0.2-1.3); Blood Urea Nitrogen 10 mg/dL (9-20); Calcium 8.9 mg/dL (8.4-10.2); Carbon Dioxide 23 mmol/L (22-30); Chloride 108 mmol/L (98-107); Estimated Glomerular Filt Rate > 60; Glucose 102 mg/dL (65-110); Lipase 56 U/L (23-300); Osmolality Calculated 287 mOsm/kg (285-295); Potassium 4.0 mmol/L (3.4-5.0); Sodium 139 mmol/L (137-145); Total Protein 7.0 g/dL (6.3-8.2)
[2025-01-22 17:43] LABS: INR 1.0; Partial Thromboplastin Time 28.8 Sec (23.9-30.70); Prothrombin Time 11.1 Seconds (9.50-12.1)
[2025-01-22 18:53] VITALS: BP 121/76; PULSE 80; RESP 18; TEMP 36.8; O2SAT 94
== END 2025-01-22 19:06 | disposition home or self-care (01) ==
PROVIDERS: Emergency Provider Emergency Medicine; PCP Physician Assistant
DX: K57.32 Diverticulitis of large intestine without perforation or abscess without bleeding (principal); I71.9 Aortic aneurysm of unspecified site, without rupture; K40.90 Unilateral inguinal hernia, without obstruction or gangrene, not specified as recurrent; E78.5 Hyperlipidemia, unspecified; J44.9 Chronic obstructive pulmonary disease, unspecified; I10 Essential (primary) hypertension; I25.810 Atherosclerosis of coronary artery bypass graft(s) without angina pectoris; F17.210 Nicotine dependence, cigarettes, uncomplicated; Z95.1 Presence of aortocoronary bypass graft; Z79.01 Long term (current) use of anticoagulants; Z79.82 Long term (current) use of aspirin; Z79.899 Other long term (current) drug therapy
CPT/HCPCS: 36415; 74176; 80053; 83605; 83690; 85025; 85610; 85730; 96360; 99284; A9270; J7030

== ENCOUNTER 2025-01-25 09:48 | Outpatient (CLI) | payer MEDICARE, SELFPAY ==
--- OUTSIDE RECORDS SUMMARY | 2025-01-25 09:52 | XMS_ITS | Clinical Summary ---
Author Organization [facility] Address [address] [facility] [place] [address] Care Team Providers Care Globe Cleaner Name Role Phone Unavailable Primary Care Provider Unavailabl e Source Comments [facility],non-owned Affiliates and Associated Physician Practices is amultiple site organization consisting of ambulatory clinics and hospital sitesin [place], [place] and [place]. This disclosure is being madepursuant to the Care Everywhere program and may not contain all information available regarding this patient. Last updated 18.[facility] Allergies Active Allergy Reactions Criticality Noted Date [...] Blood Pressure 118/73 07/20/2019 2:41 PM MANAGER PRINTING Pulse 92 07/20/2019 2:41 PM MANAGER PRINTING Temperature - - Respiratory Rate - - Oxygen Saturation - - Inhaled Oxygen Concentration - - Weight 95.3 kg (210 lb) 07/20/2019 2:41 PM MANAGER PRINTING Height 182.9 cm (6') 07/20/2019 2:41 PM MANAGER PRINTING Body Mass Index 28.48 07/20/2019 2:41 PM MANAGER PRINTING Plan of Treatment Health Maintenance Due Date [...] - OUT OF STATE MEDICARE [place]
--- OUTSIDE RECORDS SUMMARY | 2025-01-25 09:52 | XMS_ITS | Encounter Summary ---
Author Organization [facility] Health Address [address] [place] [address] Care Team Providers Care Semiconductor Wafers Etch Operator Name Role Phone Unavailable Primary Care Provider Unavailabl e Encounter Details Date Type Department Care Team (Late st Contact Info) Description 07/11/2019 Lab Requisition [facility] DermPath Lab [address] [facility], [place] [address] Concepcion Khan MD [address] [facility] [address] [place] [address] Social History Tobacco Use Types Packs/Day Years [...] DERMPATH SLIDE CONSULT Routine 07/11/2019 12:00 AM FILLER FEEDER documented in this encounter Results * DERMPATH SLIDE CONSULT (07/11/2019 12:00 AM FILLER FEEDER) Case Report Dermatopathology Report Case: [id number] Authorizing Provider: Concepcion Khan MD Collected: 07/11/2019 12:00 AM Ordering Location: [facility] DermPath Lab Received: 07/11/2019 08:03 AM Pathologist: Arti Rodriguez MD Specimen: Slide(s), Left earlobe, [id number]# [id number] 0 2:47 PM [facility] DERMATOPATHOLOGY LABORATORY Final Diagnosis Specimen A. 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 Squamous cell carcinoma, acantholytic. All slides returned. Appointment. Date: 07/20/2019. Any additional sections, special stains or immunohistochemical stains performed by our laboratory will be kept here on file. 0 2:47 PM [facility] DERMATOPATHOLOGY LABORATORY Microscopic Description Specimen A. Slide(s), Left earlobe, OSC# [id number]: Sections show skin with irregularly shaped nests of keratinocytes with evidence of cornification. In some nests, there is loss of cohesion between the neoplastic cells, as well as individual dyskeratotic cells that lack intercellular bridges. 0 2:47 PM [facility] DERMATOPATHOLOGY LABORATORY Disclaimer An external and internal positive and negative controls are appropriate for the histochemical, immunohistochemical and immunofluorescence stain(s) in this case (if any), except where stated explicitly. The performance characteristics of the stain(s) cited in this report were developed and its performance characteristic determined by the Dermatopathology Laboratory at [facility], directed by Dr. Unique Miller. These tests need not be, and therefore are not, approved by the [place] Food and Drug Administration. The tests are used for clinical purposes. Billing Codes Specimen Charges Stain Charges 15016 1 0 2:47 PM [facility] DERMATOPATHOLOGY LABORATORY Embedded Images 0 2:47 PM [facility] DERMATOPATHOLOGY LABORATORY Pathology/Cytolog y SLIDE / Unknown 07/11/2019 07/11/2019 8:03 AM [facility] Concepcion Khan MD LAB - PATHOLOGY/CYTOLOGY ORDER JAYCOB Final Result DERMATOPATHOLOGY LABORATORY [facility] - Department of Dermatology [address] [place] [address], 5th Floor Lab [address] [place], [place] [address] [phone] documented in this encounter Visit Diagnoses Not on filedocumented in this encounter
--- OUTSIDE RECORDS SUMMARY | 2025-01-25 09:52 | XMS_ITS | Referral Summary ---
Author Organization [facility] Address [address] [place] [phone] Care Team Providers Care Agricultural Equipment Operator Name Role Phone Dilshad Caruso MD Primary Care Provider [phone] Encounters Date Type Department Care Team Description 12/13/2024 9:26 AM CDT - 12/14/2024 11:34 AM CDT Hospital Encounter [address] [address] Andrzej Kiser MD Chronic combined systolic and diastolic congestive heart failure (HCC) Discharge Disposition: Discharge to home or self care 12/13/2024 11:30 AM CDT - 12/13/2024 1:00 PM CDT Surgery [facility] Cardiac Catheterization Lab [address] [place] [address] Andrzej Kiser MD LEFT HEART CATHETERIZATION WITH CORONARY ANGIOGRAPHY AND WITH OR WITHOUT LEFT VENTRICULOGRAM [id number] 12/07/2024 Telephone [facility] Cardiology [address] [place] [address] [address] [address] Andrzej Kiser MD 12/02/2024 Telephone [facility] Cardiology [address] [address] [place] [phone] Andrzej Kiser MD from Last 3 [...] on file Medical Devices Implanted Type Area Artificial Pearl Maker Device Identifier Shelf Expiration Date Model / Serial / Lot Syncapse Angio-Seal Vip 6fr Closere Device [id number] - [id number] - [id number] Implanted:Qty: 1 on 12/13/2024 by Andrzej Kiser MD at [facility] Syn[employer] 08/19/2025 [id number] / [id number] / Procedures Procedure Name Priority Date/Time Associated [...] SEDATION SAME MD MONTEJO ADDL 15 MIN [id number] 12/13/2024 11:50 AM CDT Chronic combined systolic and diastolic congestive heart failure (HCC) MODERATE SEDATION FIRST 15MIN 5+ YEAR 90087 12/13/2024 11:50 AM CDT Chronic combined systolic [...] Kiser MD LAB BLOOD ORDERABLES Final Result [facility] [address] Department [place] [address] * (ABNORMAL) Differential, auto (12/14/2024 5:50 AM CDT) Neutrophil abs 12.70(H) 1.50 - 6.50 K/cumm Imm gran abs 0.10 0.00 - 0.10 K/cumm [facility] Lymphocyte abs 2.09 0.80 - 3.30 K/cumm [facility] Monocyte abs 1.23(H) 0.20 - 0.80 K/cumm [facility] Eosinophil abs 0.04 0.00 - 0.50 K/cumm [facility] Basophil abs 0.04 0.00 - 0.10 K/cumm [facility] Neutrophil pct 78.5 % [facility] Comment: Interpretive Data Percent cell count reference ranges are not reported, since discordance with absolute values may lead to misinterpretation of CBC data. Current Interpretive Data was last revised on 2017. Imm gran pct 0.6 % [facility] Comment: Interpretive Data Percent cell count reference ranges are not reported, since discordance with absolute values may lead to misinterpretation of CBC data. Current Interpretive Data was last revised on 2017. Lymphocyte pct 12.9 % [facility] Comment: Interpretive Data Percent cell count reference ranges are not reported, since discordance with absolute values may lead to misinterpretation of CBC data. Current Interpretive Data was last revised on 2017. Monocyte pct 7.6 % [facility] Comment: Interpretive Data Percent cell count reference ranges are not reported, since discordance with absolute values may lead to misinterpretation of CBC data. Current Interpretive Data was last revised on 2017. Eosinophil pct 0.2 % [facility] Comment: Interpretive Data Percent cell count reference ranges are not reported, since discordance with absolute values may lead to misinterpretation of CBC data. Current Interpretive Data was last revised on 2017. Basophil pct 0.2 % [facility] Comment: Interpretive Data Percent cell count reference ranges are not reported, since discordance with absolute values may lead to misinterpretation of CBC data. Current Interpretive Data was last revised on 2017. Blood 12/14/2024 5:50 AM CDT 12/14/2024 6:04 AM CDT Andrzej Kiser MD LAB BLOOD ORDERABLES Final Result Performing Organization Address City/[facility]/ZIP Co de Phone Number SANJEEV DALY [address] [place] [address] * (ABNORMAL) CBC with auto differential (12/14/2024 5:50 AM CDT) WBC 16.20(H) 3.80 - 9.90 K/cumm Hgb 14.4 13.0 - 17.5 g/dL [facility] Hct 42.4 38.9 - 50.3 % [facility] Plt 161 150 - 400 K/cumm [facility] MPV 10.2 9.1 - 12.3 fL [...] LAB BLOOD ORDERABLES Final Result SANJEEV DALY [address] [facility] [place] [address] * (ABNORMAL) Basic metabolic panel (12/14/2024 5:50 AM CDT) Sodium 141 135 - 145 mmol/L Potassium, pl 4.1 3.3 - 4.9 mmol/L [facility] Chloride 111(H) 97 - 110 mmol/L [facility] CO2 20(L) 22 - 32 mmol/L [facility] Anion gap 10 2 - 15 mmol/L [facility] BUN 16 6 - 25 mg/dL [facility] Creatinine 0.85 0.80 - 1.30 mg/dL [facility] Glucose 110 70 - 199 mg/dL [facility] Comment: Interpretive Data Fasting glucose >/= [...] 2022. Calcium 8.5 8.5 - 10.3 mg/dL [facility] Blood 12/14/2024 5:50 AM CDT 12/14/2024 6:05 AM CDT us Andrzej Kiser MD LAB BLOOD ORDERABLES Final Result SANJEE[facility] [address] Department [place] [address] * ECG 12 lead (12/13/2024 7:17 PM CDT) 12/13/2024 7:17 PM CDT Narrative [facility] - 12/13/2024 10:07 PM CDT Vent Rate: 83 bpm RR Interval: 720 msec WA Interval: 171 msec QRS Duration: 103 msec QT Interval: 389 msec QTC Interval: 429 msec P-R-T [place]: 74 - 58 - 64 degrees IMPRESSION: SINUS RHYTHM WITH FREQUENT VENTRICULAR PREMATURE COMPLEXES POSSIBLE LEFT ATRIAL ENLARGEMENT [-0.1mV P-WAVE IN V1/V2] NONSPECIFIC ST \T\ T-WAVE ABNORMALITY ABNORMAL RHYTHM ECG Electronically Signed By: Lenny Cosby MD us Andrzej Kiser MD ECG ORDERABLES [place] Result [facility] * LEFT HEART CATHETERIZATION WITH CORONARY ANGIOGRAPHY AND WITH AND WITHOUT LEFT VENTRICULOGRAM, PERCUTAINEOUS TRANSLUMINAL CORONARY ANGIOPLASTY OF ONE MAJOR CORONARY, AORTOGRAM THORACIC S&I (12/13/2024 2:28 PM CDT) Anatomical Region Laterality Modality X-Ray Angiograph y Addenda Addendum by Andrzej Kiser MD on 12/16/2024 9:58 AM CDT CARDIAC CATHETERIZATION REPORT Ruperto Friedman IP ENCOUNTER: @CSN@ Date of Procedure: 12/13/2024 BIRTHDATE: 1955 CHOCOLATIER: Andrzej Kiser MD PREPROCEDURE DIAGNOSES: Ruperto Friedman is a 69 y.o. male here for for cardiac catheterization. Past medical history of contrast allergy, CABG x3 2007 in [place], ascending aortic aneurysm, systolic dysfunction, dyslipidemia, COPD and tobacco abuse. 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 Moderate sedation was given and the right groin infiltrated using 1% lidocaine. Five Bhut[place] sheath was obtained using micropuncture needle and [...] graft to the PDA. After that 5 [place] pigtail catheter was advanced across aortic valve [...] 1.5 mm balloon by 12 and then confucianist of blood flow. Then we passed 2 0 x 12 balloon and inflated it couple times. However we could not pass the balloon beyond the lesion. I used 6 [place] GuideLiner and then with balloon again we could not pass the balloon. At that time decided to quit. A few 3 before and after intervention. Lesion 90% before and after intervention. - Access site. Right common femoral artery. Hemostasis: Failed Angio-Seal and manual compression will be applied after 2 hours of stopping Angiomax CONCLUSIONS Severe [place] coronary artery disease with occluded LAD, left [...] Kiser MD LAB BLOOD ORDERABLES Final Result [facility] [address] Department [place] [address] * (ABNORMAL) Differential, auto (12/13/2024 9:35 AM CDT) Neutrophil abs 6.84(H) 1.50 - 6.50 K/cumm Imm gran abs 0.03 0.00 - 0.10 K/cumm [facility] Lymphocyte abs 0.83 0.80 - 3.30 K/cumm [facility] Monocyte abs 0.09(L) 0.20 - 0.80 K/cumm [facility] Eosinophil abs 0.00 0.00 - 0.50 K/cumm [facility] Basophil abs 0.02 0.00 - 0.10 K/cumm [facility] Neutrophil pct 87.5 % [facility] Comment: Interpretive Data Percent cell count reference ranges are not reported, since discordance with absolute values may lead to misinterpretation of CBC data. Current Interpretive Data was last revised on 2017. Imm gran pct 0.4 % [facility] Comment: Interpretive Data Percent cell count reference ranges are not reported, since discordance with absolute values may lead to misinterpretation of CBC data. Current Interpretive Data was last revised on 2017. Lymphocyte pct 10.6 % [facility] Comment: Interpretive Data Percent cell count reference ranges are not reported, since discordance with absolute values may lead to misinterpretation of CBC data. Current Interpretive Data was last revised on 2017. Monocyte pct 1.2 % [facility] Comment: Interpretive Data Percent cell count reference ranges are not reported, since discordance with absolute values may lead to misinterpretation of CBC data. Current Interpretive Data was last revised on 2017. Eosinophil pct 0.0 % [facility] Comment: Interpretive Data Percent cell count reference ranges are not reported, since discordance with absolute values may lead to misinterpretation of CBC data. Current Interpretive Data was last revised on 2017. Basophil pct 0.3 % [facility] Comment: Interpretive Data Percent cell count reference ranges are not reported, since discordance with absolute values may lead to misinterpretation of CBC data. Current Interpretive Data was last revised on 2017. Blood 12/13/2024 9:35 AM CDT 12/13/2024 9:47 AM CDT Andrzej Kiser MD LAB BLOOD ORDERABLES Final Result Performing Organization Address City/[facility]/ZIP Co de Phone Number SANJEEV [address] [place] [address] * (ABNORMAL) CBC with auto differential (12/13/2024 9:35 AM CDT) WBC 7.81 3.80 - 9.90 K/cumm Hgb 17.8(H) 13.0 - 17.5 g/dL [facility] Hct 53.1(H) 38.9 - 50.3 % [facility] Plt 189 150 - 400 K/cumm [facility] MPV 10.4 9.1 - 12.3 fL [facility] RBC 5.73 4.30 - 5.80 M/cumm [facility] MCV 92.7 81.3 - 96.4 fL [facility] MCH 31.1 27.1 - 33.3 pg [facility] MCHC 33.5 32.3 - 35.7 g/dL [facility] RDW CV 13.3 11.1 - 14.9 % [facility] RDW SD 45.3 35.7 - 48.1 fL [facility] NRBC abs 0.00 0.00 - 0.01 K/cumm [facility] Blood 12/13/2024 9:35 AM CDT 12/13/2024 9:47 AM CDT Narrative [facility] - 12/13/2024 9:56 AM CDT If most recent labs were drawn prior to 4 AM, draw only prior to initiating procedure. Andrzej Kiser MD LAB BLOOD ORDERABLES Final Result Performing Organization Address City/[facility]/ZIP Co de Phone Number SANJEEV DALY [address] [place] [address] * (ABNORMAL) Basic metabolic panel [...] 2022. Calcium 9.2 8.5 - 10.3 mg/dL [facility] Blood 12/13/2024 9:35 AM CDT 12/13/2024 9:47 AM CDT Andrzej Kiser MD LAB BLOOD ORDERABLES Final [facility] [address] [address] Department [place] [address] from Last 3 Months Insurance [employer]PA [facility] MEDICARE ADVANTAGE Advance Directives For more information, please contact: [phone] * Full Code (Latest Code Status on File) Date Activated Date Inactivated Comments 12/13/2024 3:05 PM 12/14/2024 3:39 PM Care Teams Agricultural Equipment Operator Relationship Specialty Start Date End Date Dilshad Caruso MD PCP - General Family Medicine 11/21/21
--- OUTSIDE RECORDS SUMMARY | 2025-01-25 09:52 | XMS_ITS | Clinical Summary ---
Author Organization 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
--- OUTSIDE RECORDS SUMMARY | 2025-01-25 09:52 | XMS_ITS | Encounter Summary ---
Author Organization [facility] Address [address] [place] [address] Care Team Providers Care Benefits Advisor Name Role Phone Dilshad Caruso MD Primary Care Provider [phone] Katya Quiroz MD Unavailable Encounter Details Date Type Department Care Team (Late st Contact Info) Description 12/11/2018 Abstract [facility] CONVERSION [address] [place] [address] , Generic Conversion, Social History Tobacco Use Types Packs/Day Years Used Date Smoking Tobacco: Never Assessed Sex and Gender Information Value Date Recorded Sex Assigned at Male 09/28/2024 9:38 AM CDT 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 Gender Identity Not on file Sexual Orientation Not on file documented as of this encounter Plan of Treatment Not on file documented as of this encounter Visit Diagnoses Not on filedocumented in this encounter Additional Health Concerns Infection Onset Date Last Indicated Resolved Time COVID-19 Rule Out 05/26/2020 05/26/2020 05/28/2020 11:45 AM MECHANIST documented as of this encounter Care Teams Benefits Advisor Relationship Specialty Start Date End Date Dilshad Caruso MD [address] [place] [phone] PCP - General FAMILY PRACTICE 06/30/19 Katya Quiroz MD [address] [place] [address] [place] [employer] Act Officer CARDIOVASCULAR DISEASE 10/14/23 documented as of this encounter
--- OUTSIDE RECORDS SUMMARY | 2025-01-25 09:52 | XMS_ITS ---
Author Organization Unknown Address [address] [place] [phone] Phone Care Team Providers Care Manager Quality Compliance Name Role Phone MARINO DARWIN Attending Unavailable [...] systolic an d diastolic heart failure 11/05/2023 [id number] SNOMED-CT Personal Care Team Section Performer Name Performer Role Active Date Inactive Da THERESA Lopez PCP - Primary care physician 2023-11-05
--- OUTSIDE RECORDS SUMMARY | 2025-01-25 09:52 | XMS_ITS | Clinical Summary ---
Author Organization [facility] Address [address] [place] [id number] Care Team Providers Care Insulation Worker Name Role Phone Dilshad Caruso MD Primary [...] [facility] Cardiac Catheterization Lab [id number] [place] [id number] Andrzej Kiser MD LEFT HEART CATHETERIZATION WITH CORONARY ANGIOGRAPHY AND WITH OR WITHOUT LEFT VENTRICULOGRAM [id number] 12/13/2024 9:26 AM CDT - 12/14/2024 11:34 AM CDT Hospital Encounter [facility] [id number] [place] [id number] Andrzej Kiser MD Chronic combined systolic and diastolic congestive heart failure (HCC) Discharge Disposition: Discharge to home or self care 12/07/2024 Telephone [facility] Cardiology [address], [place] [address] Andrzej Kiser MD 12/02/2024 Telephone [facility] Cardiology [address] [place] [address] Andrzej Kiser MD from Last 3 Months Surgical History Surgery Date Site/Laterality Comments CORONARY ARTERY BYPASS GRAFT 07/06/2007 - 07/05/2008 CORONARY ANGIOPLASTY multiple, most recent October 2021 CARDIAC CATHETERIZATION 12/13/2024 N/A Procedure: LEFT HEART CATHETERIZATION WITH CORONARY ANGIOGRAPHY AND WITH OR WITHOUT LEFT VENTRICULOGRAM [id number]; Surgeon: Andrzej Kiser MD; Location: CARDIAC SCOUT; Service: Cardiovascular; Laterality: N/A; Medical devices from this surgery are in the Medical Devices section. CARDIAC CATHETERIZATION 12/13/2024 N/A Procedure: PCI PTCA - MAJOR CORONARY [id number]; Surgeon: Andrzej Kiser MD; Location: CARDIAC SCOUT; Service: Cardiovascular; Laterality: N/A; Medical devices from this surgery are in the Medical Devices section. CARDIAC CATHETERIZATION 12/13/2024 N/A Procedure: AORTOGRAM THORACIC S&I 75213; Surgeon: Andrzej Kiser MD; Location: CARDIAC SCOUT; Service: Cardiovascular; Laterality: N/A; Medical devices from [...] 12/14/2025 12/14/2024 Medical Devices Implanted Type Area Extrusion Manager Device Identifier Shelf Expiration Date Model / Serial / Lot [employer] Angio-Seal Vip 6fr Closere Device [id number] - [id number] - [id number] Implanted:Qty: 1 on 12/13/2024 by Andrzej Kiser MD at [facility] [employer] 08/19/2025 [id number] / [id number] / Procedures Procedure Name Priority Date/Time Associated [...] SEDATION SAME MD MONTEJO ADDL 15 MIN [id number] 12/13/2024 11:50 AM CDT Chronic combined systolic and diastolic congestive heart failure (HCC) MODERATE SEDATION FIRST 15MIN 5+ YEAR [address] 12/13/2024 11:50 AM CDT Chronic combined systolic [...] MD LAB BLOOD ORDERABLES Final Result [facility] [address] Department [place] [address] * (ABNORMAL) Differential, auto (12/14/2024 5:50 AM CDT) Neutrophil abs 12.70(H) 1.50 - 6.50 K/cumm Imm gran abs 0.10 0.00 - 0.10 K/cumm [facility] Lymphocyte abs 2.09 0.80 - 3.30 K/cumm [facility] Monocyte abs 1.23(H) 0.20 - 0.80 K/cumm [facility] Eosinophil abs 0.04 0.00 - 0.50 K/cumm [facility] Basophil abs 0.04 0.00 - 0.10 K/cumm [facility] Neutrophil pct 78.5 % [facility] Comment: Interpretive Data Percent cell count reference ranges are not reported, since discordance with absolute values may lead to misinterpretation of CBC data. Current Interpretive Data was last revised on 2017. Imm gran pct 0.6 % [facility] Comment: Interpretive Data Percent cell count reference ranges are not reported, since discordance with absolute values may lead to misinterpretation of CBC data. Current Interpretive Data was last revised on 2017. Lymphocyte pct 12.9 % [facility] Comment: Interpretive Data Percent cell count reference ranges are not reported, since discordance with absolute values may lead to misinterpretation of CBC data. Current Interpretive Data was last revised on 2017. Monocyte pct 7.6 % [facility] Comment: Interpretive Data Percent cell count reference ranges are not reported, since discordance with absolute values may lead to misinterpretation of CBC data. Current Interpretive Data was last revised on 2017. Eosinophil pct 0.2 % [facility] Comment: Interpretive Data Percent cell count reference ranges are not reported, since discordance with absolute values may lead to misinterpretation of CBC data. Current Interpretive Data was last revised on 2017. Basophil pct 0.2 % [facility] Comment: Interpretive Data Percent cell count reference ranges are not reported, since discordance with absolute values may lead to misinterpretation of CBC data. Current Interpretive Data was last revised on 2017. Blood 12/14/2024 5:50 AM CDT 12/14/2024 6:04 AM CDT Andrzej Kiser MD LAB BLOOD ORDERABLES Final Result [facility]Y [address] [place] [place] [address] * (ABNORMAL) CBC with auto [...] LAB BLOOD ORDERABLES Final Result [facility] [address] [place] [address] * (ABNORMAL) Basic metabolic panel (12/14/2024 5:50 AM CDT) Sodium 141 135 - 145 mmol/L Potassium, pl 4.1 3.3 - 4.9 mmol/L [facility] Chloride 111(H) 97 - 110 mmol/L [facility] CO2 20(L) 22 - 32 mmol/L [facility] Anion gap 10 2 - 15 mmol/L [facility] BUN 16 6 - 25 mg/dL [facility] Creatinine 0.85 0.80 - 1.30 mg/dL [facility] Glucose 110 70 - 199 mg/dL [facility] Comment: Interpretive Data Fasting glucose [...] 8.5 8.5 - 10.3 mg/dL [facility] Blood 12/14/2024 5:50 AM CDT 12/14/2024 6:05 AM CDT Andrzej Kiser MD LAB BLOOD ORDERABLES Final Result [facility] [address] [facility] Department [place] [address] * ECG 12 lead (12/13/2024 7:17 PM CDT) 12/13/2024 7:17 PM CDT Narrative [facility] - 12/13/2024 10:07 PM CDT Vent Rate: 83 bpm RR Interval: 720 msec IN Interval: 171 msec QRS Duration: 103 msec QT Interval: 389 msec QTC Interval: 429 msec P-R-T [place]: 74 - 58 - 64 degrees IMPRESSION: SINUS RHYTHM WITH FREQUENT VENTRICULAR PREMATURE COMPLEXES POSSIBLE LEFT ATRIAL ENLARGEMENT [-0.1mV P-WAVE IN V1/V2] NONSPECIFIC ST \T\ T-WAVE ABNORMALITY ABNORMAL RHYTHM ECG Electronically Signed By: Lenny Cosby MD Andrzej Kiser MD ECG ORDERABLES [place] l Result [facility] * LEFT HEART CATHETERIZATION WITH CORONARY ANGIOGRAPHY AND WITH AND WITHOUT LEFT VENTRICULOGRAM, PERCUTAINEOUS TRANSLUMINAL CORONARY ANGIOPLASTY OF ONE MAJOR CORONARY, AORTOGRAM THORACIC S&I (12/13/2024 2:28 PM CDT) Anatomical Region Laterality Modality X-Ray Angiograph y Addenda Addendum by Andrzej Kiser MD on 12/16/2024 9:58 AM CDT CARDIAC CATHETERIZATION REPORT Ruperto Friedman IP ENCOUNTER: @CSN@ Date of Procedure: 12/13/2024 BIRTHDATE: 1955 ANCHORMAN: Andrzej Kiser MD PREPROCEDURE DIAGNOSES: Ruperto Friedman is a 69 y.o. male here for for cardiac catheterization. Past medical history of contrast allergy, CABG x3 2007 in [place], ascending aortic aneurysm, systolic dysfunction, dyslipidemia, COPD and tobacco abuse. 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 Moderate sedation was given and the right groin infiltrated using 1% lidocaine. Five Luxembourger sheath was obtained using micropuncture needle and [...] graft to the PDA. After that 5 Luxembourger pigtail catheter was advanced across aortic valve [...] 1.5 mm balloon by 12 and then christianity of blood flow. Then we passed 2 0 x 12 balloon and inflated it couple times. However we could not pass the balloon beyond the lesion. I used 6 Luxembourger GuideLiner and then with balloon again we could not pass the balloon. At that time decided to quit. A few 3 before and after intervention. Lesion 90% before and after intervention. - Access site. Right common femoral artery. 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 [address] Department [place] [address] * (ABNORMAL) Differential, auto (12/13/2024 9:35 AM CDT) Neutrophil abs 6.84(H) 1.50 - 6.50 K/cumm Imm gran abs 0.03 0.00 - 0.10 K/cumm [facility] Lymphocyte abs 0.83 0.80 - 3.30 K/cumm [facility] Monocyte abs 0.09(L) 0.20 - 0.80 K/cumm [facility] Eosinophil abs 0.00 0.00 - 0.50 K/cumm [facility] Basophil abs 0.02 0.00 - 0.10 K/cumm [facility] Neutrophil pct 87.5 % [facility] Comment: Interpretive Data Percent cell count reference ranges are not reported, since discordance with absolute values may lead to misinterpretation of CBC data. Current Interpretive Data was last revised on 2017. Imm gran pct 0.4 % [facility] Comment: Interpretive Data Percent cell count reference ranges are not reported, since discordance with absolute values may lead to misinterpretation of CBC data. Current Interpretive Data was last revised on 2017. Lymphocyte pct 10.6 % [facility] Comment: Interpretive Data Percent cell count reference ranges are not reported, since discordance with absolute values may lead to misinterpretation of CBC data. Current Interpretive Data was last revised on 2017. Monocyte pct 1.2 % [facility] Comment: Interpretive Data Percent cell count reference ranges are not reported, since discordance with absolute values may lead to misinterpretation of CBC data. Current Interpretive Data was last revised on 2017. Eosinophil pct 0.0 % [facility] Comment: Interpretive Data Percent cell count reference ranges are not reported, since discordance with absolute values may lead to misinterpretation of CBC data. Current Interpretive Data was last revised on 2017. Basophil pct 0.3 % [facility] Comment: Interpretive Data Percent cell count reference ranges are not reported, since discordance with absolute values may lead to misinterpretation of CBC data. Current Interpretive Data was last revised on 2017. Blood 12/13/2024 9:35 AM CDT 12/13/2024 9:47 AM CDT Andrzej Kiser MD LAB BLOOD ORDERABLES Final Result Performing Organization Address [facility]/ZIP Co de Phone Number [facility] DALY [address] [place] [address] * (ABNORMAL) CBC with auto differential (12/13/2024 9:35 AM CDT) [facility] WBC 7.81 3.80 - 9.90 K/cumm Hgb 17.8(H) 13.0 - 17.5 g/dL [facility] Hct 53.1(H) 38.9 - 50.3 % [facility] Plt 189 150 - 400 K/cumm [facility] MPV 10.4 9.1 - 12.[address] [facility] RBC 5.73 4.30 - 5.80 M/cumm [facility] MCV 92.7 81.3 - 96.[address] [address] MCH 31.1 27.1 - 33.3 pg [facility] MCHC 33.5 32.3 - 35.7 g/dL [facility] RDW CV 13.3 11.1 - 14.9 % [facility] RDW SD 45.3 35.7 - 48.1 fL [facility] NRBC abs 0.00 0.00 - 0.01 K/cumm [facility] Blood 12/13/2024 9:35 AM CDT 12/13/2024 9:47 AM CDT Narrative [facility] - 12/13/2024 9:56 AM CDT If most recent labs were drawn prior to 4 AM, draw only prior to initiating procedure. Andrzej Kiser MD LAB BLOOD ORDERABLES Final Result Performing Organization Address City/[facility]/ZIP Co de Phone Number [facility]EE[facility] DALY [address] [place] [address] * (ABNORMAL) Basic metabolic panel [...] 9.2 8.5 - 10.3 mg/dL [facility] Blood 12/13/2024 9:35 AM CDT 12/13/2024 9:47 AM CDT us Andrzej Kiser MD LAB BLOOD ORDERABLES Final Result [facility] [address] Department [place] [address] from Last 3 Months Insurance [employer] MEDICARE ADVANTAGE Advance Directives For more information, please contact: [phone] * Full Code (Latest Code Status on File) Date Activated Date Inactivated Comments 12/13/2024 3:05 PM 12/14/2024 3:39 PM Care Teams Insulation Worker Relationship Specialty Start Date End Date Dilshad Caruso MD PCP - General Family Medicine 11/21/21
--- NOTE | 2025-01-25 10:13 | ECHO_ITS ---
Patient Info Name: Ruperto Friedman Age: 69 years : 1955 Gender: Male Ht: 71 in Wt: 160 lbs BSA: 1.91 m2 HR: 73 bpm BP: 102 / 51 mmHg Technical Quality: Good Exam Date: 01/25/2025 10:21 AM Patient Status: O Admit Date: 01/25/2025 Exam Type: CA echo dop color flow w con Complete two-dimensional, color flow and Doppler transthoracic echocardiogram is performed with contrast to opacify the left ventricle and to improve the deliniation of the left ventricle endocardial borders. Assistant Fitness Manager: Diana Vieyra Attending Provider: Manny Kennedy DO Contrast/Agitated Saline Contrast/Ag. Saline: Definity Amount: 2.00 ml Administered By: Diana Vieyra Existing IV Access: No New IV Access: Left and Inner Forearm Site Condition: IV removed Summary 1. Definity contrast administered improved wall motion interpretation. 2. Left ventricular chamber dimension is severely enlarged. 3. Anterior/anteroseptum are thin. 4. Left ventricular systolic function is severely globally reduced, estimated at 20-25. 5. The left ventricular diastolic function is grade I diastolic dysfunction. 6. E/e' 7 is not elevated. 7. Right ventricular systolic function is reduced and with abnormal TAPSE 1.5 cm. 8. Left atrial chamber dimension is mildly enlarged. 9. There is moderate aortic valve sclerosis. 10. There is mild mitral valve regurgitation. Left Ventricle Definity contrast administered improved wall motion interpretation. Left ventricular chamber dimension is severely enlarged. Left ventricular systolic function is severely globally reduced, estimated at 20-25. The left ventricular diastolic function is grade I diastolic dysfunction. E/e' 7 is not elevated. Anterior/anteroseptum are thin. Right Ventricle Right ventricular chamber dimension is normal. Right ventricular systolic function is reduced and with abnormal TAPSE 1.5 cm. Left Atria Left atrial chamber dimension is mildly enlarged. Right Atria Right atrial chamber dimension is normal. Aortic Valve The aortic valve is trileaflet. There is moderate aortic valve sclerosis. There is no aortic valve stenosis. There is no aortic valve regurgitation. Pulmonic Valve There is no pulmonic regurgitation. Mitral Valve There is no mitral valve stenosis. There is mild mitral valve regurgitation. Tricuspid Valve There is no tricuspid valve regurgitation. Pericardium/Pleural There is no pericardial effusion. Inferior Vena Cava Normal inferior vena cava with >50% collapse upon inspiration consistent with normal right atrial pressure, 5 mmHg. Aorta The aortic root size at the sinus of Valsalva is normal. Left Ventricular Outflow Tract Name Value Normal LVOT 2D LVOT Diameter 2.0 cm LVOT Doppler LVOT Peak Velocity 83 cm/s LVOT Peak Gradient 3 mmHg LVOT Mean Gradient 2 mmHg LVOT VTI 18 cm LVOT Stroke Volume 56 ml LVOT CO 4.1 l/min LVOT CI 2.2 l/min/m2 Pulmonic Valve Name Value Normal RVOT Doppler RVOT Peak Velocity 82 cm/s RVOT Peak Gradient 3 mmHg PV Doppler PV Peak Velocity 95 cm/s PV Peak Gradient 4 mmHg Mitral Valve Name Value Normal MV Diastolic Function MV E Peak Velocity 50 cm/s MV A Peak Velocity 72 cm/s MV E/A 0.7 MV Decel Time (PW) 164 ms MV Annular TDI MV E/e' (Septal) 7.6 MV E/e' (Lateral) 6.8 MV E/e' (Average) 7.2 Tricuspid Valve Name Value Normal Estimated PAP/RSVP RA Pressure 5 mmHg <=5 Aortic Valve Name Value Normal AV Doppler AV Peak Velocity 124 cm/s AV Peak Gradient 6 mmHg AV Area (Cont Eq Pepe) 2.1 cm2 AV DI (Pepe) 0.67 AV Regurgitation 2D LVOT Area 3.2 cm2 Ventricles Name Value Normal LV Dimensions 2D/MM IVS Diastolic Thickness (2D) 0.9 cm 0.6-1.0 LVID Diastole (2D) 7.1 cm 4.2-5.8 LVIW Diastolic Thickness (2D) 0.6 cm 0.6-1.0 LVID Systole (2D) 6.6 cm 2.5-4.0 LVOT Diameter 2.0 cm LV Mass (2D Cubed) 223.01 g 88.00-224.00 LV Mass Index (2D Cubed) 117 g/m2 49-115 Relative Wall Thickness (2D) 0.16 <=0.42 LV Fractional Shortening/Ejection Fraction 2D/MM LV Fractional Shortening (2D) 7 % 25-43 LV EF (2D Teichholz) 15 % LV Diastolic Volume (4C MOD) 199 ml LV EF (4C MOD) 24 % LV Diastolic Volume (2C MOD) 242 ml LV EF (2C MOD) 23 % LV Diastolic Volume (BP MOD) 221 ml 62-150 LV Diastolic Volume Index (BP MOD) 116 ml/m2 34-74 LV Systolic Volume (BP MOD) 168 ml 21-61 LV Systolic Volume Index (BP MOD) 88 ml/m2 11-31 LV EF (BP MOD) 24 % 52-72 LV Diastolic Length (4C) 9.2 cm LV Systolic Length (4C) 8.1 cm LV Stroke Volume (4C MOD) 49 ml Atria Name Value Normal LA Dimensions LA Volume (4C A-L) 52 ml LA Volume (BP A-L) 61 ml RA Dimensions RA Systolic Major [place] Length (4C) 5.9 cm 2.1-2.7 RA Area (4C) 14.8 cm2 <=18.0 Report Signatures
[2025-01-25] MEDS: PERFLUTREN LIPID MICROSPHERES 1.5 ML VIAL DILUTED TO 10 ML TOTAL VOLUME IV PUSH (11:19)
--- NOTE | 2025-01-25 11:20 | IVDEFINITY ---
Prior to administration of IV Definity the patient was educated on the risks and benefits of the imaging enhancing agent including potential adverse side effects. The patient verbalized understanding. Allergies were verified. No exclusion criteria were identified and at least one of the following inclusion criteria were met: 1) physician request, 2) patient technically difficult to image (per the [place] Society of Echocardiography guidelines of two or more segments not discernable within the apical view), or 3) questionable left ventricular function. ?
== END 2025-01-25 09:49 | disposition home or self-care (01) ==
PROVIDERS: PCP Physician Assistant; Visit Provider Internal Medicine Cardiovascular Disease
DX: I25.5 Ischemic cardiomyopathy (principal); I34.0 Nonrheumatic mitral (valve) insufficiency
CPT/HCPCS: C8929; Q9957

== ENCOUNTER 2025-05-09 11:10 | Outpatient (CLI) | payer MEDICARE, MEDICAID, SELFPAY ==
--- NOTE | 2025-05-09 11:14 | ECHO_ITS ---
Patient Info Name: Ruperto Friedman Age: 69 years : 1955 Gender: Male Ht: 70 in Wt: 158 lbs BSA: 1.88 m2 HR: 64 bpm BP: 99 / 52 mmHg Technical Quality: Good Exam Date: 05/09/2025 12:38 PM Patient Status: O Admit Date: 05/09/2025 Exam Type: CA echo dop color flow w con Complete two-dimensional, color flow and Doppler transthoracic echocardiogram is performed with contrast to opacify the left ventricle and to improve the deliniation of the left ventricle endocardial borders. Sleep Tech: Diana Vieyra Attending Provider: Manny Kennedy DO Contrast/Agitated Saline Contrast/Ag. Saline: Definity Amount: 2.00 ml Summary 1. Left ventricular chamber dimension is severely enlarged. 2. Left ventricular systolic function is severely globally reduced, estimated at 15. 3. The left ventricular diastolic function is grade I diastolic dysfunction. 4. E/e' 11 is mildly elevated. 5. Left atrial chamber dimension is mildly enlarged. 6. There is moderate aortic valve sclerosis. 7. There is mild to moderate mitral valve regurgitation. Left Ventricle E/e' 11 is mildly elevated. Left ventricular chamber dimension is severely enlarged. Left ventricular systolic function is severely globally reduced, estimated at 15. The left ventricular diastolic function is grade I diastolic dysfunction. Right Ventricle Right ventricular chamber dimension is normal. Right ventricular systolic function is normal. Left Atria Left atrial chamber dimension is mildly enlarged. Right Atria Right atrial chamber dimension is normal. Aortic Valve The aortic valve is trileaflet. There is moderate aortic valve sclerosis. There is no aortic valve stenosis. There is no aortic valve regurgitation. Pulmonic Valve There is no pulmonic regurgitation. Mitral Valve There is no mitral valve stenosis. There is mild to moderate mitral valve regurgitation. Tricuspid Valve There is no tricuspid valve regurgitation. Pericardium/Pleural There is no pericardial effusion. Inferior Vena Cava Normal inferior vena cava with >50% collapse upon inspiration consistent with normal right atrial pressure, 5 mmHg. Aorta The aortic root size at the sinus of Valsalva is normal. Left Ventricular Outflow Tract Name Value Normal LVOT 2D LVOT Diameter 2.0 cm LVOT Doppler LVOT Peak Velocity 86 cm/s LVOT Peak Gradient 3 mmHg LVOT Mean Gradient 2 mmHg LVOT VTI 17 cm LVOT Stroke Volume 55 ml LVOT CO 3.6 l/min LVOT CI 1.9 l/min/m2 Pulmonic Valve Name Value Normal RVOT Doppler RVOT Peak Velocity 64 cm/s RVOT Peak Gradient 2 mmHg PV Doppler PV Peak Velocity 86 cm/s PV Peak Gradient 3 mmHg Mitral Valve Name Value Normal MV Diastolic Function MV E Peak Velocity 80 cm/s MV A Peak Velocity 84 cm/s MV E/A 0.9 MV Decel Time (PW) 222 ms MV Annular TDI MV E/e' (Septal) 10.1 MV E/e' (Lateral) 12.6 MV E/e' (Average) 11.3 Tricuspid Valve Name Value Normal Estimated PAP/RSVP RA Pressure 5 mmHg <=5 TV Annular TDI TV Lateral Emmie s' Velocity 8.7 cm/s >=9.5 Aortic Valve Name Value Normal AV Doppler AV Peak Velocity 118 cm/s AV Peak Gradient 6 mmHg AV Area (Cont Eq Pepe) 2.3 cm2 AV DI (Pepe) 0.73 AV Regurgitation 2D LVOT Area 3.2 cm2 Ventricles Name Value Normal LV Dimensions 2D/MM IVS Diastolic Thickness (2D) 0.4 cm 0.6-1.0 LVID Diastole (2D) 7.1 cm 4.2-5.8 LVIW Diastolic Thickness (2D) 0.6 cm 0.6-1.0 LVID Systole (2D) 6.5 cm 2.5-4.0 LVOT Diameter 2.0 cm LV Mass (2D Cubed) 147.73 g 88.00-224.00 LV Mass Index (2D Cubed) 79 g/m2 49-115 Relative Wall Thickness (2D) 0.17 <=0.42 LV Fractional Shortening/Ejection Fraction 2D/MM LV Fractional Shortening (2D) 8 % 25-43 LV EF (2D Teichholz) 18 % LV Diastolic Volume (4C MOD) 207 ml LV EF (4C MOD) 10 % LV Diastolic Volume (2C MOD) 229 ml LV EF (2C MOD) 15 % LV Diastolic Volume (BP MOD) 222 ml 62-150 LV Diastolic Volume Index (BP MOD) 119 ml/m2 34-74 LV Systolic Volume (BP MOD) 194 ml 21-61 LV Systolic Volume Index (BP MOD) 103 ml/m2 11-31 LV EF (BP MOD) 13 % 52-72 LV Diastolic Length (4C) 8.7 cm LV Systolic Length (4C) 8.2 cm LV Stroke Volume (4C MOD) 22 ml Atria Name Value Normal LA Dimensions LA Volume (4C A-L) 55 ml LA Volume (BP A-L) 63 ml RA Dimensions RA Systolic Major [place] Length (4C) 5.5 cm 2.1-2.7 RA Area (4C) 14.8 cm2 <=18.0 Report Signatures
--- OUTSIDE RECORDS SUMMARY | 2025-05-09 13:28 | XMS_ITS | Clinical Summary ---
Author Organization [facility] Address [address] [place] [address] Care Team Providers Care Cnc Machine Setter Name Role Phone Dilshad Caruso MD Primary Care Provider [phone] Allergies Active Allergy Reactions Criticality Noted Date [...] ANGIOGRAPHY AND WITH OR WITHOUT LEFT VENTRICULOGRAM 82818; Surgeon: Andrzej Kiser MD; Location: [facility]; Service: Cardiovascular; Laterality: N/A; Medical devices from this surgery are in the Medical Devices section. CARDIAC CATHETERIZATION 12/13/2024 N/A Procedure: PCI PTCA - MAJOR CORONARY 52652; Surgeon: Andrzej Kiser MD; Location: [facility]; Service: Cardiovascular; Laterality: N/A; Medical devices from this surgery are in the Medical Devices section. CARDIAC CATHETERIZATION 12/13/2024 N/A Procedure: AORTOGRAM THORACIC S&I 13027; Surgeon: Andrzej Kiser MD; Location: [facility]; Service: Cardiovascular; Laterality: N/A; Medical devices from this surgery are in the Medical Devices section. Medical History Medical History Date Comments Coronary artery disease COPD (chronic obstructive pulmonary disease) Hyperlipidemia Ventricular tachycardia (HCC) 10/03/2021 Ischemic cardiomyopathy [...] Visit 65+ 2018 Covid-19 Vaccine (4 - 2024-2 6 season) 2025 04/11/2021, 08/31/2020, 08/10/2020 Influenza Vaccine (#1) 2025 , 03/22/2020, 06/06/2019, Additional history exists Fall Risk Assessment 12/14/2025 12/14/2024 Medical Devices Implanted Type Area Salesforce Business Analyst Device Identifier Shelf Expiration Date Model / Serial / Lot IntroBridge Angio-Seal Vip 6fr Closere Device [id number] - [id number] - [id number] Implanted:Qty: 1 on 12/13/2024 by Andrzej Kiser MD at [facility] [employer] 08/19/2025 [id number] / [id number] / Insurance IDPA [facility] MEDICARE ADVANTAGE [facility] Address: [address] [address] [place] [address] Advance Directives For more information, please contact: [phone] * Full Code (Latest Code Status on File) Date Activated Date Inactivated Comments 12/13/2024 3:05 PM 12/14/2024 3:39 PM Care Teams Cnc Machine Setter Relationship Specialty Start Date End Date Dilshad Caruso MD PCP - General Family Medicine 11/21/21
--- OUTSIDE RECORDS SUMMARY | 2025-05-09 13:28 | XMS_ITS | Clinical Summary ---
Author Organization [facility] [email or web address] Address [address] [place] [address] Care Team Providers Care Inside Sales Account Representative Name Role Phone Unavailable Primary Care Provider Unavailabl e Source Comments [facility] [email or web address],non-owned Affiliates and Associated Physician Practices is amultiple site organization consisting of ambulatory clinics and hospital sitesin [place], [place] and [place]. This disclosure is being madepursuant to the Care Everywhere program and may not contain all information available regarding this patient. Last updated 18.[facility] [email or web address] Allergies Active Allergy Reactions Criticality Noted Date [...] Comments Blood Pressure 118/73 07/20/2019 2:41 PM PAINT SPRAY TENDER Pulse 92 07/20/2019 2:41 PM PAINT SPRAY TENDER Temperature - - Respiratory Rate - - Oxygen Saturation - - Inhaled Oxygen Concentration - - Weight 95.3 kg (210 lb) 07/20/2019 2:41 PM PAINT SPRAY TENDER Height 182.9 cm (6') 07/20/2019 2:41 PM PAINT SPRAY TENDER Body Mass Index 28.48 07/20/2019 2:41 PM PAINT SPRAY TENDER Plan of Treatment Health Maintenance Due Date [...] (1 of 2) 2003 AAA SCREENING 2018 DEPRESSION SCREENING 07/06/2024 MEDICARE AWV CALENDAR YEAR 2024 COVID-19 VACCINE (1 - 2023-2 5 season) 2025 INFLUENZA VACCINE (#1) 2025 07/06/2017 Respiratory Syncytial [...] - OUT OF STATE MEDICARE DUAL ADV [place] BERNAL MEDICARE DUAL ADV [place]
--- OUTSIDE RECORDS SUMMARY | 2025-05-09 13:28 | XMS_ITS | Encounter Summary ---
Author Organization [facility] Address [address] [facility] [place] [address] Care Team Providers Care Adult Specialist Name Role Phone Unavailable Primary Care Provider Unavailabl e Encounter Details Date Type Department Care Team (Late st Contact Info) Description 07/11/2019 Lab Requisition [facility] DermPath Lab [address], [place] [address] Concepcion Khan MD [address] [facility] [address] [place] [address] Social History Tobacco Use Types Packs/Day Years [...] DERMPATH SLIDE CONSULT Routine 07/11/2019 12:00 AM SUPERVISOR TELEPHONE CLERKS documented in this encounter Results * DERMPATH SLIDE CONSULT (07/11/2019 12:00 AM SUPERVISOR TELEPHONE CLERKS) Case Report Dermatopathology Report Case: [id number] Authorizing Provider: Concepcion Khan MD Collected: 07/11/2019 12:00 AM Ordering Location: [facility] DermPath Lab Received: 07/11/2019 08:03 AM Pathologist: Arti Rodriguez MD Specimen: Slide(s), Left earlobe, OSC# [id number] 0 2:47 PM SUPERVISOR TELEPHONE CLERKS DERMATOPATHOLOGY LABORATORY Final Diagnosis Specimen A. 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 Squamous cell carcinoma, acantholytic. All slides returned. Appointment. Date: 07/20/2019. Any additional sections, special stains or immunohistochemical stains performed by our laboratory will be kept here on file. 0 2:47 PM [facility] DERMATOPATHOLOGY LABORATORY Microscopic Description Specimen A. Slide(s), Left earlobe, OSC# [id number]: Sections show skin with irregularly shaped nests of keratinocytes with evidence of cornification. In some nests, there is loss of cohesion between the neoplastic cells, as well as individual dyskeratotic cells that lack intercellular bridges. 0 2:47 PM [facility] DERMATOPATHOLOGY LABORATORY Disclaimer An external and internal positive and negative controls are appropriate for the histochemical, immunohistochemical and immunofluorescence stain(s) in this case (if any), except where stated explicitly. The performance characteristics of the stain(s) cited in this report were developed and its performance characteristic determined by the Dermatopathology Laboratory at [facility], directed by Dr. Unique Miller. These tests need not be, and therefore are not, approved by the [place] Food and Drug Administration. The tests are used for clinical purposes. Billing Codes Specimen Charges Stain Charges 59296 1 0 2:47 PM SUPERVISOR TELEPHONE CLERKS DERMATOPATHOLOGY LABORATORY Embedded Images 0 2:47 PM SUPERVISOR TELEPHONE CLERKS DERMATOPATHOLOGY LABORATORY Pathology/Cytolog y SLIDE / Unknown 07/11/2019 07/11/2019 8:03 AM [facility] Concepcion Khan MD LAB - PATHOLOGY/CYTOLOGY ORDER JAYCOB Final Result DERMATOPATHOLOGY LABORATORY [facility] - Department of Dermatology [address] [place] [address], 5th Floor Lab [address] [place], [place] [address] [phone] documented in this encounter Visit Diagnoses Not on filedocumented in this encounter
[2025-05-09] MEDS: PERFLUTREN LIPID MICROSPHERES 1.5 ML VIAL DILUTED TO 10 ML TOTAL VOLUME IV PUSH (15:42)
--- NOTE | 2025-05-09 15:42 | IVDEFINITY ---
Prior to administration of IV Definity the patient was educated on the risks and benefits of the imaging enhancing agent including potential adverse side effects. The patient verbalized understanding. Allergies were verified. No exclusion criteria were identified and at least one of the following inclusion criteria were met: 1) physician request, 2) patient technically difficult to image (per the [place] Society of Echocardiography guidelines of two or more segments not discernable within the apical view), or 3) questionable left ventricular function. ?
== END 2025-05-09 11:11 | disposition home or self-care (01) ==
LOC: CHSIMG 11:11
PROVIDERS: PCP Physician Assistant; Visit Provider Internal Medicine Cardiovascular Disease
DX: I25.5 Ischemic cardiomyopathy (principal); I34.0 Nonrheumatic mitral (valve) insufficiency; I35.8 Other nonrheumatic aortic valve disorders; I50.30 Unspecified diastolic (congestive) heart failure
CPT/HCPCS: C8929

== ENCOUNTER 2025-05-18 14:35 | Outpatient (CLI) | payer MEDICARE, MEDICAID, SELFPAY ==
--- NOTE | ~2025-05-18 | US_ITS ---
EXAMINATION: US carotid duplex BI DATE: 05/18/2025 15:57 INDICATION: Occlusion/stenosis of unspecified carotid artery TECHNIQUE: Grayscale, color Doppler, and pulsed Doppler images of the cervical carotid arteries were obtained. The degree of vessel stenosis is placed in one of the following categories: normal, <50%, 50-69%, >=70% but less than near- occlusion, near-occlusion, or total occlusion. Note that percent stenosis relative to normal distal artery lumen diameter is indirectly measured from velocity measurements as described by Francisco, et al. Radiology 2003; 229:340-346. COMPARISON: None. FINDINGS: Cardiac arrhythmia is present. RIGHT: The right common carotid artery (CCA) peak systolic velocity (PSV) is 79 cm/s. The right internal carotid artery (ICA) PSV is 63 cm/s. The right ICA end- diastolic velocity (EDV) is 19 cm/s. The right ICA/CCA PSV ratio is 0.8. Grayscale and color Doppler images yield an estimate of <50% diameter reduction from plaque in the ICA. The external carotid artery (ECA) PSV is 141 cm/s. There is antegrade flow in the right vertebral artery. LEFT: The left CCA PSV is 87 cm/s. The left ICA PSV is 79 cm/s. The left ICA EDV is 24 cm/s. The left ICA/CCA PSV ratio is 0.9. Grayscale and color Doppler images yield an estimate of <50% diameter reduction from plaque in the ICA. The ECA PSV is 79 cm/s. There is antegrade flow in the left vertebral artery. IMPRESSION: 1. <50% stenosis in the right internal carotid artery. 2. <50% stenosis in the left internal carotid artery. 3. Cardiac arrhythmia is present. Correlate with EKG. Reviewed, dictated and finalized at location A. RGLASS FINISHER
--- OUTSIDE RECORDS SUMMARY | 2025-05-18 14:55 | XMS_ITS | Clinical Summary ---
Author Organization [facility] [employer] Address [address] [place] [address] Care Team Providers Care Electric Motor Repairing Supervisor Name Role Phone Unavailable Primary Care Provider Unavailabl e Source Comments [facility] [employer],non-owned Affiliates and Associated Physician Practices is amultiple site organization consisting of ambulatory clinics and hospital sitesin [place], [place], [place] and [place]. This disclosure is being madepursuant to the Care Everywhere program and may not contain all information available regarding this patient. Last updated 18.[facility] [employer] Allergies Active Allergy Reactions Criticality Noted Date [...] Comments Blood Pressure 118/73 07/20/2019 2:41 PM GAS ANALYST Pulse 92 07/20/2019 2:41 PM GAS ANALYST Temperature - - Respiratory Rate - - Oxygen Saturation - - Inhaled Oxygen Concentration - - Weight 95.3 kg (210 lb) 07/20/2019 2:41 PM GAS ANALYST Height 182.9 cm (6') 07/20/2019 2:41 PM GAS ANALYST Body Mass Index 28.48 07/20/2019 2:41 PM GAS ANALYST Plan of Treatment Health Maintenance Due Date [...] - OUT OF STATE MEDICARE DUAL ADV [place] BERNAL MEDICARE DUAL ADV [place]
--- OUTSIDE RECORDS SUMMARY | 2025-05-18 14:55 | XMS_ITS | Clinical Summary ---
Author Organization [facility] Address [address] [place] [address] Care Team Providers Care Brick Setter Name Role Phone Dilshad Caruso MD Primary Care Provider [phone] Allergies Active Allergy Reactions Criticality Noted Date [...] ANGIOGRAPHY AND WITH OR WITHOUT LEFT VENTRICULOGRAM 50985; Surgeon: Andrzej Kiser MD; Location: [facility]; Service: Cardiovascular; Laterality: N/A; Medical devices from this surgery are in the Medical Devices section. CARDIAC CATHETERIZATION 12/13/2024 N/A Procedure: PCI PTCA - MAJOR CORONARY 59060; Surgeon: Andrzej Kiser MD; Location: [facility]; Service: Cardiovascular; Laterality: N/A; Medical devices from this surgery are in the Medical Devices section. CARDIAC CATHETERIZATION 12/13/2024 N/A Procedure: AORTOGRAM THORACIC S&I 58880; Surgeon: Andrzej Kiser MD; Location: [facility]; Service: Cardiovascular; Laterality: N/A; Medical devices from [...] 12/14/2025 12/14/2024 Medical Devices Implanted Type Area Chief Growth Officer Device Identifier Shelf Expiration Date Model / Serial / Lot [employer]Order Angio-Seal Vip 6fr Closere Device [id number] - [id number] - [id number] Implanted:Qty: 1 on 12/13/2024 by Andrzej Kiser MD at [facility] [employer] 08/19/2025 [id number] / [id number] / Insurance IDPA [facility] MEDICARE ADVANTAGE Advance Directives For more information, please contact: [phone] * Full Code (Latest Code Status on File) Date Activated Date Inactivated Comments 12/13/2024 3:05 PM 12/14/2024 3:39 PM Care Teams Brick Setter Relationship Specialty Start Date End Date Dilshad Caruso MD PCP - General Family Medicine 11/21/21
--- OUTSIDE RECORDS SUMMARY | 2025-05-18 14:55 | XMS_ITS | Encounter Summary ---
Author Organization [facility] Address [address] [place] [address] Care Team Providers Care Cloth Shrinking Tester Name Role Phone Unavailable Primary Care Provider Unavailabl e Encounter Details Date Type Department Care Team (Late st Contact Info) Description 07/11/2019 Lab Requisition [facility] DermPath Lab [address], [place] [address] Concepcion Khan MD [address] [facility] [address] [place] [address] Social History Tobacco Use Types Packs/Day Years [...] DERMPATH SLIDE CONSULT Routine 07/11/2019 12:00 AM PNEUMATIC DEICER INSPECTOR documented in this encounter Results * DERMPATH SLIDE CONSULT (07/11/2019 12:00 AM PNEUMATIC DEICER INSPECTOR) Case Report Dermatopathology Report Case: [id number] Authorizing Provider: Concepcion Khan MD Collected: 07/11/2019 12:00 AM Ordering Location: [facility] DermPath Lab Received: 07/11/2019 08:03 AM Pathologist: Arti Rodriguez MD Specimen: Slide(s), Left earlobe, [id number]# [id number] 0 2:47 PM PNEUMATIC DEICER INSPECTOR DERMATOPATHOLOGY LABORATORY Final Diagnosis Specimen A. 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 Squamous cell carcinoma, acantholytic. All slides returned. Appointment. Date: 07/20/2019. Any additional sections, special stains or immunohistochemical stains performed by our laboratory will be kept here on file. 0 2:47 PM [facility] DERMATOPATHOLOGY LABORATORY Microscopic Description Specimen A. Slide(s), Left earlobe, OSC# [id number]: Sections show skin with irregularly shaped nests of keratinocytes with evidence of cornification. In some nests, there is loss of cohesion between the neoplastic cells, as well as individual dyskeratotic cells that lack intercellular bridges. 0 2:47 PM [facility] DERMATOPATHOLOGY LABORATORY Disclaimer An external and internal positive and negative controls are appropriate for the histochemical, immunohistochemical and immunofluorescence stain(s) in this case (if any), except where stated explicitly. The performance characteristics of the stain(s) cited in this report were developed and its performance characteristic determined by the Dermatopathology Laboratory at [facility], directed by Dr. Unique Miller. These tests need not be, and therefore are not, approved by the [place] Food and Drug Administration. The tests are used for clinical purposes. Billing Codes Specimen Charges Stain Charges 16508 1 0 2:47 PM PNEUMATIC DEICER INSPECTOR DERMATOPATHOLOGY LABORATORY Embedded Images 0 2:47 PM PNEUMATIC DEICER INSPECTOR DERMATOPATHOLOGY LABORATORY Pathology/Cytolog y SLIDE / Unknown 07/11/2019 07/11/2019 8:03 AM [facility] Concepcion Khan MD LAB - PATHOLOGY/CYTOLOGY ORDER JAYCOB Final Result DERMATOPATHOLOGY LABORATORY [facility] - Department of Dermatology [address] [place] [address], 5th Floor Lab [address] [place], [place] [address] [phone] documented in this encounter Visit Diagnoses Not on filedocumented in this encounter
--- OUTSIDE RECORDS SUMMARY | 2025-05-18 14:55 | XMS_ITS | Encounter Summary ---
Author Organization [facility] Address [address] [place] [address] Care Team Providers Care Mine Car Mechanic Name Role Phone Dilshad Caruso MD Primary Care Provider [phone] Katya Quiroz MD Unavailable Encounter Details Date Type Department Care Team (Late st Contact Info) Description 12/11/2018 Abstract [facility]FL CONVERSION [address] [place] [address] , Generic Conversion, Social History Tobacco Use Types Packs/Day Years Used Date Smoking Tobacco: Never Assessed Sex and Gender Information Value Date Recorded Sex Assigned at Male 09/28/2024 9:38 AM CDT Legal Sex Male 5:[address] RUNNER Gender Identity Not on file Sexual Orientation Not on file documented as of this encounter Plan of Treatment Upcoming Encounters Date Type Department Care Team (Late st Contact Info) Description 05/29/2025 9:[address] [facility] [address] [place] [address] Ronald Mercado, ISABEL [address] [place] [phone] 05/29/2025 10:[address] [facility] [address] [place] [address] Ronald Mercado, ISABEL [address] [place] [address] documented as of this encounter Visit Diagnoses Not on filedocumented in this encounter Additional Health Concerns Infection Onset Date Last Indicated Resolved Time COVID-19 Rule Out 05/26/2020 05/26/2020 05/28/2020 11:[address] MACHINE RUNNER documented as of this encounter Care Teams Mine Car Mechanic Relationship Specialty Start Date End Date Dilshad Caruso MD [address] [place] [address] PCP - General FAMILY PRACTICE 06/30/19 Katya Quiroz MD [address] [place] [address] [place] Flight Radio Officer CARDIOVASCULAR DISEASE 10/14/23 documented as of this encounter
--- OUTSIDE RECORDS SUMMARY | 2025-05-18 14:55 | XMS_ITS | Clinical Summary ---
Author Organization [facility] Address [address] [place] [address] Care Team Providers Care [facility] Manager Name Role Phone Dilshad Caruso MD [...] mouth daily. 90 tablet 3 11/05/2023 Active clopidogrel (PLAVIX) 75 MG tablet Take 1 tablet (75 mg total) by mouth daily. Active Active Problems No known active problems Encounters Date Type Department Care Team Description 05/04/2025 1:30 PM CDT Office Visit [facility] [address] [place] [address] Justin Allen MD New Patient; Hernia 05/04/2025 Travel 04/24/2025 11:40 AM CDT - 04/24/2025 11:59 PM CDT Hospital Encounter [facility] [place] [address] [place] [address] Li Mercado NP Discharge Disposition: Home or Self Care (Routine Discharge) 04/24/2025 Travel from Last 3 Months Family History Medical History Relation Comments Heart Attack Father Heart Disease Father Heart Attack Mother Relation Status Comments Father Mother Social History Tobacco Use Types Packs/Day Years Used Date Smoking Tobacco: Every Day Cigarettes 1 38 Smokeless Tobacco: Former Tobacco [...] AM CDT Legal Sex Male 5:54 PM SQL REPORT WRITER Gender Identity Not on file Sexual Orientation Not on file Last Filed Vital Signs Vital Sign Reading Time Taken Comments Blood Pressure 113/74 05/04/2025 12:40 PM CDT Pulse 86 05/04/2025 12:40 PM CDT Temperature 36.8 C (98.2 F) 05/03/2021 3:16 PM CDT Respiratory Rate 16 05/04/2025 12:40 PM CDT Oxygen Saturation 87% 05/04/2025 12:40 PM CDT Inhaled Oxygen Concentration - - Weight 73.5 kg (162 lb) 05/04/2025 12:40 PM CDT Height 176.5 cm (5' 9.5) 05/04/2025 12:40 PM CD T Body Mass Index 23.58 05/04/2025 12:40 PM CDT Plan of Treatment Upcoming Encounters Date Type Department Care Team (Late st Contact Info) Description 05/29/2025 9:30 AM SQL REPORT WRITER Appointment [facility] [address] [place] [address] Li Mercado, BUSINESS OBJECTS DEVELOPER [address] [place] [phone] 05/29/2025 10:30 AM SQL REPORT WRITER Appointment [facility] [address] [place] [address] Li Mercado, BUSINESS OBJECTS DEVELOPER [address] [place] [address] Health Maintenance Due Date Last Done Comments Colorectal Cancer Screening Colonoscopy (10 Years) 1955 Hepatitis C 1971 DTaP, Tdap and Td Vaccines (1 - Tdap) 1972 Pneumococcal Vaccine: 50+ Years (1 of 2 - PCV) 1972 Zoster Vaccines (1 of 2) 2003 Annual Medicare Wellness Visit 2018 PHQ-2 (Physician [place]) 07/06/2024 COVID-19 Vaccine ( season) 2025 04/11/2021, 08/31/2020, 08/10/2020 Influenza Adult (#1) 2025 03/21/2021, 03/22/2020, 06/06/2019, Additional history exists Lung Cancer Screening 04/24/2026 04/24/2025 , 09/28/2024, 08/17/2023 RSV Immunization or 60+ Years (1 - 1-dose 75+ series) 2028 AAA SCREENING Completed 04/24/2025 Hepatitis A Vaccines Aged Out No long er eligible based on patient's age to complete this topic Meningococcal B Vaccine Aged Out No l onger eligible based on patient's age to complete this topic Meningococcal Vaccine Aged Out No [place] liyah eligible based on patient's age to complete this topic RSV Immunizations Under 20 Months Aged Out No longer eligible based on patient's age to complete this topic Procedures Procedure Name Priority Date/Time Associated Diagnosis Comments CT CHEST WO CON STAT 04/24/2025 12:19 PM CDT Epigastric hernia from Last 3 Months Results * CT CHEST WO CON (04/24/2025 12:19 PM CDT) Anatomical Region Laterality Modality Chest Computed Tomogra phy 04/24/2025 1:29 PM CDT Impressions 04/24/2025 1:38 PM CDT Impression: Fat-containing epigastric hernia without complication. No significant change from 08/17/2023. Ordered By: LI MERCADO Interpreted By: Ceferino Lao MD, 04/24/2025 1:29 PM Narrative 04/24/2025 1:38 PM CDT [address] [place] [address] Examination: CT chest without IV contrast. Exam Date: 04/24/2025 12:19 PM Indication: Epigastric hernia pain for one month Comparison:09/28/2024, 08/17/2023 Technique: Technical comments: Standard technique. Dose reduction: This CT exam was performed using one or more of the following dose reduction techniques: Automated exposure control, adjustment of the mA and/or kV according to patient size, and/or use of iterative reconstruction technique. Findings: Fat-containing epigastric hernia directly anterior to the lower margin of the heart. The hernia muscle wall opening is 3.5 cm transverse by 2.4 cm craniocaudal. This allows a sac of fat to herniate through that measures 7.9 cm transverse by 3.4 cm AP by 7.5 cm craniocaudal. Patient is history of prior sternotomy. There are wires are intact. The sternotomy is united. Mild tortuous and ectatic thoracic aorta measuring up to 4.3 cm diameter. Descending aorta 3.2 cm diameter. Coronary artery calcifications and CABG. No pulmonary artery dilatation. Granulomatous lymph nodes. No hiatal hernia. No acute abdomen. Mild aneurysmal abdominal aorta, 3.2 cm diameter. 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 Linear bands of lung scarring. Mild airway thickening and some retained secretions. No malignant-type lung nodule or mass changes from the lung screening CT 09/28/2024, with the prior nodules grossly stable. No acute pulmonary finding. No acute pleural finding. Degenerative arthritis and spondylosis. Osteoporosis. Procedure Note Ceferino Lao MD - 04/24/2025 [place] [address] [facility] [place] [address] Examination: CT chest without IV contrast. Exam Date: 04/24/2025 12:19 PM Indication: Epigastric hernia pain for one month Comparison:09/28/2024, 08/17/2023 Technique: Technical comments: Standard technique. Dose reduction: This CT exam was performed using one or more of thefollowing dose reduction techniques: Automated exposure control,adjustment of the mA and/or kV according to patient size, and/or use ofiterative reconstruction technique. Findings: Fat-containing epigastric hernia directly anterior to the lowermargin of the heart. The hernia muscle wall opening is 3.5 cm transverseby 2.4 cm craniocaudal. This allows a sac of fat to herniate through thatmeasures 7.9 cm transverse by 3.4 cm AP by 7.5 cm craniocaudal. Patient ishistory of prior sternotomy. There are wires are intact. The sternotomy isunited. Mild tortuous and ectatic thoracic aorta measuring up to 4.3 cmdiameter. Descending aorta 3.2 cm diameter. Coronary artery calcificationsand CABG. No pulmonary artery dilatation. Granulomatous lymph nodes. Nohiatal hernia. No acute abdomen. Mild aneurysmal abdominal aorta, 3.2 cmdiameter. 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 Linearbands of lung scarring. Mild airway thickening and some retainedsecretions. No malignant-type lung nodule or mass changes from the lungscreening CT 09/28/2024, with the prior nodules grossly stable. No acutepulmonary finding. No acute pleural finding. Degenerative arthritis andspondylosis. Osteoporosis. Impression: Fat-containing epigastric hernia without complication. Nosignificant change from 08/17/2023. Ordered By: LI MERCADO Interpreted By: Ceferino Lao MD, 04/24/2025 1:29 PM us Li Izzy Grothaus BUSINESS OBJECTS DEVELOPER CT Fin al Result from Last 3 Months Insurance MEDICAID [facility] MEDICARE Care Teams [facility] Manager Relationship Specialty Start Date End Date Dilshad Caruso MD [address] [place] [id number] PCP - General FAMILY PRACTICE 06/30/19 Katya Quiroz MD [address] [place] [address] [employer] Port Director CARDIOVASCULAR DISEASE 10/14/23
== END 2025-05-18 14:36 | disposition home or self-care (01) ==
PROVIDERS: PCP Physician Assistant; Visit Provider Internal Medicine Cardiovascular Disease
DX: I65.23 Occlusion and stenosis of bilateral carotid arteries (principal)
CPT/HCPCS: 93880